=== PATIENT | female | born 1980 | race Two or more races ===

== ENCOUNTER 2021-08-23 14:11 | Outpatient (REF) | payer OTHER, SELFPAY ==
[2021-08-23 14:45] LABS: MANUAL DIFF FLAG NO
[2021-08-23 15:21] LABS: Basophils Absolute Auto 0.1 X10*3/uL (0.0-0.2); Basophils Percent Auto 0.7 % (0-2); Eosinophils Absolute Auto 0.1 X10*3/uL (0.0-0.4); Hematocrit 38.6 % (37.0-47.0); Hemoglobin 12.5 g/dl (12.0-16.0); Imm Gran Abs Auto 0.04 X10*3/uL (0.00-0.03); Imm Gran Pct Auto 0.3 % (0.0-0.4); Lymphocytes Absolute Auto 3.3 X10*3/uL (1.2-4.9); Mean Corpuscular HGB Conc 32.4 g/dl (31.0-35.0); Mean Corpuscular Volume 86.5 fL (80.0-98.0); Mean Platelet Volume 11.2 fL (9.4-12.3); Monocytes Absolute Auto 0.9 X10*3/uL (0.1-1.2); Monocytes Percent Auto 7.9 % (2-11); Neutrophils Percent Auto 61.1 % (45-73); Platelet Count 353 X10*3/uL (160-400); Red Blood Count 4.46 X10*6/uL (4.20-5.50); Red Cell Distribution Width 13.3 % (11.0-16.0); White Blood Count 11.4 X10*3/uL (4.8-10.8)
[2021-08-23 15:58] LABS: Alanine Aminotransferase 18 U/L (0-31); Albumin Level 4.5 g/dL (3.5-5.0); Alkaline Phosphatase 50 U/L (39-117); Anion Gap 15 (12-20); Aspartate Amino Transferase 15 U/L (5-31); Bilirubin Total 0.8 mg/dL (0.0-1.0); Blood Urea Nitrogen 13 mg/dL (9-16); Calcium 9.9 mg/dL (8.4-10.2); Carbon Dioxide 24 mmol/L (22-29); Chloride 104 mmol/L (96-108); Estimated Glomerular Filt Rate > 60; Glucose Random 81 mg/dL (60-115); Potassium 4.7 mmol/L (3.3-5.1); Sodium 138 mmol/L (135-145); Total Protein 7.8 g/dL (6.5-8.0)
[2021-08-23 17:28] LABS: H Pylori Breath Test Negative (Negative)
== END 2021-08-23 14:12 | disposition home or self-care (01) ==
LOC: HO.LAB 14:11
PROVIDERS: PCP Internal Medicine Geriatric Medicine; Visit Provider Physician Assistant
DX: A04.8 Other specified bacterial intestinal infections (principal); K21.9 Gastro-esophageal reflux disease without esophagitis
CPT/HCPCS: 36415; 80053; 83013; 85025; 99202

== ENCOUNTER → 2021-11-22 13:08 | Outpatient (BNVA) | payer OTHER, SELFPAY | PROVIDERS: PCP Internal Medicine Geriatric Medicine; Visit Provider Physician Assistant | DX: K21.9 Gastro-esophageal reflux disease without esophagitis (principal) | CPT/HCPCS: 99212 ==

== ENCOUNTER 2021-12-11 13:28 | Outpatient (REF) | payer OTHER, SELFPAY ==
[2021-12-11 14:15] LABS: COVID-19 Test Negative (Negative); IDNOW Serial# 9DB6401D
== END 2021-12-11 13:29 | disposition home or self-care (01) ==
LOC: HO.LAB 13:28
PROVIDERS: Visit Provider Internal Medicine
DX: Z20.822 Contact with and (suspected) exposure to COVID-19 (principal)
CPT/HCPCS: 87635; C9803

== ENCOUNTER → 2022-02-14 12:42 | Outpatient (BNVA) | payer OTHER, SELFPAY | PROVIDERS: PCP Internal Medicine Geriatric Medicine; Visit Provider Physician Assistant | DX: K21.9 Gastro-esophageal reflux disease without esophagitis (principal) | CPT/HCPCS: 99212 ==

== ENCOUNTER → 2022-03-13 09:01 | Outpatient (BNVA) | payer OTHER, SELFPAY | PROVIDERS: PCP Internal Medicine Geriatric Medicine; Referring Provider Internal Medicine Geriatric Medicine; Visit Provider Internal Medicine | DX: R00.2 Palpitations (principal); R94.31 Abnormal electrocardiogram [ECG] [EKG] | CPT/HCPCS: 93005; 99202 ==

== ENCOUNTER → 2022-03-27 11:10 | Outpatient (REF) | payer OTHER, SELFPAY ==
--- NOTE | 2022-03-27 11:13 | HM_ITS ---
Conclusion: 1. Patient was monitored for total 3 days 2. Baseline rhythm was normal sinus rhythm with average heart of 74 beats per minute 3. No significant pauses or bradycardia noted 4. Rare PACs/PVCs noted 5. Patient reported symptoms correlated with sinus rhythm MTDD
== END ==
LOC: HO.CARD 11:10
PROVIDERS: Visit Provider Internal Medicine
DX: R00.2 Palpitations (principal)
CPT/HCPCS: 93242

== ENCOUNTER → 2022-04-01 09:23 | Outpatient (REF) | payer OTHER, SELFPAY ==
--- NOTE | 2022-04-01 09:26 | CA_ITS ---
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 Study Quality: Adequate ECG Rhythm: Sinus Conclusions: - The left ventricular systolic function is normal. The calculated ejection fraction is 57% by biplane method. - No obvious valvular pathology seen on this study. Findings Left Ventricle Normal left ventricular cavity size. There is normal left ventricular wall thickness. The left ventricular systolic function is normal. The calculated ejection fraction is 57% by biplane method. There is no evidence of regional wall motion abnormalities. Diastolic function is normal for age. LV peak GLS -18.5%. Right Ventricle Normal right ventricular cavity size and systolic function. Atria Both atria are normal in size. Aortic Valve There is a normal trileaflet aortic valve. There is no aortic valve stenosis. There is no aortic valve regurgitation. Mitral Valve The mitral valve appears normal. There is trace mitral valve regurgitation. There is no mitral valve stenosis. Pulmonic Valve The pulmonic valve is likely normal. Tricuspid Valve Normal tricuspid valve structure. There is mild tricuspid valve regurgitation. There is no evidence of pulmonary hypertension. Great Vessels The asc aorta is normal in size. Venous The inferior vena cava is normal in size and collapses greater than 50% with inspiration. Pericardium/Pleural There is no evidence of pericardial effusion. Prior Study Comparison No prior study available for comparison. Recommendations, Care & Conclusions No obvious valvular pathology seen on this study. Measurements 2D Linear Measurements IVSd: 1.14 0.6-0.9/0.6-1.0 cm LVIDd: 5.48 3.9-5.3/4.2-5.9 cm LVIDd Index: 2.90 2.4-3.2/2.2-3.1 cm/m2 LVIDs: 3.67 2.0-3.6 cm LVPWd: 1.02 0.7-1.1 cm LA Diam: 3.20 2.7-3.8/3.0-4.0 cm LAIDs Index: 1.69 1.5-2.3 cm/m2 LV Mass: 292.63 67-162/88-224 g LV Mass Index: 154.83 43-95/49-115 g/m2 LVOT Diam: 2.00 3.0+(-)1.3 cm 2D Systolic Function EF 4C: 58.90 >55% EF 2C: 57.00 >55% EF BiP: 57.30 >55% Mitral Valve MV Pk E: 0.84 MV PK A: 0.75 MV Decel Time: 214.00 E/A: 1.10 E'Lateral: 12.80 E'Medial: 9.14 E/E' Med: 9.20 E/E' Lat: 6.60 PHT: 63.00 MVA PHT: 3.49 Decel Reeves: 3.92 Aortic Valve AoV Pk Liang: 1.71 AoV Mn Liang: 1.09 AoV VTI: 0.35 AoV Pk Grad: 12.00 Aov Mn Grad: 6.00 JEANMARIE Cont.VTI: 2.18 LVOT LVOT Pk Liang: 1.06 LVOT Mn Liang: 0.71 LVOT VTI: 0.24 LVOT Pk Grad: 4.00 LVOT Mn Grad: 2.00 LVOT Diam: 2.00 LVOT Area: 3.14 Diastolic Function MV Pk E: 0.84 MV Pk A: 0.75 E/A: 1.10 E'Medial: 9.14 E/E' Med: 9.20 E' Laterial: 12.80 E/E' Lat: 6.60 Right Ventricle TAPSE (mm): 22.10 TVS' Liang: 12.20 Tricuspid Valve TR Pk Liang: 2.27 TR Pk Grad: 21.00 RA Press: 3.00 RVSP: 24.00 Great Vessels Aorta Sinus of Valsalva: 3.20 2.0-3.[address] [place]: 2.55 1.7-3.4 cm Ao Asc: 3.30 2.1-3.4 cm Updated in Other Vendor System with Status of Final Christopher Chinchilla MD electronically signed on 04/01/2022 12:25:41 PM with status of Final
== END ==
LOC: HO.CARD 09:23
PROVIDERS: PCP Internal Medicine Geriatric Medicine; Visit Provider Internal Medicine
DX: I25.10 Atherosclerotic heart disease of native coronary artery without angina pectoris (principal); R94.31 Abnormal electrocardiogram [ECG] [EKG]
CPT/HCPCS: 93306; 93356

== ENCOUNTER → 2022-04-17 11:13 | Outpatient (REF) | payer OTHER, SELFPAY ==
--- NOTE | 2022-04-17 11:16 | CA_ITS ---
Acquisition Time: 2022-04-17 11:30:01 Total Exercise Time: 00:04:05 Test Indications: Abnormal ECG Medications: FAMOTIDINE Protocol: CHRISTOPHE Max HR: 123 BPM 69% of Pred: 178 BPM Max BP: 148/076 mmHG Max Work Load: 5.9 METS Exercise stres test with exercise 4 min 5 sec of Christophe protocol, achieving 69% MPHR with patient request to stop due to fatigue and sob, no chest discomfort, without arrythmia, with normotensive response to exercise, with nondiagnostic EKG for ischemia due to suboptimal heart rate. Echo images obtained by tech at rest and immediately post peak exercise. Definity contrast used. Test reviewed with Dr Deleon. Referred By: Christopher Chinchilla Overread By: JOSSUE MITCHELL
== END ==
LOC: HO.CARD 11:13
PROVIDERS: PCP Internal Medicine Geriatric Medicine; Visit Provider Internal Medicine
DX: R07.2 Precordial pain (principal); R94.31 Abnormal electrocardiogram [ECG] [EKG]
CPT/HCPCS: 93350; Q9957

== ENCOUNTER → 2022-05-16 12:46 | Outpatient (BNVA) | payer OTHER, SELFPAY | PROVIDERS: PCP Internal Medicine Geriatric Medicine; Visit Provider Physician Assistant | DX: K21.9 Gastro-esophageal reflux disease without esophagitis (principal); Z79.899 Other long term (current) drug therapy | CPT/HCPCS: 99212 ==

== ENCOUNTER 2022-06-13 08:04 | Outpatient (REF) | payer OTHER, SELFPAY ==
--- NOTE | ~2022-06-13 | CT_ITS ---
EXAMINATION: CT HEAD WITHOUT CONTRAST CLINICAL INFORMATION: Chronic nonintractable headache. COMPARISON: None available. TECHNIQUE: Contiguous axial imaging was performed from the skull base to vertex without intravenous administration of contrast. This CT examination was performed using dose optimization techniques as appropriate, variously including the following: *Automated exposure control *Adjustment of mA and/or kV according to patient size (this includes techniques or standardized protocols for targeted exams where dose is matched to indication/reason for exam; i.e. extremities or head) *Use of iterative reconstruction technique DLP: 956 mGy-cm FINDINGS: There is no acute intra-axial, extra-axial bleed, masses or midline shift. There is no acute infarction of the lesion. There is no edema. The lateral ventricles are symmetrical in size and configuration without enlargement. Contreras to white matter differentiation is maintained normal. Bone windows reveal no calvarial abnormality. There is no scalp abnormality seen. Bilateral paranasal sinuses and mastoid air cells are well-aerated. CT/CT head/brain wo IV con IMPRESSION: No acute intracranial process seen.
== END 2022-06-13 08:05 | disposition home or self-care (01) ==
LOC: HO.CT 08:04
PROVIDERS: PCP Internal Medicine Geriatric Medicine; Visit Provider Internal Medicine Geriatric Medicine
DX: G51.9 Disorder of facial nerve, unspecified (principal); G89.29 Other chronic pain
CPT/HCPCS: 70450

== ENCOUNTER 2022-07-04 11:06 | Outpatient (REF) | payer OTHER, SELFPAY ==
--- NOTE | ~2022-07-04 | MM_ITS ---
EXAMINATION: MM SCREENING DIGITAL BREAST TOMOSYNTHESIS, BILATERAL CLINICAL INFORMATION: Screening. Asymptomatic. The lifetime risk of breast cancer based on the Tyrer-Cuzick Model is 7.1%. COMPARISON: Mammography: April 16, 2013 and April 05, 2013 TECHNIQUE: Digital breast tomosynthesis is performed in both the craniocaudal and mediolateral oblique views along with computer-aided detection (CAD). Synthesized 2D images are generated from the tomosynthesis. FINDINGS: The breasts are heterogeneously dense, which may obscure small masses (ACR BI-RADS breast composition Category c). There are no new significant masses, abnormal calcifications, or other abnormalities. MM/MM tomosynthesis screening BI IMPRESSION: No significant changes ASSESSMENT: BI-RADS 1: Negative RECOMMENDATION: Routine annual mammography screening. This patient's information was entered into a reminder system with a target due date for their next mammogram.
== END 2022-07-04 11:07 | disposition home or self-care (01) ==
LOC: HO.MAMMO 11:06
PROVIDERS: PCP Internal Medicine Geriatric Medicine; Visit Provider Internal Medicine Geriatric Medicine
DX: Z12.31 Encounter for screening mammogram for malignant neoplasm of breast (principal)
CPT/HCPCS: 77063; 77067

== ENCOUNTER → 2022-08-01 12:27 | Outpatient (BNVA) | payer OTHER, SELFPAY | PROVIDERS: PCP Internal Medicine Geriatric Medicine; Referring Provider Internal Medicine Geriatric Medicine; Visit Provider Nurse Practitioner Family | DX: R00.2 Palpitations (principal); R94.31 Abnormal electrocardiogram [ECG] [EKG] | CPT/HCPCS: 99212 ==

== ENCOUNTER 2022-09-25 11:16 | Outpatient (AMB) | payer OTHER, SELFPAY ==
--- NOTE | 2022-09-25 11:28 | MHC.OFFVIS ---
Intake Vital Signs 09/25/22 11:40 Height 5 ft 1 in Weight 205 lb 14.588 oz BMI 38.9 BP 123/71 Blood Pressure Location Lt brachial Position Sitting Pulse 65 Intake Visit Reasons: 3 month fu Intake Note: Patient follow up acid reflex. Patient cc: pt reports having epigastric abdominal pain, GERD, bloating pt denies any other GI Issues Grievance And Appeals Coordinator Required: Yes Grievance And Appeals Coordinator Language: Laser Technician Name: Rhonda [facility] [place] Accompanied by: Self / Same As Patient Allergies No Known Allergies [No Known Allergies*] Allergy (Verified 09/25/22 11:40) HPI HPI Comments History of Present Illness Details A 42 y/o female acid reflux 3 month F/u- Last seen was doing well on famotidine-she says she is taking it at night time- its not working. Omeprazole does not work EGD 10/2019- no HP c/o discomfort-LBP- she says she spoke pcp- says its a muscle problem-PT- - but doesn't work- Reviewed diet-Coffee she states she can not remember what else she eats. She gets some stomach discomfort after she eats however she does not know how long it lasts, she is unable to identify anything specific She has no nausea, vomiting, hematemesis, hematochezia fever or chills PFSH Surgical History H/O section History of esophagogastroduodenoscopy (EGD) Hx of colonoscopy Family History Family/Other Cancer Diabetes Social History Household Members: Spouse Alcohol intake: never Patient Tobacco Use Status: Never used Tobacco Current occupational status: unemployed Review of Systems Const All systems reviewed & are unremarkable except as noted in HPI and below Resp Denies cough GI Reports bloating, Reports GI cramping, Reports heartburn, Denies nausea and Denies vomiting Physical Exam Vital Signs: Last Vital Signs Pulse 65 09/25/22 11:40 BP 123/71 09/25/22 11:40 BMI result Body Mass Index 38.9 Const General: cooperative, healthy appearing, comfortable and no acute distress Nutritional Appearance: overweight Orientation/consciousness: patient oriented x3 Limitations: language barrier Resp Effort & Inspection: normal respiratory effort and able to speak in complete sentences Auscultation: clear to auscultation bilaterally Cardio Rate: regular rate Rhythm: regular rhythm Heart sounds: S1 normal heart sound present and S2 normal heart sound present GI Inspection: Yes obesity Palpation (GI): Soft to palpation Auscultation: normal bowel sounds General: Yes no CVA tenderness Back/Spine/Pelvis Back: no CVA tenderness Skin General skin exam: no rashes or lesions noted Neuro General: patient oriented x3 Extrem Other: Walks with a slight limp Psych Mental Status: mental status grossly normal Speech and movement: Clear speech present Affect: normal affect Attitude: cooperative Thought content: Normal thought content present Results Reviewed Results Reviewed: 10/2019- EGD- no HP- Assessment & Plan Assessment & Plan (1) Acid reflux: Comment: Persistent reflux, symptoms vague, Will begin Famotidine 20 mg b.i.d. has declined PPI Dietary modifications -recommend food diary to try to identify culprits Code(s): K21.9 - Gastro-esophageal reflux disease without esophagitis Plan Famotidine 20 mg b.i.d. Reflux precautions reviewed Food diary Follow-up with PCP for non GI concerns Orders: Orders Comprehensive Met. Panel Today K58.9 - Irritable bowel syndrome without diarrhea Complete Blood Count Auto Diff Today K21.9 - Gastro-esophageal reflux disease without esophagitis Medications: New famotidine 20 mg PO BID 30 days 60 tabs 5RF Patient Instructions: Famotidine 20 mg b.i.d. Reflux precautions reviewed Food diary Follow-up with PCP for non GI concerns Encouraged to call with questions or concerns She back in 3 months for progress, sooner if indicated No major barriers to understanding were identified Coding Level of Care Code Est Pt Level 3 (44691) Diagnoses Acid reflux K21.9 Time Spent (min) 30 Comment Grievance And Appeals Coordinator
[2022-09-25 11:40] VITALS: BP 123/71; PULSE 65; BMI 38.9
== END 2022-09-25 12:14 | disposition home or self-care (01) ==
PROVIDERS: Visit Provider Physician Assistant
DX: K21.9 Gastro-esophageal reflux disease without esophagitis (principal)
CPT/HCPCS: 99213

== ENCOUNTER 2022-09-25 11:16 | Outpatient (REF) | payer OTHER, SELFPAY ==
[2022-09-25 12:41] LABS: MANUAL DIFF FLAG NO
[2022-09-25 13:07] LABS: Basophils Absolute Auto 0.1 X10*3/uL (0.0-0.2); Basophils Percent Auto 0.7 % (0-2); Eosinophils Absolute Auto 0.1 X10*3/uL (0.0-0.4); Eosinophils Percent Auto 0.9 % (0-4); Hematocrit 38.2 % (37.0-47.0); Hemoglobin 12.4 g/dl (12.0-16.0); Imm Gran Abs Auto 0.03 X10*3/uL (0.00-0.03); Imm Gran Pct Auto 0.3 % (0.0-0.4); Lymphocytes Absolute Auto 2.5 X10*3/uL (1.2-4.9); Lymphocytes Percent Auto 27.9 % (20-40); Mean Corpuscular HGB Conc 32.5 g/dl (31.0-35.0); Mean Corpuscular Hemoglobin 28.4 pg (27.0-33.0); Mean Corpuscular Volume 87.4 fL (80.0-98.0); Mean Platelet Volume 10.9 fL (9.4-12.3); Monocytes Absolute Auto 0.7 X10*3/uL (0.1-1.2); Monocytes Percent Auto 7.3 % (2-11); Neutrophils Absolute Auto 5.7 x10*3/uL (2.0-8.3); Neutrophils Percent Auto 62.9 % (45-73); Platelet Count 332 X10*3/uL (160-400); Red Blood Count 4.37 X10*6/uL (4.20-5.50); Red Cell Distribution Width 12.8 % (11.0-16.0); White Blood Count 9.1 X10*3/uL (4.8-10.8)
[2022-09-25 13:25] LABS: Alanine Aminotransferase 19 U/L (0-31); Albumin Level 4.2 g/dL (3.5-5.0); Alkaline Phosphatase 49 U/L (39-117); Anion Gap 8 (12-20); Aspartate Amino Transferase 10 U/L (5-31); Bilirubin Total 0.4 mg/dL (0.0-1.0); Blood Urea Nitrogen 15 mg/dL (9-16); Calcium 9.7 mg/dL (8.4-10.2); Carbon Dioxide 30 mmol/L (22-29); Chloride 106 mmol/L (96-108); Estimated Glomerular Filt Rate > 60; Glucose Random 98 mg/dL (60-115); Potassium 4.4 mmol/L (3.3-5.1); Sodium 140 mmol/L (135-145); Total Protein 7.6 g/dL (6.5-8.0)
== END 2022-09-25 11:17 | disposition home or self-care (01) ==
LOC: HO.LAB 11:16
PROVIDERS: PCP Internal Medicine Geriatric Medicine; Visit Provider Physician Assistant
DX: K21.9 Gastro-esophageal reflux disease without esophagitis (principal); K58.9 Irritable bowel syndrome, unspecified
CPT/HCPCS: 36415; 80053; 85025; 99212

== ENCOUNTER 2022-09-30 07:29 | Outpatient (REF) | payer OTHER, SELFPAY ==
--- NOTE | ~2022-09-30 | CT_ITS ---
EXAMINATION: CT CHEST WITHOUT CONTRAST CLINICAL INFORMATION: 0.3 cm nodule seen on cardiac CT an outside institution in the left lower lung COMPARISON: None available. TECHNIQUE: Multidetector volumetric CT imaging of the chest was done. Axial MIP volume rendering provided. Sagittal and coronal reformatted images were obtained. This CT examination was performed using dose optimization techniques as appropriate, variously including the following: *Automated exposure control *Adjustment of mA and/or kV according to patient size (this includes techniques or standardized protocols for targeted exams where dose is matched to indication/reason for exam; i.e. extremities or head) *Use of iterative reconstruction technique DLP: 198 mGy-cm FINDINGS: SUPERVISOR SIGN SHOP: Unremarkable LUNGS: The lungs are clear with no evidence of inflammation or nodules. MEDIASTINUM: The mediastinum is normal. CORONARY ARTERY CALCIFICATION: None visualized on this study. PLEURA: There is no pleural effusion. No pleural mass or thickening. AXILLA: No lymphadenopathy. UPPER ABDOMEN: Unremarkable. OSSEOUS STRUCTURES: Unremarkable. CT/CT chest wo IV con IMPRESSION: Unremarkable examination. Fleischner guidelines were followed.
== END 2022-09-30 07:30 | disposition home or self-care (01) ==
LOC: HO.CT 07:29
PROVIDERS: PCP Internal Medicine Geriatric Medicine; Visit Provider Emergency Medicine
DX: R93.89 Abnormal findings on diagnostic imaging of other specified body structures (principal)
CPT/HCPCS: 71250

== ENCOUNTER 2022-11-15 10:15 | Outpatient (REF) | payer OTHER, SELFPAY ==
--- NOTE | ~2022-11-15 | XR_ITS ---
EXAMINATION: XR LUMBAR SPINE XR HIP, LEFT CLINICAL INFORMATION: Back and hip pain. COMPARISON: Most recent lumbar spine radiographs dated 05/19/2018. TECHNIQUE: AP, lateral, and coned-down views of the lumbar spine. AP and lateral views of the left hip. FINDINGS: Lumbar spine: No acute fracture or subluxation. The lumbar lordosis is maintained. No loss of vertebral body or intervertebral disc height. Tiny anterior endplate osteophytes at L3 through L5. No concerning lytic or blastic osseous lesion. No abnormal soft tissue calcification. Left hip: No acute fracture or dislocation. No significant joint space narrowing or marginal osteophytes. No osseous erosion. Phlebolith within the pelvis. XR/XR hip LT min 2V IMPRESSION: LUMBAR SPINE: Minimal degenerative disc disease at L3-L5. LEFT HIP: Unremarkable examination.
--- NOTE | ~2022-11-15 | XR_ITS ---
EXAMINATION: XR LUMBAR SPINE XR HIP, LEFT CLINICAL INFORMATION: Back and hip pain. COMPARISON: Most recent lumbar spine radiographs dated 05/19/2018. TECHNIQUE: AP, lateral, and coned-down views of the lumbar spine. AP and lateral views of the left hip. FINDINGS: Lumbar spine: No acute fracture or subluxation. The lumbar lordosis is maintained. No loss of vertebral body or intervertebral disc height. Tiny anterior endplate osteophytes at L3 through L5. No concerning lytic or blastic osseous lesion. No abnormal soft tissue calcification. Left hip: No acute fracture or dislocation. No significant joint space narrowing or marginal osteophytes. No osseous erosion. Phlebolith within the pelvis. XR/XR lumbar spine 2-3V IMPRESSION: LUMBAR SPINE: Minimal degenerative disc disease at L3-L5. LEFT HIP: Unremarkable examination.
== END 2022-11-15 10:16 | disposition home or self-care (01) ==
LOC: HO.HHCX 10:15
PROVIDERS: Visit Provider Internal Medicine
DX: M25.552 Pain in left hip (principal); M54.50 Low back pain, unspecified
CPT/HCPCS: 72100; 73502

== ENCOUNTER 2022-12-26 11:30 | Outpatient (AMB) | payer OTHER, SELFPAY ==
--- NOTE | 2022-12-26 11:41 | A.OFFVIS_ITS ---
Intake Vital Signs 12/26/22 11:43 Height 5 ft 1 in Weight 198 lb BMI 37.4 BP 113/57 L Blood Pressure Location Lt brachial Position Sitting Pulse 72 Intake Visit Reasons: 3 month fu Intake Note: Patient follow up for Patient cc: lower abdominal pain, denies any other GI issues. Medical Assistant Per Diem Required: Yes Medical Assistant Per Diem Name: [facility] [place] interpeter Accompanied by: Father Allergies No Known Allergies [No Known Allergies*] Allergy (Verified 12/26/22 11:39) HPI HPI Comments History of Present Illness Details EGD 2019 Seen last 08/2022- c/o felt a lump yesterday in the top of her belly- Famotidine taking once daily-declined ppi Drinks a lot of coffee-she is here with her who elaborate In her appetite is good- Bowels are she has menstrual cramps- they are typically bad- No nausea, vomiting, hematemesis, hematochezia fever chills PFSH Surgical History History of esophagogastroduodenoscopy (EGD) Hx of colonoscopy H/O section Family History Family/Other Cancer Diabetes Social History Household Members: Spouse Alcohol intake: never Patient Tobacco Use Status: Never used Tobacco Current occupational status: unemployed Review of Systems Const All systems reviewed & are unremarkable except as noted in HPI and below Card Denies chest pain and Denies dyspnea Resp Denies dyspnea GI Reports abdominal pain (Resolved, they), Denies hematochezia, Denies change in bowel habits and Reports heartburn Reports dysmenorrhea Physical Exam Vital Signs: Last Vital Signs Pulse 72 12/26/22 11:43 BP 113/57 L 12/26/22 11:43 BMI result Body Mass Index 37.4 Const General: comfortable Orientation/consciousness: patient oriented x3 Limitations: language barrier Eyes Sclerae: sclerae normal Resp Effort & Inspection: normal respiratory effort and able to speak in complete sentences Auscultation: clear to auscultation bilaterally, no rhonchi and no wheezes Cardio Rate: regular rate Rhythm: regular rhythm GI Inspection: Yes Abdominal panniculus present Palpation (GI): Soft to palpation, nontender and Other GI palpation findings present (no lump appreciated) Auscultation: normal bowel sounds Skin General skin exam: no rashes or lesions noted Neuro General: patient oriented x3 Extrem General: Yes full ROM Psych Appearance: well kempt Mental Status: mental status grossly normal Speech and movement: Normal speech and movement present and Clear speech present Affect: normal affect Attitude: cooperative Thought process: Normal thought process present Thought content: Normal thought content present Results Reviewed Results Reviewed: EGD- Marie no HP Assessment & Plan Assessment & Plan (1) Acid reflux: Comment: Persistent reflux, symptoms vague, She has declined PPI, encouraged her to give trial to famotidine b.i.d. in hopes that gives her better coverage Dietary modifications -recommend food diary to try to identify culprits Code(s): K21.9 - Gastro-esophageal reflux disease without esophagitis Plan: Famotidine 20 mg b.i.d. Avoid culprits such as caffeine (2) Abdominal pain: Comment: Vague, not appreciated on exam Code(s): R10.9 - Unspecified abdominal pain Plan: Abdominal ultrasound Orders: Orders US abdomen complete Today R10.9 - Unspecified abdominal pain Patient Instructions: after u/s pepcid 20 bid avoid culprits to include cough Follow-up with PCP for back pain Coding Level of Care Code Est Pt Level 3 (35547) Diagnoses Acid reflux K21.9 Abdominal pain R10.9 Time Spent (min) 25 Comment lead ios developer
[2022-12-26 11:43] VITALS: BP 113/57; PULSE 72; BMI 37.4
== END 2022-12-26 13:00 | disposition home or self-care (01) ==
PROVIDERS: PCP Internal Medicine Geriatric Medicine; Visit Provider Physician Assistant
DX: K21.9 Gastro-esophageal reflux disease without esophagitis (principal); R10.9 Unspecified abdominal pain
CPT/HCPCS: 99213

== ENCOUNTER → 2022-12-26 11:30 | Outpatient (BNVA) | payer OTHER, SELFPAY | PROVIDERS: PCP Internal Medicine Geriatric Medicine; Visit Provider Physician Assistant | DX: K21.9 Gastro-esophageal reflux disease without esophagitis (principal); R10.9 Unspecified abdominal pain | CPT/HCPCS: 99212 ==

== ENCOUNTER 2023-01-22 09:58 | Outpatient (REF) | payer OTHER, SELFPAY ==
--- NOTE | ~2023-01-22 | US_ITS ---
EXAMINATION: US ABDOMEN COMPLETE CLINICAL INFORMATION: Unspecified abdominal pain. COMPARISON: None available. TECHNIQUE: Real-time imaging of the abdominal viscera. FINDINGS: PANCREAS: Pancreas appears unremarkable. The pancreatic duct measures 2 mm. The pancreatic tail was obscured by bowel gas. ABDOMINAL AORTA: The proximal, mid, and distal segments are normal in caliber. INFERIOR VENA CAVA: Visualized portions are normal. LIVER: The liver is minimally prominent at 17 cm. The liver contour is normal. There is diffuse increased liver parenchymal echogenicity, consistent with hepatic steatosis. No focal hepatic lesion. There is no intrahepatic biliary duct dilatation seen. GALLBLADDER: The gallbladder is physiologically distended. Multiple small mobile gallstones are present. No evidence of gallbladder wall thickening or pericholecystic fluid. COMMON BILE DUCT: Normal in caliber measuring 0.2 cm in diameter. RIGHT KIDNEY: Normal. No hydronephrosis. No renal calculi or focal parenchymal lesions. The kidney measures 10.5 cm in maximum dimension. LEFT KIDNEY: Normal. No hydronephrosis. No renal calculi or focal parenchymal lesions. The kidney measures 10.7 cm in maximum dimension. SPLEEN: Normal. The spleen measures 9.2 cm in maximum dimension. FREE FLUID: None. US/US abdomen complete IMPRESSION: 1. Hepatic steatosis. 2. Cholelithiasis without evidence of cholecystitis.
== END 2023-01-22 09:59 | disposition home or self-care (01) ==
LOC: HO.US 09:58
PROVIDERS: PCP Internal Medicine Geriatric Medicine; Visit Provider Physician Assistant
DX: R10.9 Unspecified abdominal pain (principal)
CPT/HCPCS: 76700

== ENCOUNTER 2023-02-05 09:34 | Outpatient (REF) | payer OTHER, SELFPAY ==
[2023-02-05 11:07] LABS: MANUAL DIFF FLAG NO
[2023-02-05 11:35] LABS: Basophils Absolute Auto 0.1 X10*3/uL (0.0-0.2); Basophils Percent Auto 0.6 % (0-2); Eosinophils Absolute Auto 0.1 X10*3/uL (0.0-0.4); Eosinophils Percent Auto 0.7 % (0-4); Hematocrit 39.3 % (37.0-47.0); Hemoglobin 12.6 g/dl (12.0-16.0); Imm Gran Abs Auto 0.03 X10*3/uL (0.00-0.03); Imm Gran Pct Auto 0.4 % (0.0-0.4); Lymphocytes Absolute Auto 2.3 X10*3/uL (1.2-4.9); Lymphocytes Percent Auto 26.5 % (20-40); Mean Corpuscular HGB Conc 32.1 g/dl (31.0-35.0); Mean Corpuscular Volume 87.3 fL (80.0-98.0); Mean Platelet Volume 11.4 fL (9.4-12.3); Monocytes Absolute Auto 0.5 X10*3/uL (0.1-1.2); Monocytes Percent Auto 6.1 % (2-11); Neutrophils Absolute Auto 5.6 x10*3/uL (2.0-8.3); Neutrophils Percent Auto 65.7 % (45-73); Platelet Count 338 X10*3/uL (160-400); Red Cell Distribution Width 13.2 % (11.0-16.0); White Blood Count 8.5 X10*3/uL (4.8-10.8)
[2023-02-05 11:51] LABS: Alanine Aminotransferase 16 U/L (0-31); Albumin Level 4.4 g/dL (3.5-5.0); Alkaline Phosphatase 47 U/L (39-117); Anion Gap 12 (12-20); Aspartate Amino Transferase 12 U/L (5-31); Bilirubin Total 1.4 mg/dL (0.0-1.0); Blood Urea Nitrogen 15 mg/dL (9-16); Calcium 9.9 mg/dL (8.4-10.2); Carbon Dioxide 24 mmol/L (22-29); Chloride 107 mmol/L (96-108); Estimated Glomerular Filt Rate > 60; Glucose Random 125 mg/dL (60-115); Potassium 4.1 mmol/L (3.3-5.1); Sodium 139 mmol/L (135-145); Total Protein 8.1 g/dL (6.5-8.0)
== END 2023-02-05 09:35 | disposition home or self-care (01) ==
LOC: HO.HHCL 09:34
PROVIDERS: Visit Provider Internal Medicine Geriatric Medicine
DX: R10.10 Upper abdominal pain, unspecified (principal); K80.20 Calculus of gallbladder without cholecystitis without obstruction
CPT/HCPCS: 36415; 80053; 85025

== ENCOUNTER 2023-02-13 10:37 | Outpatient (AMB) | payer OTHER, SELFPAY ==
[2023-02-13 10:45] VITALS: BP 124/63; PULSE 68; BMI 38.2
--- NOTE | 2023-02-13 10:45 | A.OFFVIS_ITS ---
Intake Vital Signs 02/13/23 10:45 Height 5 ft 1 in Weight 202 lb BMI 38.2 BP 124/63 Blood Pressure Location Rt brachial Position Sitting Pulse 68 Intake Visit Reasons: Gallstones Intake Note: This patient was referred by Dr. Peralta for an assessment for gallstones. Patient c/o; reports no RUQ pain at this time, reports no postprandial nausea or vomiting. State'S Attorney Required: Yes State'S Attorney Language: Collet Driller Name: Christi Information Interpreted: non-clinical & clinical Accompanied by: Spouse Allergies No Known Allergies [No Known Allergies*] Allergy (Verified 02/13/23 10:56) Medication List - Last Reconciled 02/13/23 by Juan Sen MD cholecalciferol (vitamin D3) (Vitamin D3) 25 mcg PO QAM famotidine 40 mg PO DAILY famotidine 20 mg PO BID 30 days ibuprofen 800 mg PO TID omega-3 fatty acids 1,000 mg PO DAILY HPI Gallstones HPI Details 42-year-old female referred for gallston es. She was sent for an abdominal ultrasound by her electronic publishing specialist because of her complaints of abdominal pain. This showed gallstones. She had been seeing her electronic publishing specialist because of periodic pain on the epigastric area. She also says that this is sometimes on the left upper quadrant. She says she really does not have pain on the right upper quadrant. She is on famotidine because of this epigastric pain states that this seems to help. She had good oral intake. She any problems with meals. She does not describe any aggravating factor. [facility] Medical History (Updated 02/13/23 @ 11:31 by Juan Sen MD) Gallstones Surgical History History of esophagogastroduodenoscopy (EGD) Hx of colonoscopy H/O section Family History Family/Other Cancer Diabetes Social History Household Members: Spouse Alcohol intake: never Patient Tobacco Use Status: Never used Tobacco Current occupational status: unemployed Review of Systems Const Denies chills and Denies fever(s) Card Denies chest pain, Denies dyspnea and Denies dyspnea on exertion Resp Denies cough, Denies dyspnea and Denies dyspnea on exertion GI Denies hematochezia and Denies change in bowel habits Denies hematuria Musc Denies back pain and Denies limited range of motion Neuro Denies focal weakness and Denies convulsions Psych Denies depression and Denies mood swings Physical Exam Vital Signs: Last Vital Signs Pulse 68 02/13/23 10:45 BP 124/63 02/13/23 10:45 BMI result Body Mass Index 38.2 Const Other: Obese looking General: comfortable and no acute distress Orientation/consciousness: patient oriented x3 Neck Neck: Yes no lymphadenopathy Resp Auscultation: clear to auscultation bilaterally Cardio Rhythm: regular rhythm GI Palpation (GI): Soft to palpation, nontender and no guarding Neuro General: patient oriented x3 Assessment & Plan Assessment & Plan (1) Gallstones: Code(s): K80.20 - Calculus of gallbladder without cholecystitis without obstruction Plan: She has gallstones on ultrasound. I reviewed with her the option of proceeding with cholecystectomy. I discussed the technique of laparoscopic cholecystectomy and possible open cholecystectomy. I explained the risks including but not limited to bleeding, infections, injury to other organs, bile leak, as well as the benefits and alternatives. She however states that her pain is in the epigastric area and the left upper quadrant. She denies having pain on the right side of her abdomen. Her symptoms may be atypical. She therefore wants to hold off on the procedure for now. Her states that he does not want her to have any surgical procedure for now as well I did advise her that if she has recurrent pain on the right side of her abdomen, I would highly recommend proceeding with cholecystectomy She says she will call my office follow-up or if she decides to proceed with cholecystectomy. Coding Level of Care Code New Pt Level 3 (40476) Diagnoses Gallstones K80.20
== END 2023-02-13 11:29 | disposition home or self-care (01) ==
PROVIDERS: PCP Internal Medicine Geriatric Medicine; Referring Provider Internal Medicine Geriatric Medicine; Visit Provider Surgery
DX: K80.20 Calculus of gallbladder without cholecystitis without obstruction (principal)
CPT/HCPCS: 99203

== ENCOUNTER → 2023-02-13 10:37 | Outpatient (BNVA) | payer OTHER, SELFPAY | PROVIDERS: PCP Internal Medicine Geriatric Medicine; Referring Provider Internal Medicine Geriatric Medicine; Visit Provider Surgery | DX: K80.20 Calculus of gallbladder without cholecystitis without obstruction (principal) | CPT/HCPCS: 99202 ==

== ENCOUNTER 2023-03-20 11:02 | Outpatient (AMB) | payer OTHER, SELFPAY ==
--- NOTE | 2023-03-20 11:24 | MHC.OFFVIS ---
Intake Vital Signs 03/20/23 11:36 Height 5 ft 1 in Weight 203 lb 8 oz BMI 38.4 BP 128/65 Blood Pressure Location Lt brachial Position Sitting Pulse 64 Pulse Source Pulse Oximeter Pulse Oximetry (%) 96 Oxygen Delivery Method Room Air Intake Visit Reasons: ENP-Daytime sleepinees/Habitual snoring Intake Note: Patient presents day time sleepiness and habitual snoring. three headaches a week and it hurts to put hair tides.' Allergies seafood Allergy (Verified 03/20/23 11:42) Eye Swelling HPI HPI Comments History of Present Illness Details 42 y/o female patient presents for new in-person visit for sleep consultation. Certified biomedical engineering internship Flaquita Carmen helped for this visit. Pt reports excessive daytime sleepiness. She feels tired all the time, keeps falling asleep during the day. She sleeps 7 hrs at night, but wakes up non refreshed. She snores and has AM headache. Sleep questionnaire: Have you ever been diagnosed with a sleep disorder? No. Have you ever had a sleep study in the past? Yes, many years ago, but can't remember the result. Have you ever been treated for a sleep disorder? No. Do you take medications for a sleep disorder? No. Do you snore? Yes, little but snore when she sleep on her back Do you wake up gasping at night? No. Do you have episodes of apneas? No. If yes, are they witnessed? No. Do you have episodes of nocturnal chest pain or dyspnea? No. Do you have difficulty initiating sleep? No. Do you have difficulty maintaining sleep? No. Do you wake up tired? Yes. Do you have headaches upon awakening? Yes, sometimes. Do you wake up with dry mouth or throat? Yes, sometimes. Do you have GERD? Yes. Do you have nocturia? No. Do you have nocturnal leg cramps? Yes. Do you have symptoms of restless legs? No. Do you act out your dreams? No. Sleep hygiene questionnaire: What is your usual sleep routine? Usual bedtime is at 9 pm; Usual wake up time is at 4 am. Do you take naps? Yes, sometimes. Is your sleep environment cool, dark, and quiet? Yes. Do you exercise? No. Do you take caffeine or other stimulants? Coffee throughout the day. Do you use electronics in bed? Yes. What is your work schedule? N/A. Hypersomnolence questionnaire: Do you have daytime tiredness or fatigue? Yes. Do you easily fall asleep when inactive? Yes. Have you ever had episodes of sudden weakness? No. Have you ever had episodes of sudden weakness associated with strong emotions? No. PFSH Medical History Gallstones Surgical History History of esophagogastroduodenoscopy (EGD) Hx of colonoscopy H/O section Family History Family/Other Cancer Diabetes Social History Household Members: Spouse Alcohol intake: never Patient Tobacco Use Status: Never used Tobacco Current occupational status: unemployed Review of Systems Const All systems reviewed & are unremarkable except as noted in HPI and below Physical Exam Vital Signs: Last Vital Signs Pulse 64 03/20/23 11:36 BP 128/65 03/20/23 11:36 Pulse Ox 96 03/20/23 11:36 Oxygen Delivery Method Room Air 03/20/23 11:36 BMI result Body Mass Index 38.4 Const General: cooperative Nutritional Appearance: obese Orientation/consciousness: patient oriented x3 Limitations: language barrier Neck Neck: Yes full ROM and Yes supple Resp Effort & Inspection: normal respiratory effort and able to speak in complete sentences Neuro General: patient oriented x3 and moves all extremities Cranial nerves: Yes CN's II-XII intact bilaterally Cognition (Neuro): normal cognition Gait exam (Neuro): Normal gait present Motor exam (neuro): 5/5 motor strength present throughout Psych Appearance: grossly normal Mental Status: mental status grossly normal Speech and movement: Normal speech and movement present Affect: normal affect Attitude: cooperative Assessment & Plan Assessment & Plan (1) Excessive daytime sleepiness: Code(s): G47.19 - Other hypersomnia (2) Snoring: Code(s): R06.83 - Snoring Plan Pt is advised to undergo home sleep home study to assess for sleep apnea. Will f/u with pt after study to discuss results and appropriate treatment options. Sleep hygiene education provided. Wt reduction advised. Pt to call with any worsening concerns or questions. Orders: Orders RT home sleep study Today E66.9 - Obesity, unspecified, G47.19 - Other hypersomnia, R06.83 - Snoring Coding Level of Care Code New Pt Level 3 (25523) Diagnoses Excessive daytime sleepiness G47.19 Snoring R06.83
[2023-03-20 11:36] VITALS: BP 128/65; PULSE 64; O2SAT 96; BMI 38.4
== END 2023-03-20 12:00 | disposition home or self-care (01) ==
PROVIDERS: PCP Internal Medicine Geriatric Medicine; Visit Provider Nurse Practitioner Family
DX: G47.19 Other hypersomnia (principal); R06.83 Snoring
CPT/HCPCS: 99203

== ENCOUNTER → 2023-03-20 11:02 | Outpatient (BNVA) | payer OTHER, SELFPAY | PROVIDERS: PCP Internal Medicine Geriatric Medicine; Visit Provider Nurse Practitioner Family | DX: G47.19 Other hypersomnia (principal); R06.83 Snoring | CPT/HCPCS: 99202 ==

== ENCOUNTER → 2023-04-28 15:26 | Outpatient (REF) | payer OTHER, SELFPAY | LOC: HO.SL 15:26 | PROVIDERS: PCP Internal Medicine Geriatric Medicine; Visit Provider Nurse Practitioner Family | DX: R06.83 Snoring (principal); G47.19 Other hypersomnia; E66.9 Obesity, unspecified | CPT/HCPCS: 95806 ==

== ENCOUNTER → 2023-04-28 15:38 | Outpatient (BNV) | payer OTHER, SELFPAY | PROVIDERS: PCP Internal Medicine Geriatric Medicine; Visit Provider Psychiatry & Neurology Neurology | DX: R06.83 Snoring (principal) | CPT/HCPCS: 95806 ==

== ENCOUNTER 2023-07-10 09:36 | Outpatient (REF) | payer OTHER, SELFPAY ==
--- NOTE | ~2023-07-10 | MM_ITS ---
EXAMINATION: MM SCREENING DIGITAL BREAST TOMOSYNTHESIS, BILATERAL CLINICAL INFORMATION: Screening. Asymptomatic. COMPARISON: Mammography: This study is compared with prior exams dating back to 2013. TECHNIQUE: Digital breast tomosynthesis is performed in both the craniocaudal and mediolateral oblique views along with computer-aided detection (CAD). Synthesized 2D images are generated from the tomosynthesis. FINDINGS: There are scattered areas of fibroglandular density (ACR BI-RADS breast composition Category b). There are no significant masses, abnormal calcifications, or other abnormalities. MM/MM tomosynthesis screening BI IMPRESSION: No mammographic evidence of malignancy. ASSESSMENT: BI-RADS BI-RADS 1 - Negative RECOMMENDATION: Routine annual mammography screening. 1 year F/U This examination should not preclude the clinical evaluation of a suspicious palpable abnormality. This patient's information was entered into a reminder system with a target due date for their next mammogram.
== END 2023-07-10 09:37 | disposition home or self-care (01) ==
LOC: HO.MAMMO 09:36
PROVIDERS: PCP Internal Medicine Geriatric Medicine; Visit Provider Internal Medicine Geriatric Medicine
DX: Z12.31 Encounter for screening mammogram for malignant neoplasm of breast (principal)
CPT/HCPCS: 77063; 77067

== ENCOUNTER → 2023-07-10 10:45 | Outpatient (BNV) | payer OTHER, SELFPAY | PROVIDERS: PCP Internal Medicine Geriatric Medicine; Visit Provider Radiology Diagnostic Radiology | DX: Z12.31 Encounter for screening mammogram for malignant neoplasm of breast (principal) | CPT/HCPCS: 77063; 77067 ==

== ENCOUNTER 2023-09-23 14:07 | Outpatient (AMB) | payer OTHER, SELFPAY ==
--- NOTE | 2023-09-23 14:09 | A.OFFVIS_ITS ---
Vital Signs 09/23/23 14:13 Height 5 ft 1 in Weight 210 lb BMI 39.7 BP 118/70 Blood Pressure Location Rt brachial Position Sitting Respiration 17 Pulse 73 Pulse Source Pulse Oximeter Pulse Oximetry (%) 97 Oxygen Delivery Method Room Air Intake Visit Reasons: 4 mo f/u-Conf Intake Note: Pt presents to the office for 6 month follow up for excessive daytime sleepiness. Change House Attendant Required: No Allergies seafood Allergy (Verified 09/23/23 14:10) Eye Swelling Medication List - Last Reconciled 09/23/23 by Debbie Holland MD cholecalciferol (vitamin D3) (Vitamin D3) 25 mcg PO QAM famotidine 40 mg PO DAILY famotidine 20 mg PO BID 30 days ibuprofen 800 mg PO TID omega-3 fatty acids 1,000 mg PO DAILY HPI Comments Details: 42 y/o female patient comes for follow up Her home sleep test was inconclusive. Certified medical facilities section director Cyndi Pearson helped with this visit Pt reports excessive daytime sleepiness. She feels tired all the time, keeps falling asleep during the day. She sleeps 7 hrs at night, but wakes up non refreshed. She snores and has AM headache. Do you have nocturnal leg cramps? Yes. Do you have symptoms of restless legs? No. Do you act out your dreams? No. Hypersomnolence questionnaire: Do you have daytime tiredness or fatigue? Yes. Do you easily fall asleep when inactive? Yes. Have you ever had episodes of sudden weakness? No. Have you ever had episodes of sudden weakness associated with strong emotions? No. PFSH Medical History Gallstones Surgical History History of esophagogastroduodenoscopy (EGD) Hx of colonoscopy H/O section Family History Family/Other Cancer Diabetes Social History Household Members: Spouse Alcohol intake: never Patient Tobacco Use Status: Never used Tobacco Current occupational status: unemployed Physical Exam Vital Signs: Last Vital Signs Pulse 73 07/23/24 14:13 Resp 17 09/23/23 14:13 BP 118/70 09/23/23 14:13 Pulse Ox 97 09/23/23 14:13 Oxygen Delivery Method Room Air 09/23/23 14:13 BMI result Body Mass Index 39.7 Const General: cooperative Nutritional Appearance: obese Orientation/consciousness: patient oriented x3 Limitations: language barrier Neck Neck: Yes full ROM and Yes supple Resp Effort & Inspection: normal respiratory effort and able to speak in complete sentences Neuro General: patient oriented x3 and moves all extremities Cranial nerves: Yes CN's II-XII intact bilaterally Cognition (Neuro): normal cognition Gait exam (Neuro): Normal gait present Motor exam (neuro): 5/5 motor strength present throughout Psych Appearance: grossly normal Mental Status: mental status grossly normal Speech and movement: Normal speech and movement present Affect: normal affect Attitude: cooperative Assessment & Plan Assessment & Plan (1) Excessive daytime sleepiness: Code(s): G47.19 - Other hypersomnia Category: Medical (2) Snoring: Code(s): R06.83 - Snoring Category: Medical Plan I will schedule her for an in lab sleep study for further evaluation Check her TSH B 12 vit D ESR for causes of excessive fatigue Orders: Orders Vitamin B12 and Folate Today G47.19 - Other hypersomnia Vitamin D 25-OH (D2 and D3) Today G47.19 - Other hypersomnia Ferritin Today G47.19 - Other hypersomnia TSH reflex Free T4 Today G47.19 - Other hypersomnia RT PSG in-lab sleep study Today G47.19 - Other hypersomnia, R06.83 - Snoring Coding Level of Care Code Est Pt Level 3 (40100) Diagnoses Excessive daytime sleepiness G47.19 Snoring R06.83
[2023-09-23 14:13] VITALS: BP 118/70; PULSE 73; RESP 17; O2SAT 97; BMI 39.7
== END 2023-09-23 14:26 | disposition home or self-care (01) ==
PROVIDERS: Absent Provider Psychiatry & Neurology Neurology; PCP Internal Medicine Geriatric Medicine; Visit Provider Psychiatry & Neurology Neurology
DX: G47.19 Other hypersomnia (principal); R06.83 Snoring
CPT/HCPCS: 99213

== ENCOUNTER 2023-09-23 14:32 | Outpatient (REF) | payer OTHER, SELFPAY ==
[2023-09-23 18:11] LABS: Ferritin 50 ng/mL (10-250); TSH reflex Free T4 2.55 uIU/mL (0.32-4.0)
[2023-09-23 18:27] LABS: Folate 6.7 ng/mL (> or = 4.0); Vitamin B12 415 pg/mL (200-900)
[2023-09-28 16:13] LABS: Vitamin D 25-OH, D2 <4 ng/mL; Vitamin D 25-OH, D3 23 ng/mL; Vitamin D 25-OH, Total 23 ng/mL (30-100)
== END 2023-09-23 14:33 | disposition home or self-care (01) ==
LOC: HO.HKASLDS 14:32
PROVIDERS: Visit Provider Psychiatry & Neurology Neurology
DX: G47.19 Other hypersomnia (principal); R06.83 Snoring
CPT/HCPCS: 36415; 82306; 82607; 82728; 82746; 84443; 99212

== ENCOUNTER → 2023-10-05 20:30 | Outpatient (REF) | payer OTHER, SELFPAY | LOC: HO.SL 20:30 | PROVIDERS: PCP Internal Medicine Geriatric Medicine; Visit Provider Psychiatry & Neurology Neurology | DX: G47.19 Other hypersomnia (principal); R06.83 Snoring | CPT/HCPCS: 95810 ==

== ENCOUNTER → 2023-10-05 21:44 | Outpatient (BNV) | payer OTHER, SELFPAY | PROVIDERS: PCP Internal Medicine Geriatric Medicine; Visit Provider Psychiatry & Neurology Neurology | DX: R06.83 Snoring (principal) | CPT/HCPCS: 95810 ==

== ENCOUNTER 2024-03-25 15:32 | Outpatient (REF) | payer OTHER, SELFPAY ==
--- NOTE | ~2024-03-25 | XR_ITS ---
EXAMINATION: XR LUMBOSACRAL SPINE CLINICAL INFORMATION: lower thoracic to upper lumbar back pain b/l, eval for stones COMPARISON: None available. TECHNIQUE: Three views of the lumbosacral spine. FINDINGS: The vertebral bodies and posterior elements are normal. The disc spaces are preserved and the vertebral alignment is normal. The paraspinal soft tissues are normal. XR/XR lumbar spine 2-3V IMPRESSION: Unremarkable lumbar spine examination. Electronically signed by: Leon Quiroz MD 03/25/2024 04:51 PM JOSEFINA DOLL
== END 2024-03-25 15:33 | disposition home or self-care (01) ==
LOC: HO.HHCX 15:32
PROVIDERS: Visit Provider Family Medicine
DX: M54.9 Dorsalgia, unspecified (principal); M54.50 Low back pain, unspecified
CPT/HCPCS: 72100; 87086; 87147

== ENCOUNTER → 2024-03-25 15:32 | Outpatient (BNV) | payer OTHER, SELFPAY | PROVIDERS: Visit Provider Radiology Diagnostic Radiology | DX: M54.50 Low back pain, unspecified (principal) | CPT/HCPCS: 72100 ==

== ENCOUNTER 2024-04-01 13:25 | Outpatient (AMB) | payer OTHER, SELFPAY ==
--- NOTE | 2024-04-01 13:56 | A.OFFVIS_ITS ---
Vital Signs 04/01/24 13:57 Height 5 ft 1 in Weight 185 lb BMI 35.0 BP 104/72 Blood Pressure Location Rt brachial Position Sitting Intake Visit Reasons: Follow up Intake Note: Patient presents for follow up Liquefaction And Regasification Helper Services: Liquefaction And Regasification Helper Offered & Declined Liquefaction And Regasification Helper Name: translated for Allergies seafood Allergy (Verified 04/01/24 13:57) Eye Swelling HPI Comments Details: 43 y/o female patient comes for follow up Her home sleep test was inconclusive an din lab sleep study was normal.She is doing better.Denies any restless legs Her Vit D was low and she was started on supplements . she is feeling betetr Her Vit B 12 and thyroid was normal [facility] Medical History Gallstones Surgical History History of esophagogastroduodenoscopy (EGD) Hx of colonoscopy H/O section Family History Family/Other Cancer Diabetes Social History Household Members: Spouse Alcohol intake: never Patient Tobacco Use Status: Never used Tobacco Current occupational status: unemployed Physical Exam Vital Signs: Last Vital Signs BP 104/72 04/01/24 13:57 BMI result Body Mass Index 35.0 Const General: cooperative Nutritional Appearance: obese Orientation/consciousness: patient oriented x3 Limitations: language barrier Neck Neck: Yes full ROM and Yes supple Resp Effort & Inspection: normal respiratory effort and able to speak in complete sentences Neuro General: patient oriented x3 and moves all extremities Cranial nerves: Yes CN's II-XII intact bilaterally Cognition (Neuro): normal cognition Gait exam (Neuro): Normal gait present Motor exam (neuro): 5/5 motor strength present throughout Psych Appearance: grossly normal Mental Status: mental status grossly normal Speech and movement: Normal speech and movement present Affect: normal affect Attitude: cooperative Assessment & Plan Assessment & Plan (1) Excessive daytime sleepiness: Comment: Likely related to Vit D defeciency Code(s): G47.19 - Other hypersomnia Category: Medical Plan I will recheck Vit D levels . F/u with PCP Increase physical activity Orders: Orders Vitamin D 25-OH (D2 and D3) Today G47.19 - Other hypersomnia Coding Level of Care Code Est Pt Level 4 (75266) Diagnoses Excessive daytime sleepiness G47.19
[2024-04-01 13:57] VITALS: BP 104/72; BMI 35.0
--- OUTSIDE RECORDS SUMMARY | 2024-04-01 17:20 | XMS_ITS | Encounter Summary ---
Demographics Address [address] [place] [address] Home Phone Work Phone Mobile Phone Email Address Preferred Language es Marital Status Presybeterian Affiliation Unknown Race Other Race Ethnic Group Cymraes Author Organization [employer] Address [address] [place] [address] Care Team Providers Care Peer Specialist Name Role Phone Name, Mulugeta HUANG Primary Care Provider [phone] Reason for Visit * Reason Onset Date Comments telephone call 02/12/2024 Prior Authorization 02/12/2024 JO-ANN DONOVAN Reque st: Oxana Encounter Details Date Type Department Care Team ([facility] st Contact Info) Description 02/12/2024 Telephone [facility] [address] [place] [address] Name, MD Mulugeta [address] [place] [address] telephone call; Prior Authorization (JO-ANN DONOVAN Request: Oxana) Social History Tobacco Use Types Packs/Day Years Used Date Smoking Tobacco: Former Cigarettes Passive Smoke Exposure: Never Smokeless Tobacco: Never Alcohol Use Standard Drinks/Week Comments Never 0 (1 standard drink = 0.6 oz pur e alcohol) Depression Answer Date Recorded Patient Health Questionnaire-9 Score 0 05/29/2023 Patient Health Questionnaire-9 Score 0 05/29/2023 Last PHQ-9: Questionnaire Data Not on file 0 05/29/2023 Housing Stability Answer Date Recorded What is your housing situation today? I have berta nelson 05/29/[address] you li ve. Do you have problems with any of the following? None of the above 05/29/2023 Food Insecurity Answer Date Recorded Within the past 12 months, y ou worried that your food would run out before you got money to buy more: Never True 05/29/2023 Within the past 12 months,th e food you bought just didn't last and you didn't have enough money to get more: Never True Transportation Answer Date Recorded In the past 12 months, has l ack of transportation kept you from medical appts, meetings, work or from getting things needed for daily living? No 05/29/2023 Utilities Answer Date Recorded In the past 12 months, has t he electric, gas, oil or water company threatened to shut off services in your home? No 05/29/2023 Depression Answer Date Recorded Patient Health Questionnaire-2 Score 0 05/29/2023 Comments No Sex and Gender Information Value Date Recorded Sex Assigned at Female 12/31/2021 10:16 AM EDT Legal Sex Female 10:16 AM EDT Gender Identity Female 12/31/2021 10:16 AM EDT Sexual Orientation Straight 09/08/2023 11 :27 AM EDT documented as of this encounter Miscellaneous Notes * Telephone Encounter - Yanni Pearson - 03/23/2024 1:54 PM EST PA initiated on Covermymeds for Wegovy . Approval/denial pending. * Addendum Note - Mulugeta Fung MD - 02/17/2024 7:13 AM ESTAddended by: MULUGETA FUNG on: 02/17/2024 07:13 AM Modules accepted: Orders * Addendum Note - Cristo Currie RN - 02/16/2024 12:02 PM ESTAddended by: CRISTO CURRIE on: 02/16/2024 12:02 PM Modules accepted: Orders * Telephone Encounter - Cristo Currie RN - 02/16/2024 11:19 AM EST Tc to pt via s spanish interpreter id: [id number] in regards to refill request of Wegovy. Pt reports they have been out of the medication since last week and denies any adverse side effects. Pt reports they tried to go to the pharmacy to get a refill but was unable to. Tc to pharmacy who reports pt last picked up their Wegovy on 01/07/24. Pt advised we'll call back once the medication has been sent tot pharmacy and pt verbalized understanding. Medication pended to PCP for review. * Telephone Encounter - Brittni Kg - 02/12/2024 1:15 PM EST Patient walked in requesting medication refill on Wegovy due to insurances purposes medication was changed. Patient does not want to get Zepound , patient states she doesn't trust on other medicationthat is nos Wegovy. Please contact patient to number on chart if any questions or concerns. documented in this encounter Plan of Treatment Upcoming Encounters Date Type Department Care Team (Late st Contact Info) Description 04/20/2024 11:15 AM EST Office Visit [facility] [address] [place] [phone] Name, MD Mulugeta [address] [place] [phone] documented as of this encounter Visit Diagnoses Not on filedocumented in this encounter Additional Health Concerns Assessment Noted Time PHQ-9 Depression Total Score: 0 05/29/19 24 10:30 AM EDT documented as of this encounter Care Teams Peer Specialist Relationship Specialty Start Date End Date Name, MD Mulugeta [address] [place] [phone] PCP - General Family Medicine 06/06/15 documented as of this encounter
--- OUTSIDE RECORDS SUMMARY | 2024-04-01 17:20 | XMS_ITS | Encounter Summary ---
Author Organization [employer] Address [address] [place] [address] Care Team Providers Care Electrical Controls Technician Name Role Phone Name, Mulugeta HUANG Primary Care Provider [phone] Reason for Visit * Reason Onset Date Comments Results 08/15/2022 Encounter Details Date Type Department Care Team ([facility] Contact Info) Description 08/15/2022 Telephone [facility] [address] [place], [place] [phone] Name, MD Mulugeta [address] [place] [address] Results Social History Tobacco Use Types Packs/Day Years Used Date Smoking Tobacco: Never Passive Smoke Exposure: Never Smokeless Tobacco: Never [...] Orientation Straight 09/08/2023 11 :27 AM EDT COVID-19 Exposure Response Date Recorded In the last 10 days, have yo u been in contact with someone who was confirmed or suspected to have Coronavirus/COVID-19? No / Unsure 08/22/2022 1:28 PM EDT documented as of this encounter Miscellaneous Notes * Telephone Encounter - Amanda Winslow RN - 08/16/2022 2:29 PM EDT Pt. Had CT scan of head and Mammogram. CT scan of Head ( not chest ) and Mammogram result given to PCP. Result is normal. PT. Informed regarding normal result. Advised to go to nearest ED in case of any CP, SOB or breathing problem. [facility] hours advised. Pt. Also informed that she is having upcoming apt. On 09/13/2022. Advised to give call to [phone] if any questions [place] concerns. Pt. Verbally agreed and understood. * Telephone Encounter - Amanda Winslow RN - 08/16/2022 1:38 PM EDT VERONICA T/C to [phone] through [email or web address] id - [id number] for below message, pt. Advised that her CT scan was normal and as per Mammogram she has to repeat Mammogram after one year. Pt. States she feels uncomfortable in her lungs, pt. Is not able to describe any symptoms, just states that her CT scan founds some spots in her lungs. pt. Does not has any SOB, CP or breathing problem. Pt. States she wants to see PCP only for further concerns. No apt. Available with PCP. Pt. Has upcoming apt. On 09/13/2022. Pt. Advised to come to walk in center for further evaluation. Pt. Also advised to go to nearest ED in case of any worsening symptoms including CP, SOB or breathing problem. Pt. Agreed to come to walk in center. Pt. Verbally agreed and understood. * Telephone Encounter - Imani Hu - 08/15/2022 9:38 AM EDT Tc from pt requesting to speak to a nurse or PCP in regards to mammogram & Ct scan results, states they have results however would like to review with PCP. Please contact at [phone] Azeri documented in this encounter Plan of Treatment Upcoming Encounters Date Type Department Care Team (Late st Contact Info) Description 04/20/2024 11:15 AM EST Office Visit [facility] [address] [place] [phone] Name, MD Mulugeta [address] [place] [phone] documented as of this encounter Visit Diagnoses Not on filedocumented in this encounter Care Teams Electrical Controls Technician Relationship Specialty Start Date End Date Name, MD Mulugeta [address] [place] [phone] PCP - General Family Medicine 06/06/15 documented as of this encounter
--- OUTSIDE RECORDS SUMMARY | 2024-04-01 17:20 | XMS_ITS | Encounter Summary ---
Author Organization [employer] Address [address] [address] [place] [address] Care Team Providers Care Shredded Filler Hopper Feeder Name Role Phone Name, Mulugeta HUANG Primary Care Provider Reason for Visit * Reason Comments Med Refill Encounter Details Date Type Department Care Team ([facility] Contact Info) Description 03/15/2024 Refill [facility] [address] [place], [place] [phone] Name, MD Mulugeta [address] [place], [place] [phone] Obesity, unspecified Social History Tobacco Use Types Packs/Day Years [...] AM EDT documented as of this encounter Plan of Treatment Upcoming Encounters Date Type Department Care Team (Late st Contact Info) Description 04/20/2024 11:15 AM EST Office Visit [facility] [address] [place] [phone] Name, MD Mulugeta [address] [place] [phone] documented as of this encounter Visit Diagnoses Diagnosis Obesity, unspecified documented in this encounter Additional Health Concerns Assessment Noted Time PHQ-9 Depression Total Score: 0 05/29/19 24 10:30 AM EDT documented as of this encounter Care Teams Shredded Filler Hopper Feeder Relationship Specialty Start Date End Date NameMulugeta MD [address] [place] [phone] PCP - General Family Medicine 06/06/15 documented as of this encounter
--- OUTSIDE RECORDS SUMMARY | 2024-04-01 17:20 | XMS_ITS | Encounter Summary ---
Author Organization [employer] Address [address] [place] [address] [address] [place] [address] Care Team Providers Care Ciso Name Role Phone Name, Mulugeta HUANG Primary Care Provider [phone] Reason for Visit * Reason Onset Date Comments Appointment Request 05/09/2022 Encounter Details Date Type Department Care Team ([facility] Contact Info) Description 05/09/2022 Telephone [facility] [address] [place], [place] [phone] Name, MD Mulugeta [address] [place] [address] Appointment Request Social History Tobacco Use Types Packs/Day Years Used Date Smoking Tobacco: Never Smokeless Tobacco: Never Alcohol Use Standard Drinks/Week Comments Never 0 (1 standard drink = 0.6 oz pur e alcohol) Comments Unknown Sex and Gender Information Value Date Recorded [...] suspected to have Coronavirus/COVID-19? No / Unsure 04/09/2022 9:13 AM EST documented as of this encounter Miscellaneous Notes * Telephone Encounter - Marito Shortos - 05/09/2022 11:23 AM EST Tc from pt requesting to r/s appt on 05/09/22 ( Follow up in about 4 weeks (around 05/07/2022) for FU with Dr FUNG memory loss, dizziness.REQUESTING LABS for 1 WEEK prior to heart study at [facility]. date 05/22 ) Please contact pt at [phone] documented in this encounter Plan of Treatment Upcoming Encounters Date Type Department Care Team (Late st Contact Info) Description 04/20/2024 11:15 AM EST Office Visit [facility] [address] [place] [address] Name, MD Mulugeta [address] [place] [address] documented as of this encounter Visit Diagnoses Not on filedocumented in this encounter Care Teams Ciso Relationship Specialty Start Date End Date Name, MD Mulugeta [address] [place] [address] PCP - General Family Medicine 06/06/15 documented as of this encounter
--- OUTSIDE RECORDS SUMMARY | 2024-04-01 17:20 | XMS_ITS | Encounter Summary ---
Author Organization [employer] Address [address] [facility] [address] [place] [address] Care Team Providers Care Senior Data Warehouse Architect Name Role Phone Name, Mulugeta HUANG Primary Care Provider [phone] Reason for Visit * Reason Comments Med Refill Encounter Details Date Type Department Care Team ([facility] Contact Info) Description 06/26/2023 Refill [facility] [address] [place], [place] [id number] Name, MD Mulugeta [address] [place] [address] Social History Tobacco Use Types Packs/Day Years [...] Description 04/20/2024 11:15 AM EST Office Visit [facility] [address] [place] [phone] Name, MD Mulugeta [address] [place] [phone] documented as of this encounter Visit Diagnoses Not on filedocumented in this encounter Additional Health Concerns Assessment Noted Time PHQ-9 Depression Total Score: 0 05/29/19 24 10:30 AM EDT documented as of this encounter Care Teams Senior Data Warehouse Architect Relationship Specialty Start Date End Date NameMulugeta MD [address] [place] [id number] PCP - General Family Medicine 06/06/15 documented as of this encounter
--- OUTSIDE RECORDS SUMMARY | 2024-04-01 17:20 | XMS_ITS | Clinical Summary ---
Author Organization [employer] [facility] ity Address [address] [place] [address] Care Team Providers Care Envelope Fold Operator Name Role Phone Name, Mulugeta HUANG Primary Care Provider [phone] Surgical History Surgery Date Site/Laterality Comments OTHER SURGICAL HISTORY PROCEDURE: DENIES PREVIOUS SURGERY Medical History Medical History Date Comments Asthma DX:Asthma Family History Medical History Relation Name Comments Breast cancer Neg Hx Colon cancer Neg Hx Ovarian cancer Neg Hx Prostate cancer Neg Hx Social History Tobacco Use Types Packs/Day Years Used Date Smoking Tobacco: Never Smokeless Tobacco: Never Alcohol Use Standard Drinks/Week Comments No 0 (1 standard drink = 0.6 oz pur e alcohol) Sex and Gender Information Value Date Recorded Sex Assigned at Not on file Gender Identity Not on file Sexual Orientation Not on file Obstetrics History Plan of Treatment Health Maintenance Due Date Last Done Comments Breast Cancer Screening 1979 DTaP,Tdap,and Td Vaccines (1 - Tdap) 06/21/1998 Hepatitis B Vaccines (1 of 3 - 19+ 3-dose series) 06/21/1998 Cervical Cancer Screening: P ap Smear 08/31/2021 08/31/2018 Depression Screening 01/29/2022 HIV Screening 01/29/2022 Hepatitis C Screening 01/29/2022 Social Influencers of Health Screening 01/29/2022 COVID-19 Vaccine ( - 2023-2 5 season) 2023 Influenza Vaccine (#1) 2023 HIB Vaccines Aged Out No longer eligi ble based on patient's age to complete this topic HPV Vaccines Aged Out No longer eligi ble based on patient's age to complete this topic Hepatitis A Vaccines Aged Out No long er eligible based on patient's age to complete this topic IPV Vaccines Aged Out No longer eligi ble based on patient's age to complete this topic MMR Vaccines Aged Out No longer eligi ble based on patient's age to complete this topic Meningococcal ACWY Vaccine Aged Out N o longer eligible based on patient's age to complete this topic Pneumococcal Vaccine: Pediat rics (0 to 5 Years) and At-Risk Patients (6 to 64 Years) Aged Out No longer eligi ble based on patient's age to complete this topic RSV Immunization Patients Un hilario 20 months Aged Out No longer eligible b ased on patient's age to complete this topic Varicella Vaccines Aged Out No longer eligible based on patient's age to complete this topic Procedures Procedure Name Priority Date/Time Associated Diagnosis Comments PAP SMEAR Routine 08/31/2018 from Last 3 Months or Most Recently Relevant to Health Maintenance Results * Pap smear (08/31/2018) 08/31/2018 Narrative HISTORICAL TESTING LAB RESULTING AGENCY - 09/14/2018 12:06 PM EDT [id number] THINPREP PAP, IMAGED: NEGATIVE FOR SQUAMOUS INTRAEPITHELIAL LESION AND MALIGNANCY . REACTIVE CELLULAR CHANGES. JUSTEN BAL(ASCP) (CASE SCREENED 09 02 2018) CADENCE MEI M.D. , PATHOLOGIST (CASE ELECTRONICALLY SIGNED 09 11 2018) RESULT OF APTIMA HIGH RISK HPV ASSAY: HIGH RISK HPV: ??NEGATIVE (SEROTYPES 16,18,31,33,35,39,45,51,52,56,58,59,66,68) COMPLETED ON 2018-09-01 ADEQUACY: SATISFACTORY ENDOCERVICAL/TRANSFORMATION ZONE COMPONENT PRESENT. SOURCE: THINPREP PAP HPV ANY DX: ??REFLEX 16 AND 18, CERVICAL, IMAGED CLINICAL INFORMATION: HPV ANY DIAGNOSIS. HORMONES, MENOPAUSE, PAP HX NEG LP 2010, LMP 08/01/2018 [Z12.4, Z01.419] Esther Carter CNM LAB CYTOLOGY ORDERAB LES HISTORICAL TESTING LAB RESULTING AGENCY from Last 3 Months or Most Recently Relevant to Health Maintenance Care Teams Envelope Fold Operator Relationship Specialty Start Date End Date Name, MD Mulugeta [address] [place], [place] PCP - General 06/30/16
--- OUTSIDE RECORDS SUMMARY | 2024-04-01 17:20 | XMS_ITS | Encounter Summary ---
Author Organization [employer] Address [address] [facility] [address] [place] [address] Care Team Providers Care Water Quality Manager Name Role Phone Name, Mulugeta HUANG Primary Care Provider Reason for Visit * Reason Onset Date Comments Med Refill 10/23/2023 Encounter Details Date Type Department Care Team ([facility] st Contact Info) Description 10/23/2023 Refill [facility] [address] [place], [place] [phone] Name, MD Mulugeta [address] [place] [address] Obesity (BMI 30-39.9) Social History Tobacco Use Types Packs/Day Years [...] Description 04/20/2024 11:15 AM EST Office Visit [facility] [address] [place] [phone] Name, MD Mulugeta [address] [place] [address] documented as of this encounter Visit Diagnoses Diagnosis Obesity (BMI 30-39.9) documented in this encounter Additional Health Concerns Assessment Noted Time PHQ-9 Depression Total Score: 0 05/29/19 24 10:30 AM EDT documented as of this encounter Care Teams Water Quality Manager Relationship Specialty Start Date End Date NameMulugeta MD [address] [place] [id number] PCP - General Family Medicine 06/06/15 documented as of this encounter
--- OUTSIDE RECORDS SUMMARY | 2024-04-01 17:20 | XMS_ITS | Clinical Summary ---
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 023 Active Spacer/Aero-Ho lding Chambers (OptiChamber Ct) misc 1 each every 4 (four) hours if needed (asthma). 1 each 023 Active famotidine (Pepcid) 20 MG tablet Take 20 mg by mouth 2 times daily. 023 Active Ventolin HFA 108 (90 Base) MCG/ACT inhaler INHALE 2 PUFFS BY MOUTH EVERY 4 HOURS NEEDED FOR WHEEZING OR SHORTNESS OF BREATH 18 g 1 024 Active hydrocortisone 2.5 % cream Apply by topical route 1-2 times per day after shower to affected area 60 g 1 024 Active ibuprofen 800 MG tabletIndicati ons:Back muscle spasm TAKE 1 TABLET BY MOUTH THREE TIMES DAILY 90 tablet 2 024 Active Semaglutide-We ight Management (Wegovy) 1 MG/0.5ML solution auto-injector INJECT ONE PEN (=1 MG) SUBCUTANEOUSLY ONCE A WEEK 2 mL 024 Active cholecalcifero l (Vitamin D-3) 25 MCG tablet TAKE 1 TABLET BY MOUTH EVERY DAY IN THE MORNING 90 tablet 024 Active Semaglutide-We ight Management (Wegovy) 2.4 MG/0.75ML solution auto-injectorI ndications:Obe sity, unspecified INJECT ONE PEN (= 2.4 MG) SUBCUTANEOUSLY ONCE A WEEK 3 mL Active baclofen (Lioresal) 10 MG tablet Take 1 tablet (10 mg) by mouth if needed in the morning, at noon, and at bedtime for muscle spasms. 60 tablet 1 025 2024 Active naproxen (Naprosyn) 500 MG tablet Take 1 tablet (500 mg) by mouth if needed in the morning and at bedtime for mild pain. 30 tablet 1 025 2025 Active acetaminophen (Tylenol 8 Hour) 650 MG ER tablet Take 1 tablet (650 mg) by mouth every 8 (eight) hours if needed for mild pain. Do not crush, chew, or split. 40 tablet 1 025 2024 Active lidocaine (Lidoderm) 5 % patchIndicatio ns:Acute mid back pain,Acute bilateral low back pain without sciatica Apply 1-2 patches topically if needed each day for mild pain. Remove & discard patch within 12 hours or as directed by MD. 60 patch 1 Active Diclofenac Sodium 1 % gel APPLY 2 GRAMS TO AFFECTED AREA(S) FOUR TIMES A DAY NEEDED FOR PAIN 150 g 1 Active Acetaminophen Extra Strength 500 MG tablet TAKE 1 TABLET BY MOUTH EVERY 7-8 HOURS NEEDED. DO NOT EXCEED 8 TABLETS IN 24 HOURS. 023 2024 Discontinued Diclofenac Sodium 1 % gel APPLY 2 GRAMS TO AFFECTED AREA(S) ONCE DAILY 100 g 1 024 2024 Discontinued Semaglutide-We ight Management 1.7 MG/0.75ML solution auto-injector Inject 0.75 mL (1.7 mg) under the skin 1 (one) time per week. 2 mL 024 2024 Discontinued Active Problems Problem Noted Date Diagnosed Date Low-level of literacy 05/23/2022 Overview (05/23/2022): 7 grade education in [place] Does not know how to read or write Czech Epigastric pain 04/09/2022 H. pylori infection 04/09/2022 Obesity (BMI 30-39.9) 01/06/2017 Allergic rhinitis 03/26/2016 Prediabetes 12/26/2015 Resolved Problems Problem Noted Date Diagnosed Date Resolved Date Unintentional weight loss 04/09/2022 History of traumatic brain injury 04/09/2022 05/23/2022 Memory loss 04/09/2022 05/23/2022 Encounters Date Type Department Care Team Description 03/25/2024 3:40 PM EST Office Visit [facility] [address] [place] [phone] Claire Boucher DO Acute mid back pain (Primary Dx); Acute bilateral low back pain without sciatica 03/15/2024 Refill [facility] [address] [place] [phone] Mulugeta Peralta MD Obesity, unspecified 02/26/[address] [address] Niall Hogan [place] feb recalls 02/12/[address] [address] Mulugeta Peralta MD telephone call; Prior Authorization ([facility] Request: [place]) 02/06/2024 Telephone [facility] [address] [place] [phone] Snehal De Dios, LOUISA Med Refill ([facility] notification) 01/26/2024 Refill [facility] [address] [place], [place] [phone] Mulugeta Peralta MD 01/06/2024 Refill [facility] [address] [place] [phone] Mulugeta Peralta MD from Last 3 Months Immunizations Name Administration Dates Next Due Influenza injectable quadriv alent IIV4 with preservative 01/06/2017,12/12/2014 Influenza injectable quadriv alent preservative free 01/30/2023,11/28/2021,03/26/2021,12/22,01/15/2019 Influenza, IIV3, injectable 12/28/2013 Influenza, Split (incl. angela fied surface antigen) 02/16/2013 Influenza, seasonal, injecta ble, preservative free 12/16/2023 Pneumococcal Polysaccharide PPSV23 08/12/2014 Tdap 08/12/2014 Family History Medical History Relation Name Comments Diabetes Father Diabetes Mother Relation Name Status Comments Father Mother Social History Tobacco Use Types Packs/Day Years Used Date Smoking Tobacco: Former Cigarettes Passive Smoke Exposure: Never Smokeless Tobacco: Never Tobacco Cessation:Counseling Given: Not Answered Alcohol Use Standard Drinks/Week Comments Never 0 [...] the past 12 months, has t he [employer], gas, oil or water company threatened to shut off services in your home? No 05/29/2023 Depression Answer Date Recorded Patient Health Questionnaire-2 Score 0 05/29/2023 Comments No Sex and Gender Information Value Date Recorded Sex Assigned at Female 12/31/2021 10:16 AM EDT Legal Sex Female 10:16 AM EDT Gender Identity Female 12/31/2021 10:16 AM EDT Sexual Orientation Straight 09/08/2023 11 :27 AM EDT Last Filed Vital Signs Vital Sign Reading Time Taken Comments Blood Pressure 124/71 03/25/2024 3:03 PM EST Pulse 77 03/25/2024 3:03 PM EST Temperature 36.2 ??C (97.2 ??F) 03/25/2024 3:03 PM ES T Respiratory Rate 18 03/25/2024 3:03 PM EST Oxygen Saturation 98% 03/25/2024 3:03 PM EST Inhaled Oxygen Concentration - - Weight 85.9 kg (189 lb 6.4 oz) 03/25/2024 3:03 P M EST Height 154.9 cm (5' 1 ) 12/16/2023 10:39 AM EDT Body Mass Index 35.79 12/16/2023 10:39 AM EDT Plan of Treatment Upcoming Encounters Date Type Department Care Team (Late st Contact Info) Description 04/20/2024 11:15 AM EST Office Visit [facility] [address], [place] [phone] Name, MD Mulugeta [address] [place] [address] Health Maintenance Due Date Last Done Comments Family Planning (PISQ) 06/21/1994 Hepatitis B Vaccines (1 of 3 - 19+ 3-dose series) 06/21/1998 COVID-19 Vaccine ( season) 2023 04/25/2021, 08/16/2020, 07/19/2020 Depression Screening 05/28/2024 05/29/2023, 05/29/19 SDOH Screening 05/28/2024 05/29/2023 DTaP/Tdap/Td Vaccines (2 - Td or Tdap) 08/12/2024 08/12/2014 Alcohol/Substance Use Screening 09/08/2024 09/09/2023 Diabetes: Hemoglobin A1C 12/15/2024 12/16/2023, 02/0 08/2022 Tobacco Screening 03/26/2025 03/26/2024 Pap Smear 06/03/2025 06/03/2022 Mammogram 07/09/2025 07/10/2023, 05/0 06/2022, 07/04/2022, Additional history exists Lipid Panel 04/09/2027 04/09/2022 Cervical Cancer Screening 06/04/2027 HPV/Cotest 06/04/2027 06/03/2022 Zoster Vaccines (1 of 2) 06/21/2029 RSV Patients and Patients Aged 60 years or older (1 - 1-dose 75+ series) 06/21/2054 Pneumococcal Vaccine: Pediatrics (0 to 5 Years) and At-Risk Patients (6 to 49) Years) Aged Out 08/12/2014 No longer eligible based on patient's age to complete this topic HIV Screening Completed 06/03/2022 Hepatitis C Screening Completed 06/03/2022 Influenza Vaccine Completed 12/16/2023, , 11/28/2021, Additional history exists HIB Vaccines Aged Out No longer eligi [...] patient's age to complete this topic Meningococcal Vaccine Aged Out No kamaljit mary eligible based on patient's age to complete this topic RSV under 20 months Aged Out No longe r eligible based on patient's age to complete this topic Rotavirus Vaccines Aged Out No longer eligible based on patient's age to complete this topic Procedures Procedure Name Priority Date/Time Associated Diagnosis Comments XR LUMBAR SPINE 2-3 VIEWS Routine 03/25/2024 3:32 PM EST Acute mid back pain Acute bilateral low back pain without sciatica CULTURE, URINE, ROUTINE Routine 03/25/2024 3:32 PM EST Acute mid back pain POCT URINALYSIS DIPSTICK Routine 03/25/2024 3:31 PM EST Acute mid back pain POCT GLYCATED HEMOGLOBIN, TOTAL Routine 12/16/2023 10:42 AM EDT Pre-diabetes BI MAMMOGRAM SCREENING TOMOSYNTHESIS BILATERAL Routine 07/10/2023 10:15 AM EDT HEPATITIS C AB W/REFL TO HCV RNA, QN, PCR Routine 06/03/2022 10:57 AM EDT Encntr screen for infections w sexl mode of transmiss HIV 1/2 ANTIGEN/ANTIBODY, FOURTH GENERATION W/RFL Routine 06/03/2022 10:57 AM EDT Encntr screen for infections w sexl mode of transmiss IMAGE-GUIDED PAP W/AGE BASED SCR,W/CT/NG/TRICH Routine 06/03/2022 10:47 AM EDT Cervical cancer screening Encntr screen for infections w sexl mode of transmiss LIPID PANEL, STANDARD Routine 04/09/2022 10:06 AM EST Memory loss History of traumatic brain injury from Last 3 Months or Most Recently Relevant to Health Maintenance Results * XR Lumbar Spine 2-3 Views (03/25/2024 3:32 PM EST) Anatomical Region Laterality Modality Spine, L-spine Radiographic Jazz ging 03/25/2024 3:32 PM EST Narrative 03/25/2024 4:54 PM EST ?[facility] ?[address] ?[place] [address] ?XRay Report ? Signed ? Patient: Ivory Daniel I ?MR#: [id number] ?? 98 ? : 1980 ?Acct:[id number] ? Age/Sex: 43 / F ?ADM Date: 03/25/24 ? Loc: HO.HHCX ? Attending Dr: Claire Boucher DO ? Ordering Physician: Claire Boucher DO ?? Date of Service: 03/25/24 ?? Procedure(s): XR lumbar spine 2-3V ?? Accession Number(s): [id number] ? cc: Claire Boucher DO ? EXAMINATION: ?? XR LUMBOSACRAL SPINE ? CLINICAL INFORMATION: ?? lower thoracic to upper lumbar back pain b/l, eval for stones ? COMPARISON: ?? None available. ? TECHNIQUE: ?? Three views of the lumbosacral spine. ? FINDINGS: ?? The vertebral bodies and posterior elements are normal. The disc spaces ?? are preserved and the vertebral alignment is normal. The paraspinal ?? soft tissues are normal. ? XR/XR lumbar spine 2-3V ?? IMPRESSION: ?? Unremarkable lumbar spine examination. ? Electronically signed by: ??Leon Quiroz MD ??03/25/2024 04:51 PM EST RP ? Dictated By: ?Gabriella,Leon Rogers MD ? Signed By: ?<Electronically signed by Leon Quiroz MD in OV> ?03/25/24 1651 ? DD/ 1532 ? TD/TT: 03/25/24 1600 ? Edge Kitter: MSM ? Procedure Note Donevypengter, Image - 03/25/[address] [address] XRay Report Signed Patient: Ivory Daniel IMR#: [id number] 98 : 1980Acct:[id number] Age/Sex: 43 / FADM Date: 03/25/24 Loc: .HHCX Attending Dr: Claire Boucher DO Ordering Physician: Claire Boucher DO Date of Service: 03/25/24 Procedure(s): XR lumbar spine 2-3V Accession Number(s): [id number] cc: Claire Boucher DO EXAMINATION: XR LUMBOSACRAL SPINE CLINICAL INFORMATION: lower thoracic to upper lumbar back pain b/l, eval for stones COMPARISON: None available. TECHNIQUE: Three views of the lumbosacral spine. FINDINGS: The vertebral bodies and posterior elements are normal. The disc spaces are preserved and the vertebral alignment is normal. The paraspinal soft tissues are normal. XR/XR lumbar spine 2-3V IMPRESSION: Unremarkable lumbar spine examination. Electronically signed by: Leon Quiroz MD 03/25/2024 04:51 PM EST Dictated By: Leon Quiroz MD Signed By: <Electronically signed by Leon Quiroz MD in OV> 03/25/24 1651 DD/ 1532 TD/TT: 03/25/24 1600 Edge Kitter: MSM Claire Boucher DO IMG XR PROCEDURES Final Resu lt * Culture, Urine, Routine (03/25/2024 3:32 PM EST) Urine Urine specimen obtained by clean catch procedure / Unknown 03/25/2024 3:32 PM EST 03/25/2024 5:07 PM EST Comment:UACC Narrative [facility] - 03/27/2024 9:55 AM EST Urine Culture Report Result Urine Culture 50,000 to 100,000 cfu/ml Urine Culture Mixed bacterial blair characteristic of Urine Culture urogenital contamination. Strep agalactiae (Grp B) Quant < 10,000 cfu/mL Susc N/A Susceptibility not routinely performed on this isolate. Specimen Source: Urine clean catch Claire Boucher DO LAB MICROBIOLOGY - GENERAL O RDERABLES Final Result [facility] [address] [place] [phone] * POCT urinalysis dipstick manually resulted (03/25/2024 3:31 PM EST) Color, UA Yellow Clarity, UA Clear Glucose, UA Negative Bilirubin, UA Negative Ketones, UA Negative Spec Grav, UA 1.030 Blood, UA Negative Negative, None Detected pH, UA 5.5 Protein, UA Negative Urobilinogen, UA 0.2 Leukocytes, UA Negative Negative, Rare, Trace Nitrite, UA Negative Negative, None Detected Urine 03/25/2024 3:31 PM EST Claire Boucher DO POINT OF CARE TEST ENTER/ARELY T ORDERABLES Final Result * (ABNORMAL) POCT HGB A1C (12/16/2023 10:42 AM EDT) Hemoglobin A1C 6.2(A) 4.0 - 6.0 % QC Media Lot # [id number] Lot# Expiration Date Blood 12/16/2023 10:4 2 AM EDT Mulugeta Peralta MD POINT OF CARE TEST ENTER/EDIT OR DERABLES Final Result * BI Mammogram Screening Tomosynthesis Bilateral (07/10/2023 10:15 AM EDT) Anatomical Region Laterality Modality Breast Bilateral Mammography 07/10/2023 10:1 5 AM EDT Narrative 08/08/2023 8:49 AM EDT ? [facility] ? [address] ?[place] [address] ? Mammography Report ? Signed ? Patient: Ivory Daniel I ?MR#: [id number] ?? 98 ? : 1980 ?Acct:[id number] ? Age/Sex: 43 / F ?ADM Date: 07/10/23 ? Loc: HO.MAMMO ? Attending Dr: Mulugeta Name MD ? Ordering Physician: Name,Mulugeta MD ?Results: 1Negative ? Date of Service: 07/10/23 ?Follow Up: 1 Year From Orig ?? inal Mammogram ? Procedure(s): MM tomosynthesis screening BI ?? Accession Number(s): [id number] ? cc: Name,Mulugeta HUANG ? EXAMINATION: ?? MM SCREENING DIGITAL BREAST TOMOSYNTHESIS, BILATERAL ? CLINICAL INFORMATION: ? Screening. Asymptomatic. ? COMPARISON: ?? Mammography: This study is compared with prior exams dating back to ?? 2013. ? TECHNIQUE: ?? Digital breast tomosynthesis is performed in both the craniocaudal and ?? mediolateral oblique views along with computer-aided detection (CAD). ?? Synthesized 2D images are generated from the tomosynthesis. ? FINDINGS: ?? There are scattered areas of fibroglandular density (ACR BI-RADS breast ?? composition Category b). ? There are no significant masses, abnormal calcifications, or other ?? abnormalities. ? MM/MM tomosynthesis screening BI ?? IMPRESSION: ?? No mammographic evidence of malignancy. ? ASSESSMENT: ? BI-RADS BI-RADS 1 - Negative ? RECOMMENDATION: ?? Routine annual mammography screening. ? 1 year F/U ? This examination should not preclude the clinical evaluation of a ?? suspicious palpable abnormality. ? This patient's information was entered into a reminder system with a ?? target due date for their next mammogram. ? Dictated By: ?Ana Bhardwaj MD ? Signed By: ?<Electronically signed by Ana Bhardwaj MD in OV> ? 08/08/23 0845 ? DD/ 1015 ? TD/TT: ? Edge Kitter: ? Procedure Note [facility]man, Image - 08/08/2023 [facility] [address] [place], [place] [address] Mammography Report Signed Patient: Ivory Daniel IMR#: [id number] 98 : 1980Acct:[id number] Age/Sex: 43 / FADM Date: 07/10/23 Loc: HO.MAMMO Attending Dr: Mulugeta Peralta MD Ordering Physician: Mulugeta Peraltaesults: 1Negative Date of Service: 07/10/23Follow Up: 1 Year From Orig inal Mammogram Procedure(s): MM tomosynthesis screening BI Accession Number(s): [id number] cc: Mulugeta Peralta MD EXAMINATION: MM SCREENING DIGITAL BREAST TOMOSYNTHESIS, BILATERAL CLINICAL INFORMATION: Screening. Asymptomatic. COMPARISON: Mammography: This study is compared with prior exams dating back to 2013. TECHNIQUE: Digital breast tomosynthesis is performed in both the craniocaudal and mediolateral oblique views along with computer-aided detection (CAD). Synthesized 2D images are generated from the tomosynthesis. FINDINGS: There are scattered areas of fibroglandular density (ACR BI-RADS breast composition Category b). There are no significant masses, abnormal calcifications, or other abnormalities. MM/MM tomosynthesis screening BI IMPRESSION: No mammographic evidence of malignancy. ASSESSMENT: BI-RADS BI-RADS 1 - Negative RECOMMENDATION: Routine annual mammography screening. 1 year F/U This examination should not preclude the clinical evaluation of a suspicious palpable abnormality. This patient's information was entered into a reminder system with a target due date for their next mammogram. Dictated By: Ana Bhardwaj MD Signed By: <Electronically signed by Ana Bhardwaj MD in OV> 08/08/23 0845 DD/ 1015 TD/TT: Edge Kitter: Mulugeta Peralta MD IM BI PROCEDURES Edited Result - Final * Hepatitis C Antibody with Reflex to HCV, RNA, Quantitative, Real-Time PCR (06/03/2022 10:57 AM EDT) Hepatitis C Antibody NON-REACT KELLY NON-REACT KELLY [facility] Index 0.09 <1.00 [facility] Comment: HCV antibody was non-reactive. There is no laboratory evidence of HCV infection. In most cases, no further action is required. However, if recent HCV exposure is suspected, a test for HCV RNA (test code 48333) is suggested. For additional information please refer to http://education.EverConnect/faq/DJX93w3 (This link is being provided for informational/ educational purposes only.) Blood Venous blood specimen / Unknown 06/03/2022 10:57 AM EDT 06/03/2022 10:58 AM EDT Narrative [facility] - 06/04/2022 8:43 PM EDT FASTING:NO FASTING: NO us Candice ALCALA LAB BLOOD ORDERABLES Nani sanders Result [facility] [address] [place] [address], [place] [address] [facility] [employer] [place] [employer] [address] [place] [address] * HIV-1/2 Antigen and Antibodies, Fourth Generation, with Reflexes (06/03/2022 10:57 AM EDT) HIV Antigen/Antibody, 4th Generation NON-REAC TIVE NON-REAC TIVE [employer] Comment: HIV-1 antigen and HIV-1/HIV-2 antibodies were not detected. There is no laboratory evidence of HIV infection. PLEASE NOTE: This information has been disclosed to you from records whose confidentiality may be protected by state law. ??If your state requires such protection, then the state law prohibits you from making any further disclosure of the information without the specific written consent of the person to whom it pertains, or as otherwise permitted by law. A general authorization for the release of medical or other information is NOT sufficient for this purpose. ?? For additional information please refer to http://education.EverConnect/faq/MJO650 (This link is being provided for informational/ educational purposes only.) The performance of this assay has not been clinically validated in patients less than 2 years old. Blood Venous blood specimen / Unknown 06/03/2022 10:57 AM EDT 06/03/2022 10:58 AM EDT Narrative [facility] - 06/04/2022 8:43 PM EDT FASTING:NO FASTING: NO Candice Morrell [facility] LAB BLOOD ORDERABLES Nani l Result [facility] [address] [facility], [facility], [place] [address] [employer] [place] [employer] [address] [place] [phone] * Image-Guided Pap with Age-Based Screening??with CT/NG,??Trichomonas (06/03/2022 10:47 AM EDT) Comment [employer] Comment: This order for age-based cervical cancer and STI screening follows ACOG guidelines(PB 168, 140, RYU874). See individual assays for performing site location. Clinical Information: Routine exam [employer] [facility] LMP: NONE GIVEN [facility] [place] [employer] [facility] Prev. PAP: NONE GIVEN [employer] [facility] [facility] [place] [employer] [facility] Prev. BX: NONE GIVEN [employer] [facility] SOURCE: None given [employer] [facility] Statement Of Adequacy: [employer] [facility] Comment: Satisfactory for evaluation. Endocervical/transformation zone component present. Interpretation/Re sult: Negative for intraepithelial lesion or malignancy. [employer] [place] [employer] COMMENT: This Pap test has been evaluated with computer assisted technology. [employer] Internship: Antonia est [employer] Comment: WAC, CT(ASCP) CT screening location: [address] ??[address] (Always Message) Que Mismi Comment: EXPLANATORY NOTE: The Pap is a screening test for cervical cancer. It is not a diagnostic test and is subject to false negative and false positive results. It is most reliable when a satisfactory sample, regularly obtained, is submitted with relevant clinical findings and history, and when the Pap result is evaluated along with historic and current clinical information. HPV nRNA E6/E7 Not Detected Not Detected Mir [facility] Comment: Methodology: Unit Coordinator-Mediated Amplification This assay detects E6/E7 viral messenger RNA (mRNA) from 14 high-risk HPV types (16,18,31,33,35,39,45,51,52,56,58,59,66,68). Cervical sources are required for HPV testing. If a vaginal source from a patient who has had a total hysterectomy with removal of cervix was submitted, please contact the testing laboratory for alternative testing options. For additional information, please refer to http://education.EverConnect/faq/RPQ287z7 (This link if provided for information/ educational purposes only.) Chlamydia trachomatis RNA, TMA, Urogenital NOT DETECTED NOT DETECTED Mir V[facility]ach[facility] Neisseria gonorrhoeae RNA, TMA, Urogenital NOT DETECTED NOT DETECTED Mir Vrachat (Always Message) Que st [employer] Comment: The analytical performance characteristics of this assay, when used to test SurePath(TM) specimens have been determined by [employer]. The modifications have not been cleared or approved by the FDA. This assay has been validated pursuant to the CLIA regulations and is used for clinical purposes. For additional information, please refer to https://Clinicbook.EverConnect/faq/ZFU612 (This link is being provided for information/ educational purposes only.) Trichomonas vaginalis, QL, TMA, PAP Vial NOT DETECTED NOT DETECTED [employer] Comment: The analytical performance characteristics of this assay have been determined by [employer]. The modifications have not been cleared or approved by the FDA. This assay has been validated pursuant to the CLIA regulations and is used for clinical purposes. For additional information, please refer to http://Clinicbook.EverConnect/ faq/Trichomonastma (This link is being provided for information/ educational purposes only.) Cytology specimen container (physical object) 06/03/2022 10:47 AM EDT 06/04/2022 5:15 AM EDT Candice Morrell [facility] LAB CYTOLOGY ORDERABLES F inal Result [facility] [address], [place] [address] [employer] [facility] [address] [place] [address] * (ABNORMAL) Lipid Panel, Standard (04/09/2022 10:06 AM EST) Cholesterol, Total 168 <200 mg/dL [employer] [facility] [facility] [employer] HDL Cholesterol 41(L) > OR = 50 mg/dL [employer] [facility] [facility] [employer] Triglycerides 216(H) <150 mg/dL [facility] [facility] [employer] Comment: If a non-fasting specimen was collected, consider repeat triglyceride testing on a fasting specimen if clinically indicated. Tunde et al. J. of Clin. Lipidol. 2015;9:129-169. LDL Cholesterol 96 mg/dL (calc) [employer] Comment: Reference range: <100 Desirable range <100 mg/dL for primary prevention; ?? <70 mg/dL for patients with CHD or diabetic patients with > or = 2 CHD risk factors. LDL-C is now calculated using the Gorge calculation, which is a validated novel method providing better accuracy than the Friedewald equation in the estimation of LDL-C. Jean KUMAR et al. NARENDRA. 2013;310(19): 3696-9863 (http://education.Nextance/faq/ZUX308) Chol/HDLC Ratio 4.1 <5.0 (calc) [facility] Non-HDL Cholesterol 127 <130 mg/dL (calc) [facility] Comment: For patients with diabetes plus 1 major ASCVD risk factor, treating to a non-HDL-C goal of <100 mg/dL (LDL-C of <70 mg/dL) is considered a therapeutic option. Blood Venous blood specimen / Unknown 04/09/2022 10:06 AM EST 04/09/2022 10:07 AM EST Narrative [facility] - 04/09/2022 9:59 PM EST FASTING:NO FASTING: NO Yolis Noland [facility] LAB BLOOD ORDERABLES Final Result [facility] [address], [place] [address] 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
--- OUTSIDE RECORDS SUMMARY | 2024-04-01 17:20 | XMS_ITS | Encounter Summary ---
Author Organization [employer] Address [address] [place] [address] 7 [place] [address] Care Team Providers Care Senior Electrical Design Engineer Name Role Phone Name, Mulugeta HUANG Primary Care Provider [phone] Reason for Referral * Medications - Closed Specialty Diagnoses / Procedures Referred By Contac t Referred To Contact Diagnoses Acute mid back pain Acute bilateral low back pain without sciatica Claire Boucher DO [address] [place] [address] Phone: tel: fax: Referral ID Status Reason Start Date Expiration Date Visits Re quested Visits Authorized [id number] Closed 03/25/2024 03/25/2025 1 1 Reason for Visit * Reason Comments Back Pain Encounter Details Date Type Department Care Team ([facility] st Contact Info) Description 03/25/2024 3:40 PM EST Office Visit [facility] [address] [place], [place] [phone] Claire Boucher DO [address] [place] [address] Acute mid back pain (Primary Dx); Acute bilateral low back pain without sciatica Social History Tobacco Use Types Packs/Day Years [...] AM EDT documented as of this encounter Last Filed Vital Signs Vital Sign Reading [...] oz) 03/25/2024 3:03 P M EST Height - - Body Mass Index 35.79 12/16/2023 10:39 AM EDT documented in this encounter Progress Notes * Claire Boucher DO - 03/25/2024 3:40 PM EST SUBJECTIVE Ivory Daniel is a 43 y.o. female who presents for Sick Visit. She comes to [place] c/o severe sharp pain across the middle of her back for the last week. She says that the pain is up and down but worse with movement. She says she has not taken any pain medications. She says she did exercises on Friday but her pain had started prior to that. She does not recall anytrauma or falls. She denies any radiation of pain. She denies any weakness or LE numbness/tingling. She denies any bowel/bladder incontinence. She does report she is urinating frequently and there is a strong odor toher urine. No malodorous urine. She denies any dysuria or hematuria. No urgency. No N/V. No fevers. She has no h/o renal stones. History provided by: Patient regional education manager used: Yes (Chris Leslie) Back Pain This is a new problem. The current episode started 1 to 4 weeks ago. The problem occurs constantly.The problem has been waxing and waning since onset. The pain is present in the thoracic spine. The quality of the pain is described as stabbing. The pain does not radiate. The pain is at a severity of 9/10. Pertinent negatives include no abdominal pain, bladder incontinence, bowel incontinence, chest pain, dysuria, fever, headaches, leg pain, numbness, tingling or weakness. She has tried nothing for the symptoms. Review of Systems Constitutional: Negative for activity change, appetite change, chills, fever and unexpected weight change. Respiratory: Negative for cough and shortness of breath. Cardiovascular: Negative for chest pain, palpitations and leg swelling. Gastrointestinal: Negative for abdominal pain, bowel incontinence, diarrhea, nausea and vomiting. Genitourinary: Positive for frequency. Negative for bladder incontinence, dysuria and hematuria. Musculoskeletal: Positive for arthralgias and back pain. Neurological: Negative for tingling, weakness, numbness and headaches. Patient Active Problem List Diagnosis Allergic rhinitis Epigastric pain H. pylori infection Obesity (BMI 30-39.9) Prediabetes Low-level of literacy Allergies Allergen Reactions Shellfish Allergy OBJECTIVE Visit Vitals BP 124/71 (BP Location: Left arm, Patient Position: Sitting, BP Cuff Size: Adult) Pulse 77 Temp 97.2 ??F (36.2 ??C) (Temporal) Resp 18 Wt 189 lb 6.4 oz (85.9 kg) SpO2 98% BMI 35.79 kg/m?? OB Status Having periods Smoking Status Former BSA 1.92 m?? Physical Exam Constitutional: General: She is not in acute distress. Appearance: Normal appearance. Cardiovascular: Rate and Rhythm: Normal rate and regular rhythm. Heart sounds: Normal heart sounds. No murmur heard. Pulmonary: Effort: Pulmonary effort is normal. Breath sounds: Normal breath sounds. No wheezing or rhonchi. Musculoskeletal: Thoracic back: Spasms and tenderness present. No swelling, deformity or bony tenderness. Decreased range of motion. Lumbar back: Spasms and tenderness present. No swelling, deformity or bony tenderness. Decreased range of motion. Negative right straight leg raise test and negative left straight leg raise test. Comments: Significant mm spasm L lower thoracic/upper lumbar paraspinals with TTP Moderate R paraspinal mm spasm Neurological: General: No focal deficit present. Mental Status: She is alert and oriented to person, place, and time. Cranial Nerves: No cranial nerve deficit. Sensory: Sensation is intact. Motor: No weakness. Gait: Gait normal. Deep Tendon Reflexes: Reflex Scores: Patellar reflexes are 1+ on the right side and 1+ on the left side. Psychiatric: Mood and Affect: Mood normal. Assessment/Plan Diagnoses and all orders for this visit: Acute mid back pain Acute bilateral low back pain without sciatica Recent onset of lower thoracic/upper lumbar back pain, worse with movement, nml neuro exam, likely musculoskeletal -provided reassurance -referred for L-spine XR to eval for stones -trial naprosyn BID x 1 week then prn, alternate with tylenol as needed -trial baclofen to help with mm spasm -encouraged diclofenac gel as needed -trial lidocaine patches prn -encouraged heat therapy -encouraged stretching exercises -consider PT if no improvement with above -advised contact C if sx change or worsen, she agrees with plans --Follow-up with PCP as scheduled or sooner prn-- Current Outpatient Medications: acetaminophen (Tylenol 8 Hour) 650 MG ER tablet, Take 1 tablet (650 mg) by mouth every 8 (eight) hours if needed for mild pain. Do not crush, chew, or split., Disp: 40 tablet, Rfl: 1 baclofen (Lioresal) 10 MG tablet, Take 1 tablet (10 mg) by mouth if needed in the morning, at noon,and at bedtime for muscle spasms., Disp: 60 tablet, Rfl: 1 cholecalciferol (Vitamin D-3) 25 MCG tablet, TAKE 1 TABLET BY MOUTH EVERY DAY IN THE MORNING, Disp:90 tablet, Rfl: 0 Diclofenac Sodium 1 % gel, APPLY 2 GRAMS TO AFFECTED AREA(S) FOUR TIMES A DAY NEEDED FOR PAIN, Disp: 150 g, Rfl: 1 famotidine (Pepcid) 20 MG tablet, Take 20 mg by mouth 2 times daily., Disp: , Rfl: famotidine (Pepcid) 40 MG tablet, Take 40 mg by mouth in the morning., Disp: , Rfl: hydrocortisone 2.5 % cream, Apply by topical route 1-2 times per day after shower to affected area,Disp: 60 g, Rfl: 1 ibuprofen 800 MG tablet, TAKE 1 TABLET BY MOUTH THREE TIMES DAILY, Disp: 90 tablet, Rfl: 2 lidocaine (Lidoderm) 5 % patch, Apply 1-2 patches topically if needed each day for mild pain. Remove & discard patch within 12 hours or as directed by MD., Disp: 60 patch, Rfl: 1 naproxen (Naprosyn) 500 MG tablet, Take 1 tablet (500 mg) by mouth if needed in the morning and at bedtime for mild pain., Disp: 30 tablet, Rfl: 1 Semaglutide-Weight Management (Wegovy) 1 MG/0.5ML solution auto-injector, INJECT ONE PEN (=1 MG) SUBCUTANEOUSLY ONCE A WEEK, Disp: 2 mL, Rfl: 0 Semaglutide-Weight Management (Wegovy) 2.4 MG/0.75ML solution auto-injector, INJECT ONE PEN (= 2.4 MG) SUBCUTANEOUSLY ONCE A WEEK, Disp: 3 mL, Rfl: 0 Spacer/Aero-Holding Chambers (OptiChamber Ct) misc, 1 each every 4 (four) hours if needed (asthma)., Disp: 1 each, Rfl: 0 Ventolin HFA 108 (90 Base) MCG/ACT inhaler, INHALE 2 PUFFS BY MOUTH EVERY 4 HOURS NEEDED FOR WHEEZING OR SHORTNESS OF BREATH, Disp: 18 g, Rfl: 1 Scribe Attestation: Maik Vázquez, am serving as a scribe to document services personally performed by Claire Fritz, based on the patient's response to questions by provider and provider's statements to me. Physicians Attestation: I, Claire Boucher DO, have reviewed the information by the scribe, Maik Oleary, for accuracy and agree with its content. documented in this encounter Plan of Treatment Upcoming Encounters Date Type Department Care Team (Late st Contact Info) Description 04/20/2024 11:15 AM EST Office Visit [facility] [address] [place] [address] [phone] Name, MD Mulugeta [address] [place] [address] documented as of this encounter Procedures Procedure Name Priority Date/Time Associated Diagnosis Comments XR LUMBAR SPINE 2-3 VIEWS Routine 03/25/2024 3:32 PM EST Acute mid back pain Acute bilateral low back pain without sciatica CULTURE, URINE, ROUTINE Routine 03/25/2024 3:32 PM EST Acute mid back pain POCT URINALYSIS DIPSTICK Routine 03/25/2024 3:31 PM EST Acute mid back pain documented in this encounter Results * Culture, Urine, Routine (03/25/2024 3:32 PM EST) Urine Urine specimen obtained by clean catch procedure / Unknown 03/25/2024 3:32 PM EST 03/25/2024 5:07 PM EST Comment:[facility]S - 03/27/2024 9:55 AM EST Urine Culture Report Result Urine Culture 50,000 to 100,000 cfu/ml Urine Culture Mixed bacterial blair characteristic of Urine Culture urogenital contamination. Strep agalactiae (Grp B) Quant < 10,000 cfu/mL Susc N/A Susceptibility not routinely performed on this isolate. Specimen Source: Urine clean catch us Claire Boucher DO LAB MICROBIOLOGY - GENERAL O RDERABLES Final Result [facility] [address] [place] [address] [phone] * XR Lumbar Spine 2-3 Views (03/25/2024 3:32 PM EST) Anatomical Region Laterality Modality Spine, L-spine Radiographic Jazz ging 03/25/2024 3:32 PM EST Narrative 03/25/2024 4:54 PM EST ?[facility] ?[address] ?[place] [address] ?XRay Report ? Signed ? Patient: DanielIvory I ?MR#: [id number] ?? 98 ? : 1980 ?Acct:[id number] ? Age/Sex: 43 / F ?ADM Date: 03/25/24 ? Loc: HO.HHCX ? Attending Dr: Claire Boucher DO ? Ordering Physician: Claire Boucher DO ?? Date of Service: 03/25/24 ?? Procedure(s): XR lumbar spine 2-3V ?? Accession Number(s): [id number] ? cc: Claire Boucher DO ? EXAMINATION: [...] spine examination. ? Electronically signed by: ??Leon Gabriella MD ??03/25/2024 04:51 PM EST RP ? Dictated By: ?Gabriella,Leon S MD ? Signed By: ?<Electronically signed by Leon S Gabriella, MD in OV> ?03/25/24 1651 ? DD/ 1532 ? TD/TT: 03/25/24 1600 ? Residential Roofer: MSM ? Procedure Note Aman, Image - 03/25/2024 [facility] [address] [place] [address] XRay Report Signed Patient: Ivory Daniel [facility]#: [id number] 98 : 1980Acct:[id number] Age/Sex: 43 / FADM Date: 03/25/24 Loc: .HHCX Attending Dr: Claire Boucher DO Ordering Physician: Claire Boucher DO Date of Service: 03/25/24 Procedure(s): XR lumbar spine 2-3V Accession Number(s): [id number] cc: Claire Boucher DO EXAMINATION: XR LUMBOSACRAL [...] 03/25/24 1651 DD/ 1532 TD/TT: 03/25/24 1600 Residential Roofer: RAYMUNDO Claire Boucher DO IMG XR PROCEDURES Final Resu lt * POCT urinalysis dipstick manually resulted (03/25/2024 3:31 PM EST) Color, UA Yellow Clarity, UA Clear Glucose, UA Negative Bilirubin, UA Negative Ketones, UA Negative Spec Grav, UA 1.030 Blood, UA Negative Negative, None Detected pH, UA 5.5 Protein, UA Negative Urobilinogen, UA 0.2 Leukocytes, UA Negative Negative, Rare, Trace Nitrite, UA Negative Negative, None Detected Urine 03/25/2024 3:31 PM EST Claire Sander DO POINT OF CARE TEST ENTER/ARELY T ORDERABLES Final Result documented in this encounter Visit Diagnoses Diagnosis Acute mid back pain- Primary Acute bilateral low back pain without sciatica documented in this encounter Additional Health Concerns Assessment Noted Time PHQ-9 Depression Total Score: 0 05/29/19 24 10:30 AM EDT documented as of this encounter Care Teams Senior Electrical Design Engineer Relationship Specialty Start Date End Date Name, MD Mulugeta [address] [place] [address] PCP - General Family Medicine 06/06/15 documented as of this encounter
--- OUTSIDE RECORDS SUMMARY | 2024-04-01 17:21 | XMS_ITS | Encounter Summary ---
Author Organization [employer] Address [address] [place] [address] 7t [place] [address] Care Team Providers Care Winery Cellar Hand Name Role Phone Name, Mulugeta HUANG Primary Care Provider [phone] Reason for Visit * Reason Onset Date Comments lab request 05/08/2022 Encounter Details Date Type Department Care Team ([facility] Contact Info) Description 05/08/2022 Telephone [facility] [address] [place], [place] [phone] Name, MD Mulugeta [address] [place] [address] lab request Social History Tobacco Use Types Packs/Day Years [...] encounter Miscellaneous Notes * Telephone Encounter - Sade Brumfield RN - 05/08/2022 11:37 AM EST Added request to appt details with PCP tomorrow * Telephone Encounter - Yoko Liu - 05/08/2022 11:29 AM EST Tc from pt requesting to get labs done a week before going for her heart study at [facility] on 04/24/22. Please call pt to clarify . documented in this encounter Plan of Treatment Upcoming Encounters Date Type Department Care Team (Late st Contact Info) Description 04/20/2024 11:15 AM EST Office Visit [facility] [address] [place] [address] Name, MD Mulugeta [address] [place] [address] documented as of this encounter Visit Diagnoses Not on filedocumented in this encounter Care Teams Winery Cellar Hand Relationship Specialty Start Date End Date NameMulugeta MD [address] [place] [address] PCP - General Family Medicine 06/06/15 documented as of this encounter
== END 2024-04-01 14:15 | disposition home or self-care (01) ==
PROVIDERS: PCP Internal Medicine Geriatric Medicine; Visit Provider Psychiatry & Neurology Neurology
DX: G47.19 Other hypersomnia (principal)
CPT/HCPCS: 99214

== ENCOUNTER 2024-04-01 13:25 | Outpatient (REF) | payer OTHER, SELFPAY ==
--- OUTSIDE RECORDS SUMMARY | 2024-04-01 18:03 | XMS_ITS | Encounter Summary ---
Author Organization [employer] Address [address] [facility] 7t [place] [address] Care Team Providers Care Chief Concierge Name Role Phone Name, Mulugeta HUANG Primary Care Provider [phone] Reason for Visit * Reason Comments Med Refill Encounter Details Date Type Department Care Team ([facility] Contact Info) Description 06/26/2023 Refill [facility] [address] [place], [place] [phone] Name, MD Mulugeta [address] [place] [address] Social History Tobacco Use Types Packs/Day Years [...] Description 04/20/2024 11:15 AM EST Office Visit [facility] [address] [place] [address] Name, MD Mulugeta [address] [place] [address] documented as of this encounter Visit Diagnoses Not on filedocumented in this encounter Additional Health Concerns Assessment Noted Time PHQ-9 Depression Total Score: 0 05/29/19 24 10:30 AM EDT documented as of this encounter Care Teams Chief Concierge Relationship Specialty Start Date End Date NameMulugeta MD [address] [place] [phone] PCP - General Family Medicine 06/06/15 documented as of this encounter
--- OUTSIDE RECORDS SUMMARY | 2024-04-01 18:03 | XMS_ITS | Encounter Summary ---
Author Organization [employer] Address [address] [place] [address] 7 [place] [address] Care Team Providers Care Mail Clerk Name Role Phone Name, Mulugeta HUANG Primary Care Provider [phone] Reason for Referral * Medications - Closed Specialty Diagnoses / Procedures Referred By Contac t Referred To Contact Diagnoses Acute mid back pain Acute bilateral low back pain without sciatica Claire Boucher DO [address] [place] [address] Phone: tel: fax: Referral ID Status Reason Start Date Expiration Date Visits Re quested Visits Authorized [id number] Closed 03/25/2024 03/25/2025 1 1 Reason for Visit * Reason Comments Back Pain Encounter Details Date Type Department Care Team ([facility] st Contact Info) Description 03/25/2024 3:40 PM EST Office Visit [facility] [address] [place], [place] [phone] Claire Boucher DO [address] [place] [address] Acute mid back pain (Primary Dx); Acute [...] h/o renal stones. History provided by: Patient supervisor anodizing used: Yes (Chris Leslie) Back Pain This [...] Description 04/20/2024 11:15 AM EST Office Visit [facility] [address] [place] [address] [phone] Name, MD Mulugeta [address] [place] [address] documented as of this encounter Procedures Procedure [...] 3:32 PM EST 03/25/2024 5:07 PM EST Comment:[facility] - 03/27/2024 9:55 AM EST Urine Culture Report Result Urine Culture 50,000 to 100,000 cfu/ml Urine Culture Mixed bacterial blair characteristic of Urine Culture urogenital contamination. Strep agalactiae (Grp B) Quant < 10,000 cfu/mL Susc N/A Susceptibility not routinely performed on this isolate. Specimen Source: Urine clean catch us Claire Boucher DO LAB MICROBIOLOGY - GENERAL O RDERABLES Final Result [facility] [address] [place] [address] [phone] * XR Lumbar Spine 2-3 Views (03/25/2024 3:32 PM EST) Anatomical Region Laterality Modality Spine, L-spine Radiographic Jazz ging 03/25/2024 3:32 PM EST Narrative 03/25/2024 4:54 PM EST ?[facility] ?[address] ?[place] [address] ?XRay Report ? Signed ? Patient: DanielIvory I ?MR#: [id number] ?? 98 ? : 1980 ?Acct:[id number] ? Age/Sex: 43 / F ?ADM Date: 03/25/24 ? Loc: HO.HHCX ? Attending Dr: Claire Boucher DO ? Ordering Physician: Claire Boucher DO ?? Date of Service: 03/25/24 ?? Procedure(s): XR lumbar spine 2-3V ?? Accession Number(s): [id number] ? cc: Claire Boucher DO ? EXAMINATION: [...] DD/ 1532 ? TD/TT: 03/25/24 1600 ? Baseball Glove Shaper: MSM ? Procedure Note Aman, Image - 03/25/2024 [facility] [address] [place] [address] XRay Report Signed Patient: Ivory Daniel [facility]#: [id number] 98 : 1980Acct:[id number] Age/Sex: 43 / FADM Date: 03/25/24 Loc: .HHCX Attending Dr: Claire Boucher DO Ordering Physician: Claire Boucher DO Date of Service: 03/25/24 Procedure(s): XR lumbar spine 2-3V Accession Number(s): [id number] cc: Claire Boucher DO EXAMINATION: XR LUMBOSACRAL [...] 03/25/24 1651 DD/ 1532 TD/TT: 03/25/24 1600 Baseball Glove Shaper: RAYMUNDO Claire Boucher DO IMG XR PROCEDURES [...] documented as of this encounter Care Teams Mail Clerk Relationship Specialty Start Date End Date Name, MD Mulugeta [address] [place] [address] PCP - General Family Medicine 06/06/15 documented as of this encounter
--- OUTSIDE RECORDS SUMMARY | 2024-04-01 18:03 | XMS_ITS | Encounter Summary ---
Demographics Address [address] [facility] [address] [place] [address] Home Phone Work Phone Mobile Phone Email Address Preferred Language es Marital Status Jain Affiliation Unknown Race Other Race Ethnic Group Mexican Author Organization [email or web address] Address [address] [facility] 7t [place] [address] Care Team Providers Care Operating Systems Programmer Name Role Phone Name, Mulugeta HUANG Primary Care Provider [phone] Reason for Visit * Reason Onset Date Comments telephone call 02/12/2024 Prior Authorization 02/12/2024 JO-ANN DONOVAN Reque st: [place] Encounter Details Date Type Department Care Team ([facility] st Contact Info) Description 02/12/2024 Telephone [facility] [address] [place] [address] Name, MD Mulugeta [address] [place] [address] telephone call; Prior Authorization (JO-ANN DONOVAN Request: [...] AM EST Tc to pt via s shellfish dredge operator id: [id number] in regards to refill request of [employer]. [...] Description 04/20/2024 11:15 AM EST Office Visit [facility] [address] [place] [address] Name, MD Mulugeta [address] [place] [address] documented as of this encounter Visit Diagnoses Not on filedocumented in this encounter Additional Health Concerns Assessment Noted Time PHQ-9 Depression Total Score: 0 05/29/19 24 10:30 AM EDT documented as of this encounter Care Teams Operating Systems Programmer Relationship Specialty Start Date End Date Name, MD Mulugeta [address] [place] [address] PCP - General Family Medicine 06/06/15 documented as of this encounter
--- OUTSIDE RECORDS SUMMARY | 2024-04-01 18:03 | XMS_ITS | Encounter Summary ---
Author Organization [employer] Address [address] [facility] 7t [place] [address] Care Team Providers Care Automated Equipment Engineer Technician Name Role Phone Name, Mulugeta HUANG Primary Care Provider [phone] Reason for Visit * Reason Onset Date Comments Results 08/15/2022 Encounter Details Date Type Department Care Team ([facility] Contact Info) Description 08/15/2022 Telephone [facility] [address] [place], [place] [phone] Name, MD Mulugeta [address] [place] [address] Results Social History Tobacco Use Types Packs/Day [...] of any CP, SOB or breathing problem. [facility] hours advised. Pt. Also informed that she is having upcoming apt. On 09/13/2022. Advised to give call to [phone] if any questions [place] concerns. Pt. Verbally agreed and understood. * Telephone Encounter - Amanda Winslow RN - 08/16/2022 1:38 PM EDT VERONICA T/C to [phone] through [employer] id - [id number] for below message, pt. Advised that her [...] to review with PCP. Please contact at [phone] [place] documented in this encounter Plan of Treatment Upcoming Encounters Date Type Department Care Team (Late st Contact Info) Description 04/20/2024 11:15 AM EST Office Visit [facility] [address] [place] [phone] Name, MD Mulugeta [address] [place] [address] documented as of this encounter Visit Diagnoses Not on filedocumented in this encounter Care Teams Automated Equipment Engineer Technician Relationship Specialty Start Date End Date Name, MD Mulugeta [address] [place] [address] PCP - General Family Medicine 06/06/15 documented as of this encounter
--- OUTSIDE RECORDS SUMMARY | 2024-04-01 18:03 | XMS_ITS | Encounter Summary ---
Author Organization [employer] Address [address] [facility] 7t [place] [address] Care Team Providers Care Rn Clinical Review Name Role Phone Name, Mulugeta HUANG Primary Care Provider [phone] Reason for Visit * Reason Onset Date Comments Med Refill 10/23/2023 Encounter Details Date Type Department Care Team ([facility] st Contact Info) Description 10/23/2023 Refill [facility] [address] [place], [place] [phone] Name, MD Mulugeta [address] [place] [address] Obesity (BMI 30-39.9) Social History Tobacco Use [...] Description 04/20/2024 11:15 AM EST Office Visit [facility] [address] [place] [address] Name, MD Mulugeta [address] [place] [address] documented as of this encounter Visit Diagnoses Diagnosis Obesity (BMI 30-39.9) documented in this encounter Additional Health Concerns Assessment Noted Time PHQ-9 Depression Total Score: 0 05/29/19 24 10:30 AM EDT documented as of this encounter Care Teams Rn Clinical Review Relationship Specialty Start Date End Date NameMulugeta MD [address] [place] [phone] PCP - General Family Medicine 06/06/15 documented as of this encounter
--- OUTSIDE RECORDS SUMMARY | 2024-04-01 18:03 | XMS_ITS | Encounter Summary ---
Author Organization [employer] Address [address] [facility] 7t [place] [address] Care Team Providers Care Desizing Machine Operator Head End Name Role Phone Name, Mulugeta HUANG Primary Care Provider [phone] Reason for Visit * Reason Comments Med Refill Encounter Details Date Type Department Care Team ([facility] Contact Info) Description 03/15/2024 Refill [facility] [address] [place], [place] [phone] Name, MD Mulugeta [address] [place], [place] [phone] Obesity, unspecified Social History Tobacco Use Types [...] Description 04/20/2024 11:15 AM EST Office Visit [facility] [address] [place] [phone] Name, MD Mulugeta [address] [place] [address] documented as of this encounter Visit Diagnoses Diagnosis Obesity, unspecified documented in this encounter Additional Health Concerns Assessment Noted Time PHQ-9 Depression Total Score: 0 05/29/19 24 10:30 AM EDT documented as of this encounter Care Teams Desizing Machine Operator Head End Relationship Specialty Start Date End Date NameMulugeta MD [address] [place] [address] PCP - General Family Medicine 06/06/15 documented as of this encounter
--- OUTSIDE RECORDS SUMMARY | 2024-04-01 18:03 | XMS_ITS | Encounter Summary ---
Author Organization [employer] Address [address] [place] [address] 7t [place] [address] Care Team Providers Care Traffic Supervisor Name Role Phone Name, Mulugeta HUANG Primary Care Provider [phone] Reason for Visit * Reason Onset Date Comments Appointment Request 05/09/2022 Encounter Details Date Type Department Care Team ([facility] Contact Info) Description 05/09/2022 Telephone [facility] [address] [place], [place] [phone] Name, MD Mulugeta [address] [place] [address] Appointment Request Social History Tobacco Use Types [...] 1 WEEK prior to heart [facility] [place] [facility] date 05/22 ) Please contact pt at [phone] documented in this encounter Plan of Treatment Upcoming Encounters Date Type Department Care Team (Late st Contact Info) Description 04/20/2024 11:15 AM EST Office Visit [facility] [address] [place] [address] Name, MD Mulugeta [address] [place] [address] documented as of this encounter Visit Diagnoses Not on filedocumented in this encounter Care Teams Traffic Supervisor Relationship Specialty Start Date End Date Name, MD Mulugeta [address] [place] [address] PCP - General Family Medicine 06/06/15 documented as of this encounter
--- OUTSIDE RECORDS SUMMARY | 2024-04-01 18:03 | XMS_ITS | Clinical Summary ---
Author Organization [employer] Address [address] [place] [address] 7t [place] [address] Care Team Providers Care [employer] Pe Teacher Name Role Phone Name, Mulugeta HUANG Primary Care Provider [phone] Allergies Active Allergy Reactions Criticality Noted Date [...] 05/23/2022 Overview (05/23/2022): 7 grade education in [place] Does not know how to read or write Luxembourgish Epigastric pain 04/09/2022 H. pylori infection 04/09/2022 Obesity (BMI 30-39.9) 01/06/2017 Allergic rhinitis 03/26/2016 Prediabetes 12/26/2015 Resolved Problems Problem Noted Date Diagnosed Date Resolved Date Unintentional weight loss 04/09/2022 History of traumatic brain injury 04/09/2022 05/23/2022 Memory loss 04/09/2022 05/23/2022 Encounters Date Type Department Care Team Description 03/25/2024 3:40 PM EST Office Visit [facility] [address] [place] [address] Claire Boucher DO Acute mid back pain (Primary Dx); Acute bilateral low back pain without sciatica 03/15/2024 Refill [facility] [address] [place] [address] Mulugeta Peralta MD Obesity, unspecified 02/26/[address] [address] Niall Hogan [place] feb recalls 02/12/[address] [address] Mulugeta Peralta MD telephone call; Prior Authorization ([facility] Request: [facility]) 02/06/2024 Telephone [facility] [address] [place] [address] Snehal De Dios, LOUISA Med Refill ([facility] notification) 01/26/2024 Refill [facility] [address] [place], [place] [phone] Mulugeta Peralta MD 01/06/2024 Refill [facility] [address] [place] [address] Mulugeta Peralta MD from Last 3 Months [...] the past 12 months, has t he [employer] gas, oil or water company threatened to [...] Description 04/20/2024 11:15 AM EST Office Visit [facility] [address] [place], [place] [phone] Name, MD Mulugeta [address] [place] [address] Health Maintenance Due Date Last Done Comments [...] PM EST Narrative 03/25/2024 4:54 PM EST ?[facility] ?[address] ?[place] [address] ?XRay Report ? Signed ? Patient: Ivory Daniel I ?MR#: [id number] ?? 98 ? : 1980 ?Acct:[id number] ? Age/Sex: 43 / F ?ADM Date: 03/25/24 ? Loc: HO.HHCX ? Attending Dr: Claire Boucher DO ? Ordering Physician: Claire Boucher DO ?? Date of Service: 03/25/24 ?? Procedure(s): XR lumbar spine 2-3V ?? Accession Number(s): [id number] ? cc: Claire Boucher DO ? EXAMINATION: [...] DD/ 1532 ? TD/TT: 03/25/24 1600 ? Belly Dump Driver: MSM ? Procedure Note Donevypengter, Image - 03/25/[address] [address] XRay Report Signed Patient: Ivory Daniel IMR#: [id number] 98 : 1980Acct:[id number] Age/Sex: 43 / FADM Date: 03/25/24 Loc: .HHCX Attending Dr: Claire Boucher DO Ordering Physician: Claire Boucher DO Date of Service: 03/25/24 Procedure(s): XR lumbar spine 2-3V Accession Number(s): [id number] cc: Claire Boucher DO EXAMINATION: XR LUMBOSACRAL [...] 03/25/24 1651 DD/ 1532 TD/TT: 03/25/24 1600 Belly Dump Driver: MSM Claire Boucher DO IMG XR PROCEDURES Final Resu lt * Culture, Urine, Routine (03/25/2024 3:32 PM EST) Urine Urine specimen obtained by clean catch procedure / Unknown 03/25/2024 3:32 PM EST 03/25/2024 5:07 PM EST Comment:UACC Narrative [facility] - 03/27/2024 9:55 AM EST Urine Culture Report Result Urine Culture 50,000 to 100,000 cfu/ml Urine Culture Mixed bacterial blair characteristic of Urine Culture urogenital contamination. Strep agalactiae (Grp B) Quant < 10,000 cfu/mL Susc N/A Susceptibility not routinely performed on this isolate. Specimen Source: Urine clean catch Claire Boucher DO LAB MICROBIOLOGY - GENERAL O RDERABLES Final Result [facility] [address] [place] [phone] * POCT urinalysis dipstick manually resulted [...] EDT Narrative 08/08/2023 8:49 AM EDT ? [facility] ? [address] [facility] ?[place] [address] ? Mammography Report ? Signed ? Patient: Ivory Daniel I ?MR#: [id number] ?? 98 ? : 1980 ?Acct:[id number] ? Age/Sex: 43 / F ?ADM Date: 07/10/23 ? Loc: HO.MAMMO ? Attending Dr: Mulugeta Name MD ? Ordering Physician: Name,Mulugeta MD ?Results: 1Negative ? Date of Service: 07/10/23 ?Follow Up: 1 Year From Orig ?? inal Mammogram ? Procedure(s): MM tomosynthesis screening BI ?? Accession Number(s): [id number] ? cc: Name,Mulugeta HUANG ? EXAMINATION: ?? [...] 0845 ? DD/ 1015 ? TD/TT: ? Belly Dump Driver: ? Procedure Note Aman, Image - 08/08/2023 [facility] [address] [place], [place] [address] Mammography Report Signed Patient: Ivory Daniel IMR#: [id number] 98 : 1980Acct:[id number] Age/Sex: 43 / FADM Date: 07/10/23 Loc: HO.MAMMO Attending Dr: Mulugeta Peralta MD Ordering Physician: Mulugeta Peraltaesults: 1Negative Date of Service: 07/10/23Follow Up: 1 Year From Orig inal Mammogram Procedure(s): MM tomosynthesis screening BI Accession Number(s): [id number] cc: Mulugeta Peralta MD EXAMINATION: MM SCREENING [...] in OV> 08/08/23 0845 DD/ 1015 TD/TT: Belly Dump Driver: Mulugeta Peralta MD IM BI PROCEDURES Edited Result - Final * Hepatitis C Antibody with Reflex to HCV, RNA, Quantitative, Real-Time PCR (06/03/2022 10:57 AM EDT) Hepatitis C Antibody NON-REACT KELLY NON-REACT KELLY [facility] Index 0.09 <1.00 [facility] Comment: HCV antibody was non-reactive. There is no laboratory evidence of HCV infection. In most cases, no further action is required. However, if recent HCV exposure is suspected, a test for HCV RNA (test code 53093) is suggested. For additional information please refer to http://education.Field Agent/faq/VQT13n1 (This link is being provided for informational/ educational purposes only.) Blood Venous blood specimen / Unknown 06/03/2022 10:57 AM EDT 06/03/2022 10:58 AM EDT Narrative [facility] - 06/04/2022 8:43 PM EDT FASTING:NO FASTING: NO us [facility] LAB BLOOD ORDERABLES Nani sanders Result [facility] [address] [place] [address], [place] [address] [facility] [place] [email or web address] [address] [place] [address] * HIV-1/2 Antigen and Antibodies, Fourth Generation, with Reflexes (06/03/2022 10:57 AM EDT) HIV Antigen/Antibody, 4th Generation NON-REAC TIVE NON-REAC TIVE [facility] Comment: HIV-1 antigen and HIV-1/HIV-2 antibodies were [...] ?? For additional information please refer to http://education.Field Agent/faq/OQR161 (This link is being provided for informational/ educational purposes only.) The performance of this assay has not been clinically validated in patients less than 2 years old. Blood Venous blood specimen / Unknown 06/03/2022 10:57 AM EDT 06/03/2022 10:58 AM EDT Narrative [facility] - 06/04/2022 8:43 PM EDT FASTING:NO FASTING: NO Candice Morrell [facility] LAB BLOOD ORDERABLES Nani l Result [facility] [address] [facility], [facility], [place] [address] [facility] [place] [email or web address] [address] [place] [address] * Image-Guided Pap with Age-Based Screening??with CT/NG,??Trichomonas (06/03/2022 10:47 AM EDT) Comment [facility] [place] [facility] Comment: This order for age-based cervical cancer and STI screening follows ACOG guidelines(PB 168, 140, FZB971). See individual assays for performing site location. Clinical Information: Routine exam [facility] LMP: NONE GIVEN [facility] [place] [employer] [facility] Prev. PAP: NONE GIVEN [facility] [place] [employer] [facility] Prev. BX: NONE GIVEN [facility] SOURCE: None given [facility] Statement Of Adequacy: [facility] Comment: Satisfactory for evaluation. Endocervical/transformation zone component present. Interpretation/Re sult: Negative for intraepithelial lesion or malignancy. [facility] [place] [email or web address] COMMENT: This Pap test has been evaluated with computer assisted technology. [facility] [place] [facility] Clerical Adjudicator: Antonia est [employer] Comment: WAC, CT(ASCP) CT screening location: [address] ??[address] (Always Message) [facility] [employer] Comment: EXPLANATORY NOTE: The Pap is a [...] HPV nRNA E6/E7 Not Detected Not Detected [facility] Comment: Methodology: Sheriff'S Detective-Mediated Amplification This assay detects E6/E7 viral messenger RNA (mRNA) from 14 high-risk HPV types (16,18,31,33,35,39,45,51,52,56,58,59,66,68). Cervical sources are required for HPV testing. If a vaginal source from a patient who has had a total hysterectomy with removal of cervix was submitted, please contact the testing laboratory for alternative testing options. For additional information, please refer to http://education.Field Agent/faq/ZGR405r4 (This link if provided for information/ educational purposes only.) Chlamydia trachomatis RNA, TMA, Urogenital NOT DETECTED NOT DETECTED [facility] Neisseria gonorrhoeae RNA, TMA, Urogenital NOT DETECTED NOT DETECTED [facility] (Always Message) Que st [facility] Comment: The analytical performance characteristics of this assay, when used to test SurePath(TM) specimens have been determined by [facility]. The modifications have not been cleared or approved by the FDA. This assay has been validated pursuant to the CLIA regulations and is used for clinical purposes. For additional information, please refer to https://[employer]ors.Field Agent/faq/LNE163 (This link is being provided for information/ educational purposes only.) Trichomonas vaginalis, QL, TMA, PAP Vial NOT DETECTED NOT DETECTED [facility] [place] [facility] Comment: The analytical performance characteristics of this assay have been determined by [facility]. The modifications have not been cleared or approved by the FDA. This assay has been validated pursuant to the CLIA regulations and is used for clinical purposes. For additional information, please refer to http://[employer].Field Agent/ faq/Trichomonastma (This link is being provided for information/ educational purposes only.) Cytology specimen container (physical object) 06/03/2022 10:47 AM EDT 06/04/2022 5:15 AM EDT Candice Morrell [facility] CYTOLOGY ORDERABLES F inal Result [facility] [address], [place] [address] [facility] [place] [facility] [address] [place] [address] * (ABNORMAL) Lipid Panel, Standard (04/09/2022 10:06 AM EST) Cholesterol, Total 168 <200 mg/dL [facility] [place] [facility] HDL Cholesterol 41(L) > OR = 50 mg/dL [facility] [place] [facility] Triglycerides 216(H) <150 mg/dL [facility] [place] [facility] Comment: If a non-fasting specimen was collected, consider repeat triglyceride testing on a fasting specimen if clinically indicated. Tunde et al. J. of Clin. Lipidol. 2015;9:129-169. LDL Cholesterol 96 mg/dL (calc) [facility] [place] [facility] Comment: Reference range: <100 Desirable range <100 mg/dL for primary prevention; ?? <70 mg/dL for patients with CHD or diabetic patients with > or = 2 CHD risk factors. LDL-C is now calculated using the Gorge calculation, which is a validated novel method providing better accuracy than the Friedewald equation in the estimation of LDL-C. Jean KUMAR et al. NARENDRA. 2013;310(19): 3313-2909 (http://education.Parclick.com/faq/ECF567) Chol/HDLC Ratio 4.1 <5.0 (calc) [facility] Non-HDL Cholesterol 127 <130 mg/dL (calc) [facility] Comment: For patients with diabetes plus 1 major ASCVD risk factor, treating to a non-HDL-C goal of <100 mg/dL (LDL-C of <70 mg/dL) is considered a therapeutic option. Blood Venous blood specimen / Unknown 04/09/2022 10:06 AM EST 04/09/2022 10:07 AM EST Narrative [facility] - 04/09/2022 9:59 PM EST FASTING:NO FASTING: NO Yolis Noland [facility] LAB BLOOD ORDERABLES Final Result [facility] [address], [place] [address] [facility] [place] [facility] [address] [facility], ([address]) [place] [address] from Last 3 Months or Most Recently Relevant to Health Maintenance Insurance [facility] [place] [address] [place] [address] [place] [address] Care Teams Middle [employer] Pe Teacher Relationship Specialty Start Date End Date Name, MD Mulugeta [address] [place] [address] PCP - General Family Medicine 06/06/15
--- OUTSIDE RECORDS SUMMARY | 2024-04-01 18:03 | XMS_ITS | Encounter Summary ---
Author Organization [employer] Address [address] [place] [address] 7t [place] [address] Care Team Providers Care Rigger Apprentice Name Role Phone Name, Mulugeta HUANG Primary Care Provider Reason for Visit * Reason Onset Date Comments lab request 05/08/2022 Encounter Details Date Type Department Care Team ([facility] Contact Info) Description 05/08/2022 Telephone [facility] [address] [place], [place] [phone] Name, MD Mulugeta [address] [place] [address] lab request Social History Tobacco Use Types [...] before going [place] [facility] [place]. Please call pt to clarify . documented in this encounter Plan of Treatment Upcoming Encounters Date Type Department Care Team (Late st Contact Info) Description 04/20/2024 11:15 AM EST Office Visit [facility] [address] [place] [address] Name, MD Mulugeta [address] [place] [address] documented as of this encounter Visit Diagnoses Not on filedocumented in this encounter Care Teams Rigger Apprentice Relationship Specialty Start Date End Date NameMulugeta MD [address] [place] [address] PCP - General Family Medicine 06/06/15 documented as of this encounter
--- OUTSIDE RECORDS SUMMARY | 2024-04-01 18:03 | XMS_ITS | Clinical Summary ---
Author Organization [facility] ity Address [address] [place] [address] Care Team Providers Care Meat Cutter Name Role Phone Name, Mulugeta HUANG Primary Care Provider [phone] Surgical History Surgery Date Site/Laterality Comments OTHER [...] RESULTING AGENCY - 09/14/2018 12:06 PM EDT [id number] THINPREP PAP, IMAGED: NEGATIVE FOR SQUAMOUS INTRAEPITHELIAL [...] Recently Relevant to Health Maintenance Care Teams Meat Cutter Relationship Specialty Start Date End Date Name, MD Mulugeta [address] [place], [place] PCP - General 06/30/16
[2024-04-05 23:43] LABS: Vitamin D 25-OH, D2 <4 ng/mL; Vitamin D 25-OH, D3 37 ng/mL; Vitamin D 25-OH, Total 37 ng/mL (30-100)
== END 2024-04-01 13:26 | disposition home or self-care (01) ==
LOC: HO.HKASLDS 13:25
PROVIDERS: PCP Internal Medicine Geriatric Medicine; Visit Provider Psychiatry & Neurology Neurology
DX: G47.19 Other hypersomnia (principal)
CPT/HCPCS: 36415; 82306; 99212

== ENCOUNTER 2024-06-03 14:24 | Emergency (ER) | payer OTHER, SELFPAY ==
--- NOTE | ~2024-06-03 | XR_ITS ---
EXAMINATION: XR CHEST CLINICAL INFORMATION: pain COMPARISON: 07/13/2019. CT chest 09/30/2022. TECHNIQUE: Frontal view of the chest was obtained. FINDINGS: Borderline cardiac enlargement. The hilar and mediastinal contours are normal. The lungs are clear bilaterally. No pneumothorax or effusion. No focal osseous or soft tissue abnormality. XR/XR chest 1V IMPRESSION: No active pulmonary disease. Electronically signed by: Adrian Garcia MD 06/03/2024 04:14 PM EDT
[2024-06-03 14:58] VITALS: BP 141/62; PULSE 63; RESP 20; TEMP 36.6; O2SAT 98; BMI 37.4
--- NOTE | 2024-06-03 15:03 | ECG_ITS ---
Test Reason : SOB Blood Pressure : */* mmHG Vent. Rate : 58 BPM Atrial Rate : 58 BPM P-R Int : 184 ms QRS Dur : 100 ms QT Int : 426 ms P-R-T Axes : 7 0 7 degrees QTcB Int : 418 ms Sinus bradycardia Moderate voltage criteria for LVH, may be normal variant ( R in aVL , Babbitt product ) Septal infarct , age undetermined Abnormal ECG When compared with ECG of 13-Jul-2019 16:26, Septal infarct is now Present - Referred By: Aleta Oh Electronically Signed By: AUGUSTIN TUBBS
--- NOTE | 2024-06-03 15:24 | ED_ITS ---
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 The patient herself does not have known CAD. She comes in with 2 to 3 days of very vague chest pain, fatigue going up the stairs, discomfort in both lungs when laying flat, feels her legs are swollen. No orthopnea. It occurs at rest and exertion. She has no cough or fevers or sick contacts. She cannot really elicit what makes it better or worse. She has not traveled or had any recent procedures. She was sent from [facility] with EKG showing new LBBB on arrival to ED her rhythm is NSR. complaint: chest pain Onset (ago): day(s) (2 to 3 days) Timing of current episode: episodic Prior episodes: Yes Onset: during rest and during exertion Pain location: substernal and other (under bilateral breasts and along her sides of bra) Pain radiation: none Severity: moderate Quality: other (pressure) Relieving factors: nothing Exacerbating factors: supine Associated symptoms: dyspnea Treatment prior to arrival: none Related Data Home Medications ?Medication ?Instructions ?Recorded ?Confirmed omega-3 fatty acids 1,000 mg 1,000 mg PO DAILY 02/14/22 09/23/23 capsule cholecalciferol (vitamin D3) 25 25 mcg PO QAM 05/16/22 09/23/23 mcg (1,000 unit) capsule (Vitamin D3) ibuprofen 800 mg tablet 800 mg PO TID 12/26/22 09/23/23 Previous Rx's ?Medication ?Instructions ?Recorded famotidine 40 mg tablet 40 mg PO DAILY #30 tabs 05/16/22 famotidine 20 mg tablet 20 mg PO BID #60 tabs 10/02/23 Allergies Allergy/AdvReac Type Severity Reaction Status Date / Time seafood Allergy Eye Verified 06/03/24 15:00 Swelling Review of Systems 2 Review of Systems: Constitutional : No Weight loss, No Fever, No Chills ENT/Mouth : No sore throat, No Rhinorrhea Eyes: No Eye Pain, No Swelling Cardiovascular : pos Chest Pain, pos SOB, no Dyspnea on Exertion, No Orthopnea, No Edema, No Palpitations Respiratory : No Cough, No Sputum Gastrointestinal : no Nausea, No Vomiting, No Diarrhea, No abdominal Pain, No Hematochezia, No Melena Genitourinary : No Dysuria, No Urinary Frequency Musculoskeletal : No joint pain, No Myalgias, No Joint Swelling Skin : No Skin Lesions, No rash Neuro : No Weakness, No Numbness, No Dizziness, No Headache All other systems reviewed and are negative [facility] Past Medical History Attestation statement: The following information was validated with the patient. Source: old records reviewed Medical History Gallstones Surgical History History of esophagogastroduodenoscopy (EGD) Hx of colonoscopy H/O section Family History Family History Family/Other Cancer Diabetes Social History Social History Household Members: Spouse Unable to assess alcohol history related to: Unknown Alcohol intake: never Patient Tobacco Use Status: Never used Tobacco Smoked in Last 30 Days: No Use of substances other than those prescribed or required for medical reasons: Unknown Advance Directives: No Advance Directives Information Provided: Yes Current occupational status: unemployed Physical Exam 2 Vital Signs: Vital Signs: Last Vital Signs Temp 98.3 F 06/03/24 17:43 Pulse 66 06/03/24 17:43 Resp 18 06/03/24 17:43 BP 144/74 H 06/03/24 17:43 Pulse Ox 100 06/03/24 17:43 BMI result Body Mass Index 37.4 Appearance: Alert. Oriented X3. No acute distress. Eyes: Pupils equal, round and reactive to light. ENT: Pharynx normal. Neck: Normal inspection. Neck supple. CVS: Normal heart rate and rhythm. Pulses normal. Respiratory: No respiratory distress. Breath sounds normal. Abdomen: Soft and nontender. Skin: Skin warm and dry. Normal skin color. Normal skin turgor. Extremities: trace symmetric pitting lower extremity edema. No calf ttp Neuro: Oriented X 3. No motor deficit. No sensory deficit. CN2-12 intact Medical Decision Making Medical Decision Making [facility] Narrative: 43 yo female with PMH of GERD, early CAD in Mom (states she had CABG though is vague) at this time atypical chest pain but she really is a poor historian. Will obtain trop x 2, BNP, ddimer for low VTE. She has no active symptoms now. She did have EKG changes with LBBB pattern present - this could be normal variant for her. Repeat enzymes ordered. Differential Diagnosis Differential Diagnoses: The differential diagnosis associated with the presentation includes atypical ACS, low prob VTE, on and off for 2 days with distal symmetric pulses doubt dissection, MSK pain stress ECHO normal, coronary CTA no sig disease as well Admission/Observation Consideration of admission/observation: Escalation of care including admission/observation considered trop flat x 2, ddimer negative BNP only 117, CXR normal EKG no acute ischemia did have intermittent LBBB at this time I think it is reasonable to request outpatient follow up with cardiology Consult Healthcare Provider Management of the patient was discussed with: Zoning Engineer (becky follow up as outpatient) Lab Data [facility] [place] Lab Attestation statement: I reviewed the patient's lab results. 06/03/24 15:30 06/03/24 15:30 Labs: Lab Results 06/03/24 06/03/24 06/03/24 Range/Units 15:30 15:33 17:42 WBC 8.0 (4.8-10.8) X10*3/uL RBC 3.70 L (4.20-5.50) X10*6/uL Hgb 10.7 L (12.0-16.0) g/dl Hct 32.1 L (37.0-47.0) % MCV 86.8 (80.0-98.0) fL MCH 28.9 (27.0-33.0) pg MCHC 33.3 (31.0-35.0) g/dl RDW 13.5 (11.0-16.0) % Plt Count 278 (160-400) X10*3/uL MPV 10.6 (9.4-12.3) fL Immature Gran % (Auto) 0.4 (0.0-0.4) % Neut % (Auto) 54.8 (45-73) % Lymph % (Auto) 33.7 (20-40) % Polk % (Auto) 8.7 (2-11) % Eos % (Auto) 1.8 (0-4) % Baso % (Auto) 0.6 (0-2) % Lymph # (Auto) 2.7 (1.2-4.9) X10*3/uL Polk # (Auto) 0.7 (0.1-1.2) X10*3/uL Eos # (Auto) 0.1 (0.0-0.4) X10*3/uL Baso # (Auto) 0.1 (0.0-0.2) X10*3/uL Abs Immat Gran (auto) 0.03 (0.00-0.03) X10*3/uL Absolute Neuts (auto) 4.4 (2.0-8.3) x10*3/uL Absolute Nucleated RBC 0.000 (0.0-0.012) X10*3/uL Nucleated RBC % (auto) 0.0 (0.0-0.2) /100WBC D-Dimer High Sensitivty < 150 NG/ML Sodium 141 (135-145) mmol/L Potassium 4.4 (3.3-5.1) mmol/L Chloride 107 (96-108) mmol/L Carbon Dioxide 28 (22-29) mmol/L Anion Gap 10 L (12-20) BUN 17 H (9-16) mg/dL Creatinine 0.66 (0.5-1.4) mg/dL Estim Creat Clear Calc 110.9 Estimated GFR > 60 Random Glucose 90 (60-115) mg/dL Calcium 9.4 (8.4-10.2) mg/dL Total Bilirubin 0.7 (0.0-1.0) mg/dL AST 19 (5-31) U/L ALT 25 (0-31) U/L Alkaline Phosphatase 41 (39-117) U/L Troponin I High Sens < 2.7 < 2.7 (<3.5-17.0) ng/L B-Natriuretic Peptide 117 H (<100) pg/mL Total Protein 6.9 (6.5-8.0) g/dL Albumin 4.0 (3.5-5.0) g/dL Influenza Type A (PCR) NEGATIVE (Negative) Influenza Type B (PCR) NEGATIVE (Negative) RSV RNA Qual (PCR) NEGATIVE (Negative) SARS-CoV-2 RNA (RT-PCR) NEGATIVE (Negative) Independent Interpretation I performed an independent interpretation of an: EKG and Plain X-Ray (normal ) Interpretation: Rate: 58 Rhythm: sinus bradycardia Hutchinson: left, LVH Normal P waves. Normal YURI. Normal QRS complex. ST T wave : inverted t waves V1, V2, no GALLITO qTC:418 prior studies: t wave inversions are new The study has been interpreted contemporaneously by me. EKG prehospital shows LBBB Radiology Impression Discussion of test interpretation with radiology: I have reviewed the radiologist's reading. Independent Historian Clinical information obtained from an independent historian. History obtained from or confirmed by: Spouse and EMS Discharge Plan Discharge Clinical Impression: Abnormal EKG, Atypical chest pain Patient Disposition: Home, Self-Care Instructions: Chest Pain (ED) Additional Instructions: chest xray normal EKG today reassuring repeat tests of the heart are normal please return for any worsening symptoms or concerns PLEASE CALL CARDIOLOGY AND FOLLOW UP SOON POSSIBLE Prescriptions: No Action famotidine 20 mg tablet 20 mg PO BID Qty: 60 5RF omega-3 fatty acids 1,000 mg capsule 1,000 mg PO DAILY cholecalciferol (vitamin D3) [Vitamin D3] 25 mcg (1,000 unit) capsule 25 mcg PO QAM famotidine 40 mg tablet 40 mg PO DAILY Qty: 30 6RF ibuprofen 800 mg tablet 800 mg PO TID Referrals: [facility] [place] [place] [facility] [Provider Group] Print Language: Cameroonian
[2024-06-03 15:40] LABS: MANUAL DIFF FLAG NO
[2024-06-03 15:49] LABS: Basophils Absolute Auto 0.1 X10*3/uL (0.0-0.2); Basophils Percent Auto 0.6 % (0-2); Eosinophils Absolute Auto 0.1 X10*3/uL (0.0-0.4); Eosinophils Percent Auto 1.8 % (0-4); Hematocrit 32.1 % (37.0-47.0); Hemoglobin 10.7 g/dl (12.0-16.0); Imm Gran Abs Auto 0.03 X10*3/uL (0.00-0.03); Imm Gran Pct Auto 0.4 % (0.0-0.4); Lymphocytes Absolute Auto 2.7 X10*3/uL (1.2-4.9); Lymphocytes Percent Auto 33.7 % (20-40); Mean Corpuscular HGB Conc 33.3 g/dl (31.0-35.0); Mean Corpuscular Hemoglobin 28.9 pg (27.0-33.0); Mean Corpuscular Volume 86.8 fL (80.0-98.0); Mean Platelet Volume 10.6 fL (9.4-12.3); Monocytes Absolute Auto 0.7 X10*3/uL (0.1-1.2); Monocytes Percent Auto 8.7 % (2-11); Neutrophils Absolute Auto 4.4 x10*3/uL (2.0-8.3); Neutrophils Percent Auto 54.8 % (45-73); Platelet Count 278 X10*3/uL (160-400); Red Cell Distribution Width 13.5 % (11.0-16.0)
[2024-06-03 15:54] LABS: D Dimer High Sensitivity < 150 NG/ML
[2024-06-03 16:09] LABS: B Type Natriuretic Peptide 117 pg/mL (<100)
[2024-06-03 16:10] LABS: Alanine Aminotransferase 25 U/L (0-31); Alkaline Phosphatase 41 U/L (39-117); Anion Gap 10 (12-20); Aspartate Amino Transferase 19 U/L (5-31); Bilirubin Total 0.7 mg/dL (0.0-1.0); Blood Urea Nitrogen 17 mg/dL (9-16); Calcium 9.4 mg/dL (8.4-10.2); Carbon Dioxide 28 mmol/L (22-29); Chloride 107 mmol/L (96-108); Creatinine Clr Calc Pharmacy 110.9; Estimated Glomerular Filt Rate > 60; Glucose Random 90 mg/dL (60-115); Potassium 4.4 mmol/L (3.3-5.1); Sodium 141 mmol/L (135-145); Total Protein 6.9 g/dL (6.5-8.0)
[2024-06-03 16:11] LABS: Troponin-I High Sensitivity < 2.7 ng/L (<3.5-17.0)
[2024-06-03 16:20] LABS: Influenza A PCR NEGATIVE (Negative); Influenza B PCR NEGATIVE (Negative); Resp Syncy Virus RNA Qual PCR NEGATIVE (Negative); SARS COV2 PCR INHOUSE NEGATIVE (Negative)
--- OUTSIDE RECORDS SUMMARY | 2024-06-03 16:58 | XMS_ITS | Clinical Summary ---
Author Organization [facility] ity Address [address] [place] [address] Care Team Providers Care Central Supply Technician Supervisor Name Role Phone Name, Mulugeta HUANG Primary Care Provider [phone] Surgical History Surgery Date Site/Laterality Comments OTHER [...] Recorded Sex Assigned at Not on file Legal Sex Female 12:25 PM EST Gender Identity Not on file Sexual Orientation [...] Influencers of Health Screening 01/29/2022 COVID-19 Vaccine (2023-2 5 season) 2023 Influenza Vaccine (Season Ended) 2024 HIB Vaccines Aged Out No longer eligi [...] patient's age to complete this topic Meningococcal B Vacine Aged Out No lo nger eligible based on patient's age to complete [...] RESULTING AGENCY - 09/14/2018 12:06 PM EDT [id number] THINPREP PAP, IMAGED: NEGATIVE FOR SQUAMOUS INTRAEPITHELIAL [...] [Z12.4, Z01.419] Esther Carter CNM LAB CYTOLOGY ORDERABLES Final R esult HISTORICAL TESTING LAB RESULTING AGENCY from Last 3 Months or Most Recently Relevant to Health Maintenance Care Teams Central Supply Technician Supervisor Relationship Specialty Start Date End Date Name, MD Mulugeta 4 [facility] [place] PCP - General 06/30/16
--- OUTSIDE RECORDS SUMMARY | 2024-06-03 16:58 | XMS_ITS | Clinical Summary ---
Author Organization [employer] Address [address] [place] [address] [address] [place] [address] Care Team Providers Care Party Plan Dealer Name Role Phone Name, Mulugeta HUANG Primary Care Provider [phone] Allergies Active Allergy Reactions Criticality Noted Date Comments Shellfish Allergy 04/01/2022 Medications famotidine (Pepcid) 40 MG tablet Take 40 mg by mouth in the morning. 05/17/19 23 Active Spacer/Aero-Hol ding Chambers (OptiChamber Ct) misc 1 each every 4 (four) hours if needed (asthma). 1 each 08/23/19 23 Active famotidine (Pepcid) 20 MG tablet Take 20 mg by mouth 2 times daily. 11/22/19 23 Active Ventolin HFA 108 (90 Base) MCG/ACT inhaler INHALE 2 PUFFS BY MOUTH EVERY 4 HOURS NEEDED FOR WHEEZING OR SHORTNESS OF BREATH 18 g 1 04/28/19 24 Active hydrocortisone 2.5 % cream Apply by topical route 1-2 times per day after shower to affected area 60 g 1 05/29/19 24 Active Semaglutide-Beni ght Management (Wegovy) 1 MG/0.5ML solution auto-injector INJECT ONE PEN (=1 MG) SUBCUTANEOUSLY ONCE A WEEK 2 mL 01/07/20 24 Active cholecalciferol (Vitamin D-3) 25 MCG tablet TAKE 1 TABLET BY MOUTH EVERY DAY IN THE MORNING 90 tablet 01/26/20 24 Active Semaglutide-Beni ght Management (Wegovy) 2.4 MG/0.75ML solution auto-injectorIn dications:Obesi ty, unspecified INJECT ONE PEN (= 2.4 MG) SUBCUTANEOUSLY ONCE A WEEK 3 mL 03/16/19 25 Active baclofen (Lioresal) 10 MG tablet Take 1 tablet (10 mg) by mouth if needed in the morning, at noon, and at bedtime for muscle spasms. 60 tablet 1 03/25/19 25 Active naproxen (Naprosyn) 500 MG tablet Take 1 tablet (500 mg) by mouth if needed in the morning and at bedtime for mild pain. 30 tablet 1 03/25/19 25 026 Active lidocaine (Lidoderm) 5 % patchIndication s:Acute mid back pain,Acute bilateral low back pain without sciatica Apply 1-2 patches topically if needed each day for mild pain. Remove & discard patch within 12 hours or as directed by MD. 60 patch 1 03/25/19 25 Active Diclofenac Sodium 1 % gel APPLY 2 GRAMS TO AFFECTED AREA(S) FOUR TIMES A DAY NEEDED FOR PAIN 150 g 1 03/25/19 25 Active ibuprofen 800 MG tabletIndicatio ns:Back muscle spasm TAKE 1 TABLET BY MOUTH THREE TIMES DAILY 90 tablet 2 04/29/19 25 Active furosemide (Lasix) 20 MG tabletIndicatio ns:Ankle edema, bilateral Take 1 tablet (20 mg) by mouth Once per day for 5 days. 5 tablet 06/04/19 25 025 Discontin ued(Enter ed in error) Active Problems Problem Noted Date Diagnosed Date Ankle edema, bilateral 06/03/2024 Assessment & Plan (06/03/2024 1:57 PM EDT): Bilateral lower extremity edema, acute. Differential includes possible fluid overload from heart failure, low oncotic pressure, DVT, or neuromuscular causes. BP uncontrolled. Bilateral ankle swelling on exam. EKG with new LBBB when compared to previous. -will send pt to the ER via ambulance for STAT cardiac work-up. Shortness of breath 06/03/2024 Assessment & Plan (06/03/2024 1:57 PM EDT): Increased SOB and fatigue with minimal exertion. BP uncontrolled. Bilateral ankle swelling on exam. EKG with new LBBB when compared to previous. Etiology unclear, concerned for heart failure, mild signs of fluid overload versus pulmonary embolism/edema. -will send pt to the ER via ambulance for STAT cardiac work-up. Dietary counseling 06/03/2024 Assessment & Plan (06/03/2024 1:21 PM EDT): Dietary Recommendations: Fruits, vegetables, whole grains, protein foods, and fat-free or low-fat dairy products are healthy choices. Eat different types of protein foods in your diet. This can include seafood, lean meats, poultry, beans, peas, lentils, nuts, seeds, soy products, and eggs. Limit foods and beverages higher in added sugars, saturated fat, and sodium. Exercise counseling 06/03/2024 Assessment & Plan (06/03/2024 1:21 PM EDT): Exercise Recommendations: At least 150 minutes of moderate-intensity physical activity per week, or an equivalent combination of moderate- and vigorous-intensity activity. Low-level of literacy 05/23/2022 Overview (05/23/2022): 7 grade education in [place] Does not know how to read or write [place] Epigastric pain 04/09/2022 H. pylori infection 04/09/2022 Obesity (BMI 30-39.9) 01/06/2017 Assessment & Plan (06/03/2024 1:58 PM EDT): Reports weight gain, unintentionally, suspect fluid overload. Given SOB, fatigue and leg swelling, BP uncontrolled. EKG with new LBBB when compared to previous. -will send pt to the ER via ambulance for STAT cardiac work-up. Allergic rhinitis 03/26/2016 Prediabetes 12/26/2015 Resolved Problems Problem Noted Date Diagnosed Date Resolved Date Unintentional weight loss 04/09/2022 History of traumatic brain injury 04/09/2022 05/23/2022 Memory loss 04/09/2022 05/23/2022 Encounters Date Type Department Care Team Description 06/03/2024 1:00 PM EDT Office Visit [facility] [address] [address] Shannon Diaz MD Shortness of breath (Primary Dx); Ankle edema, bilateral; Obesity (BMI 30-39.9); Abnormal EKG 06/03/2024 Orders Only [facility] External Provider, [facility] 06/03/2024 Telephone [facility] [address] [address] [place], [place] expect report called to [facility] ED 04/29/[address] [address] Mulugeta Peralta MD Back muscle spasm 04/28/2024 Telephone [facility] [address] [place] [phone] Mulugeta Peralta MD 04/20/2024 Telephone [facility] [address] [place] [address] Mulugeta Peralta MD No Show 04/07/[address] [address] Mulugeta Peralta MD Prior Authorization (Herminiavy) 03/25/2024 3:40 PM EST [facility] [address] [address] Claire Boucher DO Acute mid back pain (Primary Dx); Acute bilateral low back pain without sciatica 03/15/[address] [address] Mulugeta Peralta MD Obesity, unspecified from Last 3 Months Immunizations Name Administration [...] Sign Reading Time Taken Comments Blood Pressure 154/90 06/03/2024 1:05 PM EDT Pulse 71 06/03/2024 12:50 PM EDT Temperature 37.1 ??C (98.7 ??F) 06/03/2024 12:50 PM E DT Respiratory Rate 18 06/03/2024 12:50 PM EDT Oxygen Saturation 98% 06/03/2024 12:50 PM EDT Inhaled Oxygen Concentration - - Weight 87.6 kg (193 lb 3.2 oz) 06/03/2024 12:50 PM EDT Height 154.9 cm (5' 1 ) 06/03/2024 12:50 PM EDT Body Mass Index 36.5 06/03/2024 12:50 PM EDT Plan of Treatment Upcoming Encounters Date Type Department Care Team (Late st Contact Info) Description 06/04/2024 3:00 PM EDT Office Visit [facility] [address] [place], [place] [phone] Cleveland Pollack MD [address] [place], [place] [phone] 07/01/2024 11:30 AM EDT Office Visit [facility] [address] [place], [place] [phone] Name, MD Mulugeta [address] [place], [place] [phone] Health Maintenance Due Date Last Done Comments Family Planning (PISQ) 06/21/1994 Hepatitis B Vaccines (1 of 3 - 19+ 3-dose series) 06/21/1998 COVID-19 Vaccine ( season) 2023 04/25/2021, 08/16/2020, 07/19/2020 Depression Screening 05/28/2024 05/29/2023, 05/29/19 24 SDOH Screening 05/28/2024 05/29/2023 DTaP/Tdap/Td Vaccines (2 - Td or Tdap) 08/12/2024 08/12/2014 Alcohol/Substance Use Screening 09/08/2024 09/09/2023 Diabetes: Hemoglobin A1C 12/15/2024 12/16/2023, 02/0 08/2022 Pap Smear 06/03/2025 06/03/2022 Tobacco Screening 06/03/2025 06/03/2024 Mammogram 07/09/2025 07/10/2023, 050 06/2022, 07/04/2022, Additional history exists Lipid Panel [...] Name Priority Date/Time Associated Diagnosis Comments XR CHEST 1 VIEW Routine 06/03/2024 3:22 PM EDT VITAMIN D 25-OH (D2 AND D3) Routine 04/01/2024 2:19 PM EST XR LUMBAR SPINE 2-3 VIEWS Routine 03/25/2024 [...] Relevant to Health Maintenance Results * XR Chest 1 View (06/03/2024 3:22 PM EDT) Anatomical Region Laterality Modality Chest Radiographic Jazz ging 06/03/2024 3:22 PM EDT Narrative 06/03/2024 4:17 PM EDT ? [facility] ?[address] ?[place] [address] ?XRay Report ? Signed ? Patient: MaríaIvory Vázquez ?MR#: [id number] ?? 98 ? : 1980 ?Acct:[id number] ? Age/Sex: 43 / F ?ADM Date: 06/03/24 ? Loc: HO.ED ? Attending Dr: ? Ordering Physician: Aleta Oh DO ?? Date of Service: 06/03/24 ?? Procedure(s): XR chest 1V ?? Accession Number(s): [id number] ? cc: AdrianoAleta DO; Fabian,Mulugeta HUANG ? EXAMINATION: ?? XR CHEST ? CLINICAL INFORMATION: ?? pain ? COMPARISON: ?? 07/13/2019. ?? CT chest 09/30/2022. ? TECHNIQUE: ?? Frontal view of the chest was obtained. ? FINDINGS: ?? Borderline cardiac enlargement. The hilar and mediastinal contours are ?? normal. ? The lungs are clear bilaterally. No pneumothorax or effusion. ? No focal osseous or soft tissue abnormality. ? XR/XR chest 1V ?? IMPRESSION: ?? No active pulmonary disease. ? Electronically signed by: ??Adrian Garcia MD ??06/03/2024 04:14 PM EDT RP ? Dictated By: ?Adrian Garcia MD ? Signed By: ?<Electronically signed by Adrian Garcia MD in OV> ?06/03/244 ? DD/ 1522 ? TD/TT: 06/03/24 1402 ? Business Law Professor: ? Procedure Note Donotkbinterpreter, Image - 06/03/[address] [address] XRay Report Signed Patient: Ivory Daniel IMR#: [id number] 98 : 1980Acct:[id number] Age/Sex: 43 / FADM Date: 06/03/24 Loc: HO.ED Attending Dr: Ordering Physician: Aleta Oh DO Date of Service: 06/03/24 Procedure(s): XR chest 1V Accession Number(s): [id number] cc: Aleta Oh DO; Name,Mulugeta HUANG EXAMINATION: XR CHEST CLINICAL INFORMATION: pain COMPARISON: 07/13/2019. CT chest 09/30/2022. TECHNIQUE: Frontal view of the chest was obtained. FINDINGS: Borderline cardiac enlargement. The hilar and mediastinal contours are normal. The lungs are clear bilaterally. No pneumothorax or effusion. No focal osseous or soft tissue abnormality. XR/XR chest 1V IMPRESSION: No active pulmonary disease. Electronically signed by: Adrian Garcia MD 06/03/2024 04:14 PM EDT Dictated By: Adrian Garcia MD Signed By: <Electronically signed by Adrian Garcia MD in OV> 06/03/24 1614 DD/ 1522 TD/TT: 06/03/24 1402 Business Law Professor: [facility] External Provider IMG XR PROCEDURES Final Result * VITAMIN D 25-OH (D2 AND D3) (04/01/2024 2:19 PM EST) Vitamin D, 25-OH, D2 <4 ng/mL [facility] Comment:This test was develo ped and its analytical performancecharacteristics have been determined by [place], [place]. It hasnot been cleared or approved by the U.S. Food and DrugAdministration. This assay has been validated pursuantto the CLIA regulations and is used for clinicalpurposes.THIS TEST WAS PERFORMED AT:[employer] [id number] [place] [address]EXNNZFXMARGARET JEAN MD,PHD Vitamin D, 25-OH, D3 37 ng/mL [facility] Comment:This test was develo ped and its analytical performancecharacteristics have been determined by [employer] [place], [place]. It hasnot been cleared or approved by the U.S. Food and DrugAdministration. This assay has been validated pursuantto the CLIA regulations and is used for clinicalpurposes. Vitamin D, 25-OH, Total 37 30 - 100 ng/mL [facility] Comment:Vitamin D, 25-Hydrox y reports concentrations of twocommon forms, 25-OHD2 and 25-OHD3. 25-OHD3 indicatesboth endogenous production and supplementation.25-OHD2 is an indicator of exogenous sources such asdiet or supplementation. Therapy is based onmeasurement of Total 25-OHD, with levels <20 ng/mLindicative of Vitamin D deficiency, while levelsbetween 20 ng/mL and 30 ng/mL suggest insufficiency.Optimal levels are > or = 30 ng/mL.For additional information, please refer tohttp://education.tydy/faq/SGW381(This link is being provided for informational/educational purposes only.) 04/01/2024 2:19 PM EST 04/01/2024 5:34 PM EST us Generic External Data Provider LAB BLOOD ORDERAB LES Final Result [facility] [address] [place] [address] [phone] * XR Lumbar Spine 2-3 Views (03/25/2024 3:32 PM EST) Anatomical Region Laterality Modality Spine, L-spine Radiographic Jazz ging 03/25/2024 3:32 PM EST Narrative 03/25/2024 4:54 PM EST ?[facility] ?[address] ?[place] [address] ?XRay Report ? Signed ? Patient: MaríaIvory Vázquez ?MR#: [id number] ?? 98 ? : 1980 ?Acct:[id number] ? Age/Sex: 43 / F ?ADM Date: 03/25/24 ? Loc: HO.HHCX ? Attending Dr: Claire Boucher DO ? Ordering Physician: Claire Boucher DO ?? Date of Service: 03/25/24 ?? Procedure(s): XR lumbar spine 2-3V ?? Accession Number(s): [id number] ? cc: Claire Boucher DO ? EXAMINATION: [...] DD/ 1532 ? TD/TT: 03/25/24 1600 ? Business Law Professor: MSM ? Procedure Note Aman, Image - 01/23/2025 [facility] [address] [place] [address] XRay Report Signed Patient: Ivory Daniel [facility]#: [id number] 98 : 1980Acct:[id number] Age/Sex: 43 / FADM Date: 03/25/24 Loc: HO.HHCX Attending Dr: Claire Boucher DO Ordering Physician: Claire Boucher DO Date of Service: 03/25/24 Procedure(s): XR lumbar spine 2-3V Accession Number(s): [id number] cc: Claire Boucher DO EXAMINATION: XR LUMBOSACRAL [...] 03/25/24 1651 DD/ 1532 TD/TT: 03/25/24 1600 Business Law Professor: RAYMUNDO Claire Boucher DO IMG XR PROCEDURES Final Resu lt * Culture, Urine, Routine (03/25/2024 3:32 PM EST) Urine Urine specimen obtained by clean catch procedure / Unknown 03/25/2024 3:32 PM EST 03/25/2024 5:07 PM EST Comment:[facility] - 03/27/2024 9:55 AM EST Urine Culture Report Result Urine Culture 50,000 to 100,000 cfu/ml Urine Culture Mixed bacterial blair characteristic of Urine Culture urogenital contamination. Strep agalactiae (Grp B) Quant < 10,000 cfu/mL Susc N/A Susceptibility not routinely performed on this isolate. Specimen Source: Urine clean catch Claire Boucher DO LAB MICROBIOLOGY - GENERAL O RDERABLES Final Result [facility] [address] [place] [address] [phone] * POCT urinalysis dipstick manually resulted [...] EDT Narrative 08/08/2023 8:49 AM EDT ? [facility] ? [address] ?[place] [address] ? Mammography Report ? Signed ? Patient: Daniel,Ivory I ?MR#: [id number] ?? 98 ? : 1980 ?Acct:[id number] ? Age/Sex: 43 / F ?ADM Date: 05/09/24 ? Loc: HO.MAMMO ? Attending Dr: Mulugeta Peralta MD ? Ordering Physician: Mulugeta Peralta MD ?Results: 1Negative ? Date of Service: 07/10/23 ?Follow Up: 1 Year From Orig ?? inal Mammogram ? Procedure(s): MM tomosynthesis screening BI ?? Accession Number(s): [id number] ? cc: Fabian,Mulugeta HUANG ? EXAMINATION: ?? MM SCREENING DIGITAL [...] 0845 ? DD/ 1015 ? TD/TT: ? Business Law Professor: ? Procedure Note Donotkbinterpreter, Image - 08/08/[address] [place] [facility] [address] [place], [place] [address] Mammography Report Signed Patient: Ivory Daniel IMR#: [id number] 98 : 1980Acct:[id number] Age/Sex: 43 / FADM Date: 07/10/23 Loc: HO.MAMMO Attending Dr: Mulugeta Peralta MD Ordering Physician: Mulugeta Peralta MDResults: 1Negative Date of Service: 07/10/23Follow Up: 1 Year From Orig inal Mammogram Procedure(s): MM tomosynthesis screening BI Accession Number(s): [id number] cc: Mulugeta Peralta MD EXAMINATION: MM SCREENING [...] in OV> 08/08/23 0845 DD/ 1015 TD/TT: Business Law Professor: Mulugeta Peralta MD IMG BI PROCEDURES Edited Result - Final * Hepatitis C Antibody with Reflex to HCV, RNA, Quantitative, Real-Time PCR (06/03/2022 10:57 AM EDT) Hepatitis C Antibody NON-REACT KELLY NON-REACT KELLY [email or web address] Index 0.09 <1.00 [email or web address] Comment: HCV antibody was non-reactive. There is no laboratory evidence of HCV infection. In most cases, no further action is required. However, if recent HCV exposure is suspected, a test for HCV RNA (test code 10498) is suggested. For additional information please refer to http://education.Kismet/faq/EWB70t3 (This link is being provided for informational/ educational purposes only.) Blood Venous blood specimen / Unknown 06/03/2022 10:57 AM EDT 06/03/2022 10:58 AM EDT Narrative [facility] - 06/04/2022 8:43 PM EDT FASTING:NO FASTING: NO Candice Morrell [facility] LAB BLOOD ORDERABLES Nani l Result [facility] [address], [place] [address] [facility] [address] [place] [address] * HIV-1/2 Antigen and Antibodies, Fourth Generation, with Reflexes (06/03/2022 10:57 AM EDT) Pathologist [facility] HIV Antigen/Antibody, 4th Generation NON-REAC TIVE NON-REAC TIVE [email or web address] Comment: HIV-1 antigen and HIV-1/HIV-2 antibodies were [...] ?? For additional information please refer to http://education.Kismet/faq/HVP238 (This link is being provided for informational/ educational purposes only.) The performance of this assay has not been clinically validated in patients less than 2 years old. Blood Venous blood specimen / Unknown 06/03/2022 10:57 AM EDT 06/03/2022 10:58 AM EDT Narrative [facility] - 06/04/2022 8:43 PM EDT FASTING:NO FASTING: NO Candice Morrell [facility] LAB BLOOD ORDERABLES Nani sanders Result [facility] [address], [place] [address] [facility] [address] [place] [address] * Image-Guided Pap with Age-Based Screening??with CT/NG,??Trichomonas (06/03/2022 10:47 AM EDT) Comment [facility] Comment: This order for age-based cervical cancer and STI screening follows ACOG guidelines(PB 168, 140, NKH074). See individual assays for performing site location. Clinical Information: Routine exam [facility] LMP: NONE GIVEN [facility] Prev. PAP: NONE GIVEN [facility] Prev. BX: NONE GIVEN [facility] SOURCE: None given [facility] Statement Of Adequacy: [facility] Comment: Satisfactory for evaluation. Endocervical/transformation zone component present. Interpretation/Re sult: Negative for intraepithelial lesion or malignancy. [facility] COMMENT: This Pap test has been evaluated with computer assisted technology. [facility] [place] [facility] Retail Marketing Specialist: Antonia estrella [facility] [place] [facility] Comment: WAC, CT(ASCP) CT screening location: [address] ??[phone] (Always Message) [facility] [place] [facility] Comment: EXPLANATORY NOTE: The Pap is a [...] HPV nRNA E6/E7 Not Detected Not Detected [facility] [place] [facility] Comment: Methodology: Shipping Receiving Manager-Mediated Amplification This assay detects E6/E7 viral messenger RNA (mRNA) from 14 high-risk HPV types (16,18,31,33,35,39,45,51,52,56,58,59,66,68). Cervical sources are required for HPV testing. If a vaginal source from a patient who has had a total hysterectomy with removal of cervix was submitted, please contact the testing laboratory for alternative testing options. For additional information, please refer to http://Omada.Kismet/faq/YZR835w3 (This link if provided for information/ educational purposes only.) Chlamydia trachomatis RNA, TMA, Urogenital NOT DETECTED NOT DETECTED [facility] [place] [facility] Neisseria gonorrhoeae RNA, TMA, Urogenital NOT DETECTED NOT DETECTED [facility] [place] [facility] (Always Message) [facility] [place] [facility] Comment: The analytical performance characteristics of this assay, when used to test SurePath(TM) specimens have been determined by [facility]. The modifications have not been cleared or approved by the FDA. This assay has been validated pursuant to the CLIA regulations and is used for clinical purposes. For additional information, please refer to https://Omada.Kismet/faq/LTY311 (This link is being provided for information/ educational purposes only.) Trichomonas vaginalis, QL, TMA, PAP Vial NOT DETECTED NOT DETECTED [facility] Comment: The analytical performance characteristics of this assay have been determined by [facility]. The modifications have not been cleared or approved by the FDA. This assay has been validated pursuant to the CLIA regulations and is used for clinical purposes. For additional information, please refer to http://education.Kismet/ faq/Trichomonastma (This link is being provided for information/ educational purposes only.) Cytology specimen container (physical object) 06/03/2022 10:47 AM EDT 06/04/2022 5:15 AM EDT Candice Morrell [facility] CYTOLOGY ORDERABLES F inal Result [facility] [address], [place] [address] [facility] [address] [place] [address] * (ABNORMAL) Lipid Panel, Standard (04/09/2022 10:06 AM EST) Cholesterol, Total 168 <200 mg/dL [facility] HDL Cholesterol 41(L) > OR = 50 mg/dL [facility] [place] [facility] Triglycerides 216(H) <150 mg/dL [email or web address] Comment: If a non-fasting specimen was collected, consider repeat triglyceride testing on a fasting specimen if clinically indicated. Tunde et al. J. of Clin. Lipidol. 2015;9:129-169. LDL Cholesterol 96 mg/dL (calc) [facility] Comment: Reference range: <100 Desirable range <100 mg/dL for primary prevention; ?? <70 mg/dL for patients with CHD or diabetic patients with > or = 2 CHD risk factors. LDL-C is now calculated using the Jean-Prachi calculation, which is a validated novel method providing better accuracy than the Friedewald equation in the estimation of LDL-C. Jean KUMAR et al. NARENDRA. 2013;310(19): 5960-9670 (http://education.tydy/faq/JZU025) Chol/HDLC Ratio 4.1 <5.0 (calc) [email or web address] Non-HDL Cholesterol 127 <130 mg/dL (calc) [facility] Comment: For patients with diabetes plus 1 major ASCVD risk factor, treating to a non-HDL-C goal of <100 mg/dL (LDL-C of <70 mg/dL) is considered a therapeutic option. Blood Venous blood specimen / Unknown 04/09/2022 10:06 AM EST 04/09/2022 10:07 AM EST Narrative [facility] - 04/09/2022 9:59 PM EST FASTING:NO FASTING: NO us Yolis Noland TAPE EDGE MACHINE OPERATOR LAB BLOOD ORDERABLES Final Result [facility] [address] [facility], [place] [address] [employer] [address] [facility], ([address]) [place] [address] from Last 3 Months or Most Recently Relevant to Health Maintenance Insurance [address] [place] [address] [facility] Care Teams Party Plan Dealer Relationship Specialty Start Date End Date Name, MD Mulugeta [address] [place] [address] PCP - General Family Medicine 06/06/15
--- OUTSIDE RECORDS SUMMARY | 2024-06-03 16:58 | XMS_ITS | Encounter Summary ---
Author Organization [employer] Address [address] [facility] 7t [place] [address] Care Team Providers Care Academy Director Name Role Phone Name, Mulugeta HUANG Primary Care Provider [phone] Reason for Visit * Reason Onset Date Comments expect report called to [facility] 06/03/2024 Encounter Details Date Type Department Care Team ([facility] st Contact Info) Description 06/03/2024 Telephone [facility] [address] [place] [address] Oma Jay, RN expect report called to [facility] Social History Tobacco Use Types Packs/Day Years [...] encounter Miscellaneous Notes * Telephone Encounter - Oma Jay RN - 06/03/2024 2:[address] Diaz request, pt to be transferred to [facility] for new onset RBBB in context of JUSTIN, JVD,and pedal edema. 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 Pt has not expressed chest pain, but endorses JUSTIN. Pt transferred via EMS at 1410. documented in this encounter Plan of Treatment Upcoming Encounters Date Type Department Care Team (Late st Contact Info) Description 06/04/2024 3:00 PM EDT Office Visit [facility] [address] [place] [address] Cleveland Pollack MD [address] [place] [address] 07/01/2024 11:30 AM EDT Office Visit [facility] [address] [place] [address] [phone] Name, MD Mulugeta [address] [place] [address] documented as of this encounter Visit Diagnoses Not on filedocumented in this encounter Additional Health Concerns Assessment Noted Time PHQ-9 Depression Total Score: 0 05/29/19 10:30 AM EDT documented as of this encounter Care Teams Academy Director Relationship Specialty Start Date End Date Name, MD Mulugeta [address] [place] [phone] PCP - General Family Medicine 06/06/15 documented as of this encounter
--- OUTSIDE RECORDS SUMMARY | 2024-06-03 16:58 | XMS_ITS | Encounter Summary ---
Demographics Address [address] [facility] [address] [place] [address] Home Phone Work Phone Mobile Phone Email Address Preferred Language es Marital Status Christianity Affiliation Unknown Race Other Race Ethnic Group Gambian Author Organization [employer] Address 75 [facility] 7t [place] [address] Care Team Providers Care Cigar Roller Name Role Phone Name, Mulugeta HUANG Primary Care Provider [phone] Encounter Details Date Type Department Care Team (Late st Contact Info) Description 06/03/2024 Orders Only [facility] External Provider, [facility] Social History Tobacco Use Types Packs/Day Years [...] Description 06/04/2024 3:00 PM EDT Office Visit [facility] [address] [place] [address] Cleveland Pollack MD [address] [place] [address] 07/01/2024 11:30 AM EDT Office Visit [facility] [address] [place] [address] Name, MD Mulugeta [address] [place] [address] documented as of this encounter Procedures Procedure Name Priority Date/Time Associated Diagnosis Comments XR CHEST 1 VIEW Routine 06/03/2024 3:22 PM EDT documented in this encounter Results * XR Chest 1 View (06/03/2024 3:22 PM EDT) Anatomical Region Laterality Modality Chest Radiographic Jazz ging 06/03/2024 3:22 PM EDT Narrative 06/03/2024 4:17 PM EDT ? [facility] ?[address] ?[place] [address] ?XRay Report ? Signed ? Patient: Daniel,Ivory I ?MR#: [id number] ?? 98 ? : 1980 ?Acct:[id number] ? Age/Sex: 43 / F ?ADM Date: 04/03/25 ? Loc: HO.ED ? Attending Dr: ? Ordering Physician: Aleta Oh DO ?? Date of Service: 06/03/24 ?? Procedure(s): XR chest 1V ?? Accession Number(s): [id number] ? cc: Aleta Oh DO; Name,Mulugeta HUANG ? EXAMINATION: ?? XR CHEST ? [...] signed by Adrian Garcia MD in OV> ?06/03/24 1614 ? DD/ 1522 ? TD/TT: 06/03/24 1402 ? Internet Retailer: ? Procedure Note Donevyinterpreter, Image - 06/03/[address] [address] XRay Report Signed Patient: Ivory Daniel IMR#: [id number] 98 : 1980Acct:[id number] Age/Sex: 43 / FADM Date: 06/03/24 Loc: HO.ED Attending Dr: Ordering Physician: Aleta Oh DO Date of Service: 06/03/24 Procedure(s): XR chest 1V Accession Number(s): [id number] cc: Aleta Oh DO; Name,Mulugeta HUANG EXAMINATION: [...] MD Signed By: <Electronically signed by Adrian Garcai MD in OV> 06/03/24 1614 DD/ 1522 TD/TT: 06/03/24 1402 Internet Retailer: [facility] External Provider IMG XR PROCEDURES Final Result documented in this encounter Visit Diagnoses Not on filedocumented in this encounter Additional Health Concerns Assessment Noted Time PHQ-9 Depression Total Score: 0 05/29/19 24 10:30 AM EDT documented as of this encounter Care Teams Cigar Roller Relationship Specialty Start Date End Date Name, MD Mulugeta [address] [place] [address] PCP - General Family Medicine 06/06/15 documented as of this encounter
--- OUTSIDE RECORDS SUMMARY | 2024-06-03 16:58 | XMS_ITS | Encounter Summary ---
Author Organization [employer] Address [address] [facility] 7t [place] [address] Care Team Providers Care Brake Specialist Name Role Phone Name, Mulugeta HUANG Primary Care Provider [phone] Reason for Visit * Reason Onset Date Comments Med Refill 10/23/2023 Encounter Details Date Type Department Care Team ([facility] st Contact Info) Description 10/23/2023 Refill [facility] [address] [place], [place] [phone] Name, MD Mulugeta [address] [place] [address] Obesity (BMI 30-39.9) Social History Tobacco Use [...] Description 06/04/2024 3:00 PM EDT Office Visit [facility] [address] [place] [address] Cleveland Pollack MD [address] [place] [address] 07/01/2024 11:30 AM EDT Office Visit [facility] [address] [place] [address] Name, MD Mulugeta [address] [place] [address] documented as of this encounter Visit Diagnoses Diagnosis Obesity (BMI 30-39.9) documented in this encounter Additional Health Concerns Assessment Noted Time PHQ-9 Depression Total Score: 0 05/29/19 24 10:30 AM EDT documented as of this encounter Care Teams Brake Specialist Relationship Specialty Start Date End Date Name, MD Mulugeta [address] [place] [phone] PCP - General Family Medicine 06/06/15 documented as of this encounter
--- OUTSIDE RECORDS SUMMARY | 2024-06-03 16:58 | XMS_ITS | Encounter Summary ---
Author Organization [employer] Address [address] [place] [address] 7t [place] [address] Care Team Providers Care Coal Trammer Name Role Phone Name, Mulugeta HUANG Primary Care Provider [phone] Reason for Visit * Reason Onset Date Comments lab request 05/08/2022 Encounter Details Date Type Department Care Team ([facility] Contact Info) Description 05/08/2022 Telephone [facility] [address] [place], [place] [phone] Name, MD Mulugeta [address] [place] [address] lab request Social History Tobacco Use Types [...] before going for her heart study at [facility] on 04/24/22. Please call pt to clarify . documented in this encounter Plan of Treatment Upcoming Encounters Date Type Department Care Team (Late st Contact Info) Description 06/04/2024 3:00 PM EDT Office Visit [address] [address] Cleveland Pollack MD [address] [place] [address] 07/01/2024 11:30 AM EDT Office Visit [facility] [address] [place] [address] Name, MD Mulugeta [address] [place] [address] documented as of this encounter Visit Diagnoses Not on filedocumented in this encounter Care Teams Coal Trammer Relationship Specialty Start Date End Date Mulugeta Peralta MD [address] [place] [address] PCP - General Family Medicine 06/06/15 documented as of this encounter
--- OUTSIDE RECORDS SUMMARY | 2024-06-03 16:58 | XMS_ITS | Encounter Summary ---
Author Organization [employer] Address [address] [place] [address] 7t [place] [address] Care Team Providers Care Director Ship Name Role Phone Name, Mulugeta HUANG Primary Care Provider [phone] Reason for Referral * Consultation (Routine) - Pending Review Specialty Diagnoses / Procedures Referred By Trista tolliver Referred To Contact Cardiology Diagnoses Shortness of breath Abnormal EKG Shannon Diaz MD [address] [place] [address] Phone: tel: fax: Referral ID Status Reason Start Date Expiration Date Visits Requested Visits Authorized [id number] Pending Review Specialty Services Required 06/03/2024 06/03/2025 1 1 Reason for Visit * Reason Comments Back Pain Encounter Details Date Type Department Care Team ([facility] st Contact Info) Description 06/03/2024 1:00 PM EDT Office Visit [facility] [address] [place] [address] [phone] Shannon Diaz MD [address] [place], [place] [phone] Shortness of breath (Primary Dx); Ankle edema, bilateral; Obesity (BMI 30-39.9); Abnormal EKG Social History Tobacco Use Types Packs/Day Years [...] Mass Index 36.5 06/03/2024 12:50 PM EDT documented in this encounter Progress Notes * Linda Armas - 06/03/2024 1:00 PM EDT Subjective Ivory Daniel is a 43 y.o. female with past medical history of prediabetes and obesity who presents to walk in clinic for evaluation of SOB and leg swelling. Pt reports has been increasingly short of breath and struggling to catch her breath for the past two days. She reports she has been feeling increasingly tired. Uncomfortable breathing in with episodes of palpitations. Pt also notes her ankles/legs have felt swollen. Denies PND or orthopnea. Review of Systems Constitutional: Negative for fever and unexpected weight change. Respiratory: Positive for shortness of breath. Cardiovascular: Positive for leg swelling. Negative for chest pain. Gastrointestinal: Negative for abdominal pain. Genitourinary: Negative for difficulty urinating. Objective Visit Vitals BP (!) 154/90 Pulse 71 Temp 98.7 ??F (37.1 ??C) (Temporal) Resp 18 Ht 5' 1 (1.549 m) Wt 193 lb 3.2 oz (87.6 kg) SpO2 98% BMI 36.50 kg/m?? OB Status Having periods Smoking Status Former BSA 1.94 m?? Physical Exam Constitutional: Appearance: Normal appearance. Cardiovascular: Rate and Rhythm: Normal rate and regular rhythm. Heart sounds: Normal heart sounds. Comments: Trace edema at ankles. Approx. 12 mm of JVP. Pulmonary: Effort: Respiratory distress (mild with minimal exertion) present. No tachypnea. Breath sounds: Normal breath sounds. Abdominal: Tenderness: There is no abdominal tenderness. Musculoskeletal: Cervical back: Normal range of motion and neck supple. Neurological: General: No focal deficit present. Mental Status: She is alert. Psychiatric: Behavior: Behavior normal. Assessment/Plan Problem List Items Addressed This Visit Shortness of breath - Primary Increased SOB and fatigue with minimal exertion. BP uncontrolled. Bilateral ankle swelling on exam.EKG with new LBBB when compared to previous. Etiology unclear, concerned for heart failure, mild signs of fluid overload versus pulmonary embolism/edema. -will send pt to the ER via ambulance for STAT cardiac work-up. Relevant Orders XR Chest 2 Views B Type Natriuretic Peptide (BNP) TSH with Reflex to Free T4 Basic Metabolic Panel Albumin, Random Urine W/Creatinine CBC auto differential Hepatic Function Panel D Dimer High Sensitivity Transthoracic Echo (TTE) Complete Ankle edema, bilateral Bilateral lower extremity edema, acute. Differential includes possible fluid overload from heart failure, low oncotic pressure, DVT, or neuromuscular causes. BP uncontrolled. Bilateral ankle swelling on exam. EKG with new LBBB when compared to previous. -will send pt to the ER via ambulance for STAT cardiac work-up. Relevant Orders XR Chest 2 Views B Type Natriuretic Peptide (BNP) TSH with Reflex to Free T4 Basic Metabolic Panel Albumin, Random Urine W/Creatinine CBC auto differential Hepatic Function Panel D Dimer High Sensitivity Obesity (BMI 30-39.9) Reports weight gain, unintentionally, suspect fluid overload. Given SOB, fatigue and leg swelling, BP uncontrolled. EKG with new LBBB when compared to previous. -will send pt to the ER via ambulance for STAT cardiac work-up. Presented with SOB, fatigue and leg swelling, BP uncontrolled. EKG with new LBBB when compared to previous. Suspect possible fluid overload versus pulmonary edema/embolism or DVT. Will send pt to theER via ambulance straight from clinic. I, Linda Armas, am serving as a scribe to document services personally performed by Dr. Mixon, based on the patient's response to questions by provider and providers statements to me. documented in this encounter Miscellaneous Notes * Assessment & Plan Note - Linda Armas - 06/03/2024 1:57 PM EDTAssociated Problem(s): Obesity (BMI 30-39.9) Reports weight gain, unintentionally, suspect fluid overload. Given SOB, fatigue and leg swelling, BP uncontrolled. EKG with new LBBB when compared to previous. -will send pt to the ER via ambulance for STAT cardiac work-up. * Assessment & Plan Note - Linda Armas - 06/03/2024 1:21 PM EDTAssociated Problem(s): Dietary counseling Dietary Recommendations: Fruits, vegetables, whole grains, protein foods, and fat-free or low-fat dairy products are healthychoices. Eat different types of protein foods in your diet. This can include seafood, lean meats, poultry, beans, peas, lentils, nuts, seeds, soy products, and eggs. Limit foods and beverages higher in added sugars, saturated fat, and sodium. * Assessment & Plan Note - Linda Armas - 06/03/2024 1:21 PM EDTAssociated Problem(s): Exercise counseling Exercise Recommendations: At least 150 minutes of moderate-intensity physical activity per week, or an equivalent combinationof moderate- and vigorous-intensity activity. * Assessment & Plan Note - Linda Armas - 06/03/2024 1:21 PM EDTAssociated Problem(s): Ankle edema, bilateral Bilateral lower extremity edema, acute. Differential includes possible fluid overload from heart failure, low oncotic pressure, DVT, or neuromuscular causes. BP uncontrolled. Bilateral ankle swelling on exam. EKG with new LBBB when compared to previous. -will send pt to the ER via ambulance for STAT cardiac work-up. * Assessment & Plan Note - Linda Armas - 06/03/2024 1:13 PM EDTAssociated Problem(s): Shortness of breath Increased SOB and fatigue with minimal exertion. BP uncontrolled. Bilateral ankle swelling on exam.EKG with new LBBB when compared to previous. Etiology unclear, concerned for heart failure, mild signs of fluid overload versus pulmonary embolism/edema. -will send pt to the ER via ambulance for STAT cardiac work-up. documented in this encounter Plan of Treatment Upcoming Encounters Date Type Department Care Team (Late st Contact Info) Description 06/04/2024 3:00 PM EDT Office Visit [facility] [place] [address] [place] [address] 07/01/2024 11:30 AM EDT Office Visit [facility] [place] [address] Name, [place] [address] Scheduled Referrals Name Type Priority Associated Diagnoses Order Schedule Referral to Cardiology Outpatient Referral Routine Shortness of breath Abnormal EKG Expected: 06/03/2024 (Approximate), Expires: 06/03/2025 documented as of this encounter Visit Diagnoses Diagnosis Shortness of breath- Primary Ankle edema, bilateral Obesity (BMI 30-39.9) Abnormal EKG Nonspecific abnormal electrocardiogram (ECG) (EKG) documented in this encounter Additional Health Concerns Assessment Noted Time PHQ-9 Depression Total Score: 0 05/29/19 24 10:30 AM EDT documented as of this encounter Care Teams Director Ship Relationship Specialty Start Date End Date Name, [place] [address] PCP - General Family Medicine 06/06/15 documented as of this encounter
--- OUTSIDE RECORDS SUMMARY | 2024-06-03 16:58 | XMS_ITS | Encounter Summary ---
Author Organization [employer] Address [address] [place] [address] 7t [place] [address] Care Team Providers Care Rocket Assembly Operator Name Role Phone Name, Mulugeta HUANG Primary Care Provider [phone] Reason for Visit * Reason Onset Date Comments Appointment Request 05/09/2022 Encounter Details Date Type Department Care Team ([facility] Contact Info) Description 05/09/2022 Telephone [facility] [address] [place], [place] [phone] Name, MD Mulugeta [address] [place] [address] Appointment Request Social History Tobacco Use Types [...] 1 WEEK prior to heart study at [facility]. date 05/22 ) Please contact pt at [phone] documented in this encounter Plan of Treatment Upcoming Encounters Date Type Department Care Team (Late st Contact Info) Description 06/04/2024 3:00 PM EDT Office Visit [facility] [place] [address] [place] [address] 07/01/2024 11:30 AM EDT Office Visit [facility] [place] [address] Name, [place] [address] documented as of this encounter Visit Diagnoses Not on filedocumented in this encounter Care Teams Rocket Assembly Operator Relationship Specialty Start Date End Date NameMulugeta MD [facility] [address] PCP - General Family Medicine 06/06/15 documented as of this encounter
--- OUTSIDE RECORDS SUMMARY | 2024-06-03 16:58 | XMS_ITS | Encounter Summary ---
Author Organization [employer] Address [address] [facility] 7t [place] [address] Care Team Providers Care Shift Commander Name Role Phone Name, Mulugeta HUANG Primary Care Provider [phone] Reason for Visit * Reason Comments Med Refill Encounter Details Date Type Department Care Team ([facility] Contact Info) Description 06/26/2023 Refill [facility] [address] [place], [place] [phone] Name, MD Mulugeta [address] [place] [address] Social History Tobacco Use Types Packs/Day Years [...] Description 06/04/2024 3:00 PM EDT Office Visit [facility] [address] [place] [address] Cleveland Pollack MD [address] [place] [address] 07/01/2024 11:30 AM EDT Office Visit [facility] [address] [place] [address] Name, MD Mulugeta [address] [place] [address] documented as of this encounter Visit Diagnoses Not on filedocumented in this encounter Additional Health Concerns Assessment Noted Time PHQ-9 Depression Total Score: 0 05/29/19 24 10:30 AM EDT documented as of this encounter Care Teams Shift Commander Relationship Specialty Start Date End Date Name, MD Mulugeta [address] [place] [address] PCP - General Family Medicine 06/06/15 documented as of this encounter
[2024-06-03 17:43] VITALS: BP 144/74; PULSE 66; RESP 18; TEMP 36.8; O2SAT 100
[2024-06-03 18:12] LABS: Troponin-I High Sensitivity < 2.7 ng/L (<3.5-17.0)
[2024-06-03 18:49] VITALS: BP 136/72; PULSE 65; RESP 18; TEMP 36.9; O2SAT 98
== END 2024-06-03 18:54 | disposition home or self-care (01) ==
PROVIDERS: Emergency Provider Emergency Medicine; PCP Internal Medicine Geriatric Medicine
DX: R07.89 Other chest pain (principal); R94.31 Abnormal electrocardiogram [ECG] [EKG]; R00.1 Bradycardia, unspecified; I44.7 Left bundle-branch block, unspecified; Z03.818 Encounter for observation for suspected exposure to other biological agents ruled out; Z79.899 Other long term (current) drug therapy
CPT/HCPCS: 0241U; 36415; 71045; 80053; 83880; 84484; 85025; 85379; 93005; 99283; 99285

== ENCOUNTER → 2024-06-03 15:03 | Outpatient (BNV) | payer OTHER, SELFPAY | PROVIDERS: Emergency Provider Emergency Medicine; PCP Internal Medicine Geriatric Medicine; Visit Provider Internal Medicine | DX: R00.1 Bradycardia, unspecified (principal) | CPT/HCPCS: 93010 ==

== ENCOUNTER → 2024-06-03 15:22 | Outpatient (BNV) | payer OTHER, SELFPAY | PROVIDERS: Emergency Provider Emergency Medicine; PCP Internal Medicine Geriatric Medicine; Visit Provider Radiology Diagnostic Radiology | DX: R07.9 Chest pain, unspecified (principal) | CPT/HCPCS: 71045 ==

== ENCOUNTER 2024-06-09 14:22 | Outpatient (AMB) | payer OTHER, SELFPAY ==
--- NOTE | 2024-06-09 14:38 | MHC.OFFVIS ---
Vital Signs 06/09/24 14:39 Height 5 ft 1 in Weight 190 lb 7.67 oz BMI 36.0 BP 110/56 L Blood Pressure Location Lt brachial Position Sitting Pulse 74 Pulse Source Pulse Oximeter Intake Visit Reasons: [facility] [place] Photography Colorist Required: Yes Photography Colorist Services: Photography Colorist Present Photography Colorist Name: Leonides Balderas [id number] Accompanied by: Daughter Allergies seafood Allergy (Verified 06/03/24 15:00) Eye Swelling Medication List - Last Reconciled 06/09/24 by Levi Hodge NP cholecalciferol (vitamin D3) (Vitamin D3) 25 mcg PO QAM famotidine 40 mg PO DAILY ibuprofen 800 mg PO TID omega-3 fatty acids 1,000 mg PO DAILY HPI Comments Details: This is a 43-year-old female patient presenting for a hospital discharge follow-up. A business services assistant was used throughout the visit. The patient was previously seen in the office for an abnormal EKG in [address]-depression and T-wave inversions. She subsequently underwent an echocardiogram, Holter monitor, and a stress echocardiogram that was inconclusive and underwent a coronary CTA which showed no coronary artery disease. The patient reports that she had recently visited her primary care physician for routine checkup. During that visit, she mentioned experiencing palpitations and had an elevated blood pressure. An EKG was performed at that time that showed left bundle branch block and was referred to the emergency room. However her rhythm was normal sinus rhythm upon evaluation in the ER. At that time, the patient also reported vague chest pain, fatigue, leg edema. Today, the patient states she continues to experience some palpitations but denies any exertional chest pain or shortness of breath. She also denies any dizziness, fatigue, orthopnea, PND, presyncope, or syncope. However she does not the intermittent leg swelling. [facility]LY [facility] Medical History Gallstones Surgical History History of esophagogastroduodenoscopy (EGD) Hx of colonoscopy H/O section Family History Family/Other Cancer Diabetes Social History Household Members: Spouse Unable to assess alcohol history related to: Unknown Alcohol intake: never Patient Tobacco Use Status: Never used Tobacco Current occupational status: unemployed Review of Systems Const Denies chills, Denies daytime sleepiness, Denies fatigue, Denies fever(s), Denies poor appetite, Denies snoring, Denies stops breathing during sleep, Denies weakness, Denies weight gain and Denies weight loss Eyes Denies loss of vision ENT Denies dizziness and Denies hearing loss Card Denies chest pain, Denies irregular heart rhythm, Denies claudication, Denies leg edema, Denies lightheadedness, Denies palpitations, Denies dyspnea on exertion and Denies orthopnea Resp Denies cough, Denies excessive phlegm production, Denies dyspnea on exertion, Denies snoring and Denies wheezing GI Denies abdominal pain, Denies hematochezia, Denies change in bowel habits, Denies nausea and Denies vomiting Denies urinary frequency and Denies dysuria Musc Denies arthralgias, Denies muscle weakness, Denies numbness and Denies other Skin/Breast Denies nail changes and Denies rash Neuro Denies Abnormal speech present, Denies dizziness, Denies loss of vision, Denies memory loss, Denies numbness and Denies weakness Psych Denies depression and Denies memory loss Endo Denies fatigue and Denies palpitations Zackary/Lymph Denies easy bruising Aller/Immun Denies wheezing Physical Exam Vital Signs: Last Vital Signs Pulse 74 06/09/24 14:39 BP 110/56 L 06/09/24 14:39 BMI result Body Mass Index 36.0 Neuro Speech: No Abnormal speech present Office Procedures EKG Details: EKG today showed normal sinus rhythm, rate 68 beats per minute, left bundle branch block, [place], [place]. [address]-[id number], Complete Assessment & Plan Assessment & Plan (1) LBBB (left bundle branch block): Code(s): I44.7 - Left bundle-branch block, unspecified Category: Medical Plan: 04/01/2022-patient underwent a echo study that showed normal EF at 57% with no wall motion or valvular pathology. 04/17/2022-patient underwent a stress echo which was inconclusive due to suboptimal heart rate. Subsequently underwent a coronary CTA on 05/24/2022 that showed no significant coronary artery disease. Clinically stable and euvolemic. Given the new left bundle branch block, we will get an echocardiogram within the next 2 weeks to evaluate for underlying structural heart disease or cardiomyopathy. We will also get a myocardial perfusion study to look for ischemic changes. No recent lipid panel, we will get this with the LDL goal of less than 70. (2) Palpitations: Code(s): R00.2 - Palpitations Category: Medical Plan: 03/27/2022-Holter study showed normal sinus rhythm with an average heart rate of 74 beats per minutes with rare PACs and PVCs. We will update this Holter as patient continues to complain of palpitations to assess for any potential arrhythmias. (3) Hospital discharge follow-up: Code(s): Z09 - Encounter for follow-up examination after completed treatment for conditions other than malignant neoplasm Category: Medical Plan: As above. Advised heart healthy diet, regular exercise, losing weight, and aggressive management of vascular risk factors. We will follow up with the patient upon completion of the test. In the interim, patient will call the office with any concerns or change in symptoms. Advised patient to seek ER care in case of exertional chest pain not resolved with rest. This note was generated using voice recognition software. While every effort has been made to ensure accuracy and proper airplane mechanic apprentice, there may be occasional errors that could affect the content or meaning of the described symptoms. Orders: Orders CA echo transthoracic complete 2 Weeks I44.7 - Left bundle-branch block, unspecified CA lexiscan stress w chanell Today I44.7 - Left bundle-branch block, unspecified ECG 3 day holter monitor Today R00.2 - Palpitations NM cardiolite stress test Today I44.7 - Left bundle-branch block, unspecified Lipid Panel Today I44.7 - Left bundle-branch block, unspecified AMB EKG-In Office Today I44.7 - Left bundle-branch block, unspecified Coding Level of Care Code Est Pt Level 4 (99111) Complex EM visit Add On G2211 Diagnoses LBBB (left bundle branch block) I44.7 Palpitations R00.2 Hospital discharge follow-up Z09 CPT Codes EKG - CPT: 60103-[id number], Complete ([id number]) Time Spent (min) 35 Comment Time spent in reviewing the chart, test results, assessment, counseling and documentation.
[2024-06-09 14:39] VITALS: BP 110/56; PULSE 74; BMI 36.0
--- OUTSIDE RECORDS SUMMARY | 2024-06-09 16:38 | XMS_ITS | Encounter Summary ---
Author Organization [employer] Address [address] [facility] 7t [place] [address] Care Team Providers Care Director Print Name Role Phone Name, Mulugeta HUANG Primary Care Provider [phone] Reason for Visit * Reason Onset Date Comments Med Refill 10/23/2023 Encounter Details Date Type Department Care Team ([facility] st Contact Info) Description 10/23/2023 Refill [facility] [address] [place], [place] [phone] Name, MD Mulugeta [address] [place] [address] Obesity (BMI 30-39.9) Social History Tobacco Use [...] Care Team (Late st Contact Info) Description 07/01/2024 11:30 AM EDT Office Visit [facility] [address] [place] [address] Name, MD Mulugeta [address] [place] [address] documented as of this encounter Visit Diagnoses Diagnosis Obesity (BMI 30-39.9) documented in this encounter Additional Health Concerns Assessment Noted Time PHQ-9 Depression Total Score: 0 05/29/19 24 10:30 AM EDT documented as of this encounter Care Teams Director Print Relationship Specialty Start Date End Date NameMulugeta MD [address] [place] [phone] PCP - General Family Medicine 06/06/15 documented as of this encounter
--- OUTSIDE RECORDS SUMMARY | 2024-06-09 16:38 | XMS_ITS | Encounter Summary ---
Author Organization [employer] Address [address] [place] [address] 7t [place] [address] Care Team Providers Care Tactical Intelligence Officer Name Role Phone Name, Mulugeta HUANG Primary Care Provider [phone] Reason for Visit * Reason Onset Date Comments lab request 05/08/2022 Encounter Details Date Type Department Care Team ([facility] Contact Info) Description 05/08/2022 Telephone [facility] MED[facility]INE [address] [place], [place] [phone] Name, MD Mulugeta [address] [place] [address] lab request Social History Tobacco Use Types [...] before going for her heart study at [facility] on [place]/24/22. Please call pt to clarify . documented in this encounter Plan of Treatment Upcoming Encounters Date Type Department Care Team (Late st Contact Info) Description 07/01/2024 11:30 AM EDT Office Visit [facility] MEDICINE [address] [place] [address] Name, MD Mulugeta [address] [place] [address] documented as of this encounter Visit Diagnoses Not on filedocumented in this encounter Care Teams Tactical Intelligence Officer Relationship Specialty Start Date End Date Mulugeta Peralta MD [address] [place] [phone] PCP - General Family Medicine 06/06/15 documented as of this encounter
--- OUTSIDE RECORDS SUMMARY | 2024-06-09 16:38 | XMS_ITS | Encounter Summary ---
Author Organization [employer] Address [address] [facility] 7t [place] [address] Care Team Providers Care Pc Maintenance Technician Name Role Phone Name, Mulugeta HUANG Primary Care Provider Encounter Details Date Type Department Care Team (Latest Contact Info) Description 06/04/2024 3:00 PM EDT Office Visit [facility] MEDICINE [address] [place], [place] [phone] Cleveland Pollack MD [address] [place] [address] Hyperpigmentation (Primary Dx) Social History Tobacco Use Types Packs/Day Years [...] Sign Reading Time Taken Comments Blood Pressure 137/75 06/04/2024 3:00 PM EDT Pulse 78 06/04/2024 3:00 PM EDT Temperature 36.2 ??C (97.1 ??F) 06/04/2024 3:00 PM ED T Respiratory Rate 14 06/04/2024 3:00 PM EDT Oxygen Saturation - - Inhaled Oxygen Concentration - - Weight 85.7 kg (189 lb) 06/04/2024 3:00 PM EDT Height 154.9 cm (5' 1 ) 06/04/2024 3:00 PM EDT Body Mass Index 35.71 06/04/2024 3:00 PM EDT documented in this encounter Progress Notes * Cleveland Pollack MD - 06/04/2024 3:00 PM EDT Subjective Patient ID: Ivory Daniel is a 43 y.o. female who presents for No chief complaint on file.. HPI 43 yr old woman with a brown spots on her both breasts, has not been changing, noted for few months. No itch or bleeding. No hx of skin cancer. Review of Systems Constitutional: Negative for diaphoresis, fatigue and fever. HENT: Negative for ear discharge, ear pain, facial swelling and hearing loss. Respiratory: Negative for cough, choking, chest tightness and shortness of breath. Cardiovascular: Negative for chest pain and leg swelling. Gastrointestinal: Negative for abdominal distention, abdominal pain and anal bleeding. Endocrine: Negative for cold intolerance and heat intolerance. Genitourinary: Negative for enuresis, flank pain and frequency. Musculoskeletal: Negative for arthralgias, back pain and gait problem. Neurological: Negative for dizziness, facial asymmetry and headaches. Psychiatric/Behavioral: Negative for agitation, behavioral problems and confusion. Objective Physical Exam Constitutional: Appearance: Normal appearance. HENT: Head: Normocephalic and atraumatic. Nose: Nose normal. Eyes: Pupils: Pupils are equal, round, and reactive to light. Pulmonary: Effort: Pulmonary effort is normal. Musculoskeletal: General: Normal range of motion. Cervical back: Normal range of motion. Skin: Comments: Hyperpigmented patches on both areolas Neurological: General: No focal deficit present. Mental Status: She is alert. Assessment/Plan Diagnoses and all orders for this visit: Hyperpigmentation Benign , affecting parts of both areolas. No concerns. reassured documented in this encounter Plan of Treatment Upcoming Encounters Date Type Department Care Team (Late st Contact Info) Description 07/01/2024 11:30 AM EDT Office Visit [facility] MEDICINE [address] [place] [address] Name, MD Mulugeta [address] [place] [address] documented as of this encounter Visit Diagnoses Diagnosis Hyperpigmentation- Primary Other dyschromia documented in this encounter Additional Health Concerns Assessment Noted Time PHQ-9 Depression Total Score: 0 05/29/19 24 10:30 AM EDT documented as of this encounter Care Teams Pc Maintenance Technician Relationship Specialty Start Date End Date Name, MD Mulugeta [address] [place] [phone] PCP - General Family Medicine 06/06/15 documented as of this encounter
--- OUTSIDE RECORDS SUMMARY | 2024-06-09 16:38 | XMS_ITS | Clinical Summary ---
Author Organization [facility] Address [address] [place] [address] Care Team Providers Care Technical Photographer Name Role Phone Name, Mulugeta HUANG Primary Care Provider [phone] Surgical History Surgery Date Site/Laterality Comments OTHER [...] age to complete this topic Meningococcal B Vaccine Aged Out No l onger eligible based on patient's age to complete [...] RESULTING AGENCY - 09/14/2018 12:06 PM EDT [id number] THINPREP PAP, IMAGED: NEGATIVE FOR SQUAMOUS INTRAEPITHELIAL [...] Recently Relevant to Health Maintenance Care Teams Technical Photographer Relationship Specialty Start Date End Date Name, MD Mulugeta [address] [place], [place] PCP - General 06/30/16
--- OUTSIDE RECORDS SUMMARY | 2024-06-09 16:38 | XMS_ITS | Encounter Summary ---
Author Organization [employer] Address [address] [place] [address] 7[address] [place] [address] Care Team Providers Care Inspector Timers Name Role Phone Name, Mulugeta HUANG Primary Care Provider [phone] Reason for Visit * Reason Onset Date Comments Appointment Request 05/09/2022 Encounter Details Date Type Department Care Team ([facility] Contact Info) Description 05/09/2022 Telephone [facility] [address] [place], [place] [phone] Name, MD Mulugeta [address] [place] [address] Appointment Request Social History Tobacco Use Types [...] 1 WEEK prior to heart study at [facility]. date 05/22 ) Please contact pt at [phone] documented in this encounter Plan of Treatment Upcoming Encounters Date Type Department Care Team (Late st Contact Info) Description 07/01/2024 11:30 AM EDT Office Visit [facility] [address] [place] [address] Name, MD Mulugeta [address] [place] [address] documented as of this encounter Visit Diagnoses Not on filedocumented in this encounter Care Teams Inspector Timers Relationship Specialty Start Date End Date Name, MD Mulugeta [address] [place] [address] PCP - General Family Medicine 06/06/15 documented as of this encounter
--- OUTSIDE RECORDS SUMMARY | 2024-06-09 16:38 | XMS_ITS | Clinical Summary ---
Author Organization [employer] Address [address] [place] [address] 7t [place] [address] Care Team Providers Care Logistics Supervisor Name Role Phone Name, Mulugeta HUANG Primary Care Provider [phone] Allergies Active Allergy Reactions Criticality Noted Date [...] THE MORNING 90 tablet 01/26/20 24 Active Semaglutide-Ebni ght Management (Wegovy) 2.4 MG/0.75ML solution auto-injectorIn [...] 05/23/2022 Overview (05/23/2022): 7 grade education in [place] Does not know how to read or write Wall[place]ian Epigastric pain 04/09/2022 H. pylori infection 04/09/2022 [...] Encounters Date Type Department Care Team Description 06/04/2024 3:00 PM EDT Office Visit [facility] [address] [place] [phone] [place] Pollack MD Hyperpigmentation (Primary Dx) 06/04/2024 Travel 06/03/2024 1:00 PM EDT [facility] [address] [address] Shannon Diaz MD Shortness of breath (Primary Dx); Ankle edema, bilateral; Obesity (BMI 30-39.9); Abnormal EKG 06/03/2024 Orders Only [facility] External Provider, [facility] 06/03/2024 [facility] [address] [address] [place], [place] expect report called to [facility] ED 04/29/2024 [facility] [address] [address] NameMulugeta MD Back muscle spasm 04/28/[address] [address] NameMulugeta MD 04/20/[address] [address] NameMulugeta MD No Show 04/07/[address] [address] NameMulugeta MD Prior Authorization (Wegovy) 03/25/2024 3:40 PM EST [facility] [address] [address] Claire Boucher DO Acute mid back pain (Primary Dx); Acute bilateral low back pain without sciatica 03/15/[address] [address] NameMulugeta MD Obesity, unspecified from Last 3 Months [...] 14 06/04/2024 3:00 PM EDT Oxygen Saturation 98% 06/03/2024 12:50 PM EDT Inhaled Oxygen Concentration - - Weight 85.7 kg (189 lb) 06/04/2024 3:00 PM EDT Height 154.9 cm (5' 1 ) 06/04/2024 3:00 PM EDT Body Mass Index 35.71 06/04/2024 3:00 PM EDT Plan of Treatment Upcoming Encounters Date Type Department Care Team (Late st Contact Info) Description 07/01/2024 11:30 AM EDT Office Visit [facility] [address], [place] [phone] Name, MD Mulugeta [address] [place] [address] Health Maintenance Due Date Last Done Comments Family Planning (PISQ) 06/21/1994 Hepatitis B Vaccines (1 of 3 - 19+ 3-dose series) 06/21/1998 COVID-19 Vaccine ( season) 2023 04/25/2021, 08/16/2020, 07/19/2020 Depression Screening 05/28/2024 05/29/2023, 05/29/19 24 SDOH Screening 05/28/2024 05/29/2023 DTaP/Tdap/Td Vaccines (2 - Td or Tdap) 08/12/2024 08/12/2014 Alcohol/Substance Use Screening 09/08/2024 09/09/2023 Diabetes: Hemoglobin A1C 12/15/2024 12/16/2023, 0208/2022 Pap Smear 06/03/2025 06/03/2022 Tobacco Screening 06/04/2025 06/04/2024 Mammogram 07/09/2025 07/10/2023, 06/2022, 07/04/2022, Additional history exists Lipid Panel [...] Procedure Name Priority Date/Time Associated Diagnosis Comments HIGH SENSITIVITY TROPONIN I Routine 06/03/2024 5:42 PM EDT XR CHEST 1 VIEW Routine 06/03/2024 3:22 [...] Recently Relevant to Health Maintenance Results * High Sensitivity Troponin I (06/03/2024 5:42 PM EDT) TROPONIN I HIGH SENSITIVITY <2.7 <3.5 - 17.0 ng/L [facility] Comment:The Puente high sens itivity Troponin-I results should beused in conjunction with other diagnostic information suchas ECG, clinical observations and information, and patientsymptoms to aid in the diagnosis of [place]. 06/03/2024 5:42 PM EDT 06/03/2024 5:46 PM EDT us Generic External Data Provider LAB BLOOD ORDERAB LES Final Result [facility] [address] [place] [address] [phone] * XR Chest 1 View (06/03/2024 3:22 PM EDT) Anatomical Region Laterality Modality Chest Radiographic Jazz ging 06/03/2024 3:22 PM EDT Narrative 06/03/2024 4:17 PM EDT ? [facility] ?[address] ?[place] [address] ?XRay Report ? Signed ? Patient: Daniel,Ivory I ?MR#: [id number] ?? 98 ? : 1980 ?Acct:[id number] ? Age/Sex: 43 / F ?ADM Date: 06/03/24 ? Loc: HO.ED ? Attending Dr: ? Ordering Physician: Aleta Oh DO ?? Date of Service: 06/03/24 ?? Procedure(s): XR chest 1V ?? Accession Number(s): [id number] ? cc: Aleta Oh DO; Name,Mulugeta HUANG [...] DD/ 1522 ? TD/TT: 06/03/24 1402 ? District Manager In Training: ? Procedure Note Dee Newton - 06/03/[address] [address] XRay Report Signed Patient: Ivory Daniel IMR#: [id number] 98 : 1980Acct:[id number] Age/Sex: 43 / FADM Date: 06/03/24 Loc: HO.ED Attending Dr: Ordering Physician: Aleta Oh DO Date of Service: 06/03/24 Procedure(s): XR chest 1V Accession Number(s): [id number] cc: Aleta Oh DO; Name,Mulugeta HUANG EXAMINATION: [...] Adrian Garcia MD 06/03/2024 04:14 PM EDT RP Dictated By: Adrian Garcia MD Signed By: <Electronically signed by Adrian Garcia MD in OV> 06/03/24 1614 DD/ 1522 TD/TT: 06/03/24 1402 District Manager In Training: [facility] External Provider IMG XR PROCEDURES Final Result * VITAMIN D 25-OH (D2 AND D3) (04/01/2024 2:19 PM EST) Vitamin D, 25-OH, D2 <4 ng/mL [facility] Comment:This test was develo ped and its analytical performancecharacteristics have been determined by [employer] [place]. It hasnot been cleared or approved by the U.S. Food and DrugAdministration. This assay has been validated pursuantto the CLIA regulations and is used for clinicalpurposes.THIS TEST WAS PERFORMED AT:[employer] [id number] [place] [address]UVNPULDMARGARET JEAN MD,PHD Vitamin D, 25-OH, D3 37 ng/mL [facility] Comment:This test was develo ped and its analytical performancecharacteristics have been determined by [employer]. It hasnot been cleared or approved by the U.S. Food and DrugAdministration. This assay has been validated pursuantto the CLIA regulations and is used for clinicalpurposes. Vitamin D, 25-OH, Total 37 30 - 100 ng/mL [facility] Comment:Vitamin D, 25-Hydrox y reports concentrations [...] = 30 ng/mL.For additional information, please refer tohttp://education.Naname[employer]/faq/KZI291(This link is being provided for informational/educational purposes only.) 04/01/2024 2:19 PM EST 04/01/2024 5:34 PM EST us Generic External Data Provider LAB BLOOD ORDERAB LES Final Result Performing Organization Address City/State/[facility] Co de Phone Number [facility] [address] [place] [phone] * XR Lumbar Spine 2-3 Views (03/25/2024 3:32 PM EST) Anatomical Region Laterality Modality Spine, L-spine Radiographic Jazz ging 03/25/2024 3:32 PM EST Narrative 03/25/2024 4:54 PM EST ?[facility] ?[address] ?[place] [address] ?XRay Report ? Signed ? Patient: Ivory Daniel I ?MR#: [id number] ?? 98 ? : 1980 ?Acct:[id number] ? Age/Sex: 43 / F ?ADM Date: /23/25 ? Loc: HO.HHCX ? Attending Aditi Boucher DO ? Ordering Physician: Claire Boucher DO ?? Date of Service: 03/25/24 ?? Procedure(s): XR lumbar spine 2-3V ?? Accession Number(s): [id number] ? cc: Claire Boucher DO ? EXAMINATION: [...] 04:51 PM EST RP ? Dictated By: ?Leon Quiroz MD ? Signed By: ?<Electronically signed by Leon Quiroz MD in OV> ?03/25/24 1651 ? DD/ 1532 ? TD/TT: 03/25/24 1600 ? District Manager In Training: MSM ? Procedure Note Donotuseinterpreter, Image - 03/25/[address] [address] XRay Report Signed Patient: Ivory Daniel IMR#: [id number] 98 : 1980Acct:[id number] Age/Sex: 43 / FADM Date: 03/25/24 Loc: HO.HHCX Attending Dr: Claire Boucher DO Ordering Physician: Claire Boucher DO Date of Service: 03/25/24 Procedure(s): XR lumbar spine 2-3V Accession Number(s): [id number] cc: Claire Boucher DO EXAMINATION: XR LUMBOSACRAL [...] 03/25/24 1651 DD/ 1532 TD/TT: 03/25/24 1600 District Manager In Training: RAYMUNDO Claire Boucher DO IMG XR PROCEDURES Final Resu lt * Culture, Urine, Routine (03/25/2024 3:32 PM EST) Urine Urine specimen obtained by clean catch procedure / Unknown 03/25/2024 3:32 PM EST 03/25/2024 5:07 PM EST Comment:UACC Narrative [facility] - 03/27/2024 9:55 AM EST Urine Culture Report Result Urine Culture 50,000 to 100,000 cfu/ml Urine Culture Mixed bacterial blair characteristic of Urine Culture urogenital contamination. Strep agalactiae (Grp B) Quant < 10,000 cfu/mL Susc N/A Susceptibility not routinely performed on this isolate. Specimen Source: Urine clean catch Claire Boucher DO LAB MICROBIOLOGY - GENERAL O RDERABLES Final Result [facility] [address] [place] [address] [phone] * POCT urinalysis dipstick manually resulted (03/25/2024 [...] Date Blood 12/16/2023 10:4 2 AM EDT us Mulugeta Name POINT OF CARE TEST ENTER/EDIT OR DERABLES Final Result * BI Mammogram Screening Tomosynthesis Bilateral (07/10/2023 10:15 AM EDT) Anatomical Region Laterality Modality Breast Bilateral Mammography 07/10/2023 10:1 5 AM EDT Narrative 08/08/2023 8:49 AM EDT ? [facility] ? [address] ?[place] [address] ? Mammography Report ? Signed ? Patient: Ivory Daniel I ?MR#: [id number] ?? 98 ? : 1980 ?Acct:[id number] ? Age/Sex: 43 / F ?ADM Date: 07/10/23 ? Loc: HO.MAMMO ? Attending Dr: Mulugeta Name MD ? Ordering Physician: Name,Mulugeta MD ?Results: 1Negative ? Date of Service: 07/10/23 ?Follow Up: 1 Year From Orig ?? inal Mammogram ? Procedure(s): MM tomosynthesis screening BI ?? Accession Number(s): [id number] ? cc: Name,Mulugeta HUANG ? EXAMINATION: ?? [...] 0845 ? DD/ 1015 ? TD/TT: ? District Manager In Training: ? Procedure Note Dee Newton - 08/08/2023 [facility] [address] [place] [address] [place] [address] Mammography Report Signed Patient: Ivory Daniel IMR#: [id number] 98 : 1980Acct:[id number] Age/Sex: 43 / FADM Date: 07/10/23 Loc: MARILIN Attending Dr: Mulugeta Peralta MD Ordering Physician: Mulugeta Peraltaults: 1Negative Date of Service: 07/10/23Follow Up: 1 Year From Orig inal Mammogram Procedure(s): MM tomosynthesis screening BI Accession Number(s): [id number] cc: NameMulugeta MD EXAMINATION: MM SCREENING DIGITAL BREAST TOMOSYNTHESIS, [...] in OV> 08/08/23 0845 DD/ 1015 TD/TT: District Manager In Training: Mluugeta Peralta MD [facility] PROCEDURES Edited Result - Final * Hepatitis C Antibody with Reflex to HCV, RNA, Quantitative, Real-Time PCR (06/03/2022 10:57 AM EDT) Hepatitis C Antibody NON-REACT KELLY NON-REACT KELLY [facility] Index 0.09 <1.00 [employer] [place] [facility] Comment: HCV antibody was non-reactive. There is no laboratory evidence of HCV infection. In most cases, no further action is required. However, if recent HCV exposure is suspected, a test for HCV RNA (test code 01648) is suggested. For additional information please refer to http://education.[employer]/faq/MPX96t1 (This link is being provided for informational/ educational purposes only.) Blood Venous blood specimen / Unknown 06/03/2022 10:57 AM EDT 06/03/2022 10:58 AM EDT Narrative [facility] - 06/04/2022 8:43 PM EDT FASTING:NO FASTING: NO Candice ALCALA LAB BLOOD ORDERABLES Nani l Result Performing Organization Address City/[facility]/ZIP Co de Phone Number [facility] [address], [place] [address] [employer] [place] [address] [place] [address] * HIV-1/2 Antigen and Antibodies, Fourth Generation, with Reflexes (06/03/2022 10:57 AM EDT) Pathologist [facility] HIV Antigen/Antibody, 4th Generation NON-REAC TIVE NON-REAC TIVE [employer] [place] [facility] Comment: HIV-1 antigen and HIV-1/HIV-2 antibodies were [...] ?? For additional information please refer to http://education.[employer]/faq/OWR523 (This link is being provided for informational/ educational purposes only.) The performance of this assay has not been clinically validated in patients less than 2 years old. Blood Venous blood specimen / Unknown 06/03/2022 10:57 AM EDT 06/03/2022 10:58 AM EDT Narrative [facility] - 06/04/2022 8:43 PM EDT FASTING:NO FASTING: NO Candice ALCALA LAB BLOOD ORDERABLES Nani l Result Performing Organization Address [facility]/ZIP Co de Phone Number [facility] [address], [place] [address] [employer] [place] [facility] [address] [place] [address] * Image-Guided Pap with Age-Based Screening??with CT/NG,??Trichomonas (06/03/2022 10:47 AM EDT) Comment [facility] Comment: This order for age-based cervical cancer and STI screening follows ACOG guidelines(PB 168, 140, LMR336). See individual assays for performing site location. Clinical Information: Routine exam [facility] LMP: NONE GIVEN [email or web address] Prev. PAP: NONE GIVEN [email or web address] Prev. BX: NONE GIVEN [email or web address] SOURCE: None given [facility] Statement Of Adequacy: [facility] Comment: Satisfactory for evaluation. Endocervical/transformation zone component present. Interpretation/Re sult: Negative for intraepithelial lesion or malignancy. [facility] COMMENT: This Pap test has been evaluated with computer assisted technology. [employer] [facility] [place] [facility] Tutor Coordinator: Antonia Crysalin Comment: WAC, CT(ASCP) CT screening location: [address] ??[address] (Always Message) [facility] [employer] Comment: EXPLANATORY NOTE: The Pap is a [...] HPV nRNA E6/E7 Not Detected Not Detected [facility] Comment: Methodology: Spray Ii Painter-Mediated Amplification This assay detects E6/E7 viral messenger RNA (mRNA) from 14 high-risk HPV types (16,18,31,33,35,39,45,51,52,56,58,59,66,68). Cervical sources are required for HPV testing. If a vaginal source from a patient who has had a total hysterectomy with removal of cervix was submitted, please contact the testing laboratory for alternative testing options. For additional information, please refer to http://education.[employer]/faq/ITF258w2 (This link if provided for information/ educational purposes only.) Chlamydia trachomatis RNA, TMA, Urogenital NOT DETECTED NOT DETECTED [employer] [facility] [place] [facility] Neisseria gonorrhoeae RNA, TMA, Urogenital NOT DETECTED NOT DETECTED [employer] [facility] [place] [facility] (Always Message) [employer] [place] [facility] Comment: The analytical performance characteristics of this assay, when used to test SurePath(TM) specimens have been determined by [employer] [facility]. The modifications have not been cleared or approved by the FDA. This assay has been validated pursuant to the CLIA regulations and is used for clinical purposes. For additional information, please refer to https://[employer]/faq/HHZ548 (This link is being provided for information/ educational purposes only.) Trichomonas vaginalis, QL, TMA, PAP Vial NOT DETECTED NOT DETECTED [facility] Comment: The analytical performance characteristics of this assay have been determined by [employer] [facility]. The modifications have not been cleared or approved by the FDA. This assay has been validated pursuant to the CLIA regulations and is used for clinical purposes. For additional information, please refer to http://[employer]/ faq/Trichomonastma (This link is being provided for information/ educational purposes only.) Cytology specimen container (physical object) 06/03/2022 10:47 AM EDT 06/04/2022 5:15 AM EDT Candice Morrell [facility] CYTOLOGY ORDERABLES F inal Result [facility] [address], [place] [address] [employer] [place] [facility] [address] [place] [address] * (ABNORMAL) Lipid Panel, Standard (04/09/2022 10:06 AM EST) Cholesterol, Total 168 <200 mg/dL [employer] [facility] [place] [facility] HDL Cholesterol 41(L) > OR = 50 mg/dL [employer] [facility] [place] [facility] Triglycerides 216(H) <150 mg/dL [employer] [facility] [place] [facility] Comment: If a non-fasting specimen was collected, consider repeat triglyceride testing on a fasting specimen if clinically indicated. Tunde et al. J. of Clin. Lipidol. 2015;9:129-169. LDL Cholesterol 96 mg/dL (calc) [facility] Comment: Reference range: <100 Desirable range <100 mg/dL for primary prevention; ?? <70 mg/dL for patients with CHD or diabetic patients with > or = 2 CHD risk factors. LDL-C is now calculated using the Jean-Velarde calculation, which is a validated novel method providing better accuracy than the Friedewald equation in the estimation of LDL-C. Jean KUMAR et al. NARENDRA. 2013;310(19): 6319-0300 (http://education.Nanameue/faq/MSY239) Chol/HDLC Ratio 4.1 <5.0 (calc) [facility] Non-HDL Cholesterol 127 <130 mg/dL (calc) [facility] Comment: For patients with diabetes plus 1 major ASCVD risk factor, treating to a non-HDL-C goal of <100 mg/dL (LDL-C of <70 mg/dL) is considered a therapeutic option. Blood Venous blood specimen / Unknown 04/09/2022 10:06 AM EST 04/09/2022 10:07 AM EST Narrative [facility] - 04/09/2022 9:59 PM EST FASTING:NO FASTING: NO us Yolis Noland [employer] LAB BLOOD ORDERABLES Final Result [facility] [address], [place] [address] [facility] [address] [facility], ([address]) [place] [address] from Last 3 Months or Most Recently Relevant to Health Maintenance Insurance * Guarantor: Ivory Daniel I Account Type Relation to Patient Date of Phone Billing Address Personal/Family Self 1980 [address] [facility] [address] [place] [address] [facility] Care Teams Logistics Supervisor Relationship Specialty Start Date End Date Name, MD Mulugeta [address] [facility] [place] [address] PCP - General Family Medicine 06/06/15
--- OUTSIDE RECORDS SUMMARY | 2024-06-09 16:38 | XMS_ITS | Encounter Summary ---
Author Organization [employer] Address [address] [facility] 7t [place] [address] Care Team Providers Care Retail Merchandiser Name Role Phone Name, Mulugeta HUANG Primary Care Provider [phone] Reason for Visit * Reason Comments Med Refill Encounter Details Date Type Department Care Team ([facility] Contact Info) Description 06/26/2023 Refill [facility] [address] [place], [place] [phone] Name, MD Mulugeta [address] [place] [address] Social History Tobacco Use Types Packs/Day Years [...] Description 07/01/2024 11:30 AM EDT Office Visit [facility] [address] [place] [phone] Name, MD Mulugeta [address] [place] [address] documented as of this encounter Visit Diagnoses Not on filedocumented in this encounter Additional Health Concerns Assessment Noted Time PHQ-9 Depression Total Score: 0 05/29/19 24 10:30 AM EDT documented as of this encounter Care Teams Retail Merchandiser Relationship Specialty Start Date End Date NameMulugeta MD [address] [place] [address] PCP - General Family Medicine 06/06/15 documented as of this encounter
--- OUTSIDE RECORDS SUMMARY | 2024-06-09 16:38 | XMS_ITS | Encounter Summary ---
Author Organization [employer] Address [address] [facility] 7t [place] [address] Care Team Providers Care Driver License Reviewing Officer Name Role Phone Name, Mulugeta HUANG Primary Care Provider [phone] Encounter Details Date Type Department Care Team (Latest Contact Info) Description 06/04/2024 Travel Social History Tobacco Use Types Packs/Day Years [...] AM EDT Office Visit [facility] [address] [place] [address] NameMulugeta MD [address] [place] [address] documented as of this encounter Visit Diagnoses Not on filedocumented in this encounter Additional Health Concerns Assessment Noted Time PHQ-9 Depression Total Score: 0 05/29/19 24 10:30 AM EDT documented as of this encounter Care Teams Driver License Reviewing Officer Relationship Specialty Start Date End Date NameMulugeta MD [address] [place] [address] PCP - General Family Medicine 06/06/15 documented as of this encounter
== END 2024-06-09 15:51 | disposition home or self-care (01) ==
LOC: HO.HCS 14:22
PROVIDERS: PCP Internal Medicine Geriatric Medicine
DX: I44.7 Left bundle-branch block, unspecified (principal); R00.2 Palpitations; Z09 Encounter for follow-up examination after completed treatment for conditions other than malignant neoplasm
CPT/HCPCS: 93010; 99214; G2211

== ENCOUNTER → 2024-06-09 14:22 | Outpatient (BNVA) | payer OTHER, SELFPAY | PROVIDERS: PCP Internal Medicine Geriatric Medicine | DX: Z09 Encounter for follow-up examination after completed treatment for conditions other than malignant neoplasm (principal); I44.7 Left bundle-branch block, unspecified; R00.2 Palpitations | CPT/HCPCS: 93005; 99212 ==

== ENCOUNTER → 2024-06-15 10:10 | Outpatient (REF) | payer OTHER, SELFPAY ==
--- NOTE | 2024-06-15 10:31 | CA_ITS ---
Transthoracic Echocardiogram Patient (Last, First, Middle): Ivory Daniel, Gender: Female Date of : 1980 Age: 43 Procedure Date: 06/15/2024 Procedure Type: Transthoracic Echocardiogram Location: OP Height: 154. cm Weight: 86.64 kg BSA: 1.84 m2 Heart Rate: 59 bpm BP: 105 / 60 mmHg Chemist Helper: KRISTOPHER Vitale MD: Levi Hodge CLINICAL SERVICES ASSISTANT Fuel Manager: Aldair Patiño MD Symptoms: I44.7 - Left bundle-branch block, unspecified Study Quality: Adequate ECG Rhythm: Sinus Conclusions: - Normal study Findings Left Ventricle Normal left ventricular size, thickness, and systolic function. The visually estimated ejection fraction is between 55-60%. There is paradoxical septal motion consistent with a left bundle branch block. Diastolic function is normal for age. Right Ventricle Normal right ventricular cavity size and systolic function. Atria Both atria are normal in size. There is no evidence of interatrial shunt. Aortic Valve Normal aortic valve structure and function. There is no aortic valve stenosis. There is no aortic valve regurgitation. Mitral Valve Normal mitral valve structure and function. There is trace mitral valve regurgitation. There is no mitral valve stenosis. Pulmonic Valve The pulmonic valve is likely normal. There is trace pulmonic valve regurgitation. Tricuspid Valve Normal tricuspid valve structure. There is trace tricuspid valve regurgitation. The right ventricular systolic pressure is normal. The right ventricular systolic pressure is 25 mmHg. Normal right atrial pressure. There is no evidence of pulmonary hypertension. Great Vessels All visible segments of the aorta are normal in size. The pulmonary artery was not well visualized. There is no dilatation of the ascending aorta measuring 3.10 cm. Venous The inferior vena cava is normal in size and collapses greater than 50% with inspiration. Pericardium/Pleural There is no evidence of pericardial effusion. Prior Study Comparison No significant change compared to prior study dated: 04/17/2022. Measurements 2D Linear Measurements IVSd: 0.98 0.6-0.9/0.6-1.0 cm LVIDd: 5.23 3.9-5.3/4.2-5.9 cm LVIDd Index: 2.84 2.4-3.2/2.2-3.1 cm/m2 LVIDs: 3.85 2.0-3.6 cm LVPWd: 0.94 0.7-1.1 cm LA Diam: 3.70 2.7-3.8/3.0-4.0 cm LAIDs Index: 2.01 1.5-2.3 cm/m2 LV Mass: 232.01 67-162/88-224 g LV Mass Index: 126.09 43-95/49-115 g/m2 LVOT Diam: 2.10 3.0+(-)1.3 cm 2D Systolic Function EF 4C: 53.80 >55% EF 2C: 60.50 >55% EF BiP: 56.20 >55% Mitral Valve MV Pk E: 1.15 MV PK A: 0.66 MV Decel Time: 203.00 E/A: 1.70 E'Lateral: 11.90 E'Medial: 7.07 E/E' Med: 16.30 E/E' Lat: 9.70 PHT: 60.00 MVA PHT: 3.67 Decel De Witt: 5.68 Aortic Valve AoV Pk Liang: 1.53 AoV Mn Liang: 1.14 AoV VTI: 0.35 AoV Pk Grad: 9.00 Aov Mn Grad: 6.00 JEANMARIE Cont.VTI: 2.90 LVOT LVOT Pk Liang: 1.19 LVOT Mn Liang: 0.88 LVOT VTI: 0.29 LVOT Pk Grad: 6.00 LVOT Mn Grad: 3.00 LVOT Diam: 2.10 LVOT Area: 3.46 Diastolic Function MV Pk E: 1.15 MV Pk A: 0.66 E/A: 1.70 E'Medial: 7.07 E/E' Med: 16.30 E' Laterial: 11.90 E/E' Lat: 9.70 Right Ventricle TAPSE (mm): 26.20 TVS' Liang: 14.10 Tricuspid Valve TR Pk Liang: 2.32 TR Pk Grad: 22.00 RA Press: 3.00 RVSP: 25.00 Great Vessels Aorta Sinus of Valsalva: 3.20 2.0-3.5 cm Ao Asc: 3.10 2.1-3.4 cm Ao Arch: 2.70 Pulmonary Valve PV Pk Liang: 1.02 Peak PV Grad: 4.00 Updated in Other Vendor System with Status of Final Aldair Patiño MD electronically signed on 06/15/2024 3:06:22 PM with status of Final
[2024-06-15 11:49] LABS: Cholesterol 161 mg/dL (<200); HDL Cholesterol 45 mg/dL (>40); LDL Cholesterol Calculated 90 mg/dL (<100); Triglycerides 132 mg/dL (<150)
--- OUTSIDE RECORDS SUMMARY | 2024-06-15 12:02 | XMS_ITS | Encounter Summary ---
Author Organization [employer] Address [address] [facility] 7t [place] [address] Care Team Providers Care Human Resources Administrator Name Role Phone Name, Mulugeta HUANG Primary Care Provider [phone] Reason for Visit * Reason Onset Date Comments Med Refill 10/23/2023 Encounter Details Date Type Department Care Team ([facility] st Contact Info) Description 10/23/2023 Refill [facility] [address] [place], [place] [phone] Name, MD Mulugeta 230 [place] [address] Obesity (BMI 30-39.9) Social History Tobacco Use [...] Description 07/01/2024 11:30 AM EDT Office Visit [facility] [address] [place] [address] Name, MD Mulugeta [address] [place] [address] documented as of this encounter Visit Diagnoses Diagnosis Obesity (BMI 30-39.9) documented in this encounter Additional Health Concerns Assessment Noted Time PHQ-9 Depression Total Score: 0 05/29/19 24 10:30 AM EDT documented as of this encounter Care Teams Human Resources Administrator Relationship Specialty Start Date End Date NameMulugeta MD [address] [place] [address] PCP - General Family Medicine 06/06/15 documented as of this encounter
--- OUTSIDE RECORDS SUMMARY | 2024-06-15 12:02 | XMS_ITS | Encounter Summary ---
Author Organization [employer] Address [address] [place] [address] 7t [place] [address] Care Team Providers Care Manufacturing Leader Name Role Phone Name, Mulugeta HUANG Primary Care Provider [phone] Reason for Visit * Reason Onset Date Comments lab request 05/08/2022 Encounter Details Date Type Department Care Team ([facility] Contact Info) Description 05/08/2022 Telephone [facility] 230 [place], [place] [phone] Name, MD Mulugeta 230 [place] [address] lab request Social History Tobacco Use Types [...] Description 07/01/2024 11:30 AM EDT Office Visit [facility] [address] [place] [address] Name, MD Mulugeta [address] [place] [address] documented as of this encounter Visit Diagnoses Not on filedocumented in this encounter Care Teams Manufacturing Leader Relationship Specialty Start Date End Date Mulugeta Peralta MD [address] [place] [address] PCP - General Family Medicine 06/06/15 documented as of this encounter
--- OUTSIDE RECORDS SUMMARY | 2024-06-15 12:02 | XMS_ITS | Encounter Summary ---
Author Organization [employer] Address 75 [facility] 7t [place] [address] Care Team Providers Care Diesel Engine Specialist Name Role Phone Name, Mulugeta HUANG Primary Care Provider [phone] Reason for Visit * Reason Comments Med Refill Encounter Details Date Type Department Care Team ([facility] Contact Info) Description 06/26/2023 Refill [facility] 230 [place], [place] [phone] Name, MD Mulugeta 230 [place] [address] Social History Tobacco Use Types Packs/Day Years [...] Description 07/01/2024 11:30 AM EDT Office Visit [facility] [address] [place] [address] Name, MD Mulugeta [address] [place] [address] documented as of this encounter Visit Diagnoses Not on filedocumented in this encounter Additional Health Concerns Assessment Noted Time PHQ-9 Depression Total Score: 0 05/29/19 24 10:30 AM EDT documented as of this encounter Care Teams Diesel Engine Specialist Relationship Specialty Start Date End Date NameMulugeta MD [address] [place] [address] PCP - General Family Medicine 06/06/15 documented as of this encounter
--- OUTSIDE RECORDS SUMMARY | 2024-06-15 12:02 | XMS_ITS | Clinical Summary ---
Author Organization [employer] Address [address] [place] [address] 7t [place] [address] Care Team Providers Care Fugitive Investigator Name Role Phone Name, Mulugeta HUANG Primary Care Provider [phone] Allergies Active Allergy Reactions Criticality Noted Date [...] 05/23/2022 Overview (05/23/2022): 7 grade education in [place] Does not know how to read or write Belarusian Epigastric pain 04/09/2022 H. pylori infection 04/09/2022 [...] Encounters Date Type Department Care Team Description 06/15/2024 Orders Only GENERIC EXTERNAL DATA DEPARTMENT Provider, Generic External Data 06/04/2024 3:00 PM EDT Office Visit [address] [address] Cleveland Pollack MD Hyperpigmentation (Primary Dx) 06/04/2024 Travel 06/03/2024 1:00 PM EDT Office Visit [facility] [address] [address] Shannon Diaz MD Shortness of breath (Primary Dx); Ankle edema, bilateral; Obesity (BMI 30-39.9); Abnormal EKG 06/03/2024 Orders Only [facility] External Provider, [facility] 06/03/2024 [facility] [address] [address] [place], [place] expect report called to [facility] ED 04/29/2024 Refill [facility] [address] [address] Name, MD Mulugeta Back muscle spasm 04/28/[address] [address] Name, MD Mulugeta 04/20/[address] [address] Name, MD Mulugeta No Show 04/07/[address] [address] Name, MD Mulugeta Prior Authorization ([employer]) 03/25/2024 3:40 PM EST [facility] [address] [address] Claire Boucher DO Acute mid back pain (Primary Dx); Acute bilateral low back pain without sciatica from Last 3 Months Immunizations Name Administration [...] is your housing situation today? I have bertabrian nelson 05/29/[address] you [...] Description 07/01/2024 11:30 AM EDT Office Visit [facility] MED[facility] 230 [place] [address] Name, MD Mulugeta 230 [place] [address] Health Maintenance Due Date Last Done Comments [...] 08/2022 Pap Smear 06/03/2025 06/03/2022 Tobacco Screening 06/04/2025 06/04/2024 Mammogram 07/09/2025 07/10/2023, 05/0 06/2022, 07/04/2022, Additional history exists Cervical Cancer Screening 06/04/2027 HPV/Cotest 06/04/2027 06/03/2022 Lipid Panel 06/15/2029 06/15/2024, 04/09/2022 Zoster Vaccines (1 of 2) 06/21/2029 RSV [...] Procedure Name Priority Date/Time Associated Diagnosis Comments ECG 12-LEAD Routine 06/15/2024 10:48 AM EDT Shortness of breath Abnormal EKG LIPID PANEL, STANDARD Routine 06/15/2024 10:44 AM EDT HIGH SENSITIVITY TROPONIN I Routine 06/03/2024 5:42 [...] for infections w sexl mode of transmiss from Last 3 Months or Most Recently Relevant to Health Maintenance Results * ECG 12 lead (06/15/2024 10:48 AM EDT) Narrative Shannon Diaz MD - 06/15/2024 10:48 AM EDT See image us Shannon Diaz MD ECG ORDERABLES Final Resu lt * Lipid Panel, Standard (06/15/2024 10:44 AM EDT) Triglycerides 132 <150 mg/dL [facility] Comment:Desirable Triglyceri de: less than 150 mg/dLBorderline High Triglyceride 150-199 mg/dLHigh Triglyceride: 200-499 mg/dLVery High Triglyceride: greater than or equal to 5OO mg/dL Cholesterol 161 <200 mg/dL [facility] Comment:Desirable Cholestero l: less than 200 mg/dLBorderline High Cholesterol: 200-239 mg/dLHigh Cholesterol: greater than 239 mg/dL LDL Cholesterol Calculated 90 <100 mg/dL [facility] Comment:Desirable LDL: less than 100 mg/dLNear Optimal/Above Optimal LDL: 110- 129 mg/dLBorderline High LDL: 130-159 mg/dLHigh LDL: 160-189 mg/dLVery High LDL: greater than or equal to 190 mg/dL HDL Cholesterol 45 >40 mg/dL [facility] Comment:Desirable HDL: great er than 40 mg/dL Note: This HDL assay may give artificially low results in patients with liver disease. 06/15/2024 10:4 4 AM EDT 06/15/2024 10:44 AM EDT Generic External Data Provider LAB BLOOD ORDERAB LES Final Result Performing Organization Address [facility] de Phone Number [facility] [address] [place] [phone] * High Sensitivity Troponin I (06/03/2024 5:42 PM EDT) [facility] TROPONIN I HIGH SENSITIVITY <2.7 <3.5 - 17.0 ng/L [facility] Comment:The Puente high sens itivity Troponin-I results should beused in conjunction with other diagnostic information suchas ECG, clinical observations and information, and patientsymptoms to aid in the diagnosis of OR. 06/03/2024 5:42 PM EDT 06/03/2024 5:46 PM EDT Generic External Data Provider LAB BLOOD ORDERAB LES Final Result Performing Organization Address [facility] de Phone Number [facility] [address] [place] [phone] * XR Chest 1 View (06/03/2024 3:22 PM EDT) Anatomical Region Laterality Modality Chest Radiographic Jazz ging 06/03/2024 3:22 PM EDT Narrative 06/03/2024 4:17 PM EDT ? [facility] ?[address] ?[place] [address] ?XRay Report ? Signed ? Patient: Daniel,Ivory I ?MR#: [id number] ?? 98 ? : 1980 ?Acct:[id number] ? Age/Sex: 43 / F ?ADM Date: 04/03/25 ? Loc: HO.ED ? Attending Dr: ? Ordering Physician: Aleta Oh DO ?? Date of Service: 06/03/24 ?? Procedure(s): XR chest 1V ?? Accession Number(s): [id number] ? cc: Aleta Oh DO; Name,Mulugeta HUANG [...] DD/ 1522 ? TD/TT: 06/03/24 1402 ? Ship Boss: ? Procedure Note Dee Newton - 06/03/2024 [place] [address] XRay Report Signed Patient: Ivory Daniel IMR#: [id number] 98 : 1980Acct:[id number] Age/Sex: 43 / FADM Date: 06/03/24 Loc: HO.ED Attending Dr: Ordering Physician: Aleta Oh DO Date of Service: 06/03/24 Procedure(s): XR chest 1V Accession Number(s): [id number] cc: Aleta Oh DO; Name,Mulugeta HUANG EXAMINATION: [...] 06/03/24 1614 DD/ 1522 TD/TT: 06/03/24 1402 Ship Boss: [facility] External Provider IMG XR PROCEDURES Final Result * VITAMIN D 25-OH (D2 AND D3) (04/01/2024 2:19 PM EST) Vitamin D, 25-OH, D2 <4 ng/mL [facility] Comment:This test was develo ped and its analytical performancecharacteristics have been determined by [place]. It hasnot been cleared or approved by the U.S. Food and DrugAdministration. This assay has been validated pursuantto the CLIA regulations and is used for clinicalpurposes.THIS TEST WAS PERFORMED AT:[employer] [id number] [place] [phone] JEAN MD,PHD Vitamin D, 25-OH, D3 37 ng/mL [facility] Comment:This test was develo ped and its analytical performancecharacteristics have been determined by [employer] [place], [place]. It hasnot been cleared or approved by the U.S. Food and DrugAdministration. This assay has been validated pursuantto the CLIA regulations and is used for clinicalpurposes. Vitamin D, 25-OH, Total 37 30 - 100 ng/mL [facility] Comment:Vitamin D, 25-Hydrox y reports [...] = 30 ng/mL.For additional information, please refer tohttp://[employer].Fundbase/faq/ZOC846(This link is being provided for informational/educational purposes only.) 04/01/2024 2:19 PM EST 04/01/2024 5:34 PM EST us Generic External Data Provider LAB BLOOD ORDERAB LES Final Result [facility] [address] [place] [phone] * XR Lumbar Spine 2-3 Views (03/25/2024 3:32 PM EST) Anatomical Region Laterality Modality Spine, L-spine Radiographic Jazz ging 03/25/2024 3:32 PM EST Narrative 03/25/2024 4:54 PM EST ?[facility] ?[address] ?[place] [address] ?XRay Report ? Signed ? Patient: Ivory Daniel I ?MR#: [id number] ?? 98 ? : 1980 ?Acct:[id number] ? Age/Sex: 43 / F ?ADM Date: 03/25/24 ? Loc: HO.HHCX ? Attending Dr: Claire Boucher DO ? Ordering Physician: Claire Boucher DO ?? Date of Service: 03/25/24 ?? Procedure(s): XR lumbar spine 2-3V ?? Accession Number(s): [id number] ? cc: Jurcsak,Claire A DO ? EXAMINATION: ?? XR LUMBOSACRAL SPINE [...] DD/ 1532 ? TD/TT: 03/25/24 1600 ? Ship Boss: MSM ? Procedure Note Donromieter, Image - 03/25/[address] [address] XRay Report Signed Patient: Ivory Daniel IMR#: [id number] 98 : 1980Acct:[id number] Age/Sex: 43 / FADM Date: 03/25/24 [facility]: Claire Boucher DO Ordering Physician: Claire Boucher DO Date of Service: 03/25/24 Procedure(s): XR lumbar spine 2-3V Accession Number(s): [id number] cc: Claire Boucher DO EXAMINATION: XR LUMBOSACRAL [...] 03/25/24 1651 DD/ 1532 TD/TT: 03/25/24 1600 Ship Boss: MSM us Claire Boucher DO IMG XR PROCEDURES Final Resu lt * Culture, Urine, Routine (03/25/2024 3:32 PM EST) Urine Urine specimen obtained by clean catch procedure / Unknown 03/25/2024 3:32 PM EST 03/25/2024 5:07 PM EST Comment:[facility]ACC Narrative [facility] - 03/27/2024 9:55 AM EST Urine Culture Report Result Urine Culture 50,000 to 100,000 cfu/ml Urine Culture Mixed bacterial blair characteristic of Urine Culture urogenital contamination. Strep agalactiae (Grp B) Quant < 10,000 cfu/mL Susc N/A Susceptibility not routinely performed on this isolate. Specimen Source: Urine clean catch Claire Boucher DO LAB MICROBIOLOGY - GENERAL O RDERABLES Final Result [facility] [address] [place] [phone] * POCT urinalysis dipstick manually resulted [...] Blood 12/16/2023 10:4 2 AM EDT Mulugeta Name MD POINT OF CARE TEST ENTER/EDIT OR DERABLES Final Result * BI Mammogram Screening Tomosynthesis Bilateral (07/10/2023 10:15 AM EDT) Anatomical Region Laterality Modality Breast Bilateral Mammography 07/10/2023 10:1 5 AM EDT Narrative 08/08/2023 8:49 AM EDT ? [facility] ? [address] [facility] ?[place] [address] ? Mammography Report ? Signed ? Patient: Daniel,Ivory I ?MR#: [id number] ?? 98 ? : 1980 ?Acct:[id number] ? Age/Sex: 43 / F ?ADM Date: 07/10/23 ? Loc: HO.MAMMO ? Attending Dr: Mulugeta Name MD ? Ordering Physician: Name,Mulugeta MD ?Results: 1Negative ? Date of Service: 07/10/23 ?Follow Up: 1 Year From Orig ?? inal Mammogram ? Procedure(s): MM tomosynthesis screening BI ?? Accession Number(s): [id number] ? cc: Name,Mulugeta HUANG ? EXAMINATION: ?? [...] 0845 ? DD/ 1015 ? TD/TT: ? Ship Boss: ? Procedure Note Aman, Dee - 08/08/2023 [facility] [address] [place] [address] Mammography Report Signed Patient: Ivory Daniel IMR#: [id number] 98 : 1980Acct:[id number] Age/Sex: 43 / FADM Date: 07/10/23 Loc: MAMMO Attending Dr: Mulugeta Peralta MD Ordering Physician: Mulugeta Peraltaesults: 1Negative Date of Service: 07/10/23Follow Up: 1 Year From Orig inal Mammogram Procedure(s): MM tomosynthesis screening BI Accession Number(s): [id number] cc: Mulugeta Peralta MD EXAMINATION: MM SCREENING DIGITAL BREAST TOMOSYNTHESIS, BILATERAL CLINICAL INFORMATION: Screening. Asymptomatic. COMPARISON: Mammography: This study is compared with prior exams dating back to 2014. TECHNIQUE: Digital breast tomosynthesis is performed in [...] in OV> 08/08/23 0845 DD/ 1015 TD/TT: Ship Boss: Mulugeta Peralta MD IM BI PROCEDURES Edited Result - Final * Hepatitis C Antibody with Reflex to HCV, RNA, Quantitative, Real-Time PCR (06/03/2022 10:57 AM EDT) Hepatitis C Antibody NON-REACT KELLY NON-REACT KELLY [facility] Index 0.09 <1.00 [facility] Comment: HCV antibody was non-reactive. There is no laboratory evidence of HCV infection. In most cases, no further action is required. However, if recent HCV exposure is suspected, a test for HCV RNA (test code 89607) is suggested. For additional information please refer to http://education.Prosodic/faq/RXF97o3 (This link is being provided for informational/ educational purposes only.) Blood Venous blood specimen / Unknown 06/03/2022 10:57 AM EDT 06/03/2022 10:58 AM EDT Narrative [facility] - 06/04/2022 8:43 PM EDT FASTING:NO FASTING: NO Candice Morrell CNM LAB BLOOD ORDERABLES Nani sanders Result [facility] [address], [place] [address] [employer] [place] [employer] [address] [place] [phone] * HIV-1/2 Antigen and Antibodies, Fourth Generation, with Reflexes (06/03/2022 10:57 AM EDT) HIV Antigen/Antibody, 4th Generation NON-REAC TIVE NON-REAC TIVE [employer] [facility] [place] [facility] Comment: HIV-1 antigen and HIV-1/HIV-2 antibodies were [...] ?? For additional information please refer to http://education.Prosodic/faq/YGQ045 (This link is being provided for informational/ educational purposes only.) The performance of this assay has not been clinically validated in patients less than 2 years old. Blood Venous blood specimen / Unknown 06/03/2022 10:57 AM EDT 06/03/2022 10:58 AM EDT Narrative [facility] - 06/04/2022 8:43 PM EDT FASTING:NO FASTING: NO Candice Morrell [facility] LAB BLOOD ORDERABLES Nani l Result [facility] [address] [place] [address] [employer] [place] [employer] [address] [place] [phone] * Image-Guided Pap with Age-Based Screening??with CT/NG,??Trichomonas (06/03/2022 10:47 AM EDT) Comment [employer] [place] [employer] Comment: This order for age-based cervical cancer and STI screening follows ACOG guidelines(PB 168, 140, VST862). See individual assays for performing site location. Clinical Information: Routine exam [facility] LMP: NONE GIVEN [facility] Prev. PAP: NONE GIVEN [facility] Prev. BX: NONE GIVEN [facility] SOURCE: None given [facility] Statement Of Adequacy: [facility] Comment: Satisfactory for evaluation. Endocervical/transformation zone component present. Interpretation/Re sult: Negative for intraepithelial lesion or malignancy. [facility] COMMENT: This Pap test has been evaluated with computer assisted technology. [facility] Clinical Research Associate: Antonia estrella [employer] Comment: [place], CT(ASCP) CT screening location: [address] ??[phone] (Always Message) [facility] Comment: EXPLANATORY NOTE: The Pap is a [...] HPV nRNA E6/E7 Not Detected Not Detected [facility] Comment: Methodology: Matchbook Assembler-Mediated Amplification This assay detects E6/E7 viral messenger RNA (mRNA) from 14 high-risk HPV types (16,18,31,33,35,39,45,51,52,56,58,59,66,68). Cervical sources are required for HPV testing. If a vaginal source from a patient who has had a total hysterectomy with removal of cervix was submitted, please contact the testing laboratory for alternative testing options. For additional information, please refer to http://education.Prosodic/faq/GWX316j1 (This link if provided for information/ educational purposes only.) Chlamydia trachomatis RNA, TMA, Urogenital NOT DETECTED NOT DETECTED [facility] Neisseria gonorrhoeae RNA, TMA, Urogenital NOT DETECTED NOT DETECTED [facility] (Always Message) [facility] Comment: The analytical performance characteristics of this assay, when used to test SurePath(TM) specimens have been determined by [facility]. The modifications have not been cleared or approved by the FDA. This assay has been validated pursuant to the CLIA regulations and is used for clinical purposes. For additional information, please refer to https://[employer].Prosodic/faq/KFM957 (This link is being provided for information/ educational purposes only.) Trichomonas vaginalis, QL, TMA, PAP Vial NOT DETECTED NOT DETECTED [facility] Comment: The analytical performance characteristics of this assay have been determined by [employer] [facility]. The modifications have not been cleared or approved by the FDA. This assay has been validated pursuant to the CLIA regulations and is used for clinical purposes. For additional information, please refer to http://[employer].Prosodic/ faq/Trichomonastma (This link is being provided for information/ educational purposes only.) Cytology specimen container (physical object) 06/03/2022 10:47 AM EDT 06/04/2022 5:15 AM EDT Candice Morrell [facility] CYTOLOGY ORDERABLES F inal Result [facility] [address], [place] [address] [facility] [address] [place] [address] from Last 3 Months or Most Recently Relevant to Health Maintenance Insurance * Guarantor: Daniel Ivory Kathie Account Type Relation to Patient Date of Phone Billing Address Personal/Family Self [address] [place] [address] [facility] Care Teams Fugitive Investigator Relationship Specialty Start Date End Date Name, MD Mulugeta [address] [place] [phone] PCP - General Family Medicine 06/06/15
--- OUTSIDE RECORDS SUMMARY | 2024-06-15 12:02 | XMS_ITS | Encounter Summary ---
Author Organization [employer] Address [address] [facility] 7t [place] [address] Care Team Providers Care Photographic Artist Name Role Phone Name, Mulugeta HUANG Primary Care Provider [phone] Encounter Details Date Type Department Care Team ([facility] st Contact Info) Description 06/15/2024 Orders Only GENERIC EXTERNAL DATA DEPARTMENT Provider, Generic External Data Social History Tobacco Use Types Packs/Day Years [...] Description 07/01/2024 11:30 AM EDT Office Visit [facility] [address] [place] [address] Name, MD Mulugeta [address] [place] [address] documented as of this encounter Procedures Procedure Name Priority Date/Time Associated Diagnosis Comments LIPID PANEL, STANDARD Routine 06/15/2024 10:44 AM EDT documented in this encounter Results * Lipid Panel, Standard (06/15/2024 10:44 AM EDT) Triglycerides 132 <150 mg/dL [facility] Comment:Desirable Triglyceri de: less than 150 mg/dLBorderline High Triglyceride 150-199 mg/dLHigh Triglyceride: 200-499 mg/dLVery High Triglyceride: greater than or equal to 5OO mg/dL Cholesterol 161 <200 mg/dL [facility] Comment:Desirable Cholestero l: less than 200 mg/dLBorderline High Cholesterol: 200-239 mg/dLHigh Cholesterol: greater than 239 mg/dL LDL Cholesterol Calculated 90 <100 mg/dL [facility] Comment:Desirable LDL: less than 100 mg/dLNear Optimal/Above Optimal LDL: 110- 129 mg/dLBorderline High LDL: 130-159 mg/dLHigh LDL: 160-189 mg/dLVery High LDL: greater than or equal to 190 mg/dL HDL Cholesterol 45 >40 mg/dL [facility] Comment:Desirable HDL: great er than 40 mg/dL Note: This HDL assay may give artificially low results in patients with liver disease. 06/15/2024 10:4 4 AM EDT 06/15/2024 10:44 AM EDT us Generic External Data Provider LAB BLOOD ORDERAB LES Final Result [facility] [address] [place] [phone] documented in this encounter Visit Diagnoses Not on filedocumented in this encounter Additional Health Concerns Assessment Noted Time PHQ-9 Depression Total Score: 0 05/29/19 24 10:30 AM EDT documented as of this encounter Care Teams Photographic Artist Relationship Specialty Start Date End Date Name, MD Mulugeta [address] [place] [address] PCP - General Family Medicine 06/06/15 documented as of this encounter
--- OUTSIDE RECORDS SUMMARY | 2024-06-15 12:02 | XMS_ITS | Encounter Summary ---
Author Organization [employer] Address [address] [place] [address] [address] [place] [address] Care Team Providers Care Tax Manager Public Name Role Phone Name, Mulugeta HUANG Primary Care Provider [phone] Reason for Visit * Reason Onset Date Comments Appointment Request 05/09/2022 Encounter Details Date Type Department Care Team ([facility] Contact Info) Description 05/09/2022 Telephone [facility] [address] [place], [place] [phone] Name, MD Mulugeta [address] [place] [address] Appointment Request Social History Tobacco Use Types [...] 1 WEEK prior to heart study at [facility] [place]. date 05/22 ) Please contact pt at [phone] documented in this encounter Plan of Treatment Upcoming Encounters Date Type Department Care Team (Late st Contact Info) Description 07/01/2024 11:30 AM EDT Office Visit [facility] [address] [place] [address] Name, MD Mulugeta [address] [place] [address] documented as of this encounter Visit Diagnoses Not on filedocumented in this encounter Care Teams Tax Manager Public Relationship Specialty Start Date End Date Name, MD Mulugeta [address] [place] [address] PCP - General Family Medicine 06/06/15 documented as of this encounter
--- OUTSIDE RECORDS SUMMARY | 2024-06-15 12:02 | XMS_ITS | Clinical Summary ---
Author Organization [facility] ity Address [address] [place] [address] Care Team Providers Care Medical Collections Name Role Phone Name, Mulugeta HUANG Primary Care Provider [phone] Surgical History Surgery Date Site/Laterality Comments OTHER [...] RESULTING AGENCY - 09/14/2018 12:06 PM EDT [id number] THINPREP PAP, IMAGED: NEGATIVE FOR SQUAMOUS INTRAEPITHELIAL [...] Recently Relevant to Health Maintenance Care Teams Medical Collections Relationship Specialty Start Date End Date Name, MD Mulugeta [address] [place], [place] PCP - General 06/30/16
--- OUTSIDE RECORDS SUMMARY | 2024-06-15 12:02 | XMS_ITS | Encounter Summary ---
Author Organization [employer] Address [address] [place] [address] 7t [place] [address] Care Team Providers Care Curtain Supervisor Name Role Phone Name, Mulugeta HUANG Primary Care Provider [phone] Reason for Referral * Consultation (Routine) - Authorized Specialty Diagnoses / Procedures Referred By Contac t Referred To Contact Cardiology Diagnoses Shortness of breath Abnormal EKG Jadyn Reeder MD [address] [place] [address] Phone: tel: fax: [facility] [address] [place] [address] Phone: tel: fax: Referral ID Status Reason Start Date Expiration Date Visits Requested Visits Authorized [id number] Authorized Specialty Services Required 06/03/2024 06/03/2025 1 1 Reason for Visit * Reason Comments Back Pain Encounter Details Date Type Department Care Team (Late st Contact Info) Description 06/03/2024 1:00 PM EDT Office Visit [facility] [address] [place], [place] [phone] Jadyn Reeder MD [address] [place] [phone] Shortness of breath (Primary Dx); Ankle edema, [...] via ambulance for STAT cardiac work-up. * Addendum Note - Jadyn Reeder MD - 06/03/2024 1:00 PM EDTAddended by: JADYN REEDER on: 06/15/2024 10:48 AM Modules accepted: Orders documented in this encounter Plan of Treatment Upcoming Encounters Date Type Department Care Team (Late st Contact Info) Description 07/01/2024 11:30 AM EDT Office Visit [facility] [address] [place] [address] Name, MD Mulugeta [address] [place] [address] Scheduled Referrals Name Type Priority Associated Diagnoses Order Schedule Referral to Cardiology Outpatient Referral Routine Shortness of breath Abnormal EKG Expected: 06/03/2024 (Approximate), Expires: 06/03/2025 documented as of this encounter Procedures Procedure Name Priority Date/Time Associated Diagnosis Comments ECG 12-LEAD Routine 06/15/2024 10:48 AM EDT Shortness of breath Abnormal EKG documented in this encounter Results * ECG 12 lead (06/15/2024 10:48 AM EDT) Narrative Jadyn Reeder MD - 06/15/2024 10:48 AM EDT See image us Jadyn Reeder MD ECG ORDERABLES Final Resu lt documented in this encounter Visit Diagnoses Diagnosis Shortness of breath- Primary Ankle edema, bilateral Obesity (BMI 30-39.9) Abnormal EKG Nonspecific abnormal electrocardiogram (ECG) (EKG) documented in this encounter Additional Health Concerns Assessment Noted Time PHQ-9 Depression Total Score: 0 05/29/19 24 10:30 AM EDT documented as of this encounter Care Teams Curtain Supervisor Relationship Specialty Start Date End Date Name, MD Mulugeta [address] [place] [address] PCP - General Family Medicine 06/06/15 documented as of this encounter
== END ==
LOC: HO.CARD 10:10
PROVIDERS: PCP Internal Medicine Geriatric Medicine
DX: I44.7 Left bundle-branch block, unspecified (principal); R00.2 Palpitations; Z13.6 Encounter for screening for cardiovascular disorders; R06.02 Shortness of breath
CPT/HCPCS: 36415; 80061; 93242; 93306

== ENCOUNTER → 2024-06-15 10:31 | Outpatient (BNV) | payer OTHER, SELFPAY | PROVIDERS: PCP Internal Medicine Geriatric Medicine; Visit Provider Internal Medicine Cardiovascular Disease | DX: I42.8 Other cardiomyopathies (principal); I44.7 Left bundle-branch block, unspecified | CPT/HCPCS: 93306 ==

== ENCOUNTER 2024-06-22 11:28 | Outpatient (AMB) | payer OTHER, SELFPAY ==
--- NOTE | 2024-06-22 11:35 | A.OFFVIS_ITS ---
Vital Signs 06/22/24 11:40 Height 5 ft 1 in Weight 185 lb BMI 35.0 BP 102/51 L Blood Pressure Location Lt brachial Position Sitting Pulse 63 Pulse Oximetry (%) 97 Oxygen Delivery Method Room Air Intake Visit Reasons: [facility]comfort[facility] Intake Note: Patient complex follow up for abdominal discomfort, /[facility] 12/26/2022 for abdominal pain and she was order an Abd US and results are in file. Patient cc: abdominal discomfort with bloating on and off, between diarrhea and constipation, acid reflux on and off, and some discomfort with tablet swallowing and dizziness. Jewelry Salesperson Required: Yes Jewelry Salesperson Name: Daljitprakash Gilbert [id number] Accompanied by: Self / Same As Patient Allergies seafood Allergy (Verified 06/22/24 11:31) Eye Swelling Medication List - Last Reconciled 06/22/24 by Lexy Burch CNP atorvastatin 10 mg PO DAILY cholecalciferol (vitamin D3) (Vitamin D3) 25 mcg PO QAM famotidine 40 mg PO DAILY ibuprofen 800 mg PO ONCE omega-3 fatty acids 1,000 mg PO DAILY HPI HPI Abdominaldiscomfort/[facility] 12/[facility]/2022: Details: Patient is a 44-year-old female with PMH of former smoker,hyperlipidemia and GERD. Last visit with [facility] 12/26/2022 for [id number]-clrd reflux. Jewelry Salesperson: Terence Gilbert [phone] Difficulty with HPI despite using historic interpreter. Pt is here today for follow up. Shares an episodes of fecal incontinence following episode of vaginal intercourse a few weeks ago. States symptoms occurred 5 min after intercourse. Endorse short term pain at onset, denies other associating symptoms. She denies history or repeat episodes. Reports daily BMs alternating between type 1, 4 and 5. She is unable to share the frequency of each type. She currently reports soft formed stools without constipation. She reports intermittent ab pain, unable to describe. States symptoms are unchanged after BM. Associated symptoms: intermittent nausea and pyrosis; regurgitation after consuming soda. Aggravating factors: unable to identify Alleviating attempts: famotidine 40 mg approx 3x/week Patient denies: fever/chills, vomiting, appetite changes, unintentional wt loss, dysphasia, or melena/hematochezia. consumes: minimal fruit and vegetables limited intake of water; drinks 2 cups of coffee/day , juice Shares she is has not taken or currently taking the atorvastatin, states the medication was newly prescribed. She is not keen on taking medications. Social hx: denies ETOH use denies recreational drug use former smoker, cessation 20+ years denies FDR family CA hx denies personal hx of CA [facility] Medical History (Updated 06/22/24 @ 13:04 by Lexy Burch CNP) Change in stool Constipation Gallstones Surgical History History of esophagogastroduodenoscopy (EGD) Hx of colonoscopy H/O section Family History Family/Other Cancer Diabetes Social History Household Members: Spouse Unable to assess alcohol history related to: Unknown Alcohol intake: never Patient Tobacco Use Status: Never used Tobacco Current occupational status: unemployed Review of Systems Const Reports as per HPI ENT Reports as per HPI Card Reports as per HPI Resp Reports as per HPI GI Reports as per HPI Reports as per HPI Physical Exam Vital Signs: Last Vital Signs Pulse 63 06/22/24 11:40 BP 102/51 L 06/22/24 11:40 Pulse Ox 97 06/22/24 11:40 Oxygen Delivery Method Room Air 06/22/24 11:40 BMI result Body Mass Index 35.0 Const General: healthy appearing, no acute distress and well developed Nutritional Appearance: well nourished Orientation/consciousness: patient oriented x3 HEENT Head: Yes normal to inspection, Yes normocephalic and Yes atraumatic Face and sinus: Yes normal facial exam Eyes General: appearance normal, both eyes and all related structures Neck Neck: Yes normal visual inspection Resp Effort & Inspection: normal respiratory effort, able to speak in complete sentences, no tracheal deviation and symmetric chest movement Auscultation: clear to auscultation bilaterally Cardio Jugular venous distension: no JVD Rate: regular rate Rhythm: regular rhythm Heart sounds: S1 normal heart sound present, S2 normal heart sound present, no gallops and no murmurs GI Inspection: Yes normal to inspection, No distended and Yes obesity Palpation (GI): Soft to palpation, not firm, Tenderness to palpation present (GI) in the epigastrum and in the RUQ and No hepatosplenomegaly present Auscultation: normal bowel sounds Neuro General: patient oriented x3 Gait exam (Neuro): Normal gait present Psych Appearance: grossly normal Mental Status: mental status grossly normal Speech and movement: Normal speech and movement present Affect: normal affect Attitude: cooperative Thought process: Normal thought process present Thought content: Normal thought content present Insight: Good insight present (Psych) Judgement: Good judgement present (Psych) Results Reviewed Results Reviewed: Laboratory Tests 04/01/24 06/03/24 14:19 15:30 WBC 8.0 RBC 3.70 L Hgb 10.7 L Hct 32.1 L MCV 86.8 MCH 28.9 MCHC 33.3 RDW 13.5 Plt Count 278 MPV 10.6 Immature Gran % (Auto) 0.4 Neut % (Auto) 54.8 Lymph % (Auto) 33.7 Douglas % (Auto) 8.7 Eos % (Auto) 1.8 Baso % (Auto) 0.6 Total Bilirubin 0.7 AST 19 ALT 25 Alkaline Phosphatase 41 25-OH Vitamin D Total 37 Laboratory Tests 06/15/24 10:44 Triglycerides 132 Cholesterol 161 LDL Cholesterol, Calc 90 HDL Cholesterol 45 Date of Service: 01/22/23 Procedure(s): US abdomen complete Accession Number(s): [id number] cc: Ammy Davila PA-C; Name,Mulugeta HUANG~ EXAMINATION: US ABDOMEN COMPLETE CLINICAL INFORMATION: Unspecified abdominal pain. COMPARISON: None available. TECHNIQUE: Real-time imaging of the abdominal viscera. FINDINGS: PANCREAS: Pancreas appears unremarkable. The pancreatic duct measures 2 mm. The pancreatic tail was obscured by bowel gas. ABDOMINAL AORTA: The proximal, mid, and distal segments are normal in caliber. INFERIOR VENA CAVA: Visualized portions are normal. LIVER: The liver is minimally prominent at 17 cm. The liver contour is normal. There is diffuse increased liver parenchymal echogenicity, consistent with hepatic steatosis. No focal hepatic lesion. There is no intrahepatic biliary duct dilatation seen. GALLBLADDER: The gallbladder is physiologically distended. Multiple small mobile gallstones are present. No evidence of gallbladder wall thickening or pericholecystic fluid. COMMON BILE DUCT: Normal in caliber measuring 0.2 cm in diameter. RIGHT KIDNEY: Normal. No hydronephrosis. No renal calculi or focal parenchymal lesions. The kidney measures 10.5 cm in maximum dimension. LEFT KIDNEY: Normal. No hydronephrosis. No renal calculi or focal parenchymal lesions. The kidney measures 10.7 cm in maximum dimension. SPLEEN: Normal. The spleen measures 9.2 cm in maximum dimension. FREE FLUID: None. US/US abdomen complete IMPRESSION: 1. Hepatic steatosis. 2. Cholelithiasis without evidence of cholecystitis. EGD 10/12/2019: Postoperative diagnosis: Superficial gastritis Pathology: Stomach, random, biopsy: Antral-type and oxyntic mucosa with moderate chronic inactive inflammation who intestinal metaplasia in the body; no fully developed atrophy seen; no Helicobacter organisms seen. Assessment & Plan Assessment & Plan (1) Acid reflux: Code(s): K21.9 - Gastro-esophageal reflux disease without esophagitis Category: Medical Plan: Risk factors include obesity and lifestyle. Can continue famotidine as prescribed. Plan as below. Education on GERD prevention-Advised against heavy meals. Encouraged small frequent meals VS large meals, remaining upright after meals x 2-3 hours, avoid late night eating/spicy foods/caffeine/alcohol/known triggers and tight fitting clothes (2) Abdominal pain: Code(s): R10.9 - Unspecified abdominal pain Category: Medical Qualifiers: Abdominal location: upper abdomen, unspecified Qualified Code(s): R10.10 - Upper abdominal pain, unspecified Plan: DDX: Gallbaldder induced VS PUD VS GERD. Exam postive for ab tenderness to RUQ and epigastric region. Strongly advised she schedule a follow up with General surgery MATTHEW, she verbalized understanding and will call. We will r/o H.pylori. She understands to hold the famotidine 24 hours prior to providing the stool sample. She is due for screening colonoscopy, may consider EGD at that time. We will discuss this at our follow-up. (3) Change in stool: Code(s): R19.5 - Other fecal abnormalities Category: Medical Plan: We will obtain some screening labs to rule out inflammatory or celiac as source of stool changes. Etiology of incontinence unclear, suspect some correlation to intercourse. Reassured symptoms have not repeated. She is open to trialing MiraLax to help with constipation prevention. Reinforced lifestyle modifications to promote regularity: -higher fiber diet -adequate hydration with water -150 minutes of moderate intensity exercise per week (4) Hyperlipidemia: Code(s): E78.5 - Hyperlipidemia, unspecified Category: Medical Qualifiers: Hyperlipidemia type: unspecified Qualified Code(s): E78.5 - Hyperlipidemia, unspecified Plan: Labs stable collected 06/15/2024 with LDL less than 100. Strongly encouraged to speak with prescriber about the the need/continuation of atorvastatin. Plan Follow-up in 2 weeks or sooner as needed Time: I spent a total of 60 minutes on the date of encounter which includes: Preparing to see the patient (reviewed previous documentation, test results and medical history) Performing a medically appropriate exam and/or evaluation Ordering medications, tests, and procedures Documenting clinical information in the health record Orders: Orders H pylori Ag Stool Today R10.9 - Unspecified abdominal pain IRON PROFILE Today D64.9 - Anemia, unspecified Comprehensive Met. Panel Today K80.20 - Calculus of gallbladder without cholecystitis without obstruction Lipase Today R10.10 - Upper abdominal pain, unspecified Calprotectin, Fecal Today K59.00 - Constipation, unspecified Transglutaminase IgA Today K59.00 - Constipation, unspecified C Reactive Protein Today K59.00 - Constipation, unspecified Medications: New polyethylene glycol 3350 (Miralax) Take 17G (one cap full) daily with 8oz of water 17 grams PO DAILY 238 grams 2RF constipation 30 days Coding Level of Care Code Established Pt Est Pt Level 4 (11800) Patient Type Established Diagnoses Acid reflux K21.9 Pain of upper abdomen R10.10 Abdominal location: upper abdomen, unspecified Change in stool R19.5 Hyperlipidemia, unspecified hyperlipidemia type E78.5 Hyperlipidemia type: unspecified
[2024-06-22 11:40] VITALS: BP 102/51; PULSE 63; O2SAT 97; BMI 35.0
--- OUTSIDE RECORDS SUMMARY | 2024-06-22 13:50 | XMS_ITS | Encounter Summary ---
Author Organization [employer] Address [address] [facility] 7t [place] [address] Care Team Providers Care Brand Specialist Name Role Phone Name, Mulugeta HUANG Primary Care Provider [phone] Reason for Visit * Reason Comments Med Refill Encounter Details Date Type Department Care Team ([facility] Contact Info) Description 06/26/2023 Refill [facility] [address] [place], [place] [phone] Name, MD Mulugeta [address] [place] [address] Social History Tobacco Use Types Packs/Day Years [...] 07/01/2024 11:30 AM EDT Office Visit [facility] [address] [place] [address] Name, MD Mulugeta [address] [place] [address] documented as of this encounter Visit Diagnoses Not on filedocumented in this encounter Additional Health Concerns Assessment Noted Time PHQ-9 Depression Total Score: 0 05/29/19 24 10:30 AM EDT documented as of this encounter Care Teams Brand Specialist Relationship Specialty Start Date End Date NameMulugeta MD [address] [place] [phone] PCP - General Family Medicine 06/06/15 documented as of this encounter
--- OUTSIDE RECORDS SUMMARY | 2024-06-22 13:50 | XMS_ITS | Encounter Summary ---
Author Organization [employer] Address [address] [place] [address] 7t [place] [address] Care Team Providers Care Tile Trimmer Name Role Phone Name, Mulugeta HUANG Primary Care Provider [phone] Reason for Visit * Reason Onset Date Comments Appointment Request 05/09/2022 Encounter Details Date Type Department Care Team ([facility] Contact Info) Description 05/09/2022 Telephone [facility] MEDICINE [address] [place], [place] [phone] Name, MD Mulugeta [address] [place] [address] Appointment Request Social History Tobacco Use Types [...] 1 WEEK prior to heart study at [facility] [place]. date 05/22 ) Please contact pt at [phone] documented in this encounter Plan of Treatment Upcoming Encounters Date Type Department Care Team (Late st Contact Info) Description 07/01/2024 11:30 AM EDT Office Visit [facility] MED[facility]INE [address] [place] [address] Name, MD Mulugeta [address] [place] [address] documented as of this encounter Visit Diagnoses Not on filedocumented in this encounter Care Teams Tile Trimmer Relationship Specialty Start Date End Date Name, MD Mulugeta [address] [place] [address] PCP - General Family Medicine 06/06/15 documented as of this encounter
--- OUTSIDE RECORDS SUMMARY | 2024-06-22 13:50 | XMS_ITS | Clinical Summary ---
Author Organization [facility] ity Address [address] [place] [address] Care Team Providers Care Jewel Bearing Grinder Name Role Phone Name, Mulugeta HUANG Primary Care Provider [phone] Surgical History Surgery Date Site/Laterality Comments OTHER [...] Cancer Screening: P ap Smear 08/31/2021 08/31/2018 Colorectal Cancer Screening: Colonoscopy 01/29/2022 Depression Screening 01/29/2022 HIV Screening 01/29/2022 Hepatitis C Screening 01/29/2022 Social Influencers of Health Screening 01/29/2022 COVID-19 Vaccine ( - 2023-2 5 season) 2023 Influenza Vaccine (Season Ended) [...] RESULTING AGENCY - 09/14/2018 12:06 PM EDT [id number] THINPREP PAP, IMAGED: NEGATIVE FOR SQUAMOUS INTRAEPITHELIAL LESION AND MALIGNANCY . REACTIVE CELLULAR CHANGES. VERITO MENEZES , JUSTEN(ASCP) (CASE SCREENED 09 02 2018) CADENCE MEI [...] Recently Relevant to Health Maintenance Care Teams Jewel Bearing Grinder Relationship Specialty Start Date End Date Name, MD Mulugeta [address] [place], [place] PCP - General 06/30/16
--- OUTSIDE RECORDS SUMMARY | 2024-06-22 13:50 | XMS_ITS | Clinical Summary ---
Author Organization [employer] Address [address] [place] [address] 7t [place] [address] Care Team Providers Care Poultry Pinner Name Role Phone Name, Mulugeta HUANG Primary Care Provider [phone] Allergies Active Allergy Reactions Criticality Noted Date [...] 05/23/2022 Overview (05/23/2022): 7 grade education in [place] Does not know how to read or write Slovak Epigastric pain 04/09/2022 H. pylori infection 04/09/2022 [...] Data 06/04/2024 3:00 PM EDT Office Visit [address] [address] Cleveland Pollack MD Hyperpigmentation (Primary Dx) 06/04/2024 Travel 06/03/2024 1:00 PM EDT Office Visit [facility] [address] [address] Shannon Diaz MD Shortness of breath (Primary Dx); Ankle edema, bilateral; Obesity (BMI 30-39.9); Abnormal EKG 06/03/2024 Orders Only [facility] External Provider, [facility] 06/03/2024 [facility]phone [facility] [address] [address] [place]ma Jay, [place] expect report called to [facility] ED 04/29/2024 Refill [facility] [address] [address] Name, MD Mulugeta Back muscle spasm 04/28/[address] [address] Name, MD Mulugeta 04/20/[address] [address] Name, MD Mulugeta No Show 04/07/[address] [address] Name, MD Mulugeta Prior Authorization (Wegovy) 03/25/2024 3:40 PM EST [facility] [address] [address] Claire Boucher DO Acute mid back pain [...] Description 07/01/2024 11:30 AM EDT Office Visit [facility] [address] [place] [address] Name, MD Mulugeta [address] [place] [address] Health Maintenance Due Date Last Done Comments CT Colonography 1979 Colonoscopy 1979 Colorectal Cancer Screening 1979 FIT DNA/Cologuard 1979 FIT 1979 FOBT 1979 Sigmoidoscopy 1980 Family Planning (PISQ) 06/21/1994 Hepatitis B Vaccines [...] ECG 12 lead (06/15/2024 10:48 AM EDT) Shannon Solares MD - 06/15/2024 10:48 AM EDT See image us Shnanon Diaz MD ECG ORDERABLES Final Resu lt * Lipid Panel, Standard (06/15/2024 10:44 AM EDT) Triglycerides 132 <150 mg/dL [facility] Comment:Desirable Triglyceri de: less than 150 mg/dLBorderline High Triglyceride 150-199 mg/dLHigh Triglyceride: 200-499 mg/dLVery High Triglyceride: greater than or equal to 5OO mg/dL Cholesterol 161 <200 mg/dL [facility] Comment:Desirable Cholestero l: less than 200 mg/dLBorderline High Cholesterol: 200-239 mg/dLHigh Cholesterol: greater than 239 mg/dL LDL Cholesterol Calculated 90 <100 mg/dL [facility] Comment:Desirable LDL: less than 100 mg/dLNear Optimal/Above Optimal LDL: 110- 129 mg/dLBorderline High LDL: 130-159 mg/dLHigh LDL: 160-189 mg/dLVery High LDL: greater than or equal to 190 mg/dL HDL Cholesterol 45 >40 mg/dL [facility] Comment:Desirable HDL: great er than 40 mg/dL Note: This HDL assay may give artificially low results in patients with liver disease. 06/15/2024 10:4 4 AM EDT 06/15/2024 10:44 AM EDT Generic External Data Provider LAB BLOOD ORDERAB LES Final Result Performing Organization Address [facility] Co de Phone Number [facility] [address] [place] [phone] * High Sensitivity Troponin I (06/03/2024 5:42 PM EDT) Pathologist [facility] TROPONIN I HIGH SENSITIVITY <2.7 <3.5 - 17.0 ng/L [facility] Comment:The Puente high sens itivity Troponin-I results should beused in conjunction with other diagnostic information suchas ECG, clinical observations and information, and patientsymptoms to aid in the diagnosis of NH. 06/03/2024 5:42 PM EDT 06/03/2024 5:46 PM EDT Generic External Data Provider LAB BLOOD ORDERAB LES Final Result Performing Organization Address [facility] Co de Phone Number [facility] [address] [place] [address] [phone] * XR Chest 1 View (06/03/2024 3:22 PM EDT) Anatomical Region Laterality Modality Chest Radiographic Jazz ging 06/03/2024 3:22 PM EDT Narrative 06/03/2024 4:17 PM EDT ? [facility] ?[address] ?[place] [address] ?XRay Report ? Signed ? Patient: Daniel,Ivory I ?MR#: [id number] ?? 98 ? : 1980 ?Acct:[id number] ? Age/Sex: 43 / F ?ADM Date: 06/03/24 ? Loc: HO.ED ? Attending Dr: ? Ordering Physician: Aleta Oh DO ?? Date of Service: 06/03/24 ?? Procedure(s): XR chest 1V ?? Accession Number(s): [id number] ? cc: Aleta Oh DO; Name,Mulugeta HUANG [...] active pulmonary disease. ? Electronically signed by: ??dArian Garcia MD ??06/03/2024 04:14 PM EDT RP ? Dictated By: ?Adrian Garcia MD ? Signed By: ?<Electronically signed by Adrian Garcia MD in OV> ?06/03/24 1614 ? DD/ 1522 ? TD/TT: 06/03/24 1402 ? Instrument Panel Assembler: ? Procedure Note Dee Newton - 06/03/[address] [address] XRay Report Signed Patient: Ivory Daniel IMR#: [id number] 98 : 1980Acct:[id number] Age/Sex: 43 / FADM Date: 06/03/24 Loc: HO.ED Attending Dr: Ordering Physician: Aleta Oh DO Date of Service: 06/03/24 Procedure(s): XR chest 1V Accession Number(s): [id number] cc: Aleta Oh DO; Mulugeta Peralta MD EXAMINATION: XR CHEST CLINICAL INFORMATION: pain COMPARISON: [...] 06/03/24 1614 DD/ 1522 TD/TT: 06/03/24 1402 Instrument Panel Assembler: [facility] External Provider IMG XR PROCEDURES Final Result * VITAMIN D 25-OH (D2 AND D3) (04/01/2024 2:19 PM EST) Vitamin D, 25-OH, D2 <4 ng/mL [facility] Comment:This test was develo ped and its analytical performancecharacteristics have been determined by [employer]. It hasnot been cleared or approved by the U.S. Food and DrugAdministration. This assay has been validated pursuantto the CLIA regulations and is used for clinicalpurposes.THIS TEST WAS PERFORMED AT:[employer] [id number] [place] [address]QNGGRKGMARGARET JEAN MD,PHD Vitamin D, 25-OH, D3 37 ng/mL [facility] Comment:This test was develo ped and its analytical performancecharacteristics have been determined by [employer] [place], [place]. It hasnot been cleared or approved by the U.S. Food and DrugAdministration. This assay has been validated pursuantto the CLIA regulations and is used for clinicalpurposes. Vitamin D, 25-OH, Total 37 30 - 100 ng/mL [facility] Comment:Vitamin D, 25-Hydrox y reports [...] = 30 ng/mL.For additional information, please refer tohttp://education.Hit the Mark/faq/NBO814(This link is being provided for informational/educational purposes only.) 04/01/2024 2:19 PM EST 04/01/2024 5:34 PM EST us Generic External Data Provider LAB BLOOD ORDERAB LES Final Result Performing Organization Address City/State/[facility] Co de Phone Number [facility] [address] [place] [phone] [phone] * XR Lumbar Spine 2-3 Views (03/25/2024 3:32 PM EST) Anatomical Region Laterality Modality Spine, L-spine Radiographic Jazz ging 03/25/2024 3:32 PM EST Narrative 03/25/2024 4:54 PM EST ?[facility] ?[address] ?[place] [address] ?XRay Report ? Signed ? Patient: Ivory Daniel I ?MR#: [id number] ?? 98 ? : 1980 ?Acct:[id number] ? Age/Sex: 43 / F ?ADM Date: //25 ? Loc: HO.HHCX ? Attending Dr: Claire Boucher DO ? Ordering Physician: Claire Boucher DO ?? Date of Service: 03/25/24 ?? Procedure(s): XR lumbar spine 2-3V ?? Accession Number(s): [id number] ? cc: Claire Boucher DO ? EXAMINATION: [...] DD/ 1532 ? TD/TT: 03/25/24 1600 ? Instrument Panel Assembler: MSM ? Procedure Note Aman, Image - 03/25/[address] [address] XRay Report Signed Patient: Ivory Daniel IMR#: [id number] 98 : 1980Acct:[id number] Age/Sex: 43 / FADM Date: 03/25/24 Loc: HO.HHCX Attending Dr: Claire Boucher DO Ordering Physician: Claire Boucher DO Date of Service: 03/25/24 Procedure(s): XR lumbar spine 2-3V Accession Number(s): [id number] cc: Claire Boucher DO EXAMINATION: XR LUMBOSACRAL [...] 03/25/24 1651 DD/ 1532 TD/TT: 03/25/24 1600 Instrument Panel Assembler: RAYMUNDO Claire Boucher DO IMG XR PROCEDURES Final Resu lt * Culture, Urine, Routine (03/25/2024 3:32 PM EST) Urine Urine specimen obtained by clean catch procedure / Unknown 03/25/2024 3:32 PM EST 03/25/2024 5:07 PM EST Comment:UACC Narrative [facility] - 03/27/2024 9:55 AM EST Urine Culture Report Result Urine Culture 50,000 to 100,000 cfu/ml Urine Culture Mixed bacterial blair characteristic of Urine Culture urogenital contamination. Strep agalactiae (Grp B) Quant < 10,000 cfu/mL Susc N/A Susceptibility not routinely performed on this isolate. Specimen Source: Urine clean catch Claire Boucher DO LAB MICROBIOLOGY - GENERAL O RDERABLES Final Result [facility] [address] [place] [phone] * POCT urinalysis dipstick manually resulted [...] - 6.0 % QC Media Lot # [id number] Lot# Expiration Date Blood 12/16/2023 10:4 2 AM EDT us Mulugeta Peralta MD POINT OF CARE TEST ENTER/EDIT OR DERABLES Final Result * BI Mammogram Screening Tomosynthesis Bilateral (07/10/2023 10:15 AM EDT) Anatomical Region Laterality Modality Breast Bilateral Mammography 07/10/2023 10:1 5 AM EDT Narrative 08/08/2023 8:49 AM EDT ? [facility] [place] ? [address] ?[place] [address] ? Mammography Report ? Signed ? Patient: Ivory Daniel I ?MR#: [id number] ?? 98 ? : 1980 ?Acct:[id number] ? Age/Sex: 43 / F ?ADM Date: 07/10/23 ? Loc: HO.MAMMO ? Attending Dr: Mulugeta Name MD ? Ordering Physician: Name,Mulugeta MD ?Results: 1Negative ? Date of Service: 07/10/23 ?Follow Up: 1 Year From Orig ?? inal Mammogram ? Procedure(s): MM tomosynthesis screening BI ?? Accession Number(s): [id number] ? cc: Name,Mulugeta HUANG ? EXAMINATION: ?? [...] 0845 ? DD/ 1015 ? TD/TT: ? Instrument Panel Assembler: ? Procedure Note Aman, Image - 08/08/2023 [facility] [address] [place] [address] Mammography Report Signed Patient: Ivory Daniel IMR#: [id number] 98 : 1980Acct:[id number] Age/Sex: 43 / FADM Date: 07/10/23 Loc: MARILIN Attending Dr: Mulugeta Peralta MD Ordering Physician: Mulugeta Peraltaults: 1Negative Date of Service: 07/10/23Follow Up: 1 Year From Orig inal Mammogram Procedure(s): MM tomosynthesis screening BI Accession Number(s): [id number] cc: Mulugeta Peralta MD EXAMINATION: MM SCREENING [...] in OV> 08/08/23 0845 DD/ 1015 TD/TT: Instrument Panel Assembler: Mulugeta Peralta MD IM BI PROCEDURES Edited Result - Final * Hepatitis C Antibody with Reflex to HCV, RNA, Quantitative, Real-Time PCR (06/03/2022 10:57 AM EDT) Hepatitis C Antibody NON-REACT KELLY NON-REACT KELLY [facility] Index 0.09 <1.00 [facility] [place] [facility] Comment: HCV antibody was non-reactive. There is no laboratory evidence of HCV infection. In most cases, no further action is required. However, if recent HCV exposure is suspected, a test for HCV RNA (test code 65668) is suggested. For additional information please refer to http://education.Imaginatik/faq/GLL71n4 (This link is being provided for informational/ educational purposes only.) Blood Venous blood specimen / Unknown 06/03/2022 10:57 AM EDT 06/03/2022 10:58 AM EDT Narrative [facility] - 06/04/2022 8:43 PM EDT FASTING:NO FASTING: NO Candice Morrell [facility] LAB BLOOD ORDERABLES Nani sanders Result Performing Organization Address City/[facility]/ZIP Co de Phone Number RO Lozano [address], [facility] [place] [address] [facility] [place] [facility] [address] [place] [phone] * HIV-1/2 Antigen and Antibodies, Fourth Generation, with Reflexes (06/03/2022 10:57 AM EDT) [facility] HIV Antigen/Antibody, 4th Generation NON-REAC TIVE NON-REAC TIVE [facility] [place] [facility] [facility] [facility] Comment: HIV-1 antigen and HIV-1/HIV-2 antibodies were [...] ?? For additional information please refer to http://education.Imaginatik/faq/GJL873 (This link is being provided for informational/ educational purposes only.) The performance of this assay has not been clinically validated in patients less than 2 years old. Blood Venous blood specimen / Unknown 06/03/2022 10:57 AM EDT 06/03/2022 10:58 AM EDT Narrative [facility] - 06/04/2022 8:43 PM EDT FASTING:NO FASTING: NO Candice ALCALA LAB BLOOD ORDERABLES Nani l Result Performing Organization Address [facility]/ZIP Co de Phone Number [facility] Marta [address], [facility] [place] [address] [facility] [place] [facility] [address] [place] [phone] * Image-Guided Pap with Age-Based Screening??with CT/NG,??Trichomonas (06/03/2022 10:47 AM EDT) Comment [facility] Comment: This order for age-based cervical cancer and STI screening follows ACOG guidelines(PB 168, 140, WKW205). See individual assays for performing site location. Clinical Information: Routine exam [facility] LMP: NONE GIVEN [facility] Prev. PAP: NONE GIVEN [facility] Prev. BX: NONE GIVEN [facility] SOURCE: None given Pairyt Statement Of Adequacy: [facility] Comment: Satisfactory for evaluation. Endocervical/transformation zone component present. Interpretation/Re sult: Negative for intraepithelial lesion or malignancy. [facility] COMMENT: This Pap test has been evaluated with computer assisted technology. [facility] Art Handler: Antonia SetJam Comment: WAC, CT(ASCP) CT screening location: [address] ??[address] (Always Message) Que [place] Comment: EXPLANATORY NOTE: The Pap is a [...] HPV nRNA E6/E7 Not Detected Not Detected [facility] Comment: Methodology: Director Of Strategic Alliances-Mediated Amplification This assay detects E6/E7 viral messenger RNA (mRNA) from 14 high-risk HPV types (16,18,31,33,35,39,45,51,52,56,58,59,66,68). Cervical sources are required for HPV testing. If a vaginal source from a patient who has had a total hysterectomy with removal of cervix was submitted, please contact the testing laboratory for alternative testing options. For additional information, please refer to http://education.Imaginatik/faq/QJE787c8 (This link if provided for information/ educational purposes only.) Chlamydia trachomatis RNA, TMA, Urogenital NOT DETECTED NOT DETECTED [facility] [place] [facility] Neisseria gonorrhoeae RNA, TMA, Urogenital NOT DETECTED NOT DETECTED [facility] [place] [facility] (Always Message) Que st [employer] [facility] [place] [facility] Comment: The analytical performance characteristics of this assay, when used to test SurePath(TM) specimens have been determined by [facility]. The modifications have not been cleared or approved by the FDA. This assay has been validated pursuant to the CLIA regulations and is used for clinical purposes. For additional information, please refer to https://Explara.Imaginatik/faq/XQC263 (This link is being provided for information/ educational purposes only.) Trichomonas vaginalis, QL, TMA, PAP Vial NOT DETECTED NOT DETECTED [facility] Comment: The analytical performance characteristics of this assay have been determined by [facility]. The modifications have not been cleared or approved by the FDA. This assay has been validated pursuant to the CLIA regulations and is used for clinical purposes. For additional information, please refer to http://Explara.Imaginatik/ faq/Trichomonastma (This link is being provided for information/ educational purposes only.) Cytology specimen container (physical object) 06/03/2022 10:47 AM EDT 06/04/2022 5:15 AM EDT Candice ALCALA LAB CYTOLOGY ORDERABLES F inal Result [facility] [address], [place] [address] [facility] [place] [facility] [address] [place] [address] from Last 3 Months or Most Recently Relevant to Health Maintenance Insurance [facility] Care Teams Poultry Pinner Relationship Specialty Start Date End Date Name, MD Mulugeta [address] [place] [address] [place] [address] PCP - General Family Medicine 06/06/15
--- OUTSIDE RECORDS SUMMARY | 2024-06-22 13:50 | XMS_ITS | Encounter Summary ---
Author Organization [employer] Address [address] [facility] 7t [place] [address] Care Team Providers Care Retail Service Technician Name Role Phone Name, Mulugeta HUANG Primary Care Provider [phone] Reason for Visit * Reason Onset Date Comments Med Refill 10/23/2023 Encounter Details Date Type Department Care Team ([facility] st Contact Info) Description 10/23/2023 Refill [facility] [address] [place], [place] [phone] Name, MD Mulugeta [address] [place] [address] Obesity (BMI 30-39.9) Social History Tobacco Use [...] 11:30 AM EDT Office Visit [facility] [address] [place] [phone] Name, MD Mulugeta [address] [place] [phone] documented as of this encounter Visit Diagnoses Diagnosis Obesity (BMI 30-39.9) documented in this encounter Additional Health Concerns Assessment Noted Time PHQ-9 Depression Total Score: 0 05/29/19 24 10:30 AM EDT documented as of this encounter Care Teams Retail Service Technician Relationship Specialty Start Date End Date NameMulugeta MD [address] [place] [phone] PCP - General Family Medicine 06/06/15 documented as of this encounter
--- OUTSIDE RECORDS SUMMARY | 2024-06-22 13:50 | XMS_ITS | Encounter Summary ---
Author Organization [employer] Address [address] [place] [address] 7t [place] [address] Care Team Providers Care Spice Fumigator Name Role Phone Name, Mulugeta HUANG Primary Care Provider [phone] Reason for Visit * Reason Onset Date Comments lab request 05/08/2022 Encounter Details Date Type Department Care Team ([facility] Contact Info) Description 05/08/2022 Telephone [facility] [address] [place], [place] [phone] Name, MD Mulugeta [address] [place] [address] lab request Social History Tobacco Use Types [...] before going [place] [facility] [place]. Please call pt to clarify . documented in this encounter Plan of Treatment Upcoming Encounters Date Type Department Care Team (Late st Contact Info) Description 07/01/2024 11:30 AM EDT Office Visit [facility] [address] [place] [address] Name, MD Mulugeta [address] [place] [address] documented as of this encounter Visit Diagnoses Not on filedocumented in this encounter Care Teams Spice Fumigator Relationship Specialty Start Date End Date Mulugeta Peralta MD [address] [place] [address] PCP - General Family Medicine 06/06/15 documented as of this encounter
== END 2024-06-22 12:47 | disposition home or self-care (01) ==
LOC: HO.HGI 11:29
PROVIDERS: PCP Internal Medicine Geriatric Medicine; Visit Provider Nurse Practitioner Family
DX: K21.9 Gastro-esophageal reflux disease without esophagitis (principal); R10.10 Upper abdominal pain, unspecified; R19.5 Other fecal abnormalities; E78.5 Hyperlipidemia, unspecified
CPT/HCPCS: 99215

== ENCOUNTER → 2024-06-22 11:28 | Outpatient (BNVA) | payer OTHER, SELFPAY | PROVIDERS: PCP Internal Medicine Geriatric Medicine; Visit Provider Nurse Practitioner Family | DX: K21.9 Gastro-esophageal reflux disease without esophagitis (principal); R10.10 Upper abdominal pain, unspecified; R19.5 Other fecal abnormalities; E78.5 Hyperlipidemia, unspecified | CPT/HCPCS: 99212 ==

== ENCOUNTER 2024-06-29 12:53 | Outpatient (REF) | payer OTHER, SELFPAY ==
--- OUTSIDE RECORDS SUMMARY | 2024-06-29 14:46 | XMS_ITS | Encounter Summary ---
Author Organization [employer] Address [address] [place] [address] 7t [place] [address] Care Team Providers Care Commercial Lines Manager Name Role Phone Name, Mulugeta HUANG Primary Care Provider Reason for Visit * Reason Onset Date Comments Appointment Request 05/09/2022 Encounter Details Date Type Department Care Team ([facility] Contact Info) Description 05/09/2022 Telephone [facility] [address] [place], [place] [phone] Name, MD Mulugeta [address] [place] [address] Appointment Request Social History Tobacco Use Types [...] 1 W[place] [facility] Please contact pt at [phone] documented in this encounter Plan of Treatment Upcoming Encounters Date Type Department Care Team (Late st Contact Info) Description 07/01/2024 11:30 AM EDT Office Visit [facility] [address] [place] [address] Name, MD Mulugeta [address] [place] [address] documented as of this encounter Visit Diagnoses Not on filedocumented in this encounter Care Teams Commercial Lines Manager Relationship Specialty Start Date End Date Name, MD Mulugeta [address] [place] [address] PCP - General Family Medicine 06/06/15 documented as of this encounter
--- OUTSIDE RECORDS SUMMARY | 2024-06-29 14:46 | XMS_ITS | Encounter Summary ---
Author Organization [employer] Address [address] [place] [address] 7t [place] [address] Care Team Providers Care Nurse Recruiter Name Role Phone Name, Mulugeta HUANG Primary Care Provider [phone] Reason for Visit * Reason Onset Date Comments lab request 05/08/2022 Encounter Details Date Type Department Care Team ([facility] Contact Info) Description 05/08/2022 Telephone [facility] [address] [place], [place] [phone] Name, MD Mulugeta [address] [place] [address] lab request Social History Tobacco Use Types [...] before going for her heart study [place] [facility] [place]. Please call pt to clarify . documented in this encounter Plan of Treatment Upcoming Encounters Date Type Department Care Team (Late st Contact Info) Description 07/01/2024 11:30 AM EDT Office Visit [facility] [address] [place] [phone] Name, MD Mulugeta [address] [place] [address] documented as of this encounter Visit Diagnoses Not on filedocumented in this encounter Care Teams Nurse Recruiter Relationship Specialty Start Date End Date Mulugeta Peralta MD [address] [place] [address] PCP - General Family Medicine 06/06/15 documented as of this encounter
--- OUTSIDE RECORDS SUMMARY | 2024-06-29 14:46 | XMS_ITS | Clinical Summary ---
Author Organization [employer] Address [address] [place] [address] 7t [place] [address] Care Team Providers Care Guard Sergeant Name Role Phone Name, Mulugeta HUANG Primary Care Provider [phone] Allergies Active Allergy Reactions Criticality Noted Date [...] 05/23/2022 Overview (05/23/2022): 7 grade education in [place] Does not know how to read or write Estonian Epigastric pain 04/09/2022 H. pylori infection 04/09/2022 [...] Encounters Date Type Department Care Team Description 06/29/2024 Telephone [facility] [address] [place] [address] Tim Padron MA chartprep 06/15/2024 Orders Only GENERIC EXTERNAL DATA DEPARTMENT Provider, Generic External Data 06/04/2024 3:00 PM EDT Office Visit [facility] [address] [place] [address] [place] Pollack MD Hyperpigmentation (Primary Dx) 06/04/2024 Travel 06/03/2024 1:00 PM EDT Office Visit [facility] [address] [address] Shannon Diaz MD Shortness of breath (Primary Dx); Ankle edema, bilateral; Obesity (BMI 30-39.9); Abnormal EKG 06/03/2024 Orders Only [facility] External Provider, [facility] [place] 06/03/2024 [facility] [address] [address] Oma Jay, [place] expect report called to [facility] ED 04/29/2024 [facility] [address] [address] NameMulugeta MD Back muscle spasm 04/28/[address] [address] Mulugeta Peralta MD 04/20/[address] [address] Mulugeta Peralta MD No Show 04/07/[address] [address] NameMulugeta MD Prior Authorization (Wegovy) from Last 3 Months Immunizations Name Administration [...] Description 07/01/2024 11:30 AM EDT Office Visit [facility] [address] [place] [address] Name, MD Mulugeta [address] [place] [address] Health Maintenance Due Date Last Done Comments [...] Tobacco Screening 06/04/2025 06/04/2024 Mammogram 07/09/2025 07/10/2023, 050 06/2022, 07/04/2022, Additional history exists Cervical Cancer [...] AND D3) Routine 04/01/2024 2:19 PM EST POCT GLYCATED HEMOGLOBIN, TOTAL Routine 12/16/2023 10:42 [...] 10:44 AM EDT) Triglycerides 132 <150 mg/dL [facility] Comment:Desirable Triglyceri de: less than 150 mg/dLBorderline High Triglyceride 150-199 mg/dLHigh Triglyceride: 200-499 mg/dLVery High Triglyceride: greater than or equal to 5OO mg/dL Cholesterol 161 <200 mg/dL [facility] Comment:Desirable Cholestero l: less than 200 mg/dLBorderline High Cholesterol: 200-239 mg/dLHigh Cholesterol: greater than 239 mg/dL LDL Cholesterol Calculated 90 <100 mg/dL [facility] Comment:Desirable LDL: less than 100 mg/dLNear Optimal/Above Optimal LDL: 110- 129 mg/dLBorderline High LDL: 130-159 mg/dLHigh LDL: 160-189 mg/dLVery High LDL: greater than or equal to 190 mg/dL HDL Cholesterol 45 >40 mg/dL [facility] Comment:Desirable HDL: great er than 40 mg/dL Note: This HDL assay may give artificially low results in patients with liver disease. 06/15/2024 10:4 4 AM EDT 06/15/2024 10:44 AM EDT Generic External Data Provider LAB BLOOD ORDERAB LES Final Result Performing Organization Address [facility] Phone Number [facility] [address] [place] [phone] * High Sensitivity Troponin I (06/03/2024 5:42 PM EDT) TROPONIN I HIGH SENSITIVITY <2.7 <3.5 - 17.0 ng/L [facility] Comment:The Puente high sens itivity Troponin-I results should beused in conjunction with other diagnostic information suchas ECG, clinical observations and information, and patientsymptoms to aid in the diagnosis of AL. 06/03/2024 5:42 PM EDT 06/03/2024 5:46 PM EDT Generic External Data Provider LAB BLOOD ORDERAB LES Final Result Performing Organization Address [facility] de Phone Number [facility] [address] [place] [address] [phone] * XR Chest 1 View (06/03/2024 3:22 PM EDT) Anatomical Region Laterality Modality Chest Radiographic Jazz ging 06/03/2024 3:22 PM EDT Narrative 06/03/2024 4:17 PM EDT ? [facility] [place] ?[address] ?[place] [address] ?XRay Report ? Signed ? Patient: Daniel,Ivory I ?MR#: [id number] ?? 98 ? : 1980 ?Acct:[id number] ? Age/Sex: 43 / F ?ADM Date: 04/03/25 ? Loc: HO.ED ? Attending Dr: ? Ordering Physician: Aleta Oh DO ?? Date of Service: 06/03/24 ?? Procedure(s): XR chest 1V ?? Accession Number(s): [id number] ? cc: Aleta Oh DO; Name,Mulugeta HUANG [...] DD/ 1522 ? TD/TT: 06/03/24 1402 ? [employer] Field Supervisor: ? Procedure Note Donotuseinterpreter, Image - 06/03/2024 [place] [address] XRay Report Signed Patient: Ivory Daniel IMR#: [id number] 98 : 1980Acct:[id number] Age/Sex: 43 / FADM Date: 06/03/24 Loc: .ED Attending Dr: Ordering Physician: Aleta Oh DO Date of Service: 06/03/24 Procedure(s): XR chest 1V Accession Number(s): [id number] cc: Aleta Oh DO; Name,Mulugeta HUANG EXAMINATION: [...] 06/03/24 1614 DD/ 1522 TD/TT: 06/03/24 1402 [employer] Field Supervisor: [facility] External Provider IMG XR PROCEDURES Final Result * VITAMIN D 25-OH (D2 AND D3) (04/01/2024 2:19 PM EST) Vitamin D, 25-OH, D2 <4 ng/mL [facility] Comment:This test was develo ped and its analytical performancecharacteristics have been determined by [employer] [place], [place]. It hasnot been cleared or approved by the U.S. Food and DrugAdministration. This assay has been validated pursuantto the CLIA regulations and is used for clinicalpurposes.THIS TEST WAS PERFORMED AT:MAZ[employer] [id number] [place] [address]GCZFIXMMARGARET JEAN MD,PHD Vitamin D, 25-OH, D3 37 ng/mL [facility] Comment:This test was develo ped and its analytical performancecharacteristics have been determined by [employer] [place], [place]. It hasnot been cleared or approved by the U.S. Food and DrugAdministration. This assay has been validated pursuantto the CLIA regulations and is used for clinicalpurposes. Vitamin D, 25-OH, Total 37 30 - 100 ng/mL [facility] Comment:Vitamin D, 25-Hydrox y reports [...] = 30 ng/mL.For additional information, please refer tohttp://education.BookMyShow/faq/BQK658(This link is being provided for informational/educational purposes only.) 04/01/2024 2:19 PM EST 04/01/2024 5:34 PM EST us Generic External Data Provider LAB BLOOD ORDERAB LES Final Result [facility] [address] [place] [address] [phone] * (ABNORMAL) POCT HGB A1C (12/16/2023 10:42 AM EDT) Hemoglobin A1C 6.2(A) 4.0 - 6.0 % QC Media Lot # [id number] Lot# Expiration Date Blood 12/16/2023 10:4 2 AM EDT us Mulugeta Name MD POINT OF CARE TEST ENTER/EDIT OR DERABLES Final Result * BI Mammogram Screening Tomosynthesis Bilateral (07/10/2023 10:15 AM EDT) Anatomical Region Laterality Modality Breast Bilateral Mammography 07/10/2023 10:1 5 AM EDT Narrative 08/08/2023 8:49 AM EDT ? [facility] [place] ? [address] ?[place] [address] ? Mammography Report ? Signed ? Patient: Daniel,Ivory I ?MR#: [id number] ?? 98 ? : 1980 ?Acct:[id number] ? Age/Sex: 43 / F ?ADM Date: 05/09/24 ? Loc: HO.MAMMO ? Attending : Mulugeta Name MD ? Ordering Physician: Name,Mulugeta MD ?Results: 1Negative ? Date of Service: 07/10/23 ?Follow Up: 1 Year From Orig ?? inal Mammogram ? Procedure(s): MM tomosynthesis screening BI ?? Accession Number(s): [id number] ? cc: Name,Mulugeta HUANG ? EXAMINATION: ?? [...] by Ana Bhardwaj MD in OV> ? 08/08/23844 ? DD/ ? TD/TT: ? [employer] Field Supervisor: ? Procedure Note Dee Newton - 06/07/2024 [facility] [address] [place] [address] Dr. [place], [place] [address] Mammography Report Signed Patient: Ivory Daniel [facility]#: [id number] 98 : 1980Acct:[id number] Age/Sex: 43 / FADM Date: 07/10/23 Loc: HO.MAMMO Attending Dr: Mulugeta Peralta MD Ordering Physician: Mulugeta Peralta MDResults: 1Negative Date of Service: 07/10/23Follow Up: 1 Year From Orig inal Mammogram Procedure(s): MM tomosynthesis screening BI Accession Number(s): [id number] cc: Name,Mulugeta HUANG EXAMINATION: MM SCREENING DIGITAL BREAST TOMOSYNTHESIS, BILATERAL [...] in OV> 08/08/23 0845 DD/ 1015 TD/TT: [employer] Field Supervisor: Mulugeta Peralta MD [facility] BI PROCEDURES Edited Result - Final * Hepatitis C Antibody with Reflex to HCV, RNA, Quantitative, Real-Time PCR (06/03/2022 10:57 AM EDT) Hepatitis C Antibody NON-REACT KELLY NON-REACT KELLY [facility] Index 0.09 <1.00 [facility] [place] [employer] Comment: HCV antibody was non-reactive. There is no laboratory evidence of HCV infection. In most cases, no further action is required. However, if recent HCV exposure is suspected, a test for HCV RNA (test code 70406) is suggested. For additional information please refer to http://Med[employer] Learning.NeoChord/faq/KHK26n9 (This link is being provided for informational/ educational purposes only.) Blood Venous blood specimen / Unknown 06/03/2022 10:57 AM EDT 06/03/2022 10:58 AM EDT Narrative [facility] - 06/04/2022 8:43 PM EDT FASTING:NO FASTING: NO Candice Morrell [facility] LAB BLOOD ORDERABLES Nani sanders Result [facility] [address], [place] [address] [facility] [place] [employer] [address] [place] [address] * HIV-1/2 Antigen and Antibodies, Fourth Generation, with Reflexes (06/03/2022 10:57 AM EDT) HIV Antigen/Antibody, 4th Generation NON-REAC TIVE NON-REAC TIVE [facility] [place] [facility] Comment: HIV-1 antigen and HIV-1/HIV-2 antibodies [...] ?? For additional information please refer to http://Med[employer] Learning.NeoChord/faq/SMQ760 (This link is being provided for informational/ educational purposes only.) The performance of this assay has not been clinically validated in patients less than 2 years old. Blood Venous blood specimen / Unknown 06/03/2022 10:57 AM EDT 06/03/2022 10:58 AM EDT Narrative [facility] - 06/04/2022 8:43 PM EDT FASTING:NO FASTING: NO Candice Morrell CN LAB BLOOD ORDERABLES Nani sanders Result [facility] [address], [place] [address] [employer] [place] [facility] [address] [place] [address] * Image-Guided Pap with Age-Based Screening??with CT/NG,??Trichomonas (06/03/2022 10:47 AM EDT) Comment [facility] Comment: This order for age-based cervical cancer and STI screening follows ACOG guidelines(PB 168, 140, DKQ456). See individual assays for performing site location. Clinical Information: Routine exam [facility] LMP: NONE GIVEN [facility] Prev. PAP: NONE GIVEN [facility] Prev. BX: NONE GIVEN [facility] SOURCE: None given [facility] Statement Of Adequacy: [facility] Comment: Satisfactory for evaluation. Endocervical/transformation zone component present. Interpretation/Re sult: Negative for intraepithelial lesion or malignancy. [facility] COMMENT: This Pap test has been evaluated with computer assisted technology. [facility] [place] [employer] Roof Plumber: Antonia [employer] Comment: WAC, CT(ASCP) CT screening location: [address] ??[address] (Always Message) [facility]ly [facility] Comment: EXPLANATORY NOTE: The Pap is a [...] HPV nRNA E6/E7 Not Detected Not Detected [facility] Comment: Methodology: Moulder Operator-Mediated Amplification This assay detects E6/E7 viral messenger RNA (mRNA) from 14 high-risk HPV types (16,18,31,33,35,39,45,51,52,56,58,59,66,68). Cervical sources are required for HPV testing. If a vaginal source from a patient who has had a total hysterectomy with removal of cervix was submitted, please contact the testing laboratory for alternative testing options. For additional information, please refer to http://Med[employer] Learning.NeoChord/faq/PCF451z0 (This link if provided for information/ educational purposes only.) Chlamydia trachomatis RNA, TMA, Urogenital NOT DETECTED NOT DETECTED [facility] Neisseria gonorrhoeae RNA, TMA, Urogenital NOT DETECTED NOT DETECTED [employer] (Always Message) Que [facility] Comment: The analytical performance characteristics of this assay, when used to test SurePath(TM) specimens have been determined by [facility]. The modifications have not been cleared or approved by the FDA. This assay has been validated pursuant to the CLIA regulations and is used for clinical purposes. For additional information, please refer to https://Med[employer] Learning.NeoChord/faq/NAE480 (This link is being provided for information/ educational purposes only.) Trichomonas vaginalis, QL, TMA, PAP Vial NOT DETECTED NOT DETECTED [facility] Comment: The analytical performance characteristics of this assay have been determined by [employer]. The modifications have not been cleared or approved by the FDA. This assay has been validated pursuant to the CLIA regulations and is used for clinical purposes. For additional information, please refer to http://[employer] Learning.NeoChord/ faq/Trichomonastma (This link is being provided for information/ educational purposes only.) Cytology specimen container (physical object) 06/03/2022 10:47 AM EDT 06/04/2022 5:15 AM EDT us Candice Morrell CNM LAB CYTOLOGY ORDERABLES F inal Result [facility] [address] [facility], [place] [address] [facility] [place] [facility] [address] [place] [address] from Last 3 Months or Most Recently Relevant to Health Maintenance Insurance [facility] [facility] < [address] [place] [id number] [place] [id number] Care Teams Guard Sergeant Relationship Specialty Start Date End Date Name, MD Mulugeta [address] [place] [address] [place] [address] PCP - General Family Medicine 06/06/15
--- OUTSIDE RECORDS SUMMARY | 2024-06-29 14:46 | XMS_ITS | Encounter Summary ---
Author Organization [employer] Address [address] [facility] 7t [place] [address] Care Team Providers Care Youth Support Worker Name Role Phone Name, Mulugeta HUANG Primary Care Provider Reason for Visit * Reason Comments Med Refill Encounter Details Date Type Department Care Team ([facility] Contact Info) Description 06/26/2023 Refill [facility] [address] [place], [place] [phone] Name, MD Mulugeta [address] [place] [address] Social History Tobacco Use Types Packs/Day Years [...] AM EDT Office Visit [facility] [address] [place] [address] Name, MD Mulugeta [address] [place] [address] documented as of this encounter Visit Diagnoses Not on filedocumented in this encounter Additional Health Concerns Assessment Noted Time PHQ-9 Depression Total Score: 0 05/29/19 24 10:30 AM EDT documented as of this encounter Care Teams Youth Support Worker Relationship Specialty Start Date End Date NameMulugeta MD [address] [place] [address] PCP - General Family Medicine 06/06/15 documented as of this encounter
--- OUTSIDE RECORDS SUMMARY | 2024-06-29 14:46 | XMS_ITS | Encounter Summary ---
Author Organization [employer] Address [address] [facility] 7t [place] [address] Care Team Providers Care Registered Nurse Cardiac Name Role Phone Name, Mulugeta HUANG Primary Care Provider [phone] Reason for Visit * Reason Onset Date Comments chartprep 06/29/2024 Encounter Details Date Type Department Care Team ([facility] st Contact Info) Description 06/29/2024 Telephone [facility] [address] [place], [place] [phone] Tim Padron MA chartprep Social History Tobacco Use Types Packs/Day Years [...] encounter Miscellaneous Notes * Telephone Encounter - Tim Padron MA - 06/29/2024 10:42 AM EDT Chart Prep Labs: done Images: done Referrals: pending appt Pending appt. Referral and notes faxed to office on 06/04/2024. [facility] [address] [place] [address] Dr[address] [place] [address] Tel. [phone] Fax. [phone]. Vaccines due: Covid, Hep B Screenings: colonoscopy Overdue care gaps: SDOH, PHQ-9, AMAURY-7, and Disability screen documented in this encounter Plan of Treatment Upcoming Encounters Date Type Department Care Team (Late st Contact Info) Description 07/01/2024 11:30 AM EDT Office Visit [facility] [address] [place] [address] NameMulugeta MD [address] [place] [address] documented as of this encounter Visit Diagnoses Not on filedocumented in this encounter Additional Health Concerns Assessment Noted Time PHQ-9 Depression Total Score: 0 05/29/19 24 10:30 AM EDT documented as of this encounter Care Teams Registered Nurse Cardiac Relationship Specialty Start Date End Date NameMulugeta MD [address] [place] [address] PCP - General Family Medicine 06/06/15 documented as of this encounter
--- OUTSIDE RECORDS SUMMARY | 2024-06-29 14:46 | XMS_ITS | Encounter Summary ---
Author Organization [employer] Address [address] [facility] 7t [place] [address] Care Team Providers Care Flocculator Operator Name Role Phone Name, Mulugeta HUANG Primary Care Provider [phone] Reason for Visit * Reason Onset Date Comments Med Refill 10/23/2023 Encounter Details Date Type Department Care Team ([facility] st Contact Info) Description 10/23/2023 Refill [facility] [address] [place], [place] [phone] Name, MD Mulugeta [address] [place] [address] Obesity (BMI 30-39.9) Social History Tobacco Use [...] Description 07/01/2024 11:30 AM EDT Office Visit [facility] [address] [place] [phone] Name, MD Mulugeta [address] [place] [address] documented as of this encounter Visit Diagnoses Diagnosis Obesity (BMI 30-39.9) documented in this encounter Additional Health Concerns Assessment Noted Time PHQ-9 Depression Total Score: 0 05/29/19 24 10:30 AM EDT documented as of this encounter Care Teams Flocculator Operator Relationship Specialty Start Date End Date NameMulugeta MD [address] [place] [address] PCP - General Family Medicine 06/06/15 documented as of this encounter
--- OUTSIDE RECORDS SUMMARY | 2024-06-29 14:46 | XMS_ITS | Clinical Summary ---
Author Organization [employer] [facility] ity Address [address] [place] [address] Care Team Providers Care Dixonac Operator Name Role Phone Name, Mulugeta HUANG Primary Care Provider [phone] Surgical History Surgery Date Site/Laterality Comments OTHER [...] RESULTING AGENCY - 09/14/2018 12:06 PM EDT [id number] THINPREP PAP, IMAGED: NEGATIVE FOR SQUAMOUS INTRAEPITHELIAL [...] Recently Relevant to Health Maintenance Care Teams Dixonac Operator Relationship Specialty Start Date End Date Name, MD Mulugeta [address] [place], [place] PCP - General 06/30/16
[2024-06-29 14:57] LABS: Alanine Aminotransferase 12 U/L (0-31); Albumin Level 4.3 g/dL (3.5-5.0); Alkaline Phosphatase 41 U/L (39-117); Anion Gap 9 (12-20); Aspartate Amino Transferase 13 U/L (5-31); Bilirubin Total 0.6 mg/dL (0.0-1.0); Blood Urea Nitrogen 15 mg/dL (9-16); C Reactive Protein 0.11 mg/dL (< or = 0.50); Calcium 9.2 mg/dL (8.4-10.2); Carbon Dioxide 28 mmol/L (22-29); Chloride 107 mmol/L (96-108); Estimated Glomerular Filt Rate > 60; Glucose Random 88 mg/dL (60-115); Iron 65 mcg/dL (30-160); Lipase 62 U/L (8-78); Percent Iron Saturation 21 % (15-50); Sodium 140 mmol/L (135-145); Total Iron Binding Capacity 316 mcg/dL (228-428); Total Protein 7.2 g/dL (6.5-8.0); Unsaturated Iron Binding 251 ug/dL
[2024-06-30 22:19] LABS: Transglutaminase IgA <1.0 U/mL
== END 2024-06-29 12:54 | disposition home or self-care (01) ==
LOC: HO.LAB 12:53
PROVIDERS: PCP Internal Medicine Geriatric Medicine; Visit Provider Nurse Practitioner Family
DX: K80.20 Calculus of gallbladder without cholecystitis without obstruction (principal); K59.00 Constipation, unspecified; D64.9 Anemia, unspecified; R10.10 Upper abdominal pain, unspecified
CPT/HCPCS: 36415; 80053; 83540; 83690; 86140; 86364

== ENCOUNTER 2024-06-30 11:10 | Outpatient (REF) | payer OTHER, SELFPAY ==
--- OUTSIDE RECORDS SUMMARY | 2024-06-30 12:50 | XMS_ITS | Clinical Summary ---
Author Organization [employer] Address [address] [place] [address] 7t [place] [address] Care Team Providers Care Aquaculture Farmer Name Role Phone Name, Mulugeta HUANG Primary Care Provider [phone] Allergies Active Allergy Reactions Criticality Noted Date [...] 05/23/2022 Overview (05/23/2022): 7 grade education in [place] Does not know how to read or [...] Date Type Department Care Team Description 06/29/2024 Orders Only GENERIC EXTERNAL DATA DEPARTMENT Provider, Generic External Data 06/29/2024 Telephone [facility] [address] [place] [address] Tim Padron MA chartprep 06/15/2024 Orders Only GENERIC EXTERNAL DATA DEPARTMENT Provider, Generic External Data 06/04/2024 3:00 PM EDT Office Visit [address] [address] Cleveland Pollack MD Hyperpigmentation (Primary Dx) 06/04/2024 Travel 06/03/2024 1:00 PM EDT [facility] [address] [address] Shannon Diaz MD Shortness of breath (Primary Dx); Ankle edema, bilateral; Obesity (BMI 30-39.9); Abnormal EKG 06/03/2024 Orders Only [facility] External Provider, [facility] 06/03/[address] [address] Oma Jay RN expect report called to [facility] 04/29/2024 [facility] [address] [address] Name, MD Mulugeta Back muscle spasm 04/28/[address] [address] Name, MD Mulugeta 04/20/[address] [address] NameMulugeta MD No Show 04/07/[address] [address] Name, MD Mulugeta Prior Authorization ([employer]) from Last 3 Months [...] Description 07/01/2024 11:30 AM EDT Office Visit [facility] [address] [place] [address] Name, MD Mulugeta [address] [place] [address] Health Maintenance Due Date Last Done Comments [...] Procedure Name Priority Date/Time Associated Diagnosis Comments LIPASE Routine 06/29/2024 1:04 PM EDT C-REACTIVE PROTEIN Routine 06/29/2024 1: 04 PM EDT IRON AND TOTAL IRON BINDING CAPACITY Routine 06/29/2024 1:04 PM EDT COMPREHENSIVE METABOLIC PANEL Routine 06/29/2024 1:04 PM EDT ECG 12-LEAD Routine 06/15/2024 10:48 AM EDT [...] Recently Relevant to Health Maintenance Results * Iron And Total Iron Binding Capacity (06/29/2024 1:04 PM EDT) Iron 65 30 - 160 mcg/dL [facility] Total Iron Binding Capacity 316 228 - 428 mcg/dL [facility] Percent Iron Saturation 21 15 - 50 % [facility] Unsaturated Iron Binding 251 ug/dL [facility] 06/29/2024 1:04 PM EDT 06/29/2024 1:04 PM EDT us Generic External Data Provider LAB BLOOD ORDERAB LES Final Result [facility] [address] [place] [address] [phone] * C-reactive Protein (06/29/2024 1:04 PM EDT) Pathologist [facility] C Reactive Protein 0.11 < or = 0.50 mg/dL [facility] 06/29/2024 1:04 PM EDT 06/29/2024 1:04 PM EDT Generic External Data Provider LAB BLOOD ORDERAB LES Final Result Performing Organization Address [facility]/ZIP Co de Phone Number [facility] [address] [place] [address] [phone] * Lipase (06/29/2024 1:04 PM EDT) [facility] Lipase 62 8 - 78 U/L [facility] 06/29/2024 1:04 PM EDT 06/29/2024 1:04 PM EDT [employer] External Data Provider LAB BLOOD ORDERAB LES Final Result Performing Organization Address [facility] Co de Phone Number [facility] [address] [place] [phone] * (ABNORMAL) Comprehensive Metabolic Panel (06/29/2024 1:04 PM EDT) [facility] Sodium 140 135 - 145 mmol/L [facility] Potassium 4.0 3.3 - 5.1 mmol/L [facility] Chloride 107 96 - 108 mmol/L [facility] Carbon Dioxide 28 22 - 29 mmol/L [facility] Anion Gap 9(L) 12 - 20 [facility] Urea Nitrogen (BUN) 15 9 - 16 mg/dL [facility] Creatinine, Serum 0.67 0.5 - 1.4 mg/dL [facility] Estimated Glomerular Filt Rate >60 [facility] Comment:Chronic Kidney Disea se: Estimated GFR < 60 mL/min/1.28y6Ikywnr Kidney Disease: Estimated GFR < 15 mL/min/1.73m2 Glucose 88 60 - 115 mg/dL [facility] Calcium 9.2 8.4 - 10.2 mg/dL [facility] Bilirubin, Total 0.6 0.0 - 1.0 mg/dL [facility] Aspartate Amino Transferase 13 5 - 31 U/L [facility] Alanine Aminotransferase 12 0 - 31 U/L [facility] Total Protein 7.2 6.5 - 8.0 g/dL [facility] Albumin Level 4.3 3.5 - 5.0 g/dL [facility] Alkaline Phosphatase 41 39 - 117 U/L [facility] 06/29/2024 1:04 PM EDT 06/29/2024 1:04 PM EDT us Generic External Data Provider LAB BLOOD ORDERAB LES Final Result [facility] [address] [place] [address] [phone] * ECG 12 lead (06/15/2024 10:48 AM EDT) Narrative Shannon Diaz MD - 06/15/2024 10:48 AM EDT See image us Shannon Diaz MD ECG ORDERABLES Final Resu lt * Lipid Panel, Standard (06/15/2024 10:44 AM EDT) Triglycerides 132 <150 mg/dL [facility] Comment:Desirable Triglyceri de: less than 150 mg/dLBorderline High Triglyceride 150-199 mg/dLHigh Triglyceride: 200-499 mg/dLVery High Triglyceride: greater than or equal to 5OO mg/dL Cholesterol 161 <200 mg/dL [facility] Comment:Desirable Cholestero l: less than 200 mg/dLBorderline High Cholesterol: 200-239 mg/dLHigh Cholesterol: greater than 239 mg/dL LDL Cholesterol Calculated 90 <100 mg/dL [facility] Comment:Desirable LDL: less than 100 mg/dLNear Optimal/Above Optimal LDL: 110- 129 mg/dLBorderline High LDL: 130-159 mg/dLHigh LDL: 160-189 mg/dLVery High LDL: greater than or equal to 190 mg/dL HDL Cholesterol 45 >40 mg/dL [facility] Comment:Desirable HDL: great er than 40 mg/dL Note: This HDL assay may give artificially low results in patients with liver disease. 06/15/2024 10:4 4 AM EDT 06/15/2024 10:44 AM EDT Generic External Data Provider LAB BLOOD ORDERAB LES Final Result Performing Organization Address [facility] Phone Number [facility] [address] [place] [phone] * High Sensitivity Troponin I (06/03/2024 5:42 PM EDT) [facility] TROPONIN I HIGH SENSITIVITY <2.7 <3.5 - 17.0 ng/L [facility] Comment:The Puente high sens itivity Troponin-I results should beused in conjunction with other diagnostic information suchas ECG, clinical observations and information, and patientsymptoms to aid in the diagnosis of DC. 06/03/2024 5:42 PM EDT 06/03/2024 5:46 PM EDT [employer] External Data Provider LAB BLOOD ORDERAB LES Final Result Performing Organization Address [facility] Phone Number [facility] [address] [place] [phone] * XR Chest 1 View (06/03/2024 3:22 PM EDT) Anatomical Region Laterality Modality Chest Radiographic Jazz ging 06/03/2024 3:22 PM EDT Narrative 06/03/2024 4:17 PM EDT ? [facility] ?[address] ?[place] [address] ?XRay Report ? Signed ? Patient: María,Ivory I ?MR#: [id number] ?? 98 ? : 1980 ?Acct:[id number] ? Age/Sex: 43 / F ?ADM Date: 04/03/25 ? Loc: HO.ED ? Attending Dr: ? Ordering Physician: Aleta Oh DO ?? Date of Service: 06/03/24 ?? Procedure(s): XR chest 1V ?? Accession Number(s): [id number] ? cc: Aleta Oh DO; Name,Mulugeta HUANG [...] DD/ 1522 ? TD/TT: 06/03/24 1402 ? Metal Alloy Scientist: ? Procedure Note Aman, Image - 06/03/2024 [place] [address] XRay Report Signed Patient: Ivory Daniel IMR#: [id number] 98 : 1980Acct:[id number] Age/Sex: 43 / FADM Date: 06/03/24 Loc: HO.ED Attending Dr: Ordering Physician: Aleta Oh DO Date of Service: 06/03/24 Procedure(s): XR chest 1V Accession Number(s): [id number] cc: Aleta Oh DO; Name,Mulugeta HUANG EXAMINATION: [...] 06/03/24 1614 DD/ 1522 TD/TT: 06/03/24 1402 Metal Alloy Scientist: [facility] External Provider IMG XR PROCEDURES Final Result * VITAMIN D 25-OH (D2 AND D3) (04/01/2024 2:19 PM EST) Vitamin D, 25-OH, D2 <4 ng/mL [facility] Comment:This test was develo ped and its analytical performancecharacteristics have been determined by [employer] [place], [place]. It hasnot been cleared or approved by the U.S. Food and DrugAdministration. This assay has been validated pursuantto the CLIA regulations and is used for clinicalpurposes.THIS TEST WAS PERFORMED AT:[employer] [id number] [place] [address]QXMULYJMARGARET JEAN MD,PHD Vitamin D, 25-OH, D3 37 ng/mL [facility] Comment:This test was develo ped and its analytical performancecharacteristics have been determined by [employer] [place], [place]. It hasnot been cleared or approved by the U.S. Food and DrugAdministration. This assay has been validated pursuantto the CLIA regulations and is used for clinicalpurposes. Vitamin D, 25-OH, Total 37 30 - 100 ng/mL [facility] Comment:Vitamin D, 25-Hydrox y reports [...] = 30 ng/mL.For additional information, please refer tohttp://education.[employer]/faq/PII573(This link is being provided for informational/educational purposes only.) 04/01/2024 2:19 PM EST 04/01/2024 5:34 PM EST us Generic External Data Provider LAB BLOOD ORDERAB LES Final Result [facility] [address] [place] [address] [phone] * (ABNORMAL) POCT HGB A1C (12/16/2023 10:42 AM EDT) Hemoglobin A1C 6.2(A) 4.0 - 6.0 % QC Media Lot # [id number] Lot# Expiration Date Blood 12/16/2023 10:4 2 AM EDT us Mulugeta Fabian HUANG POINT OF CARE TEST ENTER/EDIT OR DERABLES Final Result * BI Mammogram Screening Tomosynthesis Bilateral (07/10/2023 10:15 AM EDT) Anatomical Region Laterality Modality Breast Bilateral Mammography 07/10/2023 10:1 5 AM EDT Narrative 08/08/2023 8:49 AM EDT ? [facility] [place] ? [address] ?[place] [address] ? Mammography Report ? Signed ? Patient: Daniel,Ivory I ?MR#: [id number] ?? 98 ? : 1980 ?Acct:[id number] ? Age/Sex: 43 / F ?ADM Date: 05/09/24 ? Loc: HO.MAMMO ? Attending Dr: Mulugeta Peralta MD ? Ordering Physician: Name,Mulugeta HUANG ?Results: 1Negative ? Date of Service: 07/10/23 ?Follow Up: 1 Year From Orig ?? inal Mammogram ? Procedure(s): MM tomosynthesis screening BI ?? Accession Number(s): [id number] ? cc: Name,Mulugeta HUANG ? EXAMINATION: ?? [...] 0845 ? DD/ 1015 ? TD/TT: ? Metal Alloy Scientist: ? Procedure Note Donotuseinterpreter, Image - 08/08/2023 [facility] [address] [place] [address] Mammography Report Signed Patient: Ivory Daniel IMR#: [id number] 98 : 1980Acct:[id number] Age/Sex: 43 / FADM Date: 07/10/23 Loc: HO.MAMMO Attending Dr: Mulugeta Peralta MD Ordering Physician: Mulugeta Peralta MDResults: 1Negative Date of Service: 07/10/23Follow Up: 1 Year From Orig inal Mammogram Procedure(s): MM tomosynthesis screening BI Accession Number(s): [id number] cc: Mulugeta Peralta MD EXAMINATION: MM SCREENING [...] in OV> 08/08/23 0845 DD/ 1015 TD/TT: Metal Alloy Scientist: Mulugeta Peralta MD [facility] PROCEDURES Edited Result - Final * Hepatitis C Antibody with Reflex to HCV, RNA, Quantitative, Real-Time PCR (06/03/2022 10:57 AM EDT) Hepatitis C Antibody NON-REACT KELLY NON-REACT KELLY [employer] [place] [facility] Index 0.09 <1.00 [employer] [place] [facility] Comment: HCV antibody was non-reactive. There is no laboratory evidence of HCV infection. In most cases, no further action is required. However, if recent HCV exposure is suspected, a test for HCV RNA (test code 82419) is suggested. For additional information please refer to http://[employer]/faq/ZYL14t8 (This link is being provided for informational/ educational purposes only.) Blood Venous blood specimen / Unknown 06/03/2022 10:57 AM EDT 06/03/2022 10:58 AM EDT Narrative [facility] - 06/04/2022 8:43 PM EDT FASTING:NO FASTING: NO Candice Morrell [facility] LAB BLOOD ORDERABLES Nani l Result [facility] [address], [place] [address] [employer] [place] [facility] [address] [place] [address] * HIV-1/2 Antigen and Antibodies, Fourth Generation, with Reflexes (06/03/2022 10:57 AM EDT) HIV Antigen/Antibody, 4th Generation NON-REAC TIVE NON-REAC TIVE [employer] [place] [facility] Comment: HIV-1 antigen and HIV-1/HIV-2 antibodies were [...] ?? For additional information please refer to http://education.Fl[employer]/faq/FCR399 (This link is being provided for informational/ educational purposes only.) The performance of this assay has not been clinically validated in patients less than 2 years old. Blood Venous blood specimen / Unknown 06/03/2022 10:57 AM EDT 06/03/2022 10:58 AM EDT Narrative [facility] - 06/04/2022 8:43 PM EDT FASTING:NO FASTING: NO us Candice Morrell [facility] BLOOD ORDERABLES Nani l Result [address], [place] [address] [facility] [address] [place] [phone] * Image-Guided Pap with Age-Based Screening??with CT/NG,??Trichomonas (06/03/2022 10:47 AM EDT) Comment [facility] Comment: This order for age-based cervical cancer and STI screening follows ACOG guidelines(PB 168, 140, OKX872). See individual assays for performing site location. Clinical Information: Routine exam [facility] LMP: NONE GIVEN [facility] Prev. PAP: NONE GIVEN [facility] [place] [facility] Prev. BX: NONE GIVEN [facility] [place] [facility] SOURCE: None given [facility] [place] [facility] Statement Of Adequacy: [facility] Comment: Satisfactory for evaluation. Endocervical/transformation zone component present. Interpretation/Re sult: Negative for intraepithelial lesion or malignancy. [facility] COMMENT: This Pap test has been evaluated with computer assisted technology. [employer] Repairer: [facility] Comment: WAC, CT(ASCP) CT screening location: [address] ??[phone] (Always Message) [facility] Conductivt Comment: EXPLANATORY NOTE: The Pap is a [...] HPV nRNA E6/E7 Not Detected Not Detected [facility] Comment: Methodology: Burrer Marker Axle-Mediated Amplification This assay detects E6/E7 viral messenger RNA (mRNA) from 14 high-risk HPV types (16,18,31,33,35,39,45,51,52,56,58,59,66,68). Cervical sources are required for HPV testing. If a vaginal source from a patient who has had a total hysterectomy with removal of cervix was submitted, please contact the testing laboratory for alternative testing options. For additional information, please refer to http://[employer].Fl[employer]o/faq/BEC643t1 (This link if provided for information/ educational purposes only.) Chlamydia trachomatis RNA, TMA, Urogenital NOT DETECTED NOT DETECTED [facility] Neisseria gonorrhoeae RNA, TMA, Urogenital NOT DETECTED NOT DETECTED [facility] (Always Message) [employer] Comment: The analytical performance characteristics of this assay, when used to test SurePath(TM) specimens have been determined by [employer] The modifications have not been cleared or approved by the FDA. This assay has been validated pursuant to the CLIA regulations and is used for clinical purposes. For additional information, please refer to https://[employer]/faq/SHI113 (This link is being provided for information/ educational purposes only.) Trichomonas vaginalis, QL, TMA, PAP Vial NOT DETECTED NOT DETECTED [facility] Comment: The analytical performance characteristics of this assay have been determined by [employer] The modifications have not been cleared or approved by the FDA. This assay has been validated pursuant to the CLIA regulations and is used for clinical purposes. For additional information, please refer to http://[employer]/ faq/Trichomonastma (This link is being provided for information/ educational purposes only.) Cytology specimen container (physical object) 06/03/2022 10:47 AM EDT 06/04/2022 5:15 AM EDT Candice Porsche CN LAB CYTOLOGY ORDERABLES F inal Result [facility], [place] [address] [facility] [place] [facility] [address] [place] [phone] from Last 3 Months or Most Recently Relevant to Health Maintenance Insurance [place] [facility] < [address] [phone] , [place] [address] [place] [address] [place] Care Teams Aquaculture Farmer Relationship Specialty Start Date End Date Name, MD Mulugeta [address] [place] [address] PCP - General Family Medicine 06/06/15
--- OUTSIDE RECORDS SUMMARY | 2024-06-30 12:50 | XMS_ITS | Encounter Summary ---
Author Organization [employer] Address [address] [facility] 7t [place] [address] Care Team Providers Care Manager Critical Care Name Role Phone Name, Mulugeta HUANG Primary Care Provider [phone] Reason for Visit * Reason Onset Date Comments Med Refill 10/23/2023 Encounter Details Date Type Department Care Team ([facility] st Contact Info) Description 10/23/2023 Refill [facility] [address] [place], [place] [phone] Name, MD Mulugeta [address] [place] [address] Obesity (BMI 30-39.9) Social History Tobacco Use [...] Description 07/01/2024 11:30 AM EDT Office Visit [facility] [address] [place] [address] Name, MD Mulugeta [address] [place] [address] documented as of this encounter Visit Diagnoses Diagnosis Obesity (BMI 30-39.9) documented in this encounter Additional Health Concerns Assessment Noted Time PHQ-9 Depression Total Score: 0 05/29/19 24 10:30 AM EDT documented as of this encounter Care Teams Manager Critical Care Relationship Specialty Start Date End Date NameMulugeta MD [address] [place] [phone] PCP - General Family Medicine 06/06/15 documented as of this encounter
--- OUTSIDE RECORDS SUMMARY | 2024-06-30 12:51 | XMS_ITS | Encounter Summary ---
Author Organization [employer] Address [address] [facility] 7t [place] [address] Care Team Providers Care Cloth Beamer Name Role Phone Name, Mulugeta HUANG Primary Care Provider [phone] Encounter Details Date Type Department Care Team ([facility] st Contact Info) Description 06/29/2024 Orders Only GENERIC EXTERNAL DATA [...] Description 07/01/2024 11:30 AM EDT Office Visit [facility] [address] [place] [address] Name, MD Mulugeta [address] [place] [address] documented as of this encounter Procedures Procedure Name Priority Date/Time Associated Diagnosis Comments IRON AND TOTAL IRON BINDING CAPACITY Routine 06/29/2024 1:04 PM EDT C-REACTIVE PROTEIN Routine 06/29/2024 1: 04 PM EDT LIPASE Routine 06/29/2024 1:04 PM EDT COMPREHENSIVE METABOLIC PANEL Routine 06/29/2024 1:04 PM EDT documented in this encounter Results * Lipase (06/29/2024 1:04 PM EDT) [facility] Lipase 62 8 - 78 U/L [facility] 06/29/2024 1:04 PM EDT 06/29/2024 1:04 PM EDT us Generic External Data Provider LAB BLOOD ORDERAB LES Final Result [facility] [address] [place] [phone] [phone] * C-reactive Protein (06/29/2024 1:04 PM EDT) [facility] C Reactive Protein 0.11 < or = 0.50 mg/dL [facility] 06/29/2024 1:04 PM EDT 06/29/2024 1:04 PM EDT Generic External Data Provider LAB BLOOD ORDERAB LES Final Result Performing Organization Address [facility]/ZIP Co de Phone Number [facility] [address] [place] [phone] * Iron And Total Iron Binding Capacity (06/29/2024 1:04 PM EDT) Pathologist [facility] Iron 65 30 - 160 mcg/dL [facility] Total Iron Binding Capacity 316 228 - 428 mcg/dL [facility] Percent Iron Saturation 21 15 - 50 % [facility] Unsaturated Iron Binding 251 ug/dL [facility] 06/29/2024 1:04 PM EDT 06/29/2024 1:04 PM EDT Generic External Data Provider LAB BLOOD ORDERAB LES Final Result Performing Organization Address [facility] Co de Phone Number [facility] [address] [place] [phone] * (ABNORMAL) Comprehensive Metabolic Panel (06/29/2024 1:04 PM EDT) Pathologist [facility] Sodium 140 135 - 145 mmol/L [facility] Potassium 4.0 3.3 - 5.1 mmol/L [facility] Chloride 107 96 - 108 mmol/L [facility] Carbon Dioxide 28 22 - 29 mmol/L [facility] Anion Gap 9(L) 12 - 20 [facility] Urea Nitrogen (BUN) 15 9 - 16 mg/dL [facility] Creatinine, Serum 0.67 0.5 - 1.4 mg/dL [facility] Estimated Glomerular Filt Rate >60 [facility] Comment:Chronic Kidney Disea se: Estimated GFR < 60 mL/min/1.76z4Cpyhak Kidney Disease: Estimated GFR < 15 mL/min/1.73m2 Glucose 88 60 - 115 mg/dL [facility] Calcium 9.2 8.4 - 10.2 mg/dL [facility] Bilirubin, Total 0.6 0.0 - 1.0 mg/dL [facility] Aspartate Amino Transferase 13 5 - 31 U/L [facility] Alanine Aminotransferase 12 0 - 31 U/L [facility] Total Protein 7.2 6.5 - 8.0 g/dL [facility] Albumin Level 4.3 3.5 - 5.0 g/dL [facility] Alkaline Phosphatase 41 39 - 117 U/L [facility] 06/29/2024 1:04 PM EDT 06/29/2024 1:04 PM EDT us Generic External Data Provider LAB BLOOD ORDERAB LES Final Result Performing Organization Address City/State/[facility] Co de Phone Number [facility] [address] [place] [phone] documented in this encounter Visit Diagnoses Not on filedocumented in this encounter Additional Health Concerns Assessment Noted Time PHQ-9 Depression Total Score: 0 05/29/19 24 10:30 AM EDT documented as of this encounter Care Teams Cloth Beamer Relationship Specialty Start Date End Date Name, MD Mulugeta [address] [place] [address] PCP - General Family Medicine 06/06/15 documented as of this encounter
--- OUTSIDE RECORDS SUMMARY | 2024-06-30 12:51 | XMS_ITS | Encounter Summary ---
Author Organization [employer] Address [address] [facility] 7t [place] [address] Care Team Providers Care Sole Stitcher Hand Name Role Phone Name, Mulugeta HUANG Primary Care Provider [phone] Reason for Visit * Reason Comments Med Refill Encounter Details Date Type Department Care Team ([facility] Contact Info) Description 06/26/2023 Refill [facility] [address] [place], [place] [phone] Name, MD Mulugeta [address] [place] [address] Social History Tobacco Use Types Packs/Day Years [...] Description 07/01/2024 11:30 AM EDT Office Visit [facility] [address] [place] [phone] Name, MD Mulugeta [address] [place] [address] documented as of this encounter Visit Diagnoses Not on filedocumented in this encounter Additional Health Concerns Assessment Noted Time PHQ-9 Depression Total Score: 0 05/29/19 24 10:30 AM EDT documented as of this encounter Care Teams Sole Stitcher Hand Relationship Specialty Start Date End Date NameMulugeta MD [address] [place] [address] PCP - General Family Medicine 06/06/15 documented as of this encounter
--- OUTSIDE RECORDS SUMMARY | 2024-06-30 12:51 | XMS_ITS | Clinical Summary ---
Author Organization [facility] ity Address [address] [place] [address] Care Team Providers Care Claims Adjuster Name Role Phone Name, Mulugeta HUANG Primary Care Provider [phone] Surgical History Surgery Date Site/Laterality Comments OTHER [...] RESULTING AGENCY - 09/14/2018 12:06 PM EDT [id number] THINPREP PAP, IMAGED: NEGATIVE FOR SQUAMOUS INTRAEPITHELIAL [...] Recently Relevant to Health Maintenance Care Teams Claims Adjuster Relationship Specialty Start Date End Date Name, MD Mulugeta [address] [place], [place] PCP - General 06/30/16
--- OUTSIDE RECORDS SUMMARY | 2024-06-30 12:51 | XMS_ITS | Encounter Summary ---
Author Organization [employer] Address [address] [facility] 7t [place] [address] Care Team Providers Care Manager Coding Name Role Phone Name, Mulugeta HUANG Primary Care Provider Reason for Visit * Reason Onset Date Comments chartprep 06/29/2024 Encounter Details Date Type Department Care Team ([facility] st Contact Info) Description 06/29/2024 Telephone [facility] MEDICINE [address] [place], [place] [phone] Tim Padron [place] chartprep Social History Tobacco [...] notes faxed to office on 06/04/2024. [facility] [address] [place] [address] Dr. [address] Floor Dipika Encarnacion [address] Tel. [phone] Fax. [phone]. Vaccines due: Covid, Hep B Screenings: colonoscopy Overdue care gaps: SDOH, PHQ-9, AMAURY-7, and Disability screen documented in this encounter Plan of Treatment Upcoming Encounters Date Type Department Care Team (Late st Contact Info) Description 07/01/2024 11:30 AM EDT Office Visit [facility] MEDICINE [address] [place] [address] NameMulugeta MD [address] [place] [address] documented as of this encounter Visit Diagnoses Not on filedocumented in this encounter Additional Health Concerns Assessment Noted Time PHQ-9 Depression Total Score: 0 05/29/19 24 10:30 AM EDT documented as of this encounter Care Teams Manager Coding Relationship Specialty Start Date End Date NameMulugeta MD [address] [place] [address] PCP - General Family Medicine 06/06/15 documented as of this encounter
--- OUTSIDE RECORDS SUMMARY | 2024-06-30 12:51 | XMS_ITS | Encounter Summary ---
Author Organization [employer] Address [address] [place] [address] 7t [place] [address] Care Team Providers Care Risk Control Manager Name Role Phone Name, Mulugeta HUANG Primary Care Provider [phone] Reason for Visit * Reason Onset Date Comments lab request 05/08/2022 Encounter Details Date Type Department Care Team ([facility] Contact Info) Description 05/08/[address] [facility] MEDICINE [address] [place], [place] [phone] Name, MD Mulugeta [address] [place] [address] lab request Social History Tobacco Use Types [...] before going for her heart study at [facility] on 04/24/22. Please call pt to clarify . documented in this encounter Plan of Treatment Upcoming Encounters Date Type Department Care Team (Late st Contact Info) Description 07/01/2024 11:30 AM EDT Office Visit [facility] MEDICINE [address] [place] [phone] Name, MD Mulugeta [address] [place] [phone] documented as of this encounter Visit Diagnoses Not on filedocumented in this encounter Care Teams Risk Control Manager Relationship Specialty Start Date End Date Mulugeta Peralta MD [address] [place] [phone] PCP - General Family Medicine 06/06/15 documented as of this encounter
--- OUTSIDE RECORDS SUMMARY | 2024-06-30 12:51 | XMS_ITS | Encounter Summary ---
Author Organization [employer] Address [address] [place] [address] 7[address] [place] [address] Care Team Providers Care Upward Bound Director Name Role Phone Name, Mulugeta HUANG Primary Care Provider [phone] Reason for Visit * Reason Onset Date Comments Appointment Request 05/09/2022 Encounter Details Date Type Department Care Team ([facility] Contact Info) Description 05/09/2022 Telephone [facility] MEDICINE [address] [place], [place] [phone] Name, MD Mulugeta [address] [place] [address] Appointment Request Social History Tobacco Use Types [...] 1 WEEK [place] [facility] ) Please contact pt at [phone] documented in this encounter Plan of Treatment Upcoming Encounters Date Type Department Care Team (Late st Contact Info) Description 07/01/2024 11:30 AM EDT Office Visit [facility] MEDICINE [address] [place] [address] Name, MD Mulugeta [address] [place] [address] documented as of this encounter Visit Diagnoses Not on filedocumented in this encounter Care Teams Upward Bound Director Relationship Specialty Start Date End Date Name, MD Mulugeta [address] [place] [address] PCP - General Family Medicine 06/06/15 documented as of this encounter
[2024-07-05 19:39] LABS: Calprotectin, Fecal 26 mcg/g
== END 2024-06-30 11:11 | disposition home or self-care (01) ==
LOC: HO.LNP 11:10
PROVIDERS: Visit Provider Nurse Practitioner Family
DX: R10.9 Unspecified abdominal pain (principal); K59.00 Constipation, unspecified
CPT/HCPCS: 83993; 87338

== ENCOUNTER 2024-07-15 09:55 | Outpatient (REF) | payer OTHER, SELFPAY ==
--- OUTSIDE RECORDS SUMMARY | 2024-07-15 10:50 | XMS_ITS | Encounter Summary ---
Author Organization [employer] Address [address] [facility] 7t [place] [address] Care Team Providers Care Cloth Coverer Name Role Phone Name, Mulugeta HUANG Primary Care Provider [phone] Reason for Visit * Reason Onset Date Comments Appointment Request 05/09/2022 Encounter Details Date Type Department Care Team ([facility] st Contact Info) Description 05/09/2022 Telephone [facility] MEDICINE [address] [place], [place] [phone] Name, MD Mulugeta [address] [place] [address] Appointment Request Social History Tobacco Use Types [...] Miscellaneous Notes * Telephone Encounter - Marito Leach - 05/09/2022 11:23 AM EST Tc from pt requesting to r/s appt on 03/09/23 ( Follow up in about 4 weeks (around 05/07/2022) for FU with Dr FUNG memory loss, dizziness.REQUESTING LABS for 1 WEEK prior to heart study at [facility]. date 05/22 ) Please contact pt at [phone] documented in this encounter Plan of Treatment Upcoming Encounters Date Type Department Care Team (Late st Contact Info) Description 10/25/2024 11:30 AM EDT Office Visit [facility] MEDICINE [address] [place] [address] Name, MD Mulugeta [address] [place] [address] documented as of this encounter Visit Diagnoses Not on filedocumented in this encounter Care Teams Cloth Coverer Relationship Specialty Start Date End Date NameMulugeta MD [address] [place] [phone] PCP - General Family Medicine 06/06/15 documented as of this encounter
--- OUTSIDE RECORDS SUMMARY | 2024-07-15 10:50 | XMS_ITS | Clinical Summary ---
Author Organization [employer] Address [address] [facility] 7t [place] [address] Care Team Providers Care Medical Nurse Name Role Phone Name, Mulugeta HUANG Primary Care Provider [phone] Allergies Active Allergy Reactions Criticality Noted Date [...] area 60 g 1 05/29/19 24 Active cholecalciferol (Vitamin D-3) 25 MCG tablet TAKE 1 TABLET BY MOUTH EVERY DAY IN THE MORNING 90 tablet 01/26/20 24 Active baclofen (Lioresal) 10 MG tablet Take [...] within 12 hours or as directed by . 60 patch 1 03/25/19 25 Active Diclofenac Sodium 1 % gel APPLY 2 GRAMS TO AFFECTED AREA(S) FOUR TIMES A DAY NEEDED FOR PAIN 150 g 1 03/25/19 25 Active ibuprofen 800 MG tabletIndicatio ns:Back muscle spasm TAKE 1 TABLET BY MOUTH THREE TIMES DAILY 90 tablet 2 04/29/19 25 Active atorvastatin (Lipitor) 10 MG tablet Take 1 tablet by mouth Once per day. 06/16/19 25 Active Semaglutide-Beni ght Management (Wegovy) 1 MG/0.5ML solution auto-injector INJECT ONE PEN (=1 MG) SUBCUTANEOUSLY ONCE A WEEK 2 mL 01/07/20 24 025 Discontin ued(Thera py completed ) Semaglutide-Beni ght Management (Wegovy) 2.4 MG/0.75ML solution auto-injectorIn dications:Obesi ty, unspecified INJECT ONE PEN (= 2.4 MG) SUBCUTANEOUSLY ONCE A WEEK 3 mL 03/16/19 25 025 Discontin ued(Thera py completed ) Active Problems Problem Noted Date Diagnosed Date LBBB (left bundle branch block) 07/01/2024 Ankle edema, bilateral 06/03/2024 Assessment & Plan [...] 05/23/2022 Overview (05/23/2022): 7 grade education in [place] Does not know how to read or write Filipino Epigastric pain 04/09/2022 H. pylori infection 04/09/2022 [...] Encounters Date Type Department Care Team Description 07/07/2024 Telephone [facility] MEDICINE [address] [place] [address] Niall Hogan MA october recalls 07/01/2024 11:30 AM EDT Office Visit [address] [address] Mulugeta Peralta MD LBBB (left bundle branch block) (Primary Dx); Palpitations 07/01/2024 Travel 06/29/2024 Orders Only GENERIC EXTERNAL DATA DEPARTMENT Provider, Generic External Data 06/29/[address] [address] Tim Padron MA chartprep 06/15/2024 Orders Only GENERIC EXTERNAL DATA DEPARTMENT Provider, Generic External Data 06/04/2024 3:00 PM EDT Office Visit [address] [address] Cleveland Pollack MD Hyperpigmentation (Primary Dx) 06/04/2024 Travel 06/03/2024 1:00 PM EDT Office Visit [facility] [address] [place] [address] Shannon Diaz MD Shortness of breath (Primary Dx); Ankle edema, bilateral; Obesity (BMI 30-39.9); Abnormal EKG 06/03/2024 Orders Only [facility] External Provider, [facility] 06/03/2024 Telephone [facility] [address] [place] [address] Oma Jay, [place] expect report called [place] [facility] [place] 04/29/2024 Refill [facility] [address] [place] [address] Mulugeta Peralta MD Back muscle spasm 04/28/[address] [address] Mulugeta Peralta MD 04/20/[address] [address] Mulugeta Peralta MD No Show from Last 3 Months Immunizations Immunization Administration Dates Next Due Influenza injectable quadriv [...] Answer Date Recorded Patient Health Questionnaire-9 Score 4 07/01/2024 Patient Health Questionnaire-9 Score 4 07/01/2024 Last PHQ-9: Questionnaire Data Not on file 0 07/01/2024 Housing Stability Answer Date Recorded What is your housing situation today? I have berta nelson 07/01/[address] you li ve. Do you have problems with any of the following? Mold;Water leaks 07/01/2024 Food Insecurity Answer Date Recorded Within the past 12 months, y ou worried that your food would run out before you got money to buy more: Never True 07/01/2024 Within the past 12 months,th e food you bought just didn't last and you didn't have enough money to get more: Never True 03/2024 Transportation Answer Date Recorded In the past 12 months, has l ack of transportation kept you from medical appts, meetings, work or from getting things needed for daily living? No 07/01/2024 Utilities Answer Date Recorded In the past 12 months, has t he electric, gas, oil or water company threatened to shut off services in your home? No 07/01/2024 Depression Answer Date Recorded Patient Health Questionnaire-2 Score 1 07/01/2024 Internet Access Answer Date Recorded Internet Access Q1 Yes 07/01/2024 Internet Access Q2 Not on file 07/01/2024 Comments No Sex and Gender Information Value Date Recorded Sex Assigned at Female 12/31/2021 10:16 AM EDT Legal Sex Female 10:16 AM EDT Gender Identity Female 12/31/2021 10:16 AM EDT Sexual Orientation Straight 09/08/2023 11 :27 AM EDT Last Filed Vital Signs Vital Sign Reading Time Taken Comments Blood Pressure 133/80 07/01/2024 11:18 AM EDT Pulse 63 07/01/2024 11:18 AM EDT Temperature 36.7 ??C (98 ??F) 07/01/2024 11:18 AM EDT Respiratory Rate 14 07/01/2024 11:18 AM EDT Oxygen Saturation 98% 07/01/2024 11:18 AM EDT Inhaled Oxygen Concentration - - Weight 87.6 kg (193 lb 3.2 oz) 07/01/2024 11:18 AM EDT Height 154.9 cm (5' 1 ) 07/01/2024 11:18 AM EDT Body Mass Index 36.5 07/01/2024 11:18 AM EDT Plan of Treatment Upcoming Encounters Date Type Department Care Team (Late st Contact Info) Description 10/25/2024 11:30 AM EDT Office Visit [facility] MEDICINE [address] [place] [address] Name, MD Mulugeta [address] [place] [address] Health Maintenance Due Date Last Done Comments CT Colonography 1980 Colonoscopy 1980 Colorectal Cancer Screening 1980 FIT DNA/Cologuard 1979 FIT 1980 FOBT 1980 Sigmoidoscopy 1980 Family Planning (PISQ) 06/21/1994 Hepatitis B Vaccines (1 of 3 - 19+ 3-dose series) 06/21/1998 COVID-19 Vaccine ( season) 2023 04/25/2021, 08/16/2020, 07/19/2020 DTaP/Tdap/Td Vaccines (2 - Td or Tdap) 08/12/2024 08/12/2014 Diabetes: Hemoglobin A1C 12/15/2024 12/16/2023, 02/0 08/2022 Pap Smear 06/03/2025 06/03/2022 Alcohol/Substance Use Screening 07/01/2025 07/01/2024 Depression Screening 07/01/2025 07/01/2024, 07/02/19 25 SDOH Screening 07/01/2025 07/01/2024 Tobacco Screening 07/01/2025 07/01/2024 Mammogram 07/09/2025 07/10/2023, 05/0 06/2022, 07/04/2022, Additional [...] Procedure Name Priority Date/Time Associated Diagnosis Comments TISSUE TRANSGLUTAMINASE AB, IGA Routine 06/29/2024 1:04 PM EDT LIPASE Routine 06/29/2024 1:04 PM EDT C-REACTIVE [...] 1 VIEW Routine 06/03/2024 3:22 PM EDT POCT GLYCATED HEMOGLOBIN, TOTAL Routine 12/16/2023 10:42 [...] EDT) Iron 65 30 - 160 mcg/dL [facility] Total Iron Binding Capacity 316 228 - 428 mcg/dL [facility] Percent Iron Saturation 21 15 - 50 % [facility] Unsaturated Iron Binding 251 ug/dL [facility] 06/29/2024 1:04 PM EDT 06/29/2024 1:04 PM EDT Generic External Data Provider LAB BLOOD ORDERAB LES Final Result Performing Organization Address [facility] Phone Number [facility] [address] [place] [phone] * Tissue Transglutaminase Antibody, IgA (06/29/2024 1:04 PM EDT) Transglutaminase IgA <1.0 U/mL [facility] Comment:Value Interpretation ----- <15.0 Antibody not detected> or = 15.0 Antibody detectedTHIS TEST WAS PERFORMED AT:[employer] [place] [phone] ALCANTARA MD 06/29/2024 1:04 PM EDT 06/29/2024 1:04 PM EDT Generic External Data Provider LAB BLOOD ORDERAB LES Final Result Performing Organization Address [facility] Phone Number [facility] [address] [place] [phone] * C-reactive Protein (06/29/2024 1:04 PM EDT) C Reactive Protein 0.11 < or = 0.50 mg/dL [facility] 06/29/2024 1:04 PM EDT 06/29/2024 1:04 PM EDT Generic External Data Provider LAB BLOOD ORDERAB LES Final Result Performing Organization Address [facility] Co de Phone Number [facility] [address] [place] [phone] * Lipase (06/29/2024 1:04 PM EDT) Lipase 62 8 - 78 U/L [facility] 06/29/2024 1:04 PM EDT 06/29/2024 1:04 PM EDT us Generic External Data Provider LAB BLOOD ORDERAB LES Final Result [facility] [address] [place] [phone] [phone] * (ABNORMAL) Comprehensive Metabolic Panel (06/29/2024 1:04 PM EDT) Sodium 140 135 - 145 mmol/L [facility] Potassium 4.0 3.3 - 5.1 mmol/L [facility] Chloride 107 96 - 108 mmol/L [facility] Carbon Dioxide 28 22 - 29 mmol/L [facility] Anion Gap 9(L) 12 - 20 [facility] Urea Nitrogen (BUN) 15 9 - 16 mg/dL [facility] Creatinine, Serum 0.67 0.5 - 1.4 mg/dL [facility] Estimated Glomerular Filt Rate >60 [facility] Comment:Chronic Kidney Disea se: Estimated GFR < 60 mL/min/1.02c0Bchyvo Kidney Disease: Estimated GFR < 15 mL/min/1.73m2 Glucose 88 60 - 115 mg/dL [facility] Calcium 9.2 8.4 - 10.2 mg/dL [facility] Bilirubin, Total 0.6 0.0 - 1.0 mg/dL [facility] Aspartate Amino Transferase 13 5 - 31 U/L [facility] Alanine Aminotransferase 12 0 - 31 U/L [facility] Total Protein 7.2 6.5 - 8.0 g/dL [facility] Albumin Level 4.3 3.5 - 5.0 g/dL [facility] Alkaline Phosphatase 41 39 - 117 U/L [facility] 06/29/2024 1:04 PM EDT 06/29/2024 1:04 PM EDT Generic External Data Provider LAB BLOOD ORDERAB LES Final Result Performing Organization Address City/[facility]/ZIP Co de Phone Number [facility] [address] [place] [address] [phone] * ECG 12 lead (06/15/2024 10:48 AM EDT) Narrative Shannon Diaz MD - 06/15/2024 10:48 AM EDT See image us Shannon Diaz MD ECG ORDERABLES Final Resu lt * Lipid Panel, Standard (06/15/2024 10:44 AM EDT) Triglycerides 132 <150 mg/dL [facility] Comment:Desirable Triglyceri de: less than 150 mg/dLBorderline High Triglyceride 150-199 mg/dLHigh Triglyceride: 200-499 mg/dLVery High Triglyceride: greater than or equal to 5OO mg/dL Cholesterol 161 <200 mg/dL [facility] Comment:Desirable Cholestero l: less than 200 mg/dLBorderline High Cholesterol: 200-239 mg/dLHigh Cholesterol: greater than 239 mg/dL LDL Cholesterol Calculated 90 <100 mg/dL [facility] Comment:Desirable LDL: less than 100 mg/dLNear Optimal/Above Optimal LDL: 110- 129 mg/dLBorderline High LDL: 130-159 mg/dLHigh LDL: 160-189 mg/dLVery High LDL: greater than or equal to 190 mg/dL HDL Cholesterol 45 >40 mg/dL [facility] Comment:Desirable HDL: great er than 40 mg/dL Note: This HDL assay may give artificially low results in patients with liver disease. 06/15/2024 10:4 4 AM EDT 06/15/2024 10:44 AM EDT us Generic External Data Provider LAB BLOOD ORDERAB LES Final Result Performing Organization Address City/[facility]/ZIP Co de Phone Number [facility] [address] [place] [phone] [phone] * High Sensitivity Troponin I (06/03/2024 5:42 PM EDT) TROPONIN I HIGH SENSITIVITY <2.7 <3.5 - 17.0 ng/L [facility] Comment:The Puente high sens itivity Troponin-I results should beused in conjunction with other diagnostic information suchas ECG, clinical observations and information, and patientsymptoms to aid in the diagnosis of GA. 06/03/2024 5:42 PM EDT 06/03/2024 5:46 PM EDT us Generic External Data Provider LAB BLOOD ORDERAB LES Final Result [facility] [address] [place], [place] [phone] * XR Chest 1 View (06/03/2024 3:22 PM EDT) Anatomical Region Laterality Modality Chest Radiographic Jazz ging 06/03/2024 3:22 PM EDT Narrative 06/03/2024 4:17 PM EDT ? [facility] ?[address] ?[place] [address] ?XRay Report ? Signed ? Patient: Ivory Daniel I ?MR#: [id number] ?? 98 ? : 1980 ?Acct:[id number] ? Age/Sex: 43 / F ?ADM Date: 06/03/24 ? Loc: HO.ED ? Attending Dr: ? Ordering Physician: Aleta Oh DO ?? Date of Service: 06/03/24 ?? Procedure(s): XR chest 1V ?? Accession Number(s): [id number] ? cc: Aleta Oh DO; NameMulugeta MD ? EXAMINATION: ?? XR CHEST ? CLINICAL [...] DD/ 1522 ? TD/TT: 06/03/24 1402 ? Sole Molding Machine Operator: ? Procedure Note Donromieter, Image - 06/03/[address] [address] XRay Report Signed Patient: Ivory Daniel IMR#: [id number] 98 : 1980Acct:[id number] Age/Sex: 43 / FADM Date: 06/03/24 Loc: HO.ED Attending Dr: Ordering Physician: Aleta Oh DO Date of Service: 06/03/24 Procedure(s): XR chest 1V Accession Number(s): [id number] cc: Aleta Oh DO; Name,Mulugeta HUANG EXAMINATION: [...] 06/03/24 1614 DD/ 1522 TD/TT: 06/03/24 1402 Sole Molding Machine Operator: [facility] External Provider IMG XR PROCEDURES Final Result * (ABNORMAL) POCT HGB A1C [...] EDT Narrative 08/08/2023 8:49 AM EDT ? [facility] [place] ? [address] ?[place] [address] ? Mammography Report ? Signed ? Patient: Ivory Daniel I ?MR#: [id number] ?? 98 ? : 1980 ?Acct:[id number] ? Age/Sex: 43 / F ?ADM Date: 07/10/23 ? Loc: HO.MAMMO ? Attending Dr: Mulugeta Name MD ? Ordering Physician: Name,Mulugeta MD ?Results: 1Negative ? Date of Service: 07/10/23 ?Follow Up: 1 Year From Orig ?? inal Mammogram ? Procedure(s): MM tomosynthesis screening BI ?? Accession Number(s): [id number] ? cc: Name,Mulugeta HUANG ? EXAMINATION: ?? [...] 0845 ? DD/ 1015 ? TD/TT: ? Sole Molding Machine Operator: ? Procedure Note Dee Newton - 08/08/2023 [facility] [address] [place] [address] Dr. Bar, [place]NG [address] Mammography Report Signed Patient: Ivory Daniel IMR#: [id number] 98 : 1980Acct:[id number] Age/Sex: 43 / FADM Date: 07/10/23 Loc: [facility].CLAIRO Attending Dr: Mulugeta Peralta MD Ordering Physician: Mulugeta Peraltaesults: 1Negative Date of Service: 07/10/23Follow Up: 1 Year From Orig inal Mammogram Procedure(s): MM tomosynthesis screening BI Accession Number(s): [id number] cc: Name,Mulugeta HUANG EXAMINATION: MM SCREENING DIGITAL [...] in OV> 08/08/23 0845 DD/ 1015 TD/TT: Sole Molding Machine Operator: Mulugeta Peralta MD [facility] [place] PROCEDURES Edited Result - Final * Hepatitis C Antibody with Reflex to HCV, RNA, Quantitative, Real-Time PCR (06/03/2022 10:57 AM EDT) Hepatitis C Antibody NON-REACT KELLY NON-REACT KELLY [facility] Index 0.09 <1.00 [facility] Comment: HCV antibody was non-reactive. There is no laboratory evidence of HCV infection. In most cases, no further action is required. However, if recent HCV exposure is suspected, a test for HCV RNA (test code 05219) is suggested. For additional information please refer to http://education.Jumptap/faq/BKE57h8 (This link is being provided for informational/ educational purposes only.) Blood Venous blood specimen / Unknown 06/03/2022 10:57 AM EDT 06/03/2022 10:58 AM EDT Narrative [facility] - 06/04/2022 8:43 PM EDT FASTING:NO FASTING: NO Candice ALCALA LAB BLOOD ORDERABLES Nani l Result Performing Organization Address City/[facility]/ZIP Co de Phone Number [facility] [address], [facility] [place] [phone] [facility] [address] [place] [phone] * HIV-1/2 Antigen and Antibodies, Fourth Generation, with Reflexes (06/03/2022 10:57 AM EDT) [facility] [address] HIV Antigen/Antibody, 4th Generation NON-REAC TIVE NON-REAC TIVE [facility] Comment: HIV-1 antigen and HIV-1/HIV-2 antibodies [...] ?? For additional information please refer to http://education.Aentropico.[employer]/faq/DHY652 (This link is being provided for informational/ educational purposes only.) The performance of this assay has not been clinically validated in patients less than 2 years old. Blood Venous blood specimen / Unknown 06/03/2022 10:57 AM EDT 06/03/2022 10:58 AM EDT Narrative [facility] - 06/04/2022 8:43 PM EDT FASTING:NO FASTING: NO Candice Morrell [facility] BLOOD ORDERABLES Nani l Result Performing Organization Address [facility]/ZIP Co de Phone Number [address], [facility] [place] [address] [facility] [address] [place] [phone] * Image-Guided Pap with Age-Based Screening??with CT/NG,??Trichomonas (06/03/2022 10:47 AM EDT) Comment [facility] Comment: This order for age-based cervical cancer and STI screening follows ACOG guidelines(PB 168, 140, LJG820). See individual assays for performing site location. Clinical Information: Routine exam [facility] LMP: NONE GIVEN [facility] Prev. PAP: NONE GIVEN [facility] Prev. BX: NONE GIVEN [facility] SOURCE: None given [facility] Statement Of Adequacy: [facility] Comment: Satisfactory for evaluation. Endocervical/transformation zone component present. Interpretation/Re sult: Negative for intraepithelial lesion or malignancy. [facility] COMMENT: This Pap test has been evaluated with computer assisted technology. [facility] Clinical Safety Manager: [facility] Comment: [facility], CT(ASCP) CT screening location: [address] ??[address] (Always Message) [facility] Comment: EXPLANATORY NOTE: The Pap is a [...] HPV nRNA E6/E7 Not Detected Not Detected [facility] Comment: Methodology: Is Architect-Mediated Amplification This assay detects E6/E7 viral messenger RNA (mRNA) from 14 high-risk HPV types (16,18,31,33,35,39,45,51,52,56,58,59,66,68). Cervical sources are required for HPV testing. If a vaginal source from a patient who has had a total hysterectomy with removal of cervix was submitted, please contact the testing laboratory for alternative testing options. For additional information, please refer to http://education.Jumptap/faq/XPI521j9 (This link if provided for information/ educational purposes only.) Chlamydia trachomatis RNA, TMA, Urogenital NOT DETECTED NOT DETECTED [facility] Neisseria gonorrhoeae RNA, TMA, Urogenital NOT DETECTED NOT DETECTED [facility] (Always Message) Que st [facility] Comment: The analytical performance characteristics of this assay, when used to test SurePath(TM) specimens have been determined by [facility]. The modifications have not been cleared or approved by the FDA. This assay has been validated pursuant to the CLIA regulations and is used for clinical purposes. For additional information, please refer to https://kenxus.Jumptap/faq/TQW796 (This link is being provided for information/ educational purposes only.) Trichomonas vaginalis, QL, TMA, PAP Vial NOT DETECTED NOT DETECTED [facility] Comment: The analytical performance characteristics of this assay have been determined by [facility]. The modifications have not been cleared or approved by the FDA. This assay has been validated pursuant to the CLIA regulations and is used for clinical purposes. For additional information, please refer to http://kenxus.Jumptap/ faq/Trichomonastma (This link is being provided for information/ educational purposes only.) Cytology specimen container (physical object) 06/03/2022 10:47 AM EDT 06/04/2022 5:15 AM EDT Candice Morrell [facility] CYTOLOGY ORDERABLES F inal Result [facility] [address], [place] [address] [facility] [address] [place] [phone] from Last 3 Months or Most Recently Relevant to Health Maintenance Insurance * Guarantor: Ivory aDniel I Account Type Relation to Patient Date of Phone Billing Address Personal/Family Self 1980 [address] [place] [address] [facility] < 65 [place] [phone] Care Teams Medical Nurse Relationship Specialty Start Date End Date Name, MD Mulugeta [address] [place] [address] PCP - General Family Medicine 06/06/15
--- OUTSIDE RECORDS SUMMARY | 2024-07-15 10:50 | XMS_ITS | Encounter Summary ---
Author Organization [employer] Address [address] [facility] 7t [place] [address] Care Team Providers Care Mechanical Ordnance Assembler Name Role Phone Name, Mulugeta HUANG Primary Care Provider [phone] Reason for Visit * Reason Onset Date Comments lab request 05/08/2022 Encounter Details Date Type Department Care Team ([facility] st Contact Info) Description 05/08/2022 Telephone [facility] [address] [place], [place] [phone] Name, MD Mulugeta [address] [place] [address] lab request Social History Tobacco Use Types [...] before going for her heart study at [facility] on 04/24/22. Please call pt to clarify . documented in this encounter Plan of Treatment Upcoming Encounters Date Type Department Care Team (Late st Contact Info) Description 10/25/2024 11:30 AM EDT Office Visit [facility] [address] [place] [phone] Name, MD Mulugeta [address] [place] [phone] documented as of this encounter Visit Diagnoses Not on filedocumented in this encounter Care Teams Mechanical Ordnance Assembler Relationship Specialty Start Date End Date NameMulugeta MD [address] [place] [phone] PCP - General Family Medicine 06/06/15 documented as of this encounter
--- OUTSIDE RECORDS SUMMARY | 2024-07-15 10:50 | XMS_ITS | Encounter Summary ---
Author Organization [employer] Address [address] [facility] 7t [place] [address] Care Team Providers Care Hydraulic Modeling Engineer Name Role Phone Name, Mulugeta HUANG Primary Care Provider [phone] Reason for Visit * Reason Comments Med Refill Encounter Details Date Type Department Care Team ([facility] Contact Info) Description 06/26/2023 Refill [facility] [address] [place], [place] [phone] Name, MD Mulugeta [address] [place] [address] Social History Tobacco Use Types Packs/Day Years [...] Description 10/25/2024 11:30 AM EDT Office Visit [facility] [address] [place] [phone] Name, MD Mulugeta [address] [place] [phone] documented as of this encounter Visit Diagnoses Not on filedocumented in this encounter Additional Health Concerns Assessment Noted Time PHQ-9 Depression Total Score: 0 05/29/19 24 10:30 AM EDT documented as of this encounter Care Teams Hydraulic Modeling Engineer Relationship Specialty Start Date End Date NameMulugeta MD [address] [place] [phone] PCP - General Family Medicine 06/06/15 documented as of this encounter
--- OUTSIDE RECORDS SUMMARY | 2024-07-15 10:50 | XMS_ITS | Encounter Summary ---
Author Organization [employer] Address [address] [facility] [address] [place] [address] Care Team Providers Care Cloud Developer Name Role Phone Name, Mulugeta HUANG Primary Care Provider [phone] Reason for Visit * Reason Onset Date Comments Med Refill 10/23/2023 Encounter Details Date Type Department Care Team ([facility] st Contact Info) Description 10/23/2023 Refill [facility] [address] [place], [place] [id number] Name, MD Mulugeta [address] [place] [address] Obesity (BMI 30-39.9) Social History Tobacco Use [...] Description 10/25/2024 11:30 AM EDT Office Visit [facility] [address] [place] [id number] Name, MD Mulugeta [address] [place] [id number] documented as of this encounter Visit Diagnoses Diagnosis Obesity (BMI 30-39.9) documented in this encounter Additional Health Concerns Assessment Noted Time PHQ-9 Depression Total Score: 0 05/29/19 24 10:30 AM EDT documented as of this encounter Care Teams Cloud Developer Relationship Specialty Start Date End Date Mulugeta Peralta MD [address] [place] [id number] PCP - General Family Medicine 06/06/15 documented as of this encounter
--- OUTSIDE RECORDS SUMMARY | 2024-07-15 10:50 | XMS_ITS | Clinical Summary ---
Author Organization [employer] [facility] ity Address [address] [place] [address] Care Team Providers Care Foreign Student Adviser Name Role Phone Name, Mulugeta HUANG Primary Care Provider [phone] Surgical History Surgery Date Site/Laterality Comments OTHER [...] RESULTING AGENCY - 09/14/2018 12:06 PM EDT [id number] THINPREP PAP, IMAGED: NEGATIVE FOR SQUAMOUS INTRAEPITHELIAL [...] Recently Relevant to Health Maintenance Care Teams Foreign Student Adviser Relationship Specialty Start Date End Date Name, MD Mulugeta [address] [place], [place] PCP - General 06/30/16
== END 2024-07-15 09:56 | disposition home or self-care (01) ==
LOC: HO.MAMMO 09:55
PROVIDERS: PCP Internal Medicine Geriatric Medicine; Visit Provider Internal Medicine Geriatric Medicine
DX: Z13.89 Encounter for screening for other disorder (principal)

== ENCOUNTER 2024-07-16 14:29 | Outpatient (AMB) | payer OTHER, SELFPAY ==
--- OUTSIDE RECORDS SUMMARY | 2024-07-16 14:31 | XMS_ITS | Clinical Summary ---
Author Organization [employer] [facility] ity Address [address] [place] [address] Care Team Providers Care Forensic Chemist Name Role Phone Name, Mulugeta HUANG Primary Care Provider Surgical History Surgery Date Site/Laterality Comments OTHER [...] RESULTING AGENCY - 09/14/2018 12:06 PM EDT [id number] THINPREP PAP, IMAGED: NEGATIVE FOR SQUAMOUS INTRAEPITHELIAL [...] Recently Relevant to Health Maintenance Care Teams Forensic Chemist Relationship Specialty Start Date End Date Name, MD Mulugeta [address] [place], [place] PCP - General 06/30/16
--- NOTE | 2024-07-16 14:35 | MHC.OFFVIS ---
Vital Signs 07/16/24 14:36 Height 5 ft 1 in Weight 185 lb 3.013 oz BMI 35.0 BP 94/53 L Blood Pressure Location Lt radial Position Sitting Pulse 67 Intake Visit Reasons: F/u labs/pre-screening colonoscopy r/s 07/07/24 Intake Note: Ivory presents in the office as a follow up for labs and a screening for a colonoscopy. CC: She is here today for the results of her blood work and is due for a colonoscopy. She states that she is not having any concerns. Cloth Winder Machine Operator Required: Yes Cloth Winder Machine Operator Services: Cloth Winder Machine Operator Present Cloth Winder Machine Operator Name: Dayday [id number] via video Information Interpreted: non-clinical & clinical Allergies seafood Allergy (Verified 07/16/24 14:38) Eye Swelling HPI HPI F/u labs/pre-screening colonoscopy r/s 07/07/24: Details: Patient is a 44-year-old female with PMH of former smoker,hyperlipidemia and GERD. She presents for follow up on ab pain. She reports ongoing abdominal pain and constipation. The abdominal pain is present but less frequent, occurring rarely now. The patient also previously experienced intermittent nausea and heartburn, which has decreased but still occurs occasionally. The patient notes that some days their bowel movements are normal, but constipation persists on other days. Foods such as salsa, sauces, coffee, and fried rolls with meat aggravate the acid reflux. The patient has had known gallstones and previously experienced right upper quadrant and epigastric pain, which now intermittently appears to epigastric region. The patient has not yet started Miralax due to difficulty with its taste. The patient is prescribed famotidine 20 mg BID for acid reflux, but only uses it post-prandially when experiencing symptoms. SOCIAL HISTORY: - Diet: Inconsistent fiber intake; consumes soda; avoids some dietary triggers like salsa and coffee. [facility] Medical History (Updated 07/16/24 @ 16:44 by Lexy Burch CNP) Colon cancer screening Change in stool Constipation Gallstones Surgical History History of esophagogastroduodenoscopy (EGD) Hx of colonoscopy H/O section Family History Family/Other Cancer Diabetes Social History Household Members: Spouse Unable to assess alcohol history related to: Unknown Alcohol intake: never Patient Tobacco Use Status: Never used Tobacco Current occupational status: unemployed Review of Systems Const Reports as per HPI ENT Reports as per HPI Card Reports as per HPI Resp Reports as per HPI GI Reports as per HPI Reports as per HPI Physical Exam Vital Signs: Last Vital Signs Pulse 67 07/16/24 14:36 BP 94/53 L 07/16/24 14:36 BMI result Body Mass Index 35.0 Const General: healthy appearing, no acute distress and well developed Nutritional Appearance: well nourished and obese Orientation/consciousness: patient oriented x3 HEENT Head: Yes normal to inspection, Yes normocephalic and Yes atraumatic Face and sinus: Yes normal facial exam Eyes General: appearance normal, both eyes and all related structures Neck Neck: Yes normal visual inspection Resp Effort & Inspection: normal respiratory effort, able to speak in complete sentences, no tracheal deviation and symmetric chest movement Auscultation: clear to auscultation bilaterally Cardio Jugular venous distension: no JVD Rate: regular rate Rhythm: regular rhythm Heart sounds: S1 normal heart sound present, S2 normal heart sound present, no gallops and no murmurs GI Inspection: Yes normal to inspection, No distended and Yes obesity Palpation (GI): Soft to palpation, not firm, nontender and No hepatosplenomegaly present Auscultation: Hypoactive bowel sounds present Neuro General: patient oriented x3 Gait exam (Neuro): Normal gait present Psych Appearance: grossly normal Mental Status: mental status grossly normal Speech and movement: Normal speech and movement present Affect: normal affect Attitude: cooperative Thought process: Normal thought process present Thought content: Normal thought content present Insight: Good insight present (Psych) Judgement: Good judgement present (Psych) Results Reviewed Results Reviewed: Laboratory Tests 09/23/23 06/15/24 14:35 10:44 Triglycerides 132 Cholesterol 161 LDL Cholesterol, Calc 90 HDL Cholesterol 45 TSH 2.55 Assessment & Plan Assessment & Plan (1) Abdominal pain: Code(s): R10.9 - Unspecified abdominal pain Category: Medical Qualifiers: Abdominal location: upper abdomen, unspecified Qualified Code(s): R10.10 - Upper abdominal pain, unspecified Plan: H. pylori negative; Transglutaminase IgA, Calprotectin Fecal, CRP negative making IBD less likely. Known Cholelithiasis without evidence of cholecystitis per January 2023 ultrasound. She did not feel the need to follow up with General Surgery. We discussed additional imaging, she is agreeable. We will also attempt to improve constipation as below. She is due for index screening colonoscopy and is agreeable. Additional Tests: Order HIDA scan to assess gallbladder function. Medications: Continue current famotidine. Lifestyle Modifications: Avoid known dietary triggers; increase fiber intake + as below (2) Constipation: Code(s): K59.00 - Constipation, unspecified Category: Medical Qualifiers: Constipation type: unspecified constipation type Qualified Code(s): K59.00 - Constipation, unspecified Plan: Suspect primary. TSH normal range at last collection. IBD less likely as noted above. Will trial addition of fiber tablet with titration goal of 2G daily. Reinforced lifestyle modifications to promote regularity: -higher fiber diet, examples provided -adequate hydration with water -150 minutes of moderate intensity exercise per week (3) Acid reflux: Code(s): K21.9 - Gastro-esophageal reflux disease without esophagitis Category: Medical Qualifiers: Esophagitis presence: without esophagitis Qualified Code(s): K21.9 - Gastro-esophageal reflux disease without esophagitis Plan: revisited EGD results from October 2019 with findings of superficial gastritis. We discussed daily PPI but Ivory is not keen on initiating. She will continue with the famotidine. Additional Tests: Repeat upper endoscopy. Medications: Famotidine to be taken before meals known to trigger symptoms Education: -Advised against heavy meals; encouraged small, frequent meals instead of large ones. - Instructed to remain upright for 2?3 hours after eating. - Advised to avoid late-night meals, spicy foods, caffeine, alcohol, known dietary triggers, and tight-fitting clothing. - Emphasis placed on gradual implementation of lifestyle changes to improve adherence and symptom control. (4) Colon cancer screening: Code(s): Z12.11 - Encounter for screening for malignant neoplasm of colon Category: Medical Plan: Due for index screening colonoscopy. Medicaitons: Prescriptions for laxative tablets and Miralax sent to pharmacy; instructions for Gatorade purchase and clear liquid diet given. Patient educated on procedure preparation, including avoiding certain foods and ensuring clear liquid intake. Advised on necessity for ride post-procedure due to sedation. Plan Follow-up after procedures are sooner as needed. Time: I spent a total of 60 minutes on the date of encounter which includes: Preparing to see the patient (reviewed previous documentation, test results and medical history) Performing a medically appropriate exam and/or evaluation Ordering medications, tests, and procedures Documenting clinical information in the health record Orders: Orders NM hepatobiliary w pharm Today K80.20 - Calculus of gallbladder without cholecystitis without obstruction, R10.10 - Upper abdominal pain, unspecified Medications: New polyethylene glycol 3350 (Miralax) per colonoscopy prep instructions 238 grams PO ONCE 238 grams 0RF bisacodyl Take four tablets once for 1 day per colonoscopy instructions 5 mg PO ONCE 1 day 4 tabs 0RF methylcellulose (laxative) (Citrucel) Take on tablet twice daily 500 mg PO BID 90 tabs 1RF Coding Level of Care Code Established Pt Est Pt Level 5 (93493) Patient Type Established Diagnoses Pain of upper abdomen R10.10 Abdominal location: upper abdomen, unspecified Constipation, unspecified constipation type K59.00 Constipation type: unspecified constipation type Gastroesophageal reflux disease without esophagitis K21.9 Esophagitis presence: without esophagitis Colon cancer screening Z12.11
[2024-07-16 14:36] VITALS: BP 94/53; PULSE 67; BMI 35.0
== END 2024-07-16 15:22 | disposition home or self-care (01) ==
LOC: HO.HGI 14:29
PROVIDERS: PCP Internal Medicine Geriatric Medicine; Visit Provider Nurse Practitioner Family
DX: R10.10 Upper abdominal pain, unspecified (principal); K59.00 Constipation, unspecified; K21.9 Gastro-esophageal reflux disease without esophagitis; Z12.11 Encounter for screening for malignant neoplasm of colon
CPT/HCPCS: 99024

== ENCOUNTER → 2024-07-16 14:29 | Outpatient (BNVA) | payer OTHER, SELFPAY | PROVIDERS: PCP Internal Medicine Geriatric Medicine; Visit Provider Nurse Practitioner Family | DX: Z12.11 Encounter for screening for malignant neoplasm of colon (principal); K59.00 Constipation, unspecified; K21.9 Gastro-esophageal reflux disease without esophagitis; R10.10 Upper abdominal pain, unspecified | CPT/HCPCS: 99212 ==

== ENCOUNTER 2024-07-19 09:53 | Outpatient (REF) | payer OTHER, SELFPAY ==
--- OUTSIDE RECORDS SUMMARY | 2024-07-19 10:13 | XMS_ITS | Clinical Summary ---
Author Organization [employer] Address [address] [facility] 7t [place] [address] Care Team Providers Care Language Instructor Name Role Phone Name, Mulugeta HUANG Primary Care Provider [phone] Allergies Active Allergy Reactions Criticality Noted Date [...] affected area 60 g 1 024 Active baclofen (Lioresal) 10 MG tablet Take 1 tablet (10 mg) by mouth if needed in the morning, at noon, and at bedtime for muscle spasms. 60 tablet 1 025 Active naproxen (Naprosyn) 500 MG tablet Take 1 tablet (500 mg) by mouth if needed in the morning and at bedtime for mild pain. 30 tablet 1 025 2025 Active lidocaine (Lidoderm) 5 % patchIndicatio ns:Acute [...] NEEDED FOR PAIN 150 g 1 Active ibuprofen 800 MG tabletIndicati ons:Back muscle spasm TAKE 1 TABLET BY MOUTH THREE TIMES DAILY 90 tablet 2 025 Active atorvastatin (Lipitor) 10 MG tablet Take 1 tablet by mouth Once per day. 025 Active cholecalcifero l (Vitamin D-3) 25 MCG tablet TAKE 1 TABLET BY MOUTH EVERY MORNING 90 tablet 1 025 Active Semaglutide-We ight Management (Wegovy) 1 MG/0.5ML solution auto-injector INJECT ONE PEN (=1 MG) SUBCUTANEOUSLY ONCE A WEEK 2 mL 024 2024 Discontinued(T herapy completed) cholecalcifero l (Vitamin D-3) 25 MCG tablet TAKE 1 TABLET BY MOUTH EVERY DAY IN THE MORNING 90 tablet 024 2024 Discontinued Semaglutide-We ight Management (Wegovy) 2.4 MG/0.75ML solution auto-injectorI ndications:Obe sity, unspecified INJECT ONE PEN (= 2.4 MG) SUBCUTANEOUSLY ONCE A WEEK 3 mL 025 2024 Discontinued(T herapy completed) Active Problems Problem Noted Date Diagnosed Date [...] 05/23/2022 Overview (05/23/2022): 7 grade education in [place] Does not know how to read or write Kosovan Epigastric pain 04/09/2022 H. pylori infection 04/09/2022 [...] Encounters Date Type Department Care Team Description 07/15/2024 1:40 PM EDT Office Visit [facility] [address] [address] Nipple discharge (Primary Dx) 07/15/2024 Travel 07/15/2024 Refill [facility] P[facility] [address] [place] [address] Marce Carballo MD 07/15/[address] [address] Mulugeta Peralta MD Referral (Pt requesting breast specialist pt is concern with her breast. She stated she haves liquid coming out. ) 07/07/[address] [address] Niall Hogan MA october recalls 07/01/2024 11:30 AM EDT Office Visit [address] [address] Mulugeta Peralta MD LBBB (left bundle branch block) (Primary Dx); Palpitations 07/01/2024 Travel 06/29/2024 Orders Only GENERIC EXTERNAL DATA DEPARTMENT Provider, Generic External Data 06/29/[address] [address] Tim Padron MA chartprep 06/15/2024 Orders Only GENERIC EXTERNAL DATA DEPARTMENT Provider, Generic External Data 06/04/2024 3:00 PM EDT Office Visit [address] [address] Cleveland Pollack MD Hyperpigmentation (Primary Dx) 06/04/2024 Travel 06/03/2024 1:00 PM EDT Office Visit [facility] [address] [address] Shannon Diaz MD Shortness of breath (Primary Dx); Ankle edema, bilateral; Obesity (BMI 30-39.9); Abnormal EKG 06/03/2024 Orders Only [facility] External Provider, [facility] [place] 06/03/2024 Telephone [facility] [address] [address] Oma Jay, [place] expect report called [facility] 04/29/2024 Refill [facility] [address] [place] [address] Name, MD Mulugeta Back muscle spasm 04/28/2024 Telephone [facility] MED[facility] [address] [place] [address] Name, MD Mulugeta from Last 3 Months Immunizations Immunization Administration [...] Reading Time Taken Comments Blood Pressure 124/71 07/15/2024 2:05 PM EDT Pulse 75 07/15/2024 2:05 PM EDT Temperature 36.6 ??C (97.9 ??F) 07/15/2024 2:05 PM ED T Respiratory Rate 16 07/15/2024 2:05 PM EDT Oxygen Saturation 98% 07/15/2024 2:05 PM EDT Inhaled Oxygen Concentration - - Weight 86.6 kg (191 lb) 07/15/2024 2:05 PM EDT Height 154.9 cm (5' 1 ) 07/01/2024 11:18 AM EDT Body Mass Index 36.09 07/01/2024 11:18 AM EDT Plan of Treatment Upcoming Encounters Date Type Department Care Team (Late st Contact Info) Description 10/25/2024 11:30 AM EDT Office Visit [facility] [address] [place] [address] Name, MD Mulugeta [address] [place] [address] Health Maintenance Due Date Last Done Comments [...] 07/01/2025 07/01/2024 Depression Screening 07/01/2025 07/01/2024, 07/02/19 SDOH Screening 07/01/2025 07/01/2024 Tobacco Screening 07/01/2025 07/01/2024 Mammogram 07/09/2025 07/10/2023, 050 06/2022, 07/04/2022, Additional [...] Binding Capacity (06/29/2024 1:04 PM EDT) Pathologist [facility] Iron 65 30 - 160 mcg/dL [facility] Total Iron Binding Capacity 316 228 - 428 mcg/dL [facility] Percent Iron Saturation 21 15 - 50 % [facility] Unsaturated Iron Binding 251 ug/dL [facility] 06/29/2024 1:04 PM EDT 06/29/2024 1:04 PM EDT Generic External Data Provider LAB BLOOD ORDERAB LES Final Result Performing Organization Address [facility] de Phone Number [facility] [address] [place] [phone] * Tissue Transglutaminase Antibody, IgA (06/29/2024 1:04 PM EDT) [facility] Transglutaminase IgA <1.0 U/mL [facility] Comment:Value Interpretation ----- <15.0 Antibody not detected> or = 15.0 Antibody detectedTHIS TEST WAS PERFORMED AT:[employer] [address] [phone] ALCANTARA MD 06/29/2024 1:04 PM EDT 06/29/2024 1:04 PM EDT Generic External Data Provider LAB BLOOD ORDERAB LES Final Result Performing Organization Address [facility] Co de Phone Number [facility] [address] [place] [phone] * C-reactive Protein (06/29/2024 1:04 PM EDT) [facility] C Reactive Protein 0.11 < or = 0.50 mg/dL [facility] 06/29/2024 1:04 PM EDT 06/29/2024 1:04 PM EDT us Generic External Data Provider LAB BLOOD ORDERAB LES Final Result Performing Organization Address [facility]/ZIP Co de Phone Number [facility] [address] [place] [phone] * Lipase (06/29/2024 1:04 PM EDT) [facility] Lipase 62 8 - 78 U/L [facility] 06/29/2024 1:04 PM EDT 06/29/2024 1:04 PM EDT Generic External Data Provider LAB BLOOD ORDERAB LES Final Result Performing Organization Address [facility] de Phone Number [facility] [address] [place] [phone] * (ABNORMAL) Comprehensive Metabolic Panel (06/29/2024 1:04 PM EDT) [facility] Sodium 140 135 - 145 mmol/L [facility] Potassium 4.0 3.3 - 5.1 mmol/L [facility] Chloride 107 96 - 108 mmol/L [facility] Carbon Dioxide 28 22 - 29 mmol/L [facility] Anion Gap 9(L) 12 - 20 [facility] Urea Nitrogen (BUN) 15 9 - 16 mg/dL [facility] Creatinine, Serum 0.67 0.5 - 1.4 mg/dL [facility] Estimated Glomerular Filt Rate >60 [facility] Comment:Chronic Kidney Disea se: Estimated GFR < 60 mL/min/1.25j9Vbcvor Kidney Disease: Estimated GFR < 15 mL/min/1.73m2 Glucose 88 60 - 115 mg/dL [facility] Calcium 9.2 8.4 - 10.2 mg/dL [facility] Bilirubin, Total 0.6 0.0 - 1.0 mg/dL [facility] Aspartate Amino Transferase 13 5 - 31 U/L [facility] Alanine Aminotransferase 12 0 - 31 U/L [facility] Total Protein 7.2 6.5 - 8.0 g/dL [facility] Albumin Level 4.3 3.5 - 5.0 g/dL [facility] Alkaline Phosphatase 41 39 - 117 U/L [facility] 06/29/2024 1:04 PM EDT 06/29/2024 1:04 PM EDT us Generic External Data Provider LAB BLOOD ORDERAB LES Final Result [facility] [address] [place] [address] [phone] * ECG 12 lead (06/15/2024 10:48 AM EDT) Narrative Shannon Diaz MD - 06/15/2024 10:48 AM EDT See image us Shannon Diaz MD ECG ORDERABLES Final Resu lt * Lipid Panel, Standard (06/15/2024 10:44 AM EDT) Triglycerides 132 <150 mg/dL [facility] Comment:Desirable Triglyceri de: less than 150 mg/dLBorderline High Triglyceride 150-199 mg/dLHigh Triglyceride: 200-499 mg/dLVery High Triglyceride: greater than or equal to 5OO mg/dL Cholesterol 161 <200 mg/dL [facility] Comment:Desirable Cholestero l: less than 200 mg/dLBorderline High Cholesterol: 200-239 mg/dLHigh Cholesterol: greater than 239 mg/dL LDL Cholesterol Calculated 90 <100 mg/dL [facility] Comment:Desirable LDL: less than 100 mg/dLNear Optimal/Above Optimal LDL: 110- 129 mg/dLBorderline High LDL: 130-159 mg/dLHigh LDL: 160-189 mg/dLVery High LDL: greater than or equal to 190 mg/dL HDL Cholesterol 45 >40 mg/dL [facility] Comment:Desirable HDL: great er than 40 mg/dL Note: This HDL assay may give artificially low results in patients with liver disease. 06/15/2024 10:4 4 AM EDT 06/15/2024 10:44 AM EDT Generic External Data Provider LAB BLOOD ORDERAB LES Final Result Performing Organization Address [facility] Phone Number [facility] [address] [place] [phone] * High Sensitivity Troponin I (06/03/2024 5:42 PM EDT) [facility] TROPONIN I HIGH SENSITIVITY <2.7 <3.5 - 17.0 ng/L [facility] Comment:The Puente high sens itivity Troponin-I results should beused in conjunction with other diagnostic information suchas ECG, clinical observations and information, and patientsymptoms to aid in the diagnosis of [place]. 06/03/2024 5:42 PM EDT 06/03/2024 5:46 PM EDT Generic External Data Provider LAB BLOOD ORDERAB LES Final Result Performing Organization Address [facility] Phone Number [facility] [address] [place] [phone] * XR Chest 1 View (06/03/2024 3:22 PM EDT) Anatomical Region Laterality Modality Chest Radiographic Jazz ging 06/03/2024 3:22 PM EDT Narrative 06/03/2024 4:17 PM EDT ? [facility] [place] ?[address] ?[place] [address] ?XRay Report ? Signed ? Patient: Daniel,Ivory I ?MR#: [id number] ?? 98 ? : 1980 ?Acct:[id number] ? Age/Sex: 43 / F ?ADM Date: 04/03/25 ? Loc: HO.ED ? Attending Dr: ? Ordering Physician: Aleta Oh DO ?? Date of Service: 06/03/24 ?? Procedure(s): XR chest 1V ?? Accession Number(s): [id number] ? cc: Aleta Oh DO; Name,Mulugeta HUANG [...] DD/ 1522 ? TD/TT: 06/03/24 1402 ? Turbine Engineer: ? Procedure Note Jose Alejandroter, Image - 06/03/2024 [place] [address] XRay Report Signed Patient: Ivory Daniel IMR#: [id number] 98 : 1980Acct:[id number] Age/Sex: 43 / FADM Date: 06/03/24 Loc: HO.ED Attending Dr: Ordering Physician: Aleta Oh DO Date of Service: 06/03/24 Procedure(s): XR chest 1V Accession Number(s): [id number] cc: Aleta Oh DO; Name,Mulugeta HUANG EXAMINATION: [...] 06/03/24 1614 DD/ 1522 TD/TT: 06/03/24 1402 Turbine Engineer: [facility] External Provider IMG XR PROCEDURES Final [...] AM EDT ? [facility] [place] ? [address] ?[place] [address] ? Mammography Report ? Signed ? Patient: María,Ivory I ?MR#: [id number] ?? 98 ? : 1980 ?Acct:[id number] ? Age/Sex: 43 / F ?ADM Date: 05/09/24 ? Loc: HO.MAMMO ? Attending Dr: Mulugeta Name MD ? Ordering Physician: Name,Mulugeta MD ?Results: 1Negative ? Date of Service: 07/10/23 ?Follow Up: 1 Year From Orig ?? inal Mammogram ? Procedure(s): MM tomosynthesis screening BI ?? Accession Number(s): [id number] ? cc: Name,Mulugeta HUANG ? EXAMINATION: ?? [...] 0845 ? DD/ 1015 ? TD/TT: ? Turbine Engineer: ? Procedure Note Aman, Image - [facility]/07/[facility] [address] [place] [address] Mammography Report Signed Patient: Ivory Daniel IMR#: [id number] 98 : 1980Acct:[id number] Age/Sex: 43 / FADM Date: 07/10/23 Loc: HO.MAMMO Attending Dr: Mulugeta Peralta MD Ordering Physician: Mulugeta Peralta MDResults: 1Negative Date of Service: 07/10/23Follow Up: 1 Year From Orig inal Mammogram Procedure(s): MM tomosynthesis screening BI Accession Number(s): [id number] cc: Mulugeta Peralta MD EXAMINATION: MM SCREENING [...] in OV> 08/08/23 0845 DD/ 1015 TD/TT: Turbine Engineer: Mulugeta Peralta MD IM BI PROCEDURES Edited Result - Final * Hepatitis C Antibody with Reflex to HCV, RNA, Quantitative, Real-Time PCR (06/03/2022 10:57 AM EDT) Hepatitis C Antibody NON-REACT KELLY NON-REACT KELLY [facility] [employer] Index 0.09 <1.00 [facility] Comment: HCV antibody was non-reactive. There is no laboratory evidence of HCV infection. In most cases, no further action is required. However, if recent HCV exposure is suspected, a test for HCV RNA (test code 90993) is suggested. For additional information please refer to http://MSDSonline.com.Stylewhile/faq/RHB95f0 (This link is being provided for informational/ educational purposes only.) Blood Venous blood specimen / Unknown 06/03/2022 10:57 AM EDT 06/03/2022 10:58 AM EDT Narrative [facility] - 06/04/2022 8:43 PM EDT FASTING:NO FASTING: NO Candice Morrell [facility] LAB BLOOD ORDERABLES Nani l Result [facility] [address], [place] [address] [facility] [employer] [address] [place] [address] * HIV-1/2 Antigen and Antibodies, Fourth Generation, with Reflexes (06/03/2022 10:57 AM EDT) Pathologist [facility] HIV Antigen/Antibody, 4th Generation NON-REAC TIVE NON-REAC TIVE [facility] [employer] Comment: HIV-1 antigen and HIV-1/HIV-2 antibodies were [...] ?? For additional information please refer to http://MSDSonline.com.Stylewhile/faq/TCH228 (This link is being provided for informational/ educational purposes only.) The performance of this assay has not been clinically validated in patients less than 2 years old. Blood Venous blood specimen / Unknown 06/03/2022 10:57 AM EDT 06/03/2022 10:58 AM EDT Narrative [facility] - 06/04/2022 8:43 PM EDT FASTING:NO FASTING: NO us Candice Morrell [facility] BLOOD ORDERABLES Nani l Result RO [address], [place] [address] [facility] [employer] [address] [place] [address] * Image-Guided Pap with Age-Based Screening??with CT/NG,??Trichomonas (06/03/2022 10:47 AM EDT) Comment [email or web address] Comment: This order for age-based cervical cancer and STI screening follows ACOG guidelines(PB 168, 140, KYV416). See individual assays for performing site location. Clinical Information: Routine exam [email or web address] LMP: NONE GIVEN [facility] Prev. PAP: NONE GIVEN [facility] Prev. BX: NONE GIVEN [facility] SOURCE: None given [facility] Statement Of Adequacy: [email or web address] Comment: Satisfactory for evaluation. Endocervical/transformation zone component present. Interpretation/Re sult: Negative for intraepithelial lesion or malignancy. [email or web address] COMMENT: This Pap test has been evaluated with computer assisted technology. [email or web address] Relations Manager: Antonia [employer] Comment: WAC, CT(ASCP) CT screening location: [address] ??[address] (Always Message) [facility] [employer] Comment: EXPLANATORY NOTE: The Pap is a [...] HPV nRNA E6/E7 Not Detected Not Detected [email or web address] Comment: Methodology: Prison Classification Counselor-Mediated Amplification This assay detects E6/E7 viral messenger RNA (mRNA) from 14 high-risk HPV types (16,18,31,33,35,39,45,51,52,56,58,59,66,68). Cervical sources are required for HPV testing. If a vaginal source from a patient who has had a total hysterectomy with removal of cervix was submitted, please contact the testing laboratory for alternative testing options. For additional information, please refer to http://MSDSonline.com.Stylewhile/faq/FOL708m2 (This link if provided for information/ educational purposes only.) Chlamydia trachomatis RNA, TMA, Urogenital NOT DETECTED NOT DETECTED [email or web address] Neisseria gonorrhoeae RNA, TMA, Urogenital NOT DETECTED NOT DETECTED [email or web address] (Always Message) [employer] Comment: The analytical performance characteristics of this assay, when used to test SurePath(TM) specimens have been determined by [facility]. The modifications have not been cleared or approved by the FDA. This assay has been validated pursuant to the CLIA regulations and is used for clinical purposes. For additional information, please refer to https://MSDSonline.com.Stylewhile/faq/CMA262 (This link is being provided for information/ educational purposes only.) Trichomonas vaginalis, QL, TMA, PAP Vial NOT DETECTED NOT DETECTED [email or web address] Comment: The analytical performance characteristics of this assay have been determined by [facility]. The modifications have not been cleared or approved by the FDA. This assay has been validated pursuant to the CLIA regulations and is used for clinical purposes. For additional information, please refer to http://MSDSonline.com.Stylewhile/ faq/Trichomonastma (This link is being provided for information/ educational purposes only.) Cytology specimen container (physical object) 06/03/2022 10:47 AM EDT 06/04/2022 5:15 AM EDT Candice Morrell CNM LAB CYTOLOGY ORDERABLES F inal Result [facility] [address] [facility], [place] [address] [facility] [address] [place] [address] from Last 3 Months or Most Recently Relevant to Health Maintenance Insurance [facility] < [address] [id number] Care Teams Language Instructor Relationship Specialty Start Date End Date Name, MD Mulugeta [address] [place] [address] [place] [address] PCP - General Family Medicine 06/06/15
--- OUTSIDE RECORDS SUMMARY | 2024-07-19 10:13 | XMS_ITS | Encounter Summary ---
Author Organization [employer] Address [address] [facility] 7t [place] [address] Care Team Providers Care Commercial Real Estate Associate Name Role Phone Name, Mulugeta HUANG Primary Care Provider [phone] Reason for Visit * Reason Onset Date Comments Appointment Request 05/09/2022 Encounter Details Date Type Department Care Team ([facility] st Contact Info) Description 05/09/2022 Telephone [facility] [address] [place], [place] [phone] Name, MD Mulugeta [address] [place] [address] Appointment Request Social History Tobacco Use Types [...] 1 WEEK prior to heart study at [facility]. date 05/22 ) Please contact pt at [phone] documented in this encounter Plan of Treatment Upcoming Encounters Date Type Department Care Team (Late st Contact Info) Description 10/25/2024 11:30 AM EDT Office Visit [facility] [address] [place] [address] Name, MD Mulugeta [address] [place] [address] documented as of this encounter Visit Diagnoses Not on filedocumented in this encounter Care Teams Commercial Real Estate Associate Relationship Specialty Start Date End Date NameMulugeta MD [address] [place] [phone] PCP - General Family Medicine 06/06/15 documented as of this encounter
--- OUTSIDE RECORDS SUMMARY | 2024-07-19 10:13 | XMS_ITS | Encounter Summary ---
Author Organization [employer] Address [address] [facility] 7t [place] [address] Care Team Providers Care Landscape Maintenance Internship Name Role Phone Name, Mulugeta HUANG Primary Care Provider [phone] Reason for Visit * Reason Comments Med Refill Encounter Details Date Type Department Care Team ([facility] Contact Info) Description 06/26/2023 Refill [facility] [address] [place], [place] [phone] Name, MD Mulugeta [address] [place] [address] Social History Tobacco Use Types Packs/Day Years [...] Description 10/25/2024 11:30 AM EDT Office Visit [facility] [address] [place] [address] Name, MD Mulugeta [address] [place] [address] documented as of this encounter Visit Diagnoses Not on filedocumented in this encounter Additional Health Concerns Assessment Noted Time PHQ-9 Depression Total Score: 0 05/29/19 24 10:30 AM EDT documented as of this encounter Care Teams Landscape Maintenance Internship Relationship Specialty Start Date End Date NameMulugeta MD [address] [place] [phone] PCP - General Family Medicine 06/06/15 documented as of this encounter
--- OUTSIDE RECORDS SUMMARY | 2024-07-19 10:13 | XMS_ITS | Clinical Summary ---
Author Organization [facility] ity Address [address] [place] [address] Care Team Providers Care Second Facing Baster Name Role Phone Name, Mulugeta HUANG Primary Care Provider [phone] Surgical History Surgery Date Site/Laterality Comments OTHER [...] RESULTING AGENCY - 09/14/2018 12:06 PM EDT [id number] THINPREP PAP, IMAGED: NEGATIVE FOR SQUAMOUS INTRAEPITHELIAL [...] Recently Relevant to Health Maintenance Care Teams Second Facing Baster Relationship Specialty Start Date End Date Name, MD Mulugeta [address] [place], [place] PCP - General 06/30/16
--- OUTSIDE RECORDS SUMMARY | 2024-07-19 10:13 | XMS_ITS | Encounter Summary ---
Author Organization [employer] Address [address] [facility] 7t [place] [address] Care Team Providers Care Overcoiler Name Role Phone Name, Mulugeta HUANG Primary Care Provider [phone] Reason for Visit * Reason Onset Date Comments Referral 07/15/2024 Pt requesting br east specialist pt is concern with her breast. She stated she haves liquid coming out. Encounter Details Date Type Department Care Team ([facility] st Contact Info) Description 07/15/2024 Telephone [facility] [address] [place] [address] Name, MD Mulugeta [address] [place] [address] Referral (Pt requesting breast specialist pt is concern with her breast. She stated she haves liquid coming out. ) Social History Tobacco Use Types Packs/Day Years [...] encounter Miscellaneous Notes * Telephone Encounter - Yolie Estrada RN - 07/15/2024 11:25 AM EDT TC placed to pt via [employer] digital solutions architect (Huan ID#[id number]) regarding received message requesting breast specialist as pt is concern with her breast as she has liquid coming out. Pt reports that there was clear colored discharge from her breast. Pt reports this happened a month ago on one breast. Pt reports it happened again on 07/13/24 on the other breast. Pt reports it was a little bit of liquid that dripped down like sweat. Pt reports it has only happened those two times. Advised pt to come to [facility] for evaluation. Advised pt of [place] hours today, tomorrow, and of Friday hours. Pt reports they will come to [facility] now. Pt denies further questions at this time. * Telephone Encounter - Mayte Pearson - 07/15/2024 11:04 AM EDT Pt requesting breast specialist pt is concern with her breast. She stated she haves liquid coming out. documented in this encounter Plan of Treatment Upcoming Encounters Date Type Department Care Team (Late st Contact Info) Description 10/25/2024 11:30 AM EDT Office Visit [facility] [address] [place] [address] Name, MD Mulugeta [address] [place] [address] documented as of this encounter Visit Diagnoses Not on filedocumented in this encounter Additional Health Concerns Assessment Noted Time PHQ-9 Depression Total Score: 4 07/02/19 25 11:43 AM EDT documented as of this encounter Care Teams Overcoiler Relationship Specialty Start Date End Date Name, MD Mulugeta [address] [place] [address] PCP - General Family Medicine 06/06/15 documented as of this encounter
--- OUTSIDE RECORDS SUMMARY | 2024-07-19 10:13 | XMS_ITS | Encounter Summary ---
Author Organization [employer] Address [address] [facility] 7t [place] [address] Care Team Providers Care Director Validation Name Role Phone Name, Mulugeta HUANG Primary Care Provider [phone] Reason for Visit * Reason Comments Med Refill Encounter Details Date Type Department Care Team ([facility] Contact Info) Description 07/15/2024 Refill [facility] [address] [place], [place] [phone] Marce Carballo MD [address] [place] [address] Social History Tobacco Use Types Packs/Day Years [...] Description 10/25/2024 11:30 AM EDT Office Visit [facility] [address] [place] [address] NameMulugeta MD [address] [place] [address] documented as of this encounter Visit Diagnoses Not on filedocumented in this encounter Additional Health Concerns Assessment Noted Time PHQ-9 Depression Total Score: 4 07/02/19 25 11:43 AM EDT documented as of this encounter Care Teams Director Validation Relationship Specialty Start Date End Date NameMulugeta MD [address] [place] [id number] PCP - General Family Medicine 06/06/15 documented as of this encounter
--- OUTSIDE RECORDS SUMMARY | 2024-07-19 10:13 | XMS_ITS | Encounter Summary ---
Author Organization [employer] Address [address] [facility] 7t [place] [address] Care Team Providers Care Siphon Operator Name Role Phone Name, Mulugeta HUANG Primary Care Provider [phone] Reason for Visit * Reason Onset Date Comments lab request 05/08/2022 Encounter Details Date Type Department Care Team ([facility] st Contact Info) Description 05/08/2022 Telephone [facility] [address] [place], [place] [phone] Name, MD Mulugeta [address] [place] [address] lab request Social History Tobacco Use Types [...] before going for her heart study at [facility] on 04/24/22. Please call pt to clarify . documented in this encounter Plan of Treatment Upcoming Encounters Date Type Department Care Team (Late st Contact Info) Description 10/25/2024 11:30 AM EDT Office Visit [facility] [address] [place] [phone] Name, MD Mulugeta [address] [place] [phone] documented as of this encounter Visit Diagnoses Not on filedocumented in this encounter Care Teams Siphon Operator Relationship Specialty Start Date End Date NameMulugeta MD [address] [place] [phone] PCP - General Family Medicine 06/06/15 documented as of this encounter
--- OUTSIDE RECORDS SUMMARY | 2024-07-19 10:13 | XMS_ITS | Encounter Summary ---
Author Organization [employer] Address [address] [facility] 7t [place] [address] Care Team Providers Care Smoke Inspector Name Role Phone Name, Mulugeta HUANG Primary Care Provider [phone] Reason for Visit * Reason Onset Date Comments Med Refill 10/23/2023 Encounter Details Date Type Department Care Team ([facility] st Contact Info) Description 10/23/2023 Refill [facility] MED[facility] [address] [place], [place] [phone] Name, MD Mulugeta [address] [place] [address] Obesity (BMI 30-39.9) Social History Tobacco Use [...] Description 10/25/2024 11:30 AM EDT Office Visit [facility] MED[facility] [address] [place] [phone] Name, MD Mulugeta [address] [place] [phone] documented as of this encounter Visit Diagnoses Diagnosis Obesity (BMI 30-39.9) documented in this encounter Additional Health Concerns Assessment Noted Time PHQ-9 Depression Total Score: 0 05/29/19 24 10:30 AM EDT documented as of this encounter Care Teams Smoke Inspector Relationship Specialty Start Date End Date Mulugeta Peralta MD [address] [place] [phone] PCP - General Family Medicine 06/06/15 documented as of this encounter
--- OUTSIDE RECORDS SUMMARY | 2024-07-19 10:13 | XMS_ITS | Encounter Summary ---
Author Organization [employer] Address [address] [facility] 7t [place] [address] Care Team Providers Care Ct Technologist Name Role Phone Name, Mulugeta HUANG Primary Care Provider [phone] Reason for Visit * Reason Comments Breast Problem Encounter Details Date Type Department Care Team ([facility] st Contact Info) Description 07/15/2024 1:40 PM EDT Office Visit [facility] [address] [place], [place] [phone] Nipple discharge (Primary Dx) Social History Tobacco Use Types [...] (191 lb) 07/15/2024 2:05 PM EDT Height - - Body Mass Index 36.09 07/01/2024 11:18 AM EDT documented in this encounter Plan of Treatment Upcoming Encounters Date Type Department Care Team (Late st Contact Info) Description 10/25/2024 11:30 AM EDT Office Visit [facility] [address] [place] [address] Name, MD Mulugeta [address] [place] [address] Scheduled Orders Name Type Priority Associated Diagnoses Orde r Schedule CBC auto differential Lab Routine Nipple discharge Expected: 07/15/2024 (Approximate), Expires: 07/15/2025 Hepatic Function Panel Lab Routine Nipple discharge Expected: 07/15/2024 (Approximate), Expires: 07/15/2025 Basic Metabolic Panel Lab Routine Nipple discharge Expected: 07/15/2024 (Approximate), Expires: 07/15/2025 TSH Lab Routine Nipple discharge Expected: 07/15/2024 (Approximate), Expires: 07/15/2025 T4, Free Lab Routine Nipple discharge Expected: 07/15/2024 (Approximate), Expires: 07/15/2025 Prolactin Lab Routine Nipple discharge Expected: 07/15/2024 (Approximate), Expires: 07/15/2025 documented as of this encounter Visit Diagnoses Diagnosis Nipple discharge- Primary Other sign and symptom in breast documented in this encounter Additional Health Concerns Assessment Noted Time PHQ-9 Depression Total Score: 4 07/02/19 25 11:43 AM EDT documented as of this encounter Care Teams Ct Technologist Relationship Specialty Start Date End Date Name, MD Mulugeta [address] [place] [phone] PCP - General Family Medicine 06/06/15 documented as of this encounter
--- OUTSIDE RECORDS SUMMARY | 2024-07-19 10:13 | XMS_ITS | Encounter Summary ---
Author Organization [employer] Address [address] [facility] 7t [place] [address] Care Team Providers Care Dirt Shoveler Name Role Phone Name, Mulugeta HUANG Primary Care Provider [phone] Encounter Details Date Type Department Care Team (Latest Contact Info) Description 07/15/2024 Travel Social History Tobacco Use Types Packs/Day [...] Description 10/25/2024 11:30 AM EDT Office Visit [facility] [address] [place] [address] Name, MD Mulugeta [address] [place] [address] documented as of this encounter Visit Diagnoses Not on filedocumented in this encounter Additional Health Concerns Assessment Noted Time PHQ-9 Depression Total Score: 4 07/02/19 25 11:43 AM EDT documented as of this encounter Care Teams Dirt Shoveler Relationship Specialty Start Date End Date Name, MD Mulugeta [address] [place] [phone] PCP - General Family Medicine 06/06/15 documented as of this encounter
[2024-07-19 11:04] LABS: MANUAL DIFF FLAG NO
[2024-07-19 11:22] LABS: Basophils Percent Auto 0.5 % (0-2); Eosinophils Absolute Auto 0.1 X10*3/uL (0.0-0.4); Eosinophils Percent Auto 1.2 % (0-4); Hematocrit 35.6 % (37.0-47.0); Hemoglobin 11.7 g/dl (12.0-16.0); Imm Gran Abs Auto 0.02 X10*3/uL (0.00-0.03); Imm Gran Pct Auto 0.3 % (0.0-0.4); Lymphocytes Absolute Auto 2.2 X10*3/uL (1.2-4.9); Lymphocytes Percent Auto 29.7 % (20-40); Mean Corpuscular HGB Conc 32.9 g/dl (31.0-35.0); Mean Corpuscular Volume 88.1 fL (80.0-98.0); Mean Platelet Volume 11.1 fL (9.4-12.3); Monocytes Absolute Auto 0.6 X10*3/uL (0.1-1.2); Monocytes Percent Auto 8.4 % (2-11); Neutrophils Absolute Auto 4.5 x10*3/uL (2.0-8.3); Neutrophils Percent Auto 59.9 % (45-73); Platelet Count 292 X10*3/uL (160-400); Red Blood Count 4.04 X10*6/uL (4.20-5.50); Red Cell Distribution Width 13.1 % (11.0-16.0); White Blood Count 7.5 X10*3/uL (4.8-10.8)
[2024-07-19 11:55] LABS: Alanine Aminotransferase 10 U/L (0-31); Alkaline Phosphatase 39 U/L (39-117); Anion Gap 7 (12-20); Aspartate Amino Transferase 14 U/L (5-31); Bilirubin Direct 0.2 mg/dL (0.0-0.5); Bilirubin Total 0.7 mg/dL (0.0-1.0); Blood Urea Nitrogen 16 mg/dL (9-16); Calcium 9.3 mg/dL (8.4-10.2); Carbon Dioxide 27 mmol/L (22-29); Chloride 107 mmol/L (96-108); Estimated Glomerular Filt Rate > 60; Glucose Random 106 mg/dL (60-115); Potassium 4.3 mmol/L (3.3-5.1); Sodium 137 mmol/L (135-145); Total Protein 6.9 g/dL (6.5-8.0)
[2024-07-19 12:15] LABS: Free T4 (Free Thyroxine) 0.95 ng/dL (0.71-1.85)
[2024-07-20 08:49] LABS: Prolactin 10.3 ng/mL
== END 2024-07-19 09:54 | disposition home or self-care (01) ==
LOC: HO.HHCL 09:53
PROVIDERS: Visit Provider Family Medicine
DX: N64.52 Nipple discharge (principal)
CPT/HCPCS: 36415; 80048; 80076; 84146; 84439; 84443; 85025

== ENCOUNTER → 2024-08-16 10:57 | Outpatient (REF) | payer OTHER, SELFPAY ==
--- NOTE | ~2024-08-16 | NM_ITS ---
EXAMINATION: NM BILIARY TRACT CLINICAL INFORMATION: Cholelithiasis without cholecystitis or obstruction , nausea and vomiting COMPARISON: None available. TECHNIQUE: After: Recheck injection, there was frontal view imaging of the abdomen for 60 minutes. After CCK administration there was continued imaging of this region generating an ejection fraction curvature. Radionuclide: 5.0 mCi technetium 99m Choletec CCK: 1.7 mcg over 30 minutes FINDINGS: There is prompt accumulation of radiotracer in the liver with excretion visible in the intrahepatic biliary ducts and gallbladder within 14 minutes. There was clearance of radiotracer from the liver upon gallbladder filling. After CCK infusion, there was partial clearance of radiotracer into the extra hepatic bile duct and small bowel. Gallbladder ejection fraction measured 12% NM/NM hepatobiliary w pharm IMPRESSION: There is normal filling of the gallbladder. However, there is a low ejection fraction raising question of biliary dyskinesia. Electronically signed by: Didier Garsia MD 08/16/2024 01:42 PM EDT
--- OUTSIDE RECORDS SUMMARY | 2024-08-16 12:26 | XMS_ITS | Clinical Summary ---
Author Organization [employer] Address [address] [facility] [address] [place] [address] Care Team Providers Care Relationship Mgr Name Role Phone Name, Mulugeta HUANG Primary Care Provider [phone] Allergies Active Allergy Reactions Criticality Noted Date Comments Shellfish Allergy 04/01/2022 Medications famotidine (Pepcid) 40 MG tablet Take 40 mg by mouth in the morning. 05/17/19 23 Active Spacer/Aero-Ho lding Chambers (OptiChamber Ct) misc 1 each every 4 (four) hours if needed (asthma). 1 each 08/23/19 23 Active famotidine (Pepcid) 20 MG tablet Take 20 mg by mouth 2 times daily. 11/22/19 23 Active hydrocortisone 2.5 % cream Apply by topical route 1-2 times per day after shower to affected area 60 g 1 05/29/19 24 Active baclofen (Lioresal) 10 MG tablet [...] 25 026 Active lidocaine (Lidoderm) 5 % patchIndicatio ns:Acute [...] 1 03/25/19 25 Active ibuprofen 800 MG tabletIndicati ons:Back muscle spasm TAKE 1 TABLET BY MOUTH THREE TIMES DAILY 90 tablet 2 04/29/19 25 Active atorvastatin (Lipitor) 10 MG tablet Take 1 tablet by mouth Once per day. 06/16/19 25 Active cholecalcifero l (Vitamin D-3) 25 MCG tablet TAKE 1 TABLET BY MOUTH EVERY MORNING 90 tablet 1 07/17/19 25 Active albuterol (Ventolin HFA) 108 (90 Base) MCG/ACT inhaler Inhale 2 puffs every 4 (four) hours if needed for wheezing. 18 g 1 08/10/19 25 Active pseudoephedrin e (Sudafed) 30 MG tablet Take 1 tablet (30 mg) by mouth every 4 (four) hours if needed for congestion for up to 10 days. 30 tablet 08/10/19 25 025 Active Ventolin HFA 108 (90 Base) MCG/ACT inhaler INHALE 2 PUFFS BY MOUTH EVERY 4 HOURS NEEDED FOR WHEEZING OR SHORTNESS OF BREATH 18 g 1 04/28/19 24 025 Discontinued(Re order (will not trigger notification to Pharmacy)) predniSONE (Deltasone) 20 MG tablet Take 1 tablet (20 mg) by mouth Once per day for 5 days. 5 tablet 08/10/19 25 025 Active Problems Problem Noted Date Diagnosed Date [...] 05/23/2022 Overview (05/23/2022): 7 grade education in [place] Does not know how to read or write Uzbek Epigastric pain 04/09/2022 H. pylori infection 04/09/2022 [...] Encounters Date Type Department Care Team Description 08/09/2024 3:40 PM EDT Office Visit [facility] [address] [place] [phone] Jenelle Lozano MD Acute bronchitis, unspecified organism (Primary Dx) 07/15/2024 1:40 PM EDT Office Visit [facility] [address] [address] Claire Boucher DO Nipple discharge (Primary Dx) 07/15/2024 Travel 07/15/2024 Refill [facility] [address] [place], [place] [phone] Marce Carballo MD 07/15/[address] [address] Mulugeta Peralta MD Referral (Pt requesting breast specialist pt is concern with her breast. She stated she haves liquid coming out. ) 07/07/[address] [address] Niall Hogan MA october recalls 07/01/2024 11:30 AM EDT Office Visit [address] [address] Mulugeta Peralta MD LBBB (left bundle branch block) (Primary Dx); Palpitations 07/01/2024 Travel 06/29/2024 Orders Only GENERIC EXTERNAL DATA DEPARTMENT Provider, Generic External Data 06/29/[address] [address] Tim Padron MA chartprep 06/15/2024 Orders Only GENERIC EXTERNAL DATA DEPARTMENT Provider, Generic External Data 06/04/2024 3:00 PM EDT Office Visit [address] [phone] Cleveland Pollack MD Hyperpigmentation (Primary Dx) 06/04/2024 Travel 06/03/2024 1:00 PM EDT Office Visit [facility] [address] [address] Shannon Diaz MD Shortness of breath (Primary Dx); Ankle edema, bilateral; Obesity (BMI 30-39.9); Abnormal EKG 06/03/2024 Orders Only [facility] External Provider, [facility] 06/03/2024 Telephone [facility] [address] [place] [address] Oma Jay, [place] expect report called to [facility] ED from Last 3 Months Immunizations Immunization Administration [...] Sign Reading Time Taken Comments Blood Pressure 119/84 08/09/2024 3:36 PM EDT Pulse 69 08/09/2024 3:36 PM EDT Temperature 36.7 ??C (98.1 ??F) 08/09/2024 3:36 PM ED T Respiratory Rate 18 08/09/2024 3:36 PM EDT Oxygen Saturation 99% 08/09/2024 3:36 PM EDT Inhaled Oxygen Concentration - - Weight 86.4 kg (190 lb 6.4 oz) 08/09/2024 3:36 P M EDT Height 154.9 cm (5' 1 ) 07/01/2024 11:18 AM EDT Body Mass Index 35.98 07/01/2024 11:18 AM EDT Plan of Treatment Upcoming Encounters Date Type Department Care Team (Late st Contact Info) Description 10/25/2024 11:30 AM EDT Office Visit [facility] MEDICINE [address] [place] [phone] Name, MD Mulugeta [address] [place] [address] Health Maintenance Due Date Last Done Comments CT Colonography 1980 Colonoscopy 1979 Colorectal Cancer Screening 1980 FIT DNA/Cologuard 1979 FIT 1979 FOBT 1980 Sigmoidoscopy 1980 Family Planning (PISQ) 06/21/1994 Hepatitis B Vaccines (1 of 3 - 19+ 3-dose series) 06/21/1998 COVID-19 Vaccine ( season) 2023 04/25/2021, 08/16/2020, 07/19/2020 DTaP/Tdap/Td Vaccines (2 - Td or Tdap) 08/12/2024 08/12/2014 Diabetes: Hemoglobin A1C 12/15/2024 12/16/2023, 020 08/2022 Pap Smear 06/03/2025 06/03/2022 Alcohol/Substance Use Screening 07/01/2025 07/01/2024 Depression Screening 07/01/2025 07/01/2024, 07/02/19 25 Disability Screening 07/01/2025 07/01/2024 SDOH Screening 07/01/2025 07/01/2024 Tobacco Screening 07/01/2025 07/01/2024 Mammogram 07/09/2025 07/10/2023, 0506/2022, 07/04/2022, Additional history exists Cervical Cancer Screening 06/04/2027 HPV/Cotest 06/04/2027 06/03/2022 Lipid Panel 06/15/2029 06/15/2024, 04/09/2022 Zoster Vaccines (1 of 2) 06/21/2029 RSV Patients and Patients Aged 60 years or older (1 - 1-dose 75+ series) 06/21/2054 Pneumococcal Vaccine: Pediatrics (0 to 5 Years) and At-Risk Patients (6 to 49) Years Aged Out 08/12/2014 No longer eligible based [...] Procedure Name Priority Date/Time Associated Diagnosis Comments POCT RAPID COVID ANTIGEN Routine 025 3:39 PM EDT Acute bronchitis, unspecified organism PROLACTIN Routine 07/19/2024 9:56 AM EDT Nipple discharge T4, FREE Routine 07/19/2024 9:56 AM EDT Nipple discharge TSH Routine 07/19/2024 9:56 AM EDT Nipple discharge BASIC METABOLIC PANEL Routine 07/19/2024 9:56 AM EDT Nipple discharge HEPATIC FUNCTION PANEL Routine 9:56 AM EDT Nipple discharge CBC WITH AUTO DIFFERENTIAL Routine 07/19/2024 9:56 AM EDT Nipple discharge TISSUE TRANSGLUTAMINASE AB, IGA Routine 06/29/2024 1:04 [...] Recently Relevant to Health Maintenance Results * POCT Rapid COVID Ag (08/09/2024 3:39 PM EDT) [facility] Rapid COVID Ag Negative Swab 08/09/2024 3:39 PM EDT Jenelle Lozano MD POINT OF CARE TEST ENTER/EDIT OR DERABLES Final Result * (ABNORMAL) CBC auto differential (07/19/2024 9:56 AM EDT) [facility] White Blood Count 7.5 4.8 - 10.8 X10*3/uL [facility] Red Blood Count 4.04(L) 4.20 - 5.50 X10*6/uL [facility] Hemoglobin 11.7(L) 12.0 - 16.0 g/dl [facility] Hematocrit 35.6(L) 37.0 - 47.0 % [facility] Mean Corpuscular Volume 88.1 80.0 - 98.0 fL [facility] Mean Corpuscular Hemoglobin 29.0 27.0 - 33.0 pg [facility] Mean Corpuscular HGB Conc 32.9 31.0 - 35.0 g/dl [facility] Red Cell Distribution Width 13.1 11.0 - 16.0 % [facility] Platelet Count 292 160 - 400 X10*3/uL [facility] Mean Platelet Volume 11.1 9.4 - 12.3 fL [facility] Neutrophils Percent Auto 59.9 45 - 73 % [facility] Imm Gran Pct Auto 0.3 0.0 - 0.4 % [facility] Lymphocytes Percent Auto 29.7 20 - 40 % [facility] Monocytes Percent Auto 8.4 2 - 11 % [facility] Eosinophils Percent Auto 1.2 0 - 4 % [facility] Basophils Percent Auto 0.5 0 - 2 % [facility] NRBC Pct Auto 0.0 0.0 - 0.2 /100WBC [facility] Neutrophils Absolute Auto 4.5 2.0 - 8.3 x10*3/uL [facility] Imm Gran Abs Auto 0.02 0.00 - 0.03 X10*3/uL [facility] Lymphocytes Absolute Auto 2.2 1.2 - 4.9 X10*3/uL [facility] Monocytes Absolute Auto 0.6 0.1 - 1.2 X10*3/uL [facility] Eosinophils Absolute Auto 0.1 0.0 - 0.4 X10*3/uL [facility] Basophils Absolute Auto 0.0 0.0 - 0.2 X10*3/uL [facility] NRBC Abs Auto 0.000 0.0 - 0.012 X10*3/uL [facility] Blood Venous blood specimen / Unknown 07/19/2024 9:56 AM EDT 07/19/2024 11:00 AM EDT us Claire Boucher DO LAB BLOOD ORDERABLES Final R esult Performing Organization Address [facility] Co de Phone Number [facility] [address] [place] [phone] * Prolactin (07/19/2024 9:56 AM EDT) Pathologist [facility] Prolactin 10.3 ng/mL [facility] Comment:Reference Range Fema les Non- 3.0-30.0 10.0-209.0 Postmenopausal 2.0-20.0THIS TEST WAS PERFORMED AT:[facility] [place] [phone] ALCANTARA MD Blood Venous blood specimen / Unknown 07/19/2024 9:56 AM EDT 07/19/2024 11:00 AM EDT us Claire Boucher DO LAB BLOOD ORDERABLES Final R esult Performing Organization Address [facility] Co de Phone Number [facility] [address] [place] [phone] * TSH (07/19/2024 9:56 AM EDT) [facility] Thyroid Stimulating Hormone 2.00 0.32 - 4.0 uIU/mL [facility] Comment:TSH 3rd Generation ( [facility]) Blood Venous blood specimen / Unknown 07/19/2024 9:56 AM EDT 07/19/2024 11:00 AM EDT us Claire Boucher DO LAB BLOOD ORDERABLES Final R esult Performing Organization Address [facility] Co de Phone Number [facility] [address] [place] [phone] * T4, Free (07/19/2024 9:56 AM EDT) [facility] Free T4 (Free Thyroxine) 0.95 0.71 - 1.85 ng/dL [facility] Blood Venous blood specimen / Unknown 07/19/2024 9:56 AM EDT 07/19/2024 11:00 AM EDT Claire Boucher DO LAB BLOOD ORDERABLES Final R esult Performing Organization Address City/[facility] Co de Phone Number [facility] [address] [place] [phone] * Hepatic Function Panel (07/19/2024 9:56 AM EDT) Pathologist [facility] Bilirubin, Total 0.7 0.0 - 1.0 mg/dL [facility] Bilirubin, Direct 0.2 0.0 - 0.5 mg/dL [facility] Aspartate Amino Transferase 14 5 - 31 U/L [facility] Alanine Aminotransferase 10 0 - 31 U/L [facility] Total Protein 6.9 6.5 - 8.0 g/dL [facility] Albumin Level 4.0 3.5 - 5.0 g/dL [facility] Alkaline Phosphatase 39 39 - 117 U/L [facility] Blood Venous blood specimen / Unknown 07/19/2024 9:56 AM EDT 07/19/2024 11:00 AM EDT Claire Boucher DO LAB BLOOD ORDERABLES Final R esult Performing Organization Address [facility] Co de Phone Number [facility] [address] [place] [phone] * (ABNORMAL) Basic Metabolic Panel (07/19/2024 9:56 AM EDT) Sodium 137 135 - 145 mmol/L [facility] Potassium 4.3 3.3 - 5.1 mmol/L [facility] Chloride 107 96 - 108 mmol/L [facility] Carbon Dioxide 27 22 - 29 mmol/L [facility] Anion Gap 7(L) 12 - 20 [facility] Urea Nitrogen (BUN) 16 9 - 16 mg/dL [facility] Creatinine, Serum 0.68 0.5 - 1.4 mg/dL [facility] Estimated Glomerular Filt Rate >60 [facility] Comment:Chronic Kidney Disea se: Estimated GFR < 60 mL/min/1.56p5Olpxde Kidney Disease: Estimated GFR < 15 mL/min/1.73m2 Glucose 106 60 - 115 mg/dL [facility] Calcium 9.3 8.4 - 10.2 mg/dL [facility] Blood Venous blood specimen / Unknown 07/19/2024 9:56 AM EDT 07/19/2024 11:00 AM EDT us Claire Boucher DO LAB BLOOD ORDERABLES Final R esult Performing Organization Address [facility] Co de Phone Number [facility] [address] [place] [phone] * Iron And Total Iron Binding Capacity (06/29/2024 1:04 PM EDT) Iron 65 30 - 160 mcg/dL [facility] Total Iron Binding Capacity 316 228 - 428 mcg/dL [facility] Percent Iron Saturation 21 15 - 50 % [facility] Unsaturated Iron Binding 251 ug/dL [facility] 06/29/2024 1:04 PM EDT 06/29/2024 1:04 PM EDT us Generic External Data Provider LAB BLOOD ORDERAB LES Final Result Performing Organization Address [facility] de Phone Number [facility] [address] [place] [phone] * Tissue Transglutaminase Antibody, IgA (06/29/2024 1:04 PM EDT) Transglutaminase IgA <1.0 U/mL [facility] Comment:Value Interpretatio n----- <15.0 Antibody not detected> or = 15.0 Antibody detectedTHIS TEST WAS PERFORMED AT:[facility] [address] [phone] ALCANTARA MD 06/29/2024 1:04 PM EDT 06/29/2024 1:04 PM EDT Generic External Data Provider LAB BLOOD ORDERAB LES Final Result Performing Organization Address [facility] Co de Phone Number [facility] [address] [place] [phone] * C-reactive Protein (06/29/2024 1:04 PM EDT) [facility] C Reactive Protein 0.11 < or = 0.50 mg/dL [facility] 06/29/2024 1:04 PM EDT 06/29/2024 1:04 PM EDT Generic External Data Provider LAB BLOOD ORDERAB LES Final Result Performing Organization Address [facility] de Phone Number [facility] [address] [place] [phone] * Lipase (06/29/2024 1:04 PM EDT) Pathologist [facility] Lipase 62 8 - 78 U/L [facility] 06/29/2024 1:04 PM EDT 06/29/2024 1:04 PM EDT Generic External Data Provider LAB BLOOD ORDERAB LES Final Result Performing Organization Address [facility] de Phone Number [facility] [address] [place] [phone] * (ABNORMAL) Comprehensive Metabolic Panel (06/29/2024 1:04 PM EDT) [facility] Sodium 140 135 - 145 mmol/L [facility] Potassium 4.0 3.3 - 5.1 mmol/L [facility] Chloride 107 96 - 108 mmol/L [facility] Carbon Dioxide 28 22 - 29 mmol/L [facility] Anion Gap 9(L) 12 - 20 [facility] Urea Nitrogen (BUN) 15 9 - 16 mg/dL [facility] Creatinine, Serum 0.67 0.5 - 1.4 mg/dL [facility] Estimated Glomerular Filt Rate >60 [facility] Comment:Chronic Kidney Disea se: Estimated GFR < 60 mL/min/[id number] Kidney Disease: Estimated GFR < 15 mL/min/1.73m2 Glucose 88 60 - 115 mg/dL [facility] Calcium 9.2 8.4 - 10.2 mg/dL [facility] Bilirubin, Total 0.6 0.0 - 1.0 mg/dL [facility] Aspartate Amino Transferase 13 5 - 31 U/L [facility] Alanine Aminotransferase 12 0 - 31 U/L [facility] Total Protein 7.2 6.5 - 8.0 g/dL [facility] Albumin Level 4.3 3.5 - 5.0 g/dL [facility] Alkaline Phosphatase 41 39 - 117 U/L [facility] 06/29/2024 1:04 PM EDT 06/29/2024 1:04 PM EDT us Generic External Data Provider LAB BLOOD ORDERAB LES Final Result [facility] [address] [place] [phone] * ECG 12 lead (06/15/2024 10:48 AM EDT) Narrative Shannon Diaz MD - 06/15/2024 10:48 AM EDT See image us Shannon Diaz MD ECG ORDERABLES Final Resu lt * Lipid Panel, Standard (06/15/2024 10:44 AM EDT) Triglycerides 132 <150 mg/dL [facility] Comment:Desirable Triglyceri de: less than 150 mg/dLBorderline High Triglyceride 150-199 mg/dLHigh Triglyceride: 200-499 mg/dLVery High Triglyceride: greater than or equal to 5OO mg/dL Cholesterol 161 <200 mg/dL [facility] Comment:Desirable Cholestero l: less than 200 mg/dLBorderline High Cholesterol: 200-239 mg/dLHigh Cholesterol: greater than 239 mg/dL LDL Cholesterol Calculated 90 <100 mg/dL [facility] Comment:Desirable LDL: less than 100 mg/dLNear Optimal/Above Optimal LDL: 110- 129 mg/dLBorderline High LDL: 130-159 mg/dLHigh LDL: 160-189 mg/dLVery High LDL: greater than or equal to 190 mg/dL HDL Cholesterol 45 >40 mg/dL [facility] Comment:Desirable HDL: great er than 40 mg/dL Note: This HDL assay may give artificially low results in patients with liver disease. 06/15/2024 10:4 4 AM EDT 06/15/2024 10:44 AM EDT us Generic External Data Provider LAB BLOOD ORDERAB LES Final Result Performing Organization Address City/[facility]/ZIP Co de Phone Number [facility] [address] [place] [phone] * High Sensitivity Troponin I (06/03/2024 5:42 PM EDT) TROPONIN I HIGH SENSITIVITY <2.7 <3.5 - 17.0 ng/L [facility] Comment:The [facility] high sens itivity Troponin-I results should beused in conjunction with other diagnostic information suchas ECG, clinical observations and information, and patientsymptoms to aid in the diagnosis of [place]. 06/03/2024 5:42 PM EDT 06/03/2024 5:46 PM EDT us Generic External Data Provider LAB BLOOD ORDERAB LES Final Result Performing Organization Address [facility]/ZIP Co de Phone Number [facility] [address] [place] [phone] * XR Chest 1 View (06/03/2024 3:22 PM EDT) Anatomical Region Laterality Modality Chest Radiographic Jazz ging 06/03/2024 3:22 PM EDT Narrative 06/03/2024 4:17 PM EDT ? [facility] ?[address] ?[place] [address] ?XRay Report ? Signed ? Patient: María,Ivory Vázquez ?MR#: [id number] ?? 98 ? : 1980 ?Acct:[id number] ? Age/Sex: 43 / F ?ADM Date: 06/03/24 ? Loc: HO.ED ? Attending Dr: ? Ordering Physician: Aleta Oh DO ?? Date of Service: 06/03/24 ?? Procedure(s): XR chest 1V ?? Accession Number(s): [id number] ? cc: Aleta Oh DO; Name,Mulugeta HUANG [...] DD/ 1522 ? TD/TT: 06/03/24 1402 ? Model Set Artist: ? Procedure Note Dee Newton - 06/03/[address] [address] XRay Report Signed Patient: Ivory Daniel IMR#: [id number] 98 : 1980Acct:[id number] Age/Sex: 43 / FADM Date: 06/03/24 Loc: HO.ED Attending Dr: Ordering Physician: Aleta Oh DO Date of Service: 06/03/24 Procedure(s): XR chest 1V Accession Number(s): [id number] cc: Aleta Oh DO; Name,Mulugeta HUANG EXAMINATION: [...] 06/03/24 1614 DD/ 1522 TD/TT: 06/03/24 1402 Model Set Artist: [facility] External Provider IMG XR PROCEDURES Final [...] EDT Narrative 08/08/2023 8:49 AM EDT ? [facility] ? [address] ?[place] [address] ? Mammography Report ? Signed ? Patient: Daniel,Ivory I ?MR#: [id number] ?? 98 ? : 1980 ?Acct:[id number] ? Age/Sex: 43 / F ?ADM Date: 07/10/23 ? Loc: HO.MAMMO ? Attending Dr: Mulugeta Peralta MD ? Ordering Physician: Mulugeta Peralta MD ?Results: 1Negative ? Date of Service: 07/10/23 ?Follow Up: 1 Year From Orig ?? inal Mammogram ? Procedure(s): MM tomosynthesis screening BI ?? Accession Number(s): [id number] ? cc: Fabian,Mulugeta HUANG ? EXAMINATION: ?? [...] 0845 ? DD/ 1015 ? TD/TT: ? Model Set Artist: ? Procedure Note Donotuseinterpreter, Image - 08/08/2023 [facility] [address] [place], [place] [address] Mammography Report Signed Patient: Ivory Daniel IMR#: [id number] 98 : 1980Acct:[id number] Age/Sex: 43 / FADM Date: 07/10/23 Loc: HO.MAMMO Attending Dr: Mulugeta Peralta MD Ordering Physician: Mulugeta Peraltaesults: 1Negative Date of Service: 07/10/23Follow Up: 1 Year From Orig inal Mammogram Procedure(s): MM tomosynthesis screening BI Accession Number(s): [id number] cc: Mulugeta Peralta MD EXAMINATION: MM SCREENING [...] in OV> 08/08/23 0845 DD/ 1015 TD/TT: Model Set Artist: Result [facility] Mulugeta Peralta MD IMG BI PROCEDURES Edited Result - Final * Hepatitis C Antibody with Reflex to HCV, RNA, Quantitative, Real-Time PCR (06/03/2022 10:57 AM EDT) Hepatitis C Antibody NON-REACT KELLY NON-REACT KELLY [facility] Index 0.09 <1.00 [facility] Comment: HCV antibody was non-reactive. There is no laboratory evidence of HCV infection. In most cases, no further action is required. However, if recent HCV exposure is suspected, a test for HCV RNA (test code 09153) is suggested. For additional information please refer to http://education.MoPub/faq/OMD27s1 (This link is being provided for informational/ educational purposes only.) Blood Venous blood specimen / Unknown 06/03/2022 10:57 AM EDT 06/03/2022 10:58 AM EDT Narrative [facility] - 06/04/2022 8:43 PM EDT FASTING:NO FASTING: NO Result [facility] Candice Morrell [facility] BLOOD ORDERABLES Nani l Result [facility] [address] [facility], [place] [address] [email or web address] [place] [facility] [address] [place] [address] * HIV-1/2 Antigen and Antibodies, Fourth Generation, with Reflexes (06/03/2022 10:57 AM EDT) HIV Antigen/Antibody, 4th Generation NON-REAC TIVE NON-REAC TIVE [facility] Comment: HIV-1 antigen and HIV-1/HIV-2 antibodies were [...] ?? For additional information please refer to http://education.MoPub/faq/UAB996 (This link is being provided for informational/ educational purposes only.) The performance of this assay has not been clinically validated in patients less than 2 years old. Blood Venous blood specimen / Unknown 06/03/2022 10:57 AM EDT 06/03/2022 10:58 AM EDT Narrative [facility] - 06/04/2022 8:43 PM EDT FASTING:NO FASTING: NO Candice Morrell [facility] BLOOD ORDERABLES Nani l Result [facility] [address] [place] [address] [facility] [address] [place] [phone] * Image-Guided Pap with Age-Based Screening??with CT/NG,??Trichomonas (06/03/2022 10:47 AM EDT) Comment [facility] Comment: This order for age-based cervical cancer and STI screening follows ACOG guidelines(PB 168, 140, IIW564). See individual assays for performing site location. Clinical Information: Routine exam [facility] [employer] [facility] LMP: NONE GIVEN [facility] [facility] Prev. PAP: NONE GIVEN [facility] [employer] [facility] Prev. BX: NONE GIVEN [facility] [employer] [facility] SOURCE: None given [facility] [employer] [facility] Statement Of Adequacy: [facility] [employer] [facility] Comment: Satisfactory for evaluation. Endocervical/transformation zone component present. Interpretation/Re sult: Negative for intraepithelial lesion or malignancy. [facility] COMMENT: This Pap test has been evaluated with computer assisted technology. [email or web address] [place] [facility] Labor Relations Representative: Antonia estrella [facility] [place] [facility] Comment: WAC, CT(ASCP) CT screening location: [address] ??[phone] (Always Message) Que [facility] [facility] Comment: EXPLANATORY NOTE: The Pap is a [...] HPV nRNA E6/E7 Not Detected Not Detected [employer] Comment: Methodology: Safety Associate-Mediated Amplification This assay detects E6/E7 viral messenger RNA (mRNA) from 14 high-risk HPV types (16,18,31,33,35,39,45,51,52,56,58,59,66,68). Cervical sources are required for HPV testing. If a vaginal source from a patient who has had a total hysterectomy with removal of cervix was submitted, please contact the testing laboratory for alternative testing options. For additional information, please refer to http://[employer]MoPub/faq/OVC308p1 (This link if provided for information/ educational purposes only.) Chlamydia trachomatis RNA, TMA, Urogenital NOT DETECTED NOT DETECTED [email or web address] Neisseria gonorrhoeae RNA, TMA, Urogenital NOT DETECTED NOT DETECTED [email or web address] (Always Message) Formerly [facility] [place] [facility] Comment: The analytical performance characteristics of this assay, when used to test SurePath(TM) specimens have been determined by [email or web address]. The modifications have not been cleared or approved by the FDA. This assay has been validated pursuant to the CLIA regulations and is used for clinical purposes. For additional information, please refer to https://[employer]MoPub/faq/RGJ957 (This link is being provided for information/ educational purposes only.) Trichomonas vaginalis, QL, TMA, PAP Vial NOT DETECTED NOT DETECTED [email or web address] Comment: The analytical performance characteristics of this assay have been determined by [email or web address]. The modifications have not been cleared or approved by the FDA. This assay has been validated pursuant to the CLIA regulations and is used for clinical purposes. For additional information, please refer to http://[employer].MoPub/ faq/Trichomonastma (This link is being provided for information/ educational purposes only.) Cytology specimen container (physical object) 06/03/2022 10:47 AM EDT 06/04/2022 5:15 AM EDT Candice Morrell [facility] CYTOLOGY ORDERABLES F inal Result [facility] [address], [place] [address] [email or web address] [address] [place] [address] from Last 3 Months or Most Recently Relevant to Health Maintenance Insurance [facility] ONE CARE < 65 [place] [id number] Care Teams Relationship Mgr Relationship Specialty Start Date End Date Name, MD Mulugeta [address] [place] [address] PCP - General Family Medicine 06/06/15
== END ==
LOC: HO.NUCMED 10:57
PROVIDERS: PCP Internal Medicine Geriatric Medicine; Visit Provider Nurse Practitioner Family
DX: K80.20 Calculus of gallbladder without cholecystitis without obstruction (principal); R10.10 Upper abdominal pain, unspecified
CPT/HCPCS: 78227; A9537; J2805

== ENCOUNTER → 2024-08-16 10:58 | Outpatient (BNV) | payer OTHER, SELFPAY | PROVIDERS: PCP Internal Medicine Geriatric Medicine; Visit Provider Radiology Diagnostic Radiology | DX: R11.2 Nausea with vomiting, unspecified (principal) | CPT/HCPCS: 78227 ==

== ENCOUNTER 2024-09-29 09:33 | Outpatient (AMB) | payer OTHER, SELFPAY ==
--- NOTE | 2024-09-29 09:38 | A.OFFVIS_ITS ---
Vital Signs 09/29/24 09:39 Height 5 ft 1 in Weight 193 lb BMI 36.5 BP 140/90 H Blood Pressure Location Rt brachial Position Sitting Pulse 76 Pulse Source Pulse Oximeter Pulse Oximetry (%) 98 Oxygen Delivery Method Room Air Intake Visit Reasons: Follow up 6mo Intake Note: Patient presents 6 month follow up for excessive daytime sleepiness Executive Director Of Nursing Required: Yes Executive Director Of Nursing Name: Real Accompanied by: Spouse Allergies seafood Allergy (Verified 09/29/24 09:50) Eye Swelling HPI Comments Details: 89y/o female patient comes for follow up . A tele third miller was used during this visit.[id number] Her home sleep test was inconclusive an din lab sleep study was normal.She is doing better.Denies any restless legs Her Vit D was low and she was started on supplements . she is feeling better He Vit d level in Mar was 37 and she continue to take Vit D . No day time naps and is sleeps about 6-7 hrs per night. Her Vit B 12 and thyroid was normal [facility] Medical History Colon cancer screening Change in stool Constipation Gallstones Surgical History History of esophagogastroduodenoscopy (EGD) Hx of colonoscopy H/O section Family History Family/Other Cancer Diabetes Social History Household Members: Spouse Unable to assess alcohol history related to: Unknown Alcohol intake: never Patient Tobacco Use Status: Never used Tobacco Current occupational status: unemployed Physical Exam Vital Signs: Last Vital Signs Pulse 76 09/29/24 09:39 BP 140/90 H 09/29/24 09:39 Pulse Ox 98 09/29/24 09:39 Oxygen Delivery Method Room Air 09/29/24 09:39 BMI result Body Mass Index 36.5 Const General: cooperative Nutritional Appearance: obese Orientation/consciousness: patient oriented x3 Limitations: language barrier Neck Neck: Yes full ROM and Yes supple Resp Effort & Inspection: normal respiratory effort and able to speak in complete sentences Neuro General: patient oriented x3 and moves all extremities Cranial nerves: Yes CN's II-XII intact bilaterally Cognition (Neuro): normal cognition Gait exam (Neuro): Normal gait present Psych Appearance: grossly normal Mental Status: mental status grossly normal Speech and movement: Normal speech and movement present Affect: normal affect Attitude: cooperative Assessment & Plan Assessment & Plan (1) Excessive daytime sleepiness: Comment: Likely related to Vit D defeciency Code(s): G47.19 - Other hypersomnia Category: Medical Plan Continue Vit D supplementation and f/u with PCP Increase physical activity Coding Level of Care Code Est Pt Level 3 (23839) Diagnoses Excessive daytime sleepiness G47.19
[2024-09-29 09:39] VITALS: BP 140/90; PULSE 76; O2SAT 98; BMI 36.5
--- OUTSIDE RECORDS SUMMARY | 2024-09-29 10:06 | XMS_ITS | Clinical Summary ---
Author Organization [facility] it[facility] Address [address] [place] [address] Care Team Providers Care Pressure Testing Technician Name Role Phone Name, Mulugeta HUANG Primary Care Provider [phone] Surgical History Surgery Date Site/Laterality Comments OTHER [...] Cancer Screening: P ap Smear 08/31/2021 08/31/2018 COVID-19 Vaccine (2023-2 5 season) 2023 Depression Screening 03/03/2024 Influenza Vaccine (#1) 2024 HIB Vaccines Aged Out No longer [...] 5 Years) and At-Risk Patients (6 to 49 Years) Aged Out No longer eligi ble [...] RESULTING AGENCY - 09/14/2018 12:06 PM EDT [id number] THINPREP PAP, IMAGED: NEGATIVE FOR SQUAMOUS INTRAEPITHELIAL LESION AND MALIGNANCY . REACTIVE CELLULAR CHANGES. VERITO MENEZES , JUSTEN(ASCP) (CASE SCREENED 09 02 2018) CADENCE MEI M.D. , PATHOLOGIST (CASE ELECTRONICALLY SIGNED 09 11 2018) RESULT OF APTIMA HIGH RISK HPV ASSAY: HIGH RISK HPV: NEGATIVE (SEROTYPES 16,18,31,33,35,39,45,51,52,56,58,59,66,68) COMPLETED ON 2018-09-01 ADEQUACY: SATISFACTORY ENDOCERVICAL/TRANSFORMATION ZONE COMPONENT PRESENT. SOURCE: THINPREP PAP HPV ANY DX: REFLEX 16 AND 18, CERVICAL, IMAGED CLINICAL INFORMATION: HPV ANY DIAGNOSIS. HORMONES, MENOPAUSE, PAP HX NEG LP 2010, LMP 08/01/2018 [Z12.4, Z01.419] [facility] CYTOLOGY ORDERABLES Final R esult HISTORICAL TESTING LAB RESULTING AGENCY from Last 3 Months or Most Recently Relevant to Health Maintenance Care Teams Pressure Testing Technician Relationship Specialty Start Date End Date Name, MD Mulugeta [address] [place], [place] PCP - General 06/30/16
--- OUTSIDE RECORDS SUMMARY | 2024-09-29 10:06 | XMS_ITS | Clinical Summary ---
Author Organization [employer] Address [address] [facility] 7[address] [place] [address] Care Team Providers Care Risk Management Manager Name Role Phone Name, Mulugeta HUANG Primary Care Provider [phone] Allergies Active Allergy Reactions Criticality Noted Date [...] PAIN 150 g 1 03/25/19 25 Active atorvastatin (Lipitor) 10 MG tablet [...] to 10 days. 30 tablet 08/10/19 25 Active ibuprofen 800 MG tabletIndicati ons:Back muscle spasm TAKE 1 TABLET BY MOUTH THREE TIMES DAILY 90 tablet 2 09/03/19 25 Active naproxen (Naprosyn) 500 MG tabletIndicati ons:Chronic pain of left knee Take 1 tablet by oral route twice daily as needed for moderate pain 30 tablet 1 09/28/19 25 Active tiZANidine (Zanaflex) 4 MG tabletIndicati ons:Chronic left-sided low back pain with left-sided sciatica TAKE 1 TABLET BY MOUTH THREE TIMES DAILY 30 tablet 09/28/19 25 Active ibuprofen 800 MG tabletIndicati ons:Back muscle spasm TAKE 1 TABLET BY MOUTH THREE TIMES DAILY 90 tablet 2 04/29/19 25 025 Discontinued tiZANidine (Zanaflex) 4 MG capsuleIndicat ions:Chronic left-sided low back pain with left-sided sciatica Take 1 capsule (4 mg) by mouth 3 times daily. 30 capsule 09/28/19 25 025 Discontinued Active Problems Problem Noted Date Diagnosed [...] Overview (05/23/2022): 7 grade education in [place] Does not know how to read or write Yoruba Epigastric pain 04/09/2022 H. pylori infection 04/09/2022 [...] Encounters Date Type Department Care Team Description 09/27/2024 1:45 PM EDT Office Visit [facility] MEDICINE [address] [place] [phone] Napavine Alberta, [facility] Chronic left-sided low back pain with left-sided sciatica (Primary Dx); Chronic pain of left knee 09/27/[address] [address] Napavine Calhoun, [facility] Chronic left-sided low back pain with left-sided sciatica 09/27/2024 Travel 09/02/2024 Refill [facility] WALK-IN CENTER [address] [place] [address] Mulugeta Peralta MD Back muscle spasm 08/16/2024 Orders Only [facility] External Provider, [facility] 08/09/2024 3:40 PM EDT Office Visit [facility] WALK-IN [address] [address] Jenelle Lozano MD Acute bronchitis, unspecified organism (Primary Dx) 07/15/2024 1:40 PM EDT [facility] [address] [address] Cliare Boucher DO Nipple discharge (Primary Dx) 07/15/2024 Travel 07/15/2024 Refill [facility] CHC MED & PEDS [address] [place] [address] Marce Carballo MD 07/15/[address] [address] Mulugeta Peralta MD Referral (Pt requesting breast specialist pt is concern with her breast. She stated she haves liquid coming out. ) 07/07/2024 Telephone [facility] [address] [place] [phone] Niall Hogan MA october recalls 07/01/2024 11:30 AM EDT Office Visit [address] [place] [address] Name, MD Mulugeta LBBB (left bundle branch block) (Primary Dx); Palpitations 07/01/2024 Travel from Last 3 Months Immunizations Immunization Administration [...] housing situation today? I have bertabrian nelson 07/01/[address] you [...] Sign Reading Time Taken Comments Blood Pressure 118/84 09/27/2024 1:44 PM EDT Pulse 78 09/27/2024 1:44 PM EDT Temperature 36.7 C (98.1 F) 09/27/2024 1:44 PM EDT Respiratory Rate 18 09/27/2024 1:44 PM EDT Oxygen Saturation 99% 08/09/2024 3:36 PM EDT Inhaled Oxygen Concentration - - Weight 87.5 kg (193 lb) 09/27/2024 1:44 PM EDT Height 154.9 cm (5' 1 ) 09/27/2024 1:44 PM EDT Body Mass Index 36.47 09/27/2024 1:44 PM EDT Plan of Treatment Upcoming Encounters Date Type Department Care Team (Late st Contact Info) Description 10/25/2024 11:30 AM EDT Office Visit [facility] MEDICINE [address] [place] [phone] Name, MD Mulugeta [address] [place] [phone] Health Maintenance Due Date Last Done Comments CT Colonography 1979 Colonoscopy 1979 Colorectal Cancer Screening 1980 FIT DNA/Cologuard 1979 FIT 1979 FOBT 1980 Sigmoidoscopy 1980 Family Planning (PISQ) 06/21/1994 HPV Vaccines (1 - 3-dose series) 06/21/1994 Hepatitis B Vaccines (1 of 3 - 19+ 3-dose series) 06/21/1998 COVID-19 Vaccine ( season) 2023 04/25/2021, 08/16/2020, 07/19/2020 DTaP/Tdap/Td Vaccines (2 - Td or Tdap) 08/12/2024 08/12/2014 Influenza Vaccine (#1) 2024 , 01/30/2023, 11/28/2021, Additional history exists Diabetes: Hemoglobin A1C 12/15/2024 12/16/2023, 02/0 08/2022 Pap Smear 06/03/2025 06/03/2022 Alcohol/Substance Use Screening 07/01/2025 07/01/2024 Depression Screening 07/01/2025 07/01/2024, 07/02/19 Disability Screening 07/01/2025 07/01/2024 SDOH Screening 07/01/2025 07/01/2024 Mammogram 07/09/2025 07/10/2023, 050 06/2022, 07/04/2022, Additional history exists Tobacco Screening 09/27/2025 09/27/2024 Cervical Cancer Screening 06/04/2027 HPV/Cotest 06/04/2027 06/03/2022 [...] Completed 06/03/2022 Hepatitis C Screening Completed 06/03/2022 HIB Vaccines Aged Out No longer eligi [...] Procedure Name Priority Date/Time Associated Diagnosis Comments NM HEPATOBILIARY W PHARM Routine 08/16/2024 11:00 AM EDT POCT RAPID COVID ANTIGEN Routine 08/09/2024 3:39 PM EDT Acute bronchitis, unspecified organism PROLACTIN Routine 07/19/2024 9:56 AM EDT Nipple discharge T4, FREE Routine 07/19/2024 9:56 AM EDT Nipple discharge TSH Routine 07/19/2024 9:56 AM EDT Nipple discharge BASIC METABOLIC PANEL Routine 07/19/2024 9:56 AM EDT Nipple discharge HEPATIC FUNCTION PANEL Routine 9:56 AM EDT Nipple discharge CBC WITH AUTO DIFFERENTIAL Routine 07/19/2024 9:56 AM EDT Nipple discharge LIPID PANEL, STANDARD Routine 06/15/2024 10:44 AM EDT POCT GLYCATED HEMOGLOBIN, TOTAL Routine 12/16/2023 [...] Recently Relevant to Health Maintenance Results * NM Hepatobiliary w Pharm (08/16/2024 11:00 AM EDT) Anatomical Region Laterality Modality Body Nuclear Medicine 08/16/2024 11:0 0 AM EDT Narrative 08/16/2024 1:45 PM EDT [place] [address] Nuclear Medicine Report Signed Patient: Ivory Daniel I MR#: [id number] 98 : 1980 Acct:[id number] Age/Sex: 44 / F ADM Date: 08/16/24 Loc: [facility] Attending Dr: Lexy Burch CNP Ordering Physician: Lexy Burch CNP Date of Service: 08/16/24 Procedure(s): WI hepatobiliary w pharm Accession Number(s): [id number] cc: Name,Mulugeta HUANG; Lexy Burch CNP EXAMINATION: NM BILIARY TRACT CLINICAL INFORMATION: Cholelithiasis without cholecystitis or obstruction , nausea and vomiting COMPARISON: None available. TECHNIQUE: After: Recheck injection, there was frontal view imaging of the abdomen for 60 minutes. After CCK administration there was continued imaging of this region generating an ejection fraction curvature. Radionuclide: 5.0 mCi technetium 99m Choletec CCK: 1.7 mcg over 30 minutes FINDINGS: There is prompt accumulation of radiotracer in the liver with excretion visible in the intrahepatic biliary ducts and gallbladder within 14 minutes. There was clearance of radiotracer from the liver upon gallbladder filling. After CCK infusion, there was partial clearance of radiotracer into the extra hepatic bile duct and small bowel. Gallbladder ejection fraction measured 12% NM/NM hepatobiliary w pharm IMPRESSION: There is normal filling of the gallbladder. However, there is a low ejection fraction raising question of biliary dyskinesia. Electronically signed by: Didier Garsia MD 08/16/2024 01:42 PM EDT Dictated By: Didier Garsia MD Signed By: <Electronically signed by Didier Garsia MD in OV> 08/16/24 1342 DD/ 1100 TD/TT: 08/16/24 1300 Netbackup Administrator: Procedure Note Donotuseinterpreter, Image - 08/16/2024 [place] [address] Nuclear Medicine Report Signed Patient: Ivory Daniel [facility]#: [id number] 98 : 1980Acct:[id number] Age/Sex: 44 / FADM Date: 08/16/24 Loc: [facility] Attending Dr: Lexy Burch CNP Ordering Physician: Lexy Burch CNP Date of Service: 08/16/24 Procedure(s): NM hepatobiliary w pharm Accession Number(s): [id number] cc: Name,Mulugeta HUANG; Lexy Burch CNP EXAMINATION: NM BILIARY TRACT CLINICAL INFORMATION: Cholelithiasis without cholecystitis or obstruction , nausea and vomiting COMPARISON: None available. TECHNIQUE: After: Recheck injection, there was frontal view imaging of the abdomen for 60 minutes. After CCK administration there was continued imaging of this region generating an ejection fraction curvature. Radionuclide: 5.0 mCi technetium 99m Choletec CCK: 1.7 mcg over 30 minutes FINDINGS: There is prompt accumulation of radiotracer in the liver with excretion visible in the intrahepatic biliary ducts and gallbladder within 14 minutes. There was clearance of radiotracer from the liver upon gallbladder filling. After CCK infusion, there was partial clearance of radiotracer into the extra hepatic bile duct and small bowel. Gallbladder ejection fraction measured 12% NM/NM hepatobiliary w pharm IMPRESSION: There is normal filling of the gallbladder. However, there is a low ejection fraction raising question of biliary dyskinesia. Electronically signed by: Didier Garsia MD 08/16/2024 01:42 PM EDT Dictated By: Didier Garsia MD Signed By: <Electronically signed by Didier Garsia MD in OV> 08/16/24 1342 DD/ 1100 TD/TT: 08/16/24 1300 Netbackup Administrator: [facility] External Provider IMG NM PROCEDURES Edited Result - Final * POCT Rapid COVID Ag (08/09/2024 3:39 PM EDT) [facility] Rapid COVID Ag Negative Swab 08/09/2024 3:39 PM EDT Result [facility] Jenelle Lozano MD POINT OF CARE TEST ENTER/EDIT OR DERABLES Final Result * (ABNORMAL) CBC auto differential (07/19/2024 9:56 AM EDT) [facility] White Blood Count 7.5 4.8 - 10.8 X10*3/uL [facility] Red Blood Count 4.04(L) 4.20 - 5.50 X10*6/uL [facility] Hemoglobin 11.7(L) 12.0 - 16.0 g/dl [facility] Hematocrit 35.6(L) 37.0 - 47.0 % [facility] Mean Corpuscular Volume 88.1 80.0 - 98.0 [facility] Mean Corpuscular Hemoglobin 29.0 27.0 - 33.0 pg [facility] Mean Corpuscular HGB Conc 32.9 31.0 - 35.0 g/dl [facility] Red Cell Distribution Width 13.1 11.0 - 16.0 % [facility] Platelet Count 292 160 - 400 X10*3/uL [facility] Mean Platelet Volume 11.1 9.4 - 12.3 [facility] Neutrophils Percent Auto 59.9 45 - 73 % [facility] Imm Gran Pct Auto 0.3 0.0 - 0.4 % [facility] Lymphocytes Percent Auto 29.7 20 - 40 % [facility] Monocytes Percent Auto 8.4 2 - 11 % [facility] Eosinophils Percent Auto 1.2 0 - 4 % [facility] Basophils Percent Auto 0.5 0 - 2 % [facility] NRBC Pct Auto 0.0 0.0 - 0.2 /100WBC [facility] Neutrophils Absolute Auto 4.5 2.0 - 8.3 x10*3/uL [facility] Imm Gran Abs Auto 0.02 0.00 - 0.03 X10*3/uL [facility] Lymphocytes Absolute Auto 2.2 1.2 - 4.9 X10*3/uL [facility] Monocytes Absolute Auto 0.6 0.1 - 1.2 X10*3/uL [facility] Eosinophils Absolute Auto 0.1 0.0 - 0.4 X10*3/uL [facility] Basophils Absolute Auto 0.0 0.0 - 0.2 X10*3/uL [facility] NRBC Abs Auto 0.000 0.0 - 0.012 X10*3/uL [facility] Blood Venous blood specimen / Unknown 07/19/2024 9:56 AM EDT 07/19/2024 11:00 AM EDT Claire Boucher DO LAB BLOOD ORDERABLES Final R esult Performing Organization Address City/[facility]/ZIP Co de Phone Number [facility] [address] [place] [phone] * Prolactin (07/19/2024 9:56 AM EDT) Prolactin 10.3 ng/mL [facility] Comment:Reference Range Fema les Non- 3.0-30.0 10.0-209.0 Postmenopausal 2.0-20.0THIS TEST WAS PERFORMED AT:[facility] [place] [phone] ALCANTARA MD Blood Venous blood specimen / Unknown 07/19/2024 9:56 AM EDT 07/19/2024 11:00 AM EDT Claire Boucher DO LAB BLOOD ORDERABLES Final R esult Performing Organization Address [facility]/ZIP Co de Phone Number [facility] [address] [place] [phone] * TSH (07/19/2024 9:56 AM EDT) Thyroid Stimulating Hormone 2.00 0.32 - 4.0 uIU/mL [facility] Comment:TSH 3rd Generation ( [facility]) Blood Venous blood specimen / Unknown 07/19/2024 9:56 AM EDT 07/19/2024 11:00 AM EDT Claire Boucher LAB BLOOD ORDERABLES Final R esult Performing Organization Address [facility] Co de Phone Number [facility] [address] [place] [phone] * T4, Free (07/19/2024 9:56 AM EDT) Pathologist [facility] Free T4 (Free Thyroxine) 0.95 0.71 - 1.85 ng/dL [facility] Blood Venous blood specimen / Unknown 07/19/2024 9:56 AM EDT 07/19/2024 11:00 AM EDT Claire Boucher LAB BLOOD ORDERABLES Final R esult Performing Organization Address City/[facility] Co de Phone Number [facility] [address] [place] [phone] * Hepatic Function Panel (07/19/2024 9:56 AM EDT) Bilirubin, Total 0.7 0.0 - 1.0 mg/dL [facility] Bilirubin, Direct 0.2 0.0 - 0.5 mg/dL [facility] Aspartate Amino Transferase 14 5 - 31 U/L [facility] Alanine Aminotransferase 10 0 - 31 U/L [facility] Total Protein 6.9 6.5 - 8.0 g/dL [facility] Albumin Level 4.0 3.5 - 5.0 g/dL [facility] Alkaline Phosphatase 39 39 - 117 U/L [facility] Blood Venous blood specimen / Unknown 07/19/2024 9:56 AM EDT 07/19/2024 11:00 AM EDT us Claire Boucher DO LAB BLOOD ORDERABLES Final R esult Performing Organization Address City/[facility] Co de Phone Number [facility] [address] [place] [phone] * (ABNORMAL) Basic Metabolic Panel (07/19/2024 9:56 AM EDT) Sodium 137 135 - 145 mmol/L [facility] Potassium 4.3 3.3 - 5.1 mmol/L [facility] Chloride 107 96 - 108 mmol/L [facility] Carbon Dioxide 27 22 - 29 mmol/L [facility] Anion Gap 7(L) 12 - 20 [facility] Urea Nitrogen (BUN) 16 9 - 16 mg/dL [facility] Creatinine, Serum 0.68 0.5 - 1.4 mg/dL [facility] Estimated Glomerular Filt Rate >60 [facility] Comment:Chronic Kidney Disea se: Estimated GFR < 60 mL/min/1.56v7Qgseqb Kidney Disease: Estimated GFR < 15 mL/min/1.73m2 Glucose 106 60 - 115 mg/dL [facility] Calcium 9.3 8.4 - 10.2 mg/dL [facility] Blood Venous blood specimen / Unknown 07/19/2024 9:56 AM EDT 07/19/2024 11:00 AM EDT us Claire Boucher DO LAB BLOOD ORDERABLES Final R esult Performing Organization Address City/[facility]/ZIP Co de Phone Number [facility] [address] [place] [phone] * Lipid Panel, Standard (06/15/2024 10:44 AM EDT) Triglycerides 132 <150 mg/dL [facility] Comment:Desirable Triglyceri de: less than 150 mg/dLBorderline High Triglyceride 150-199 mg/dLHigh Triglyceride: 200-499 mg/dLVery High Triglyceride: greater than or equal to 5OO mg/dL Cholesterol 161 <200 mg/dL [facility] Comment:Desirable Cholestero l: less than 200 mg/dLBorderline High Cholesterol: 200-239 mg/dLHigh Cholesterol: greater than 239 mg/dL LDL Cholesterol Calculated 90 <100 mg/dL [facility] Comment:Desirable LDL: less than 100 mg/dLNear Optimal/Above Optimal LDL: 110- 129 mg/dLBorderline High LDL: 130-159 mg/dLHigh LDL: 160-189 mg/dLVery High LDL: greater than or equal to 190 mg/dL HDL Cholesterol 45 >40 mg/dL [facility] Comment:Desirable HDL: great er than 40 mg/dL Note: This HDL assay may give artificially low results in patients with liver disease. 06/15/2024 10:4 4 AM EDT 06/15/2024 10:44 AM EDT us Generic External Data Provider LAB BLOOD ORDERAB LES Final Result [facility] [address] [place] [phone] * (ABNORMAL) POCT HGB A1C (12/16/2023 10:42 AM EDT) Hemoglobin A1C 6.2(A) 4.0 - 6.0 % QC Media Lot # [id number] Lot# Expiration Date ,756 Blood 12/16/2023 10:4 2 AM EDT us Mulugeta Peralta MD POINT OF CARE TEST ENTER/EDIT OR DERABLES Final Result * BI Mammogram Screening Tomosynthesis Bilateral (07/10/2023 10:15 AM EDT) Anatomical Region Laterality Modality Breast Bilateral Mammography 07/10/2023 10:1 5 AM EDT Narrative 08/08/2023 8:49 AM EDT [address] [place] [address] Mammography Report Signed Patient: Ivory Daniel I MR#: [id number] 98 : 1980 Acct:[id number] Age/Sex: 43 / F ADM Date: 07/10/23 Loc: [facility] Attending Dr: Mulugeta Peralta MD Ordering Physician: Mulugeta Peralta MD Results: 1Negative Date of Service: 07/10/23 Follow Up: 1 Year From Orig inal Mammogram Procedure(s): MM tomosynthesis screening BI Accession Number(s): [id number] cc: Mulugeta Peralta MD EXAMINATION: MM SCREENING [...] in OV> 08/08/23 0845 DD/ 1015 TD/TT: Netbackup Administrator: Procedure Note Donotuseinterpreter, Image - 08/08/[address] [place] [address] Mammography Report Signed Patient: Ivory Daniel IMR#: [id number] 98 : 1980Acct:[id number] Age/Sex: 43 / FADM Date: 07/10/23 Loc: HO.MAMMO Attending Dr: Mulugeta Peralta MD Ordering Physician: Mulugeta Peralta MDResults: 1Negative Date of Service: 07/10/23Follow Up: 1 Year From Orig inal Mammogram Procedure(s): MM tomosynthesis screening BI Accession Number(s): [id number] cc: Mulugeta Peralta MD EXAMINATION: MM SCREENING [...] in OV> 08/08/23 0845 DD/ 1015 TD/TT: Netbackup Administrator: Mulugeta Peralta MD [facility] BI PROCEDURES Edited Result - Final * Hepatitis C Antibody with Reflex to HCV, RNA, Quantitative, Real-Time PCR (06/03/2022 10:57 AM EDT) Hepatitis C Antibody NON-REACT KELLY NON-REACT KELLY [facility] Index 0.09 <1.00 [facility] Comment: HCV antibody was non-reactive. There is no laboratory evidence of HCV infection. In most cases, no further action is required. However, if recent HCV exposure is suspected, a test for HCV RNA (test code 61582) is suggested. For additional information please refer to http://education.Predilytics/faq/LNW33i8 (This link is being provided for informational/ educational purposes only.) Blood Venous blood specimen / Unknown 06/03/2022 10:57 AM EDT 06/03/2022 10:58 AM EDT Narrative [facility] - 06/04/2022 8:43 PM EDT FASTING:NO FASTING: NO Candice ALCALA LAB BLOOD ORDERABLES Nani marilyn Result [facility] [address], [place] [address] [employer] [place] [employer] [address] [place] [phone] * HIV-1/2 Antigen and Antibodies, Fourth Generation, with Reflexes (06/03/2022 10:57 AM EDT) [facility] HIV Antigen/Antibody, 4th Generation NON-REAC TIVE NON-REAC TIVE [employer] [place] [employer] Comment: HIV-1 antigen and HIV-1/HIV-2 antibodies were not detected. There is no laboratory evidence of HIV infection. PLEASE NOTE: This information has been disclosed to you from records whose confidentiality may be protected by state law. If your state requires such protection, then the state law prohibits you from making any further disclosure of the information without the specific written consent of the person to whom it pertains, or as otherwise permitted by law. A general authorization for the release of medical or other information is NOT sufficient for this purpose. For additional information please refer to http://[employer].PEPperPRINT.ScienceLogic/faq/ZJI086 (This link is being provided for informational/ educational purposes only.) The performance of this assay has not been clinically validated in patients less than 2 years old. Blood Venous blood specimen / Unknown 06/03/2022 10:57 AM EDT 06/03/2022 10:58 AM EDT Narrative [facility] - 06/04/2022 8:43 PM EDT FASTING:NO FASTING: NO Candice ALCALA LAB BLOOD ORDERABLES Nani sanders Result [facility] [address] [facility], [place] [address] [facility] [address] [place] [address] * Image-Guided Pap with Age-Based Screening??with CT/NG,??Trichomonas (06/03/2022 10:47 AM EDT) Comment Dr. Zt Comment: This order for age-based cervical cancer and STI screening follows ACOG guidelines(PB 168, 140, INB686). See individual assays for performing site location. Clinical Information: Routine exam Dr. Zt LMP: NONE GIVEN Dr. Zt Prev. PAP: NONE GIVEN Dr. Zt Prev. BX: NONE GIVEN [facility] [facility] SOURCE: None given Dr. Zt Statement Of Adequacy: [facility] Comment: Satisfactory for evaluation. Endocervical/transformation zone component present. Interpretation/Re sult: Negative for intraepithelial lesion or malignancy. Dr. Zt COMMENT: This Pap test has been evaluated with computer assisted technology. [facility] Fitter Mechanic: Antonia [facility] [employer] Comment: WAKadeem, CT(ASCP) CT screening location: [address] [address] (Always Message) [facility] [employer] Comment: EXPLANATORY NOTE: The Pap is a [...] HPV nRNA E6/E7 Not Detected Not Detected Dr. Zt Comment: Methodology: [employer] Practitioner-Mediated Amplification This assay detects E6/E7 viral messenger RNA (mRNA) from 14 high-risk HPV types (16,18,31,33,35,39,45,51,52,56,58,59,66,68). Cervical sources are required for HPV testing. If a vaginal source from a patient who has had a total hysterectomy with removal of cervix was submitted, please contact the testing laboratory for alternative testing options. For additional information, please refer to http://[employer].Predilytics/faq/ICW128e0 (This link if provided for information/ educational purposes only.) Chlamydia trachomatis RNA, TMA, Urogenital NOT DETECTED NOT DETECTED [facility] Neisseria gonorrhoeae RNA, TMA, Urogenital NOT DETECTED NOT DETECTED [facility] (Always Message) [facility] [employer] Comment: The analytical performance characteristics of this assay, when used to test SurePath(TM) specimens have been determined by [employer]. The modifications have not been cleared or approved by the FDA. This assay has been validated pursuant to the CLIA regulations and is used for clinical purposes. For additional information, please refer to https://[employer] Technology/faq/AUM773 (This link is being provided for information/ educational purposes only.) Trichomonas vaginalis, QL, TMA, PAP Vial NOT DETECTED NOT DETECTED [facility] Comment: The analytical performance characteristics of this assay have been determined by [employer]. The modifications have not been cleared or approved by the FDA. This assay has been validated pursuant to the CLIA regulations and is used for clinical purposes. For additional information, please refer to http://[employer]/ faq/Trichomonastma (This link is being provided for information/ educational purposes only.) Cytology specimen container (physical object) 06/03/2022 10:47 AM EDT 06/04/2022 5:15 AM EDT Candice ALCALA LAB CYTOLOGY ORDERABLES F inal Result [facility] [address], [place] [address] [facility] [address] [place] [address] from Last 3 Months or Most Recently Relevant to Health Maintenance Insurance [facility] ONE C[employer] < [address] [id number] Care Teams Risk Management Manager Relationship Specialty Start Date End Date Name, MD Mulugeta [address] [place] [address] PCP - General Family Medicine 06/06/15
== END 2024-09-29 10:32 | disposition home or self-care (01) ==
LOC: HO.HSMS 09:34
PROVIDERS: PCP Internal Medicine Geriatric Medicine; Visit Provider Psychiatry & Neurology Neurology
DX: G47.19 Other hypersomnia (principal)
CPT/HCPCS: 99213

== ENCOUNTER → 2024-09-29 09:33 | Outpatient (BNVA) | payer OTHER, SELFPAY | PROVIDERS: PCP Internal Medicine Geriatric Medicine; Visit Provider Psychiatry & Neurology Neurology | DX: G47.19 Other hypersomnia (principal); E55.9 Vitamin D deficiency, unspecified | CPT/HCPCS: 99212 ==

== ENCOUNTER 2024-10-08 08:25 | Outpatient (REF) | payer OTHER, SELFPAY ==
--- NOTE | ~2024-10-08 | MM_ITS ---
EXAMINATION: 1. MM DIAGNOSTIC DIGITAL BREAST TOMOSYNTHESIS, BILATERAL 2. US BREAST LIMITED BILATERAL CLINICAL INFORMATION: Bilateral nipple discharge. COMPARISON: Comparison made to multiple prior, most recent July 10, 2023, and most remote April 16, 2013. TECHNIQUE: Digital breast tomosynthesis is performed in both the craniocaudal and mediolateral oblique views along with computer-aided detection (CAD). Synthesized 2D images are generated from the tomosynthesis. FINDINGS: BREAST COMPOSITION: There are scattered areas of fibroglandular density (ACR BI-RADS breast composition Category b). RIGHT BREAST: No significant masses, suspicious calcifications or other abnormalities are seen. In particular, no suspicious mammographic findings in the subareolar region. Ultrasound of the right breast was performed at the location of the retroareolar/subareolar region. Survey did not reveal abnormally dilated ducts or any suspicious mammographic finding. LEFT BREAST: No significant masses, suspicious calcifications or other abnormalities are seen. In particular, no suspicious mammographic findings in the subareolar region. Ultrasound of the left breast was performed at the location of the retroareolar/subareolar region. Survey did not reveal abnormally dilated ducts or any suspicious mammographic finding. MM/MM tomosynthesis diagnostic BI IMPRESSION: BILATERAL BREASTS: Negative, no evidence of malignancy. No imaging findings to account for patient's history of bilateral nipple discharge. Clinical follow-up is recommended. Otherwise, normal interval follow-up mammogram is recommended in 12 months. ASSESSMENT: BI-RADS 1 - Negative RECOMMENDATION: 1. Patient should be managed based on the clinical impression. 2. Otherwise, routine annual screening mammography. Results were provided to the patient at time of visit by the technologist. This patient's information was entered into a reminder system with a target due date for their next mammogram. Electronically signed by: Mason Cheung MD 10/08/2024 09:19 AM EDT
--- OUTSIDE RECORDS SUMMARY | 2024-10-08 08:37 | XMS_ITS | Clinical Summary ---
Author Organization [facility] ity Address [address] [place] [address] Care Team Providers Care Clerk Typist Name Role Phone Name, Mulugeta HUANG Primary Care Provider [phone] Surgical History Surgery Date Site/Laterality Comments OTHER [...] RESULTING AGENCY - 09/14/2018 12:06 PM EDT [id number] THINPREP PAP, IMAGED: NEGATIVE FOR SQUAMOUS INTRAEPITHELIAL [...] Recently Relevant to Health Maintenance Care Teams Clerk Typist Relationship Specialty Start Date End Date Name, MD Mulugeta [address] [place], [place] PCP - General 06/30/16
--- OUTSIDE RECORDS SUMMARY | 2024-10-08 08:37 | XMS_ITS | Clinical Summary ---
Author Organization [employer] Address [address] [facility] [address] [place] [address] Care Team Providers Care Production Support Developer Name Role Phone Name, Mulugeta HUANG Primary Care Provider [phone] Allergies Active Allergy Reactions Criticality Noted Date [...] TIMES DAILY 30 tablet 09/28/19 25 Active tiZANidine (Zanaflex) 4 MG capsuleIndicat ions:Chronic left-sided [...] 05/23/2022 Overview (05/23/2022): 7 grade education in [place] Does not know how to read or write [place] Epigastric pain 04/09/2022 H. pylori infection 04/09/2022 [...] Description 09/27/2024 1:45 PM EDT Office Visit [facility] [address] [place] [address] NikkiAlberta galdamez, IMMIGRATION [place] Chronic left-sided low back pain with left-sided sciatica (Primary Dx); Chronic pain of left knee 09/27/2024 Refill [facility] [address] [place] [address] NikkiAlberta galdamez, IMMIGRATION [place] Chronic left-sided low back pain with left-sided sciatica 09/27/2024 Travel 09/02/2024 Refill [facility] [address] [place] [address] Mulugeta Peralta MD Back muscle spasm 08/16/2024 Orders Only [facility] External Provider, [facility] 08/09/2024 3:40 PM EDT Office Visit [facility] [address] [place] [address] Jenelle Lozano MD Acute bronchitis, unspecified organism (Primary Dx) 07/15/2024 1:40 PM EDT Office Visit [facility] [address] [place] [address] Claire Boucher DO Nipple discharge (Primary Dx) 07/15/2024 Travel 07/15/2024 Refill [facility] [address], [place] [phone] Marce Carballo MD 07/15/2024 Telephone [facility] [address] [place] [address] Mulugeta Peralta MD Referral (Pt requesting breast specialist pt is concern with her breast. She stated she haves liquid coming out. ) from Last 3 Months Immunizations Immunization Administration [...] Description 10/25/2024 11:30 AM EDT Office Visit [facility] [address], [place] [phone] Name, MD Mulugeta [address] [place] [address] Health Maintenance Due Date Last Done Comments [...] SDOH Screening 07/01/2025 07/01/2024 Mammogram 07/09/2025 07/10/2023, 05/0 06/2022, 07/04/2022, Additional history exists Tobacco Screening 09/29/2025 09/29/2024 Cervical Cancer Screening 06/04/2027 HPV/Cotest 06/04/2027 06/03/2022 [...] AM EDT Narrative 08/16/2024 1:45 PM EDT [address] [address] Nuclear Medicine Report Signed Patient: Ivory Daniel I MR#: [id number] 98 : 1980 Acct:[id number] Age/Sex: 44 / F ADM Date: 08/16/24 Loc: [facility] Attending Dr: Lexy Burch CNP Ordering Physician: Lexy Burch CNP Date of Service: 08/16/24 Procedure(s): NM hepatobiliary w pharm Accession Number(s): [id number] cc: Name,Mulugeta HUANG; Lexy Burch CNP EXAMINATION: [...] 08/16/24 1342 DD/ 1100 TD/TT: 08/16/24 1300 Blind Hanger: Procedure Note Donotuseinterpreter, Image - 08/16/[address] [address] Nuclear Medicine Report Signed Patient: Ivory Daniel IMR#: [id number] 98 : 1980Acct:[id number] Age/Sex: 44 / FADM Date: 08/16/24 Loc: [facility] Attending Dr: Lexy Burch CNP Ordering Physician: Lexy Burch CNP Date of Service: 08/16/24 Procedure(s): NM hepatobiliary w pharm Accession Number(s): [id number] cc: Name,Mulugeta HUANG; Lexy Burch CNP EXAMINATION: [...] 08/16/24 1342 DD/ 1100 TD/TT: 08/16/24 1300 Blind Hanger: [facility] External Provider IMG NM PROCEDURES Edited Result - Final * POCT Rapid COVID Ag (08/09/2024 3:39 PM EDT) Rapid COVID Ag Negative Swab 08/09/2024 3:39 PM EDT Jenelle Lozano MD POINT OF CARE TEST ENTER/EDIT OR DERABLES Final Result * (ABNORMAL) CBC auto differential (07/19/2024 9:56 AM EDT) White Blood Count 7.5 4.8 - 10.8 X10*3/uL [facility] Red Blood Count 4.04(L) 4.20 - 5.50 X10*6/uL [facility] Hemoglobin 11.7(L) 12.0 - 16.0 g/dl [facility] Hematocrit 35.6(L) 37.0 - 47.0 % [facility] Mean Corpuscular Volume 88.1 80.0 - 98.0 fL [facility] Mean Corpuscular Hemoglobin 29.0 27.0 - 33.0 pg [facility] Mean Corpuscular HGB Conc 32.9 31.0 - 35.0 g/dl [facility] Red Cell Distribution Width 13.1 11.0 - 16.0 % [facility] Platelet Count 292 160 - 400 X10*3/uL [facility] Mean Platelet Volume 11.1 9.4 - 12.3 fL [facility] Neutrophils Percent Auto 59.9 45 - 73 % [facility] Imm Gran Pct Auto 0.3 0.0 - 0.4 % [facility] Lymphocytes Percent Auto 29.7 20 - 40 % [facility] Monocytes Percent Auto 8.4 2 - 11 % [facility] Eosinophils Percent Auto 1.2 0 - 4 % [facility] Basophils Percent Auto 0.5 0 - 2 % [facility] NRBC Pct Auto 0.0 0.0 - 0.2 /100WBC [facility] Neutrophils Absolute Auto 4.5 2.0 - 8.3 x10*3/uL [facility] Imm Gran Abs Auto 0.02 0.00 - 0.03 X10*3/uL [facility] Lymphocytes Absolute Auto 2.2 1.2 - 4.9 X10*3/uL [facility] Monocytes Absolute Auto 0.6 0.1 - 1.2 X10*3/uL [facility] Eosinophils Absolute Auto 0.1 0.0 - 0.4 X10*3/uL [facility] Basophils Absolute Auto 0.0 0.0 - 0.2 X10*3/uL [facility] NRBC Abs Auto 0.000 0.0 - 0.012 X10*3/uL [facility] Blood Venous blood specimen / Unknown 07/19/2024 9:56 AM EDT 07/19/2024 11:00 AM EDT Claire Boucher DO LAB BLOOD ORDERABLES Final R esult Performing Organization Address City/[facility]/ZIP Co de Phone Number [facility] [address] [place] [phone] * Prolactin (07/19/2024 9:56 AM EDT) Prolactin 10.3 ng/mL [facility] Comment:Reference Range Fema les Non- 3.0-30.0 10.0-209.0 Postmenopausal 2.0-20.0THIS TEST WAS PERFORMED AT:[facility] [place] [phone] ALCANTARA MD Blood Venous blood specimen / Unknown 07/19/2024 9:56 AM EDT 07/19/2024 11:00 AM EDT Claire Boucher DO LAB BLOOD ORDERABLES Final R esult Performing Organization Address [facility] Co de Phone Number [facility] [address] [place] [phone] * TSH (07/19/2024 9:56 AM EDT) Thyroid Stimulating Hormone 2.00 0.32 - 4.0 uIU/mL [facility] Comment:TSH 3rd Generation ( [facility]) Blood Venous blood specimen / Unknown 07/19/2024 9:56 AM EDT 07/19/2024 11:00 AM EDT Claire Boucher DO LAB BLOOD ORDERABLES Final R esult [facility] [address] [place] [phone] * T4, Free (07/19/2024 9:56 AM EDT) [facility] Free T4 (Free Thyroxine) 0.95 0.71 - 1.85 ng/dL [facility] Blood Venous blood specimen / Unknown 07/19/2024 9:56 AM EDT 07/19/2024 11:00 AM EDT Claire Boucher DO LAB BLOOD ORDERABLES Final R esult Performing Organization Address [facility] de Phone Number [facility] [address] [place] [phone] * Hepatic Function Panel (07/19/2024 9:56 AM EDT) [facility] Bilirubin, Total 0.7 0.0 - 1.0 mg/dL [facility] Bilirubin, Direct 0.2 0.0 - 0.5 mg/dL [facility] Aspartate Amino Transferase 14 5 - 31 U/L [facility] Alanine Aminotransferase 10 0 - 31 U/L [facility] Total Protein 6.9 6.5 - 8.0 g/dL [facility] Albumin Level 4.0 3.5 - 5.0 g/dL [facility] Alkaline Phosphatase 39 39 - 117 U/L [facility] Blood Venous blood specimen / Unknown 07/19/2024 9:56 AM EDT 07/19/2024 11:00 AM EDT us Claire Buocher DO LAB BLOOD ORDERABLES Final R esult Performing Organization Address [facility] de Phone Number [facility] [address] [place] [phone] * (ABNORMAL) Basic Metabolic Panel (07/19/2024 9:56 AM EDT) Sodium 137 135 - 145 mmol/L [facility] Potassium 4.3 3.3 - 5.1 mmol/L [facility] Chloride 107 96 - 108 mmol/L [facility] Carbon Dioxide 27 22 - 29 mmol/L [facility] Anion Gap 7(L) 12 - 20 [facility] Urea Nitrogen (BUN) 16 9 - 16 mg/dL [facility] Creatinine, Serum 0.68 0.5 - 1.4 mg/dL [facility] Estimated Glomerular Filt Rate >60 [facility] Comment:Chronic Kidney Disea se: Estimated GFR < 60 mL/min/1.87x7Thdswr Kidney Disease: Estimated GFR < 15 mL/min/1.73m2 Glucose 106 60 - 115 mg/dL [facility] Calcium 9.3 8.4 - 10.2 mg/dL [facility] Blood Venous blood specimen / Unknown 07/19/2024 9:56 AM EDT 07/19/2024 11:00 AM EDT us Claire Boucher DO LAB BLOOD ORDERABLES Final R esult [facility] [address] [place] [phone] * Lipid Panel, Standard (06/15/2024 10:44 AM EDT) Triglycerides 132 <150 mg/dL [facility] Comment:Desirable Triglyceri de: less [...] 190 mg/dL HDL Cholesterol 45 >40 mg/dL [facility] Comment:Desirable HDL: great er than 40 mg/dL Note: This HDL assay may give artificially low results in patients with liver disease. 06/15/2024 10:4 4 AM EDT 06/15/2024 10:44 AM EDT us Generic External Data Provider LAB BLOOD ORDERAB LES Final Result [facility] [address] [place] [phone] * (ABNORMAL) POCT HGB A1C (12/16/2023 [...] AM EDT Narrative 08/08/2023 8:49 AM EDT [facility] [address] [place] [address] Mammography Report Signed Patient: Ivory Daniel I MR#: [id number] 98 : 1980 Acct:[id number] Age/Sex: 43 / F ADM Date: 07/10/23 Loc: [facility] Attending Dr: Mulugeta Peralta MD Ordering Physician: Mulugeta Peralta MD Results: 1Negative Date of Service: 07/10/23 Follow Up: 1 Year From Orig inal Mammogram Procedure(s): MM tomosynthesis screening BI Accession Number(s): [id number] cc: Mulugeta Peralta MD EXAMINATION: MM SCREENING [...] in OV> 08/08/23 0845 DD/ 1015 TD/TT: Blind Hanger: Procedure Note Donotuseinterpreter, Image - 08/08/2023 [facility] [address] [place], [place] [address] Mammography Report Signed Patient: Ivory Daniel IMR#: [id number] 98 : 1980Acct:[id number] Age/Sex: 43 / FADM Date: 07/10/23 Loc: [facility] Attending Dr: Mulugeta Peralta MD Ordering Physician: Mulugeta Peralta MDResults: 1Negative Date of Service: 07/10/23Follow Up: 1 Year From Orig inal Mammogram Procedure(s): MM tomosynthesis screening BI Accession Number(s): [id number] cc: Mulugeta Peralta MD EXAMINATION: MM SCREENING [...] in OV> 08/08/23 0845 DD/ 1015 TD/TT: Blind Hanger: Mulugeta Peralta MD IM BI PROCEDURES Edited Result - Final * Hepatitis C Antibody with Reflex to HCV, RNA, Quantitative, Real-Time PCR (06/03/2022 10:57 AM EDT) Hepatitis C Antibody NON-REACT KELLY NON-REACT KELLY [facility] Index 0.09 <1.00 [facility] Comment: HCV antibody was non-reactive. There is no laboratory evidence of HCV infection. In most cases, no further action is required. However, if recent HCV exposure is suspected, a test for HCV RNA (test code 99255) is suggested. For additional information please refer to http://education.O&P Pro/faq/VEA36q9 (This link is being provided for informational/ educational purposes only.) Blood Venous blood specimen / Unknown 06/03/2022 10:57 AM EDT 06/03/2022 10:58 AM EDT Narrative [facility] - 06/04/2022 8:43 PM EDT FASTING:NO FASTING: NO Candice Morrell CNM LAB BLOOD ORDERABLES Nani sanders Result [facility] [address], [place] [address] [facility] [place] [facility] [address] [place] [phone] * HIV-1/2 Antigen and Antibodies, Fourth Generation, with Reflexes (06/03/2022 10:57 AM EDT) HIV Antigen/Antibody, 4th Generation NON-REAC TIVE NON-REAC TIVE [facility] [place] [employer] Comment: HIV-1 antigen and HIV-1/HIV-2 antibodies were [...] purpose. For additional information please refer to http://education.O&P Pro/faq/UIY462 (This link is being provided for informational/ educational purposes only.) The performance of this assay has not been clinically validated in patients less than 2 years old. Blood Venous blood specimen / Unknown 06/03/2022 10:57 AM EDT 06/03/2022 10:58 AM EDT Narrative [facility] - 06/04/2022 8:43 PM EDT FASTING:NO FASTING: NO Candice Morrell [facility] LAB BLOOD ORDERABLES Nani l Result [facility] [address], [place] [address] [employer] [place] [facility] [address] [place] [address] * Image-Guided Pap with Age-Based Screening??with CT/NG,??Trichomonas (06/03/2022 10:47 AM EDT) Comment [employer] [place] [employer] Comment: This order for age-based cervical cancer and STI screening follows ACOG guidelines(PB 168, 140, KNJ488). See individual assays for performing site location. Clinical Information: Routine exam [facility] [place] [employer] [facility] LMP: NONE GIVEN [employer] [place] [employer] [employer] [facility] Prev. PAP: NONE GIVEN [facility] [employer] [facility] Prev. BX: NONE GIVEN [employer] SOURCE: None given [employer] [facility] Statement Of Adequacy: [facility] Comment: Satisfactory for evaluation. Endocervical/transformation zone component present. Interpretation/Re sult: Negative for intraepithelial lesion or malignancy. [id number] COMMENT: This Pap test has been evaluated with computer assisted technology. [employer] [place] [employer] Immigration Paralegal: Antonia estrella [employer] Comment: WAC, CT(ASCP) CT screening location: [place] [address] (Always Message) [facility] [employer] Comment: EXPLANATORY NOTE: The Pap is a [...] HPV nRNA E6/E7 Not Detected Not Detected [facility] Comment: Methodology: Professor Of Rhetoric-Mediated Amplification This assay detects E6/E7 viral messenger RNA (mRNA) from 14 high-risk HPV types (16,18,31,33,35,39,45,51,52,56,58,59,66,68). Cervical sources are required for HPV testing. If a vaginal source from a patient who has had a total hysterectomy with removal of cervix was submitted, please contact the testing laboratory for alternative testing options. For additional information, please refer to http://education.O&P Pro/faq/VGU041e0 (This link if provided for information/ educational purposes only.) Chlamydia trachomatis RNA, TMA, Urogenital NOT DETECTED NOT DETECTED [facility] Neisseria gonorrhoeae RNA, TMA, Urogenital NOT DETECTED NOT DETECTED [facility] (Always Message) [facility] [facility] Comment: The analytical performance characteristics of this assay, when used to test SurePath(TM) specimens have been determined by [employer]. The modifications have not been cleared or approved by the FDA. This assay has been validated pursuant to the CLIA regulations and is used for clinical purposes. For additional information, please refer to https://VMob.O&P Pro/faq/XMJ938 (This link is being provided for information/ educational purposes only.) Trichomonas vaginalis, QL, TMA, PAP Vial NOT DETECTED NOT DETECTED [facility] Comment: The analytical performance characteristics of this assay have been determined by [employer]. The modifications have not been cleared or approved by the FDA. This assay has been validated pursuant to the CLIA regulations and is used for clinical purposes. For additional information, please refer to http://VMob.O&P Pro/ faq/Trichomonastma (This link is being provided for information/ educational purposes only.) Cytology specimen container (physical object) 06/03/2022 10:47 AM EDT 06/04/2022 5:15 AM EDT Candice Morrell [facility] CYTOLOGY ORDERABLES F inal Result [facility] [address], [place] [address] [facility] [address] [place] [address] from Last 3 Months or Most Recently Relevant to Health Maintenance Insurance * Guarantor: Ivory Daniel I Account Type Relation to Patient Date of Phone Billing Address Personal/Family Self 1980 [address] [place] [address] [facility] ONE CARE < 64 [address] [address] [place] [address] Care Teams Production Support Developer Relationship Specialty Start Date End Date Name, MD Mulugeta [address] [place] [address] [place] [address] PCP - General Family Medicine 06/06/15
== END 2024-10-08 08:26 | disposition home or self-care (01) ==
LOC: HO.MAMMO 08:25
PROVIDERS: PCP Family Medicine; Visit Provider Family Medicine
DX: N64.52 Nipple discharge (principal)
CPT/HCPCS: 76642; 77062; 77066

== ENCOUNTER → 2024-10-08 08:27 | Outpatient (BNV) | payer OTHER, SELFPAY | PROVIDERS: PCP Family Medicine; Visit Provider Radiology Body Imaging | DX: N64.52 Nipple discharge (principal) | CPT/HCPCS: 76642; 77066; G0279 ==

== ENCOUNTER → 2024-10-12 07:41 | Outpatient (REF) | payer OTHER, SELFPAY ==
--- NOTE | ~2024-10-12 | NM_ITS ---
Lexiscan Myocardial perfusion study Indication: Left bundle branch block Technique: The patient was brought in for a Lexiscan perfusion study on 10/12/2024 and was injected 0.4 mg of Lexiscan intravenously. Within a minute of this injection 30 mCi of sestamibi was given intravenously. Images were obtained using the SPECT gamma camera interlaced with the gating device. Images were obtained in supine position. Resting perfusion study was performed on 10/13/2024. Patient was administered 30 mCi of sestamibi intravenously at rest. Images were then obtained in supine position. Total DLP 129 mGy-cm. Images were processed with the software and compared side to side in short axis, horizontal long axis and vertical long axis views. Findings: Raw aquisition reviewed. The stress perfusion study showed decreased tracer uptake in the distal part of anterior wall, apex, distal inferior wall. There is improvement with CT attenuation correction and hence suggestive of soft tissue with diaphragmatic attenuation artifact. The gated study shows normal LV systolic function with calculated LVEF of 55%. LV cavity is normal in size. The gated study shows normal wall thickening and contraction of segments. Resting study shows diminished tracer uptake in the distal part of anterior wall, apex, adjacent inferior wall. Possibly slight improvement with CT attenuation correction. Gating at rest reveals normal wall motion with ejection fraction at 50%. The findings are consistent with fixed perfusion defect in the distal part of anterior wall, apex and adjacent inferior wall. Could be artifactual. No clear reversible defects. NH/NH cardiolite stress test Impression: 1. Myocardial perfusion imaging study shows no clear evidence of ischemia or infarction. Probably normal perfusion. 2. Gated LVEF is 55% during stress and 50% during rest. Correlate with echocardiogram. 3. Transient ischemic dilatation not present. EKG component of the test reported separately. Electronically signed by: Christopher Chinchilla MD 10/14/2024 03:14 PM EDT
--- OUTSIDE RECORDS SUMMARY | 2024-10-12 07:43 | XMS_ITS | Clinical Summary ---
Author Organization [facility] ity Address [address] [place] [address] Care Team Providers Care Curator [employer] Name Role Phone Name, Mulugeta HUANG Primary Care Provider [phone] Surgical History Surgery Date Site/Laterality Comments OTHER [...] RESULTING AGENCY - 09/14/2018 12:06 PM EDT [id number] THINPREP PAP, IMAGED: NEGATIVE FOR SQUAMOUS INTRAEPITHELIAL [...] Recently Relevant to Health Maintenance Care Teams Curator [employer] Relationship Specialty Start Date End Date Name, MD Mulugeta [address] [place], [place] PCP - General 06/30/16
--- OUTSIDE RECORDS SUMMARY | 2024-10-12 07:43 | XMS_ITS | Clinical Summary ---
Author Organization [employer] Address [address] [facility] [address] [place] [address] Care Team Providers Care Lightning Rod Erector Name Role Phone Name, Mulugeta HUANG Primary [...] 05/23/2022 Overview (05/23/2022): 7 grade education in [place] Does not know how to read or write Faroese Epigastric pain 04/09/2022 H. pylori infection 04/09/2022 [...] Description 09/27/2024 1:45 PM EDT Office Visit [facility] [address] [place] [address] VelardeAlberta galdamez, [facility] Chronic left-sided low back pain with left-sided sciatica (Primary Dx); Chronic pain of left knee 09/27/2024 Refill [facility] [address] [place] [address] VelardeAlberta galdamez, [employer] Chronic left-sided low back pain with left-sided sciatica 09/27/2024 Travel 09/02/2024 Refill [facility] [address] [place] [address] Mulugeta Peralta MD Back muscle spasm 08/16/2024 Orders Only [facility] External Provider, [facility] 08/09/2024 3:40 PM EDT Office Visit [facility] [address] [place] [address] Jenelle Lozano MD Acute bronchitis, unspecified organism (Primary Dx) 07/15/2024 1:40 PM EDT Office Visit [facility] [address] [place] [address] Claire Boucher DO Nipple discharge (Primary Dx) 07/15/2024 Travel 07/15/2024 Refill [facility] [address] [place], [place] [phone] Marce Carballo MD 07/15/2024 Telephone [facility] [address] [place] [address] Mulugeta Peralta MD Referral (Pt requesting breast [...] Description 10/25/2024 11:30 AM EDT Office Visit [facility] [address] [place], [place] [phone] Name, MD Mulugeta [address] [place] [address] Health Maintenance Due Date Last Done Comments [...] 07/01/2024 SDOH Screening 07/01/2025 07/01/2024 Tobacco Screening 09/29/2025 09/29/2024 Mammogram 10/08/2025 10/08/2024, 08/10/2024, 07/10/2023, Additional history exists Cervical Cancer Screening 06/04/2027 [...] Procedure Name Priority Date/Time Associated Diagnosis Comments BI US BREAST LIMITED BILATERAL STAT 10/08/2024 9:00 AM EDT BI MAMMOGRAM DIAGNOSTIC TOMOSYNTHESIS BILATERAL STAT 10/08/2024 8:33 AM EDT Nipple discharge NM HEPATOBILIARY W PHARM Routine 08/16/2024 11:00 [...] TOTAL Routine 12/16/2023 10:42 AM EDT Pre-diabetes HEPATITIS C AB W/REFL TO HCV RNA, [...] Recently Relevant to Health Maintenance Results * BI US Breast Limited Bilateral (10/08/2024 9:00 AM EDT) Anatomical Region Laterality Modality Breast Bilateral Ultrasound 10/08/2024 9:00 AM EDT Narrative 10/08/2024 9:22 AM EDT [facility] [address] [place], [place] [address] Ultrasound Report Signed Patient: Ivory Daniel I MR#: [id number] 98 : 1980 Acct:[id number] Age/Sex: 44 / F ADM Date: 10/08/24 Loc: HO.MAMMO Attending Dr: Claire Boucher DO Ordering Physician: Claire Boucher DO Date of Service: 10/08/24 Procedure(s): US breast BI limited mamm only Accession Number(s): [id number] cc: Claire Boucher DO EXAMINATION: 1. MM DIAGNOSTIC DIGITAL BREAST TOMOSYNTHESIS, BILATERAL 2. US BREAST LIMITED BILATERAL CLINICAL INFORMATION: Bilateral nipple discharge. COMPARISON: Comparison made to multiple prior, most recent July 10, 2023, and most remote April 16, 2013. TECHNIQUE: Digital breast tomosynthesis is performed in both the craniocaudal and mediolateral oblique views along with computer-aided detection (CAD). Synthesized 2D images are generated from the tomosynthesis. FINDINGS: BREAST COMPOSITION: There are scattered areas of fibroglandular density (ACR BI-RADS breast composition Category b). RIGHT BREAST: No significant masses, suspicious calcifications or other abnormalities are seen. In particular, no suspicious mammographic findings in the subareolar region. Ultrasound of the right breast was performed at the location of the retroareolar/subareolar region. Survey did not reveal abnormally dilated ducts or any suspicious mammographic finding. LEFT BREAST: No significant masses, suspicious calcifications or other abnormalities are seen. In particular, no suspicious mammographic findings in the subareolar region. Ultrasound of the left breast was performed at the location of the retroareolar/subareolar region. Survey did not reveal abnormally dilated ducts or any suspicious mammographic finding. US/US breast BI limited mamm only IMPRESSION: BILATERAL BREASTS: Negative, no evidence of malignancy. No imaging findings to account for patient's history of bilateral nipple discharge. Clinical follow-up is recommended. Otherwise, normal interval follow-up mammogram is recommended in 12 months. ASSESSMENT: BI-RADS 1 - Negative RECOMMENDATION: 1. Patient should be managed based on the clinical impression. 2. Otherwise, routine annual screening mammography. Results were provided to the patient at time of visit by the technologist. This patient's information was entered into a reminder system with a target due date for their next mammogram. Electronically signed by: Mason Cheung MD 10/08/2024 09:19 AM EDT RP Dictated By: Mason Cheung MD Signed By: <Electronically signed by Mason Cheung MD in OV> 10/08/24918 DD/ 9 TD/TT: 10/08/24914 Arcade Attendant: Procedure Note Donotuseinterpreter, Image - 10/08/2024 [facility] [address] [place], [place] [address] Ultrasound Report Signed Patient: Ivory Daniel IMR#: [id number] 98 : 1980Acct:[id number] Age/Sex: 44 / FADM Date: 10/08/24 Loc: HO.MAMMO Attending Dr: Claire Boucher DO Ordering Physician: Claire Boucher DO Date of Service: 10/08/24 Procedure(s): US breast BI limited mamm only Accession Number(s): [id number] cc: Claire Boucher DO EXAMINATION: 1. MM DIAGNOSTIC DIGITAL BREAST TOMOSYNTHESIS, BILATERAL 2. US BREAST LIMITED BILATERAL CLINICAL INFORMATION: Bilateral nipple discharge. COMPARISON: Comparison made to multiple prior, most recent July 10, 2023, and most remote April 16, 2013. TECHNIQUE: Digital breast tomosynthesis is performed in both the craniocaudal and mediolateral oblique views along with computer-aided detection (CAD). Synthesized 2D images are generated from the tomosynthesis. FINDINGS: BREAST COMPOSITION: There are scattered areas of fibroglandular density (ACR BI-RADS breast composition Category b). RIGHT BREAST: No significant masses, suspicious calcifications or other abnormalities are seen. In particular, no suspicious mammographic findings in the subareolar region. Ultrasound of the right breast was performed at the location of the retroareolar/subareolar region. Survey did not reveal abnormally dilated ducts or any suspicious mammographic finding. LEFT BREAST: No significant masses, suspicious calcifications or other abnormalities are seen. In particular, no suspicious mammographic findings in the subareolar region. Ultrasound of the left breast was performed at the location of the retroareolar/subareolar region. Survey did not reveal abnormally dilated ducts or any suspicious mammographic finding. US/US breast BI limited mamm only IMPRESSION: BILATERAL BREASTS: Negative, no evidence of malignancy. No imaging findings to account for patient's history of bilateral nipple discharge. Clinical follow-up is recommended. Otherwise, normal interval follow-up mammogram is recommended in 12 months. ASSESSMENT: BI-RADS 1 - Negative RECOMMENDATION: 1. Patient should be managed based on the clinical impression. 2. Otherwise, routine annual screening mammography. Results were provided to the patient at time of visit by the technologist. This patient's information was entered into a reminder system with a target due date for their next mammogram. Electronically signed by: Mason Cheung MD 10/08/2024 09:19 AM EDT Dictated By: Mason Cheung MD Signed By: <Electronically signed by Mason Cheung MD in OV> 10/08/24918 DD/ 0900 TD/TT: 10/08/24 0915 Arcade Attendant: us Claire Boucher DO IMG US PROCEDURES Final Resu lt * BI Mammogram Diagnostic Tomosynthesis Bilateral (10/08/2024 8:33 AM EDT) Anatomical Region Laterality Modality Breast Bilateral Mammography 10/08/2024 8:33 AM EDT Narrative 10/08/2024 9:22 AM EDT [facility] [address] [place] [address] Mammography Report Signed Patient: Ivory Daniel I MR#: [id number] 98 : 1980 Acct:[id number] Age/Sex: 44 / F ADM Date: 10/08/24 Loc: MAMMO Attending Dr: Claire Boucher DO Ordering Physician: Claire Boucher DO Results: 1N egative Date of Service: 10/08/24 Follow Up: 1 Year From [facility] Mammogram Procedure(s): MM tomosynthesis diagnostic BI Accession Number(s): [id number] cc: Annalise Boucherfer Warren JACOB EXAMINATION: 1. MM DIAGNOSTIC DIGITAL BREAST TOMOSYNTHESIS, BILATERAL 2. US BREAST LIMITED BILATERAL CLINICAL INFORMATION: Bilateral nipple discharge. COMPARISON: Comparison made to multiple prior, most recent July 10, 2023, and most remote April 16, 2013. TECHNIQUE: Digital breast tomosynthesis is performed in both the craniocaudal and mediolateral oblique views along with computer-aided detection (CAD). Synthesized 2D images are generated from the tomosynthesis. FINDINGS: BREAST COMPOSITION: There are scattered areas of fibroglandular density (ACR BI-RADS breast composition Category b). RIGHT BREAST: No significant masses, suspicious calcifications or other abnormalities are seen. In particular, no suspicious mammographic findings in the subareolar region. Ultrasound of the right breast was performed at the location of the retroareolar/subareolar region. Survey did not reveal abnormally dilated ducts or any suspicious mammographic finding. LEFT BREAST: No significant masses, suspicious calcifications or other abnormalities are seen. In particular, no suspicious mammographic findings in the subareolar region. Ultrasound of the left breast was performed at the location of the retroareolar/subareolar region. Survey did not reveal abnormally dilated ducts or any suspicious mammographic finding. MM/MM tomosynthesis diagnostic BI IMPRESSION: BILATERAL BREASTS: Negative, no evidence of malignancy. No imaging findings to account for patient's history of bilateral nipple discharge. Clinical follow-up is recommended. Otherwise, normal interval follow-up mammogram is recommended in 12 months. ASSESSMENT: BI-RADS 1 - Negative RECOMMENDATION: 1. Patient should be managed based on the clinical impression. 2. Otherwise, routine annual screening mammography. Results were provided to the patient at time of visit by the technologist. This patient's information was entered into a reminder system with a target due date for their next mammogram. Electronically signed by: Mason Cheung MD 10/08/2024 09:19 AM EDT Dictated By: Mason Cheung MD Signed By: <Electronically signed by Mason Cheung MD in OV> 10/08/24 0919 DD/ 0833 TD/TT: 10/08/24 0850 Arcade Attendant: Procedure Note Donotkbinterpreter, Image - 10/08/2024 [facility] [address] [place], [place] [address] Mammography Report Signed Patient: Ivory Daniel IMR#: [id number] 98 : 1980Acct:[id number] Age/Sex: 44 / FADM Date: 10/08/24 Loc: HO.MAMMO Attending Dr: Claire Boucher DO Ordering Physician: Claire Boucherults: 1N egative Date of Service: 10/08/24Follow Up: 1 Year From [facility] Mammogram Procedure(s): MM tomosynthesis diagnostic BI Accession Number(s): [id number] cc: Claire Boucher DO EXAMINATION: 1. MM DIAGNOSTIC DIGITAL BREAST TOMOSYNTHESIS, BILATERAL 2. US BREAST LIMITED BILATERAL CLINICAL INFORMATION: Bilateral nipple discharge. COMPARISON: Comparison made to multiple prior, most recent July 10, 2023, and most remote April 16, 2013. TECHNIQUE: Digital breast tomosynthesis is performed in both the craniocaudal and mediolateral oblique views along with computer-aided detection (CAD). Synthesized 2D images are generated from the tomosynthesis. FINDINGS: BREAST COMPOSITION: There are scattered areas of fibroglandular density (ACR BI-RADS breast composition Category b). RIGHT BREAST: No significant masses, suspicious calcifications or other abnormalities are seen. In particular, no suspicious mammographic findings in the subareolar region. Ultrasound of the right breast was performed at the location of the retroareolar/subareolar region. Survey did not reveal abnormally dilated ducts or any suspicious mammographic finding. LEFT BREAST: No significant masses, suspicious calcifications or other abnormalities are seen. In particular, no suspicious mammographic findings in the subareolar region. Ultrasound of the left breast was performed at the location of the retroareolar/subareolar region. Survey did not reveal abnormally dilated ducts or any suspicious mammographic finding. MM/MM tomosynthesis diagnostic BI IMPRESSION: BILATERAL BREASTS: Negative, no evidence of malignancy. No imaging findings to account for patient's history of bilateral nipple discharge. Clinical follow-up is recommended. Otherwise, normal interval follow-up mammogram is recommended in 12 months. ASSESSMENT: BI-RADS 1 - Negative RECOMMENDATION: 1. Patient should be managed based on the clinical impression. 2. Otherwise, routine annual screening mammography. Results were provided to the patient at time of visit by the technologist. This patient's information was entered into a reminder system with a target due date for their next mammogram. Electronically signed by: Mason Cheung MD 10/08/2024 09:19 AM EDT Workstation: [employer] Dictated By: Mason Cheung MD Signed By: <Electronically signed by Mason Cheung MD in OV> 10/08/24918 DD/ 2 TD/TT: 10/08/24 0850 Arcade Attendant: us Claire Boucher DO IMG BI PROCEDURES Final Resu lt * NM Hepatobiliary w Pharm (08/16/2024 11:00 AM EDT) Anatomical Region Laterality Modality Body Nuclear Medicine 08/16/2024 11:0 0 AM EDT Narrative 08/16/2024 1:45 PM EDT [place] [address] Nuclear Medicine Report Signed Patient: Ivory Daniel I MR#: [id number] 98 : 1980 Acct:[id number] Age/Sex: 44 / F ADM Date: 08/16/24 Loc: LEDY Attending Dr: Lexy Burch CNP Ordering Physician: Lexy Burch CNP Date of Service: 08/16/24 Procedure(s): NM hepatobiliary w pharm Accession Number(s): [id number] cc: Mulugeta Peralta MD; Lexy Burch CNP EXAMINATION: NM BILIARY TRACT [...] Didier Garsia MD 08/16/2024 01:42 PM EDT RP Dictated By: Didier Garsia MD Signed By: <Electronically signed by Didier aGrsia MD in OV> 08/16/24 1342 DD/ 1100 TD/TT: 08/16/24 1300 Arcade Attendant: Procedure Note Donotuseinterpreter, Image - 08/16/2024 [place] [address] Nuclear Medicine Report Signed Patient: Ivory Daniel [facility]#: [id number] 98 : 1980Acct:[id number] Age/Sex: 44 / FADM Date: 08/16/24 Loc: LEDY Attending Dr: Lexy Burch CNP Ordering Physician: Lexy Burch CNP Date of Service: 08/16/24 Procedure(s): NM hepatobiliary w pharm Accession Number(s): [id number] cc: Name,Mulugeta HUANG; Lexy Burch CNP EXAMINATION: [...] Didier Garsia MD 08/16/2024 01:42 PM EDT RP Dictated By: Didier Garsia MD Signed By: <Electronically signed by Didier Garsia MD in OV> 08/16/24 1342 DD/ 1100 TD/TT: 08/16/24 1300 Arcade Attendant: [facility] External Provider IMG NM PROCEDURES Edited Result - Final * POCT Rapid COVID Ag (08/09/2024 3:39 PM EDT) [facility] Rapid COVID Ag Negative Swab 08/09/2024 3:39 PM EDT Jenelle Lozano MD POINT OF CARE TEST ENTER/EDIT OR DERABLES Final Result * (ABNORMAL) CBC auto differential (07/19/2024 9:56 AM EDT) [facility] White Blood Count 7.5 4.8 - 10.8 X10*3/uL [facility] Red Blood Count 4.04(L) 4.20 - 5.50 X10*6/uL [facility] Hemoglobin 11.7(L) 12.0 - 16.0 g/dl [facility] Hematocrit 35.6(L) 37.0 - 47.0 % [facility] Mean Corpuscular Volume 88.1 80.0 - 98.0 fL [facility] Mean Corpuscular Hemoglobin 29.0 27.0 - 33.0 pg [facility] Mean Corpuscular HGB Conc 32.9 31.0 - 35.0 g/dl [facility] Red Cell Distribution Width 13.1 11.0 - 16.0 % [facility] Platelet Count 292 160 - 400 X10*3/uL [facility] Mean Platelet Volume 11.1 9.4 - 12.3 fL [facility] Neutrophils Percent Auto 59.9 45 - 73 % [facility] Imm Gran Pct Auto 0.3 0.0 - 0.4 % [facility] Lymphocytes Percent Auto 29.7 20 - 40 % [facility] Monocytes Percent Auto 8.4 2 - 11 % [facility] Eosinophils Percent Auto 1.2 0 - 4 % [facility] Basophils Percent Auto 0.5 0 - 2 % [facility] NRBC Pct Auto 0.0 0.0 - 0.2 /100WBC [facility] Neutrophils Absolute Auto 4.5 2.0 - 8.3 x10*3/uL [facility] Imm Gran Abs Auto 0.02 0.00 - 0.03 X10*3/uL [facility] Lymphocytes Absolute Auto 2.2 1.2 - 4.9 X10*3/uL [facility] Monocytes Absolute Auto 0.6 0.1 - 1.2 X10*3/uL [facility] Eosinophils Absolute Auto 0.1 0.0 - 0.4 X10*3/uL [facility] Basophils Absolute Auto 0.0 0.0 - 0.2 X10*3/uL [facility] NRBC Abs Auto 0.000 0.0 - 0.012 X10*3/uL [facility] Blood Venous blood specimen / Unknown 07/19/2024 9:56 AM EDT 07/19/2024 11:00 AM EDT us Claire Boucher DO LAB BLOOD ORDERABLES Final R esult [facility] [address] [place] [phone] * Prolactin (07/19/2024 9:56 AM EDT) Prolactin 10.3 ng/mL [facility] Comment:Reference Range Fema les Non- 3.0-30.0 10.0-209.0 Postmenopausal 2.0-20.0THIS TEST WAS PERFORMED AT:[facility] [employer] [address] [phone] ALCANTARA MD Blood Venous blood specimen / Unknown 07/19/2024 9:56 AM EDT 07/19/2024 11:00 AM EDT Claire Boucher DO LAB BLOOD ORDERABLES Final R esult Performing Organization Address [facility] Co de Phone Number [facility] [address] [place] [phone] * TSH (07/19/2024 9:56 AM EDT) Thyroid Stimulating Hormone 2.00 0.32 - 4.0 uIU/mL [facility] Comment:TSH 3rd Generation ( [facility]) Blood Venous blood specimen / Unknown 07/19/2024 9:56 AM EDT 07/19/2024 11:00 AM EDT Claire Boucher DO LAB BLOOD ORDERABLES Final R esult Performing Organization Address [facility] Co de Phone Number [facility] [address] [place] [phone] * T4, Free (07/19/2024 9:56 AM EDT) Free T4 (Free Thyroxine) 0.95 0.71 - 1.85 ng/dL [facility] Blood Venous blood specimen / Unknown 07/19/2024 9:56 AM EDT 07/19/2024 11:00 AM EDT Claire Boucher DO LAB BLOOD ORDERABLES Final R esult Performing Organization Address City/[facility]/ZIP Co de Phone Number [facility] [address] [place] [phone] * Hepatic Function Panel (07/19/2024 9:56 AM EDT) [facility] Bilirubin, Total 0.7 0.0 - 1.0 mg/dL [facility] Bilirubin, Direct 0.2 0.0 - 0.5 mg/dL [facility] Aspartate Amino Transferase 14 5 - 31 U/L [facility] Alanine Aminotransferase 10 0 - 31 U/L [facility] Total Protein 6.9 6.5 - 8.0 g/dL [facility] Albumin Level 4.0 3.5 - 5.0 g/dL [facility] Alkaline Phosphatase 39 39 - 117 U/L [facility] Blood Venous blood specimen / Unknown 07/19/2024 9:56 AM EDT 07/19/2024 11:00 AM EDT Claire Boucher DO LAB BLOOD ORDERABLES Final R esult [facility] [address] [place] [phone] * (ABNORMAL) Basic Metabolic Panel (07/19/2024 9:56 AM EDT) [facility] Sodium 137 135 - 145 mmol/L [facility] Potassium 4.3 3.3 - 5.1 mmol/L [facility] Chloride 107 96 - 108 mmol/L [facility] Carbon Dioxide 27 22 - 29 mmol/L [facility] Anion Gap 7(L) 12 - 20 [facility] Urea Nitrogen (BUN) 16 9 - 16 mg/dL [facility] Creatinine, Serum 0.68 0.5 - 1.4 mg/dL [facility] Estimated Glomerular Filt Rate >60 [facility] Comment:Chronic Kidney Disea se: Estimated GFR < 60 mL/min/1.46f1Cgbpsk Kidney Disease: Estimated GFR < 15 mL/min/1.73m2 Glucose 106 60 - 115 mg/dL [facility] Calcium 9.3 8.4 - 10.2 mg/dL [facility] Blood Venous blood specimen / Unknown 07/19/2024 9:56 AM EDT 07/19/2024 11:00 AM EDT us Claire Boucher DO LAB BLOOD ORDERABLES Final R esult Performing Organization Address [facility]/ZIP Co de Phone Number [facility] [address] [place] [phone] * Lipid Panel, Standard (06/15/2024 10:44 AM EDT) Triglycerides 132 <150 mg/dL [facility] Comment:Desirable Triglyceri de: less than 150 mg/dLBorderline High Triglyceride 150-199 mg/dLHigh Triglyceride: 200-499 mg/dLVery High Triglyceride: greater than or equal to 5OO mg/dL Cholesterol 161 <200 mg/dL [facility] Comment:Desirable Cholestero l: less than 200 mg/dLBorderline High Cholesterol: 200-239 mg/dLHigh Cholesterol: greater than 239 mg/dL LDL Cholesterol Calculated 90 <100 mg/dL [facility] Comment:Desirable LDL: less than 100 mg/dLNear Optimal/Above Optimal LDL: 110- 129 mg/dLBorderline High LDL: 130-159 mg/dLHigh LDL: 160-189 mg/dLVery High LDL: greater than or equal to 190 mg/dL HDL Cholesterol 45 >40 mg/dL [facility] Comment:Desirable HDL: great er than 40 mg/dL Note: This HDL assay may give artificially low results in patients with liver disease. 06/15/2024 10:4 4 AM EDT 06/15/2024 10:44 AM EDT us Generic External Data Provider LAB BLOOD ORDERAB LES Final Result Performing Organization Address [facility]/ZIP Co de Phone Number [facility] [address] [place] [phone] * (ABNORMAL) POCT HGB A1C (12/16/2023 10:42 AM EDT) Pathologist [facility] Hemoglobin A1C 6.2(A) 4.0 - 6.0 % QC Media Lot # [id number] Lot# Expiration Date Blood 12/16/2023 10:4 2 AM EDT Mulugeta Peralta MD POINT OF CARE TEST ENTER/EDIT OR DERABLES Final Result * Hepatitis C Antibody with Reflex to HCV, RNA, Quantitative, Real-Time PCR (06/03/2022 10:57 AM EDT) Pathologist [facility] Hepatitis C Antibody NON-REACT KELLY NON-REACT KELLY [facility] [place] [facility] Index 0.09 <1.00 [facility] Comment: HCV antibody was non-reactive. There is no laboratory evidence of HCV infection. In most cases, no further action is required. However, if recent HCV exposure is suspected, a test for HCV RNA (test code 74148) is suggested. For additional information please refer to http://education.[employer]/faq/LVP54g3 (This link is being provided for informational/ educational purposes only.) Blood Venous blood specimen / Unknown 06/03/2022 10:57 AM EDT 06/03/2022 10:58 AM EDT Narrative [facility] - 06/04/2022 8:43 PM EDT FASTING:NO FASTING: NO Candice Morrell [facility] LAB BLOOD ORDERABLES Nani l Result [facility] [address] [place] [phone] [facility] [place] [facility] [address] [place] [phone] * HIV-1/2 Antigen and Antibodies, Fourth Generation, with Reflexes (06/03/2022 10:57 AM EDT) [facility] HIV Antigen/Antibody, 4th Generation NON-REAC TIVE NON-REAC TIVE [facility] Comment: HIV-1 antigen and HIV-1/HIV-2 antibodies [...] purpose. For additional information please refer to http://education.[employer]/faq/DRN305 (This link is being provided for informational/ educational purposes only.) The performance of this assay has not been clinically validated in patients less than 2 years old. Blood Venous blood specimen / Unknown 06/03/2022 10:57 AM EDT 06/03/2022 10:58 AM EDT Narrative [facility] - 06/04/2022 8:43 PM EDT FASTING:NO FASTING: NO us Candice [facility] BLOOD ORDERABLES Nani l Result [facility] [address], [place] [address] [facility] [address] [place] [address] * Image-Guided Pap with Age-Based Screening??with CT/NG,??Trichomonas (06/03/2022 10:47 AM EDT) Comment [facility] Comment: This order for age-based cervical cancer and STI screening follows ACOG guidelines(PB 168, 140, XVE221). See individual assays for performing site location. Clinical Information: Routine exam [facility] LMP: NONE GIVEN [facility] Prev. PAP: NONE GIVEN [facility] Prev. BX: NONE GIVEN [facility] SOURCE: None given [facility] Statement Of Adequacy: [employer] [facility] Comment: Satisfactory for evaluation. Endocervical/transformation zone component present. Interpretation/Re sult: Negative for intraepithelial lesion or malignancy. [facility] [place] [facility] COMMENT: This Pap test has been evaluated with computer assisted technology. [facility] [place] [facility] Kinesiology Professor: Antonia estrella [employer] [place] [facility] Comment: WAC, CT(ASCP) CT screening location: [place] [address] (Always Message) [facility] [employer] [place] [facility] Comment: EXPLANATORY NOTE: The Pap is a [...] HPV nRNA E6/E7 Not Detected Not Detected [employer] Comment: Methodology: Environmental Studies Program Director-Mediated Amplification This assay detects E6/E7 viral messenger RNA (mRNA) from 14 high-risk HPV types (16,18,31,33,35,39,45,51,52,56,58,59,66,68). Cervical sources are required for HPV testing. If a vaginal source from a patient who has had a total hysterectomy with removal of cervix was submitted, please contact the testing laboratory for alternative testing options. For additional information, please refer to http://[employer]core/faq/MDD367b6 (This link if provided for information/ educational purposes only.) Chlamydia trachomatis RNA, TMA, Urogenital NOT DETECTED NOT DETECTED [facility] [place] [facility] Neisseria gonorrhoeae RNA, TMA, Urogenital NOT DETECTED NOT DETECTED [facility] [place] [facility] (Always Message) [facility] [place] [facility] Comment: The analytical performance characteristics of this assay, when used to test SurePath(TM) specimens have been determined by [facility]. The modifications have not been cleared or approved by the FDA. This assay has been validated pursuant to the CLIA regulations and is used for clinical purposes. For additional information, please refer to https://[employer]core/faq/HKM536 (This link is being provided for information/ educational purposes only.) Trichomonas vaginalis, QL, TMA, PAP Vial NOT DETECTED NOT DETECTED [facility] Comment: The analytical performance characteristics of this assay have been determined by [facility]. The modifications have not been cleared or approved by the FDA. This assay has been validated pursuant to the CLIA regulations and is used for clinical purposes. For additional information, please refer to http://education.[employer]core/ faq/Trichomonastma (This link is being provided for information/ educational purposes only.) Cytology specimen container (physical object) 06/03/2022 10:47 AM EDT 06/04/2022 5:15 AM EDT [facility] CYTOLOGY ORDERABLES F inal Result [facility] [address], [place] [address] [facility] [place] [facility] [address] [place] [address] from Last 3 Months or Most Recently Relevant to Health Maintenance Insurance [facility] CARE < 65 [address] [id number] [place] [address] Care Teams Lightning Rod Erector Relationship Specialty Start Date End Date Name, MD Mulugeta [address] [place] [address] PCP - General Family Medicine 06/06/15
--- NOTE | 2024-10-12 07:44 | CA_ITS ---
Acquisition Time: 2024-10-12 08:44:14 Total Exercise Time: 00:02:00 Test Indications: LBBB Medications: Protocol: LEXISCAN Max HR: 117 BPM 66% of Pred: 175 BPM Max BP: 122/70 mmHG Max Work Load: 1.0 METS Pharmacological stress test with Lexiscan while pt swings her legs in chair, with reports of 9/10 left sided chest pressure, SOB and dizziness, without any arrythmias, with normotensive response to injection. Nondiagnostic eKG for ischemia. In recovery, pt treated with IVP Aminophylline 75 mg to reverse Lexiscan after which pt gradually feeling back to baseline. Nuclear images pending. Test reviewed with Dr. Deleon. Referred By: Levi Hodge Electronically Signed By: Levi Hodge
== END ==
LOC: HO.CARD 07:41
PROVIDERS: PCP Internal Medicine Geriatric Medicine
DX: I44.7 Left bundle-branch block, unspecified (principal)
CPT/HCPCS: 78452; 93017; A9500; J0280; J2785

== ENCOUNTER → 2024-10-12 07:44 | Outpatient (BNV) | payer OTHER, SELFPAY | PROVIDERS: PCP Internal Medicine Geriatric Medicine | DX: R07.2 Precordial pain (principal); R06.02 Shortness of breath; R42 Dizziness and giddiness | CPT/HCPCS: 78452; 93016; 93018 ==

== ENCOUNTER 2024-10-14 15:28 | Outpatient (REF) | payer OTHER, SELFPAY ==
--- NOTE | ~2024-10-14 | XR_ITS ---
EXAMINATION: XR KNEE 4 VIEWS BILATERAL CLINICAL INFORMATION: b/l knee pain, b/l LBP COMPARISON: None available. TECHNIQUE: Four views of the right and left knee. FINDINGS: Normal alignment. No fracture. Joint spaces are preserved. No suprapatellar joint effusion. XR/XR Knee Lester 4V IMPRESSION: Unremarkable examination. Electronically signed by: Mason Cheung MD 10/14/2024 04:15 PM EDT
--- OUTSIDE RECORDS SUMMARY | 2024-10-14 15:51 | XMS_ITS | Clinical Summary ---
Author Organization [facility] ity Address [address] [place] [address] Care Team Providers Care Rubber Roller Grinder Name Role Phone Name, Mulugeta HUANG Primary Care Provider [phone] Surgical History Surgery Date Site/Laterality Comments OTHER [...] RESULTING AGENCY - 09/14/2018 12:06 PM EDT [id number] THINPREP PAP, IMAGED: NEGATIVE FOR SQUAMOUS INTRAEPITHELIAL [...] Recently Relevant to Health Maintenance Care Teams Rubber Roller Grinder Relationship Specialty Start Date End Date Name, MD Mulugeta [address] [place], [place] PCP - General 06/30/16
--- OUTSIDE RECORDS SUMMARY | 2024-10-14 15:51 | XMS_ITS | Clinical Summary ---
Author Organization [employer] Address [address] [facility] [address] [place] [address] Care Team Providers Care Insurance Follow Up Rep Name Role Phone Name, Mulugeta HUANG Primary Care Provider [phone] Allergies Active Allergy Reactions Criticality Noted Date Comments Shellfish Allergy 04/01/2022 Medications famotidine (Pepcid) 40 MG tablet Take 40 mg by mouth in the morning. 05/17/19 23 Active Spacer/Aero-H olding Chambers (OptiChamber Ct) misc 1 each every 4 (four) hours if needed (asthma). 1 each 08/23/19 23 Active famotidine (Pepcid) 20 MG tablet Take 20 mg by mouth 2 times daily. 11/22/19 23 Active hydrocortison e 2.5 % cream Apply by topical route 1-2 times per day after shower to affected area 60 g 1 05/29/19 24 Active lidocaine (Lidoderm) 5 % patchIndicati ons:Acute mid back pain,Acute bilateral low back pain without sciatica Apply 1-2 patches topically if needed each day for mild pain. Remove & discard patch within 12 hours or as directed by MD. 60 patch 1 03/25/19 25 Active atorvastatin (Lipitor) 10 MG tablet Take 1 tablet by mouth Once per day. 06/16/19 25 Active cholecalcifer ol (Vitamin D-3) 25 MCG tablet TAKE 1 TABLET BY MOUTH EVERY MORNING 90 tablet 1 07/17/19 25 Active albuterol (Ventolin HFA) 108 (90 Base) MCG/ACT inhaler Inhale 2 puffs every 4 (four) hours if needed for wheezing. 18 g 1 08/10/19 25 Active pseudoephedri ne (Sudafed) 30 MG tablet Take 1 tablet (30 mg) by mouth every 4 (four) hours if needed for congestion for up to 10 days. 30 tablet 08/10/19 25 Active ibuprofen 800 MG tabletIndicat ions:Back muscle spasm TAKE 1 TABLET BY MOUTH THREE TIMES DAILY 90 tablet 2 09/03/19 25 Active naproxen (Naprosyn) 500 MG tabletIndicat ions:Chronic pain of left knee Take 1 tablet by oral route twice daily as needed for moderate pain 30 tablet 1 09/28/19 25 Active Diclofenac Sodium 1 % gel APPLY 2 GRAMS TO AFFECTED AREA(S) FOUR TIMES A DAY NEEDED FOR PAIN 150 g 1 10/15/19 25 Active methocarbamol (Robaxin) 500 MG tablet Take 1 tablet (500 mg) by mouth every 8 (eight) hours if needed for muscle spasms. 60 tablet 1 10/15/19 25 026 Active acetaminophen (Tylenol 8 Hour) 650 MG ER tablet Take 1 tablet (650 mg) by mouth every 8 (eight) hours if needed for mild pain. Do not crush, chew, or split. 40 tablet 1 10/15/19 25 025 Active sulfamethoxaz ole-trimethop rim (Bactrim DS) 800-160 MG tablet Take 1 tablet by mouth 2 times daily for 3 days. 6 tablet 10/15/19 25 025 Active methylPREDNIS olone (Medrol Dospak) 4 MG tablets Follow schedule on package instructions 21 tablet 10/15/19 25 025 Active baclofen (Lioresal) 10 MG tablet Take 1 tablet (10 mg) by mouth if needed in the morning, at noon, and at bedtime for muscle spasms. 60 tablet 1 03/25/19 25 025 Discontinued(I neffective) naproxen (Naprosyn) 500 MG tablet Take 1 tablet (500 mg) by mouth if needed in the morning and at bedtime for mild pain. 30 tablet 1 03/25/19 25 025 Discontinued(M ed list cleanup (will not trigger notification to Pharmacy)) Diclofenac Sodium 1 % gel APPLY 2 GRAMS TO AFFECTED AREA(S) FOUR TIMES A DAY NEEDED FOR PAIN 150 g 03/25/19 25 025 Discontinued(R eorder (will not trigger notification to Pharmacy)) tiZANidine (Zanaflex) 4 MG capsuleIndica tions:Chronic left-sided low back pain with left-sided sciatica Take 1 capsule (4 mg) by mouth 3 times daily. 30 capsule 09/28/19 25 025 Discontinued tiZANidine (Zanaflex) 4 MG tabletIndicat ions:Chronic left-sided low back pain with left-sided sciatica TAKE 1 TABLET BY MOUTH THREE TIMES DAILY 30 tablet 09/28/19 25 025 Discontinued(I neffective) Active Problems Problem Noted Date Diagnosed Date [...] 05/23/2022 Overview (05/23/2022): 7 grade education in [place] Does not know how to read or write Tajik Epigastric pain 04/09/2022 H. pylori infection 04/09/2022 [...] Encounters Date Type Department Care Team Description 10/14/2024 2:40 PM EDT Office Visit [facility] [address] [place] [phone] Claire Boucher DO Chronic bilateral low back pain without sciatica (Primary Dx); Dysuria; Nipple discharge; Vaginal discomfort 10/14/2024 Refill [facility] [address] [place] [address] Claire Boucher DO 10/14/2024 Travel 10/12/2024 Orders Only [facility] External Provider, [facility] 09/27/2024 1:45 PM EDT Office Visit [facility] [address] [place] [phone] [place], [place], [employer] Chronic left-sided low back pain with left-sided sciatica (Primary Dx); Chronic pain of left knee 09/27/2024 Refill [facility] [address] [place] [address] [place], [place], [employer] Chronic left-sided low back pain with left-sided sciatica 09/27/2024 Travel 09/02/2024 Refill [facility] [address] [place] [address] Mulugeta Peralta MD Back muscle spasm 08/16/2024 Orders Only [facility] External Provider, [facility] 08/09/2024 3:40 PM EDT Office Visit [facility] [address] [place] [phone] Jenelle Lozano MD Acute bronchitis, unspecified organism (Primary Dx) 07/15/2024 1:40 PM EDT [facility] [address] [place] [address] Claire Boucher DO Nipple discharge (Primary Dx) 07/15/2024 Travel 07/15/2024 Refill [facility] [address] [place] [address] Marce Carballo MD 07/15/2024 Telephone [facility] [address] [place] [address] Mulugeta Peralta MD Referral (Pt requesting breast [...] Sign Reading Time Taken Comments Blood Pressure 132/78 10/14/2024 2:39 PM EDT Pulse 76 10/14/2024 2:39 PM EDT Temperature 36.7 C (98.1 F) 10/14/2024 2:39 PM EDT Respiratory Rate 16 10/14/2024 2:39 PM EDT Oxygen Saturation 98% 10/14/2024 2:39 PM EDT Inhaled Oxygen Concentration - - Weight 88 kg (194 lb) 10/14/2024 2:39 PM EDT Height 154.9 cm (5' 1 ) 09/27/2024 1:44 PM EDT Body Mass Index 36.66 09/27/2024 1:44 PM EDT Plan of Treatment Upcoming Encounters Date Type Department Care Team (Late st Contact Info) Description 10/25/2024 11:30 AM EDT Office Visit [facility] [address] [place] [address] Name, MD Mulugeta [address] [place] [address] Health Maintenance Due Date Last Done Comments [...] 07/01/2025 07/01/2024 SDOH Screening 07/01/2025 07/01/2024 Mammogram 10/08/2025 10/08/2024, 080 10/2024, 07/10/2023, Additional history exists Tobacco Screening 10/14/2025 10/14/2024 Cervical Cancer Screening 06/04/2027 HPV/Cotest 06/04/2027 06/03/2022 [...] Name Priority Date/Time Associated Diagnosis Comments POCT URINALYSIS DIPSTICK Routine 10/14/2024 2:47 PM EDT Vaginal discomfort STRESS TEST WITH MYOCARDIAL PERFUSION Routine 10/12/2024 8:43 AM EDT BI US BREAST LIMITED BILATERAL STAT 10/08/2024 [...] Relevant to Health Maintenance Results * POCT urinalysis dipstick manually resulted (10/14/2024 2:47 PM EDT) Color, UA Yellow Clarity, UA Clear Glucose, UA Negative Bilirubin, UA Negative Ketones, UA Negative Spec Grav, UA 1.030 Blood, UA Negative Negative, None Detected pH, UA 5.5 Protein, UA Trace Urobilinogen, UA 0.2 Leukocytes, UA Negative Negative, Rare, Trace Nitrite, UA Negative Negative, None Detected Appearance, UA OK Urine 10/14/2024 2:47 PM EDT Claire Boucher DO POINT OF CARE TEST ENTER/ARELY T ORDERABLES Final Result * Stress test with myocardial perfusion (10/12/2024 8:43 AM EDT) 10/12/2024 8:43 AM EDT Narrative [facility] IMAGING - 10/14/2024 3:17 PM EDT [place] [address] Nuclear Medicine Report Signed Patient: Ivory Daniel I MR#: [id number] 98 : 1980 Acct:[id number] Age/Sex: 44 / F ADM Date: 10/12/24 Loc: VARSHA Attending Dr: Levi Hodge NP Ordering Physician: Levi Hodge NP Date of Service: 10/12/24 Procedure(s): NM cardiolite stress test Accession Number(s): [id number] cc: Mulugeta Peralta MD; Levi Hodge NP Lexiscan Myocardial perfusion study Indication: Left bundle branch block Technique: The patient was brought in for a Lexiscan perfusion study on 10/12/2024 and was injected 0.4 mg of Lexiscan intravenously. Within a minute of this injection 30 mCi of sestamibi was given intravenously. Images were obtained using the SPECT gamma camera interlaced with the gating device. Images were obtained in supine position. Resting perfusion study was performed on 10/13/2024. Patient was administered 30 mCi of sestamibi intravenously at rest. Images were then obtained in supine position. Total DLP 129 mGy-cm. Images were processed with the software and compared side to side in short axis, horizontal long axis and vertical long axis views. Findings: Raw aquisition reviewed. The stress perfusion study showed decreased tracer uptake in the distal part of anterior wall, apex, distal inferior wall. There is improvement with CT attenuation correction and hence suggestive of soft tissue with diaphragmatic attenuation artifact. The gated study shows normal LV systolic function with calculated LVEF of 55%. LV cavity is normal in size. The gated study shows normal wall thickening and contraction of segments. Resting study shows diminished tracer uptake in the distal part of anterior wall, apex, adjacent inferior wall. Possibly slight improvement with CT attenuation correction. Gating at rest reveals normal wall motion with ejection fraction at 50%. The findings are consistent with fixed perfusion defect in the distal part of anterior wall, apex and adjacent inferior wall. Could be artifactual. No clear reversible defects. WA/WA cardiolite stress test Impression: 1. Myocardial perfusion imaging study shows no clear evidence of ischemia or infarction. Probably normal perfusion. 2. Gated LVEF is 55% during stress and 50% during rest. Correlate with echocardiogram. 3. Transient ischemic dilatation not present. EKG component of the test reported separately. Electronically signed by: Christopher Chinchilla MD 10/14/2024 03:14 PM EDT RP Workstation: [employer] Dictated By: Christopher Chinchilla MD Signed By: <Electronically signed by Christopher Chinchilla MD in OV> 10/14/24 1514 DD/ 0843 TD/TT: 10/13/24 1145 Brick Burner Head: Procedure Note Donotuseinterpreter, Image - 10/14/2024 [place] [address] Nuclear Medicine Report Signed Patient: Ivory Daniel IMR#: [id number] 98 : 1980Acct:[id number] Age/Sex: 44 / FADM Date: 10/12/24 Loc: .[facility] Attending Dr: Levi Hodge NP Ordering Physician: Levi Hodge NP Date of Service: 10/12/24 Procedure(s): WA cardiolite stress test Accession Number(s): [id number] cc: Mulugeta Peralta MD; Levi Hodge NP Lexiscan Myocardial perfusion study Indication: Left bundle branch block Technique: The patient was brought in for a Lexiscan perfusion study on 10/12/2024 and was injected 0.4 mg of Lexiscan intravenously. Within a minute of this injection 30 mCi of sestamibi was given intravenously. Images were obtained using the SPECT gamma camera interlaced with the gating device. Images were obtained in supine position. Resting perfusion study was performed on 10/13/2024. Patient was administered 30 mCi of sestamibi intravenously at rest. Images were then obtained in supine position. Total DLP 129 mGy-cm. Images were processed with the software and compared side to side in short axis, horizontal long axis and vertical long axis views. Findings: Raw aquisition reviewed. The stress perfusion study showed decreased tracer uptake in the distal part of anterior wall, apex, distal inferior wall. There is improvement with CT attenuation correction and hence suggestive of soft tissue with diaphragmatic attenuation artifact. The gated study shows normal LV systolic function with calculated LVEF of 55%. LV cavity is normal in size. The gated study shows normal wall thickening and contraction of segments. Resting study shows diminished tracer uptake in the distal part of anterior wall, apex, adjacent inferior wall. Possibly slight improvement with CT attenuation correction. Gating at rest reveals normal wall motion with ejection fraction at 50%. The findings are consistent with fixed perfusion defect in the distal part of anterior wall, apex and adjacent inferior wall. Could be artifactual. No clear reversible defects. NM/NM cardiolite stress test Impression: 1. Myocardial perfusion imaging study shows no clear evidence of ischemia or infarction. Probably normal perfusion. 2. Gated LVEF is 55% during stress and 50% during rest. Correlate with echocardiogram. 3. Transient ischemic dilatation not present. EKG component of the test reported separately. Electronically signed by: Christopher Chinchilla MD 10/14/2024 03:14 PM EDT Dictated By: Christopher Chinchilla MD Signed By: <Electronically signed by Christopher Chinchilla MD inOV> 10/14/24 1514 DD/ 0843 TD/TT: 10/13/24 1145 Brick Burner Head: [facility] External Provider CV STRE SS PROCEDURES Final Result [facility] IMAGING [address] [place] [phone] * BI US Breast Limited Bilateral (10/08/2024 9:00 AM EDT) Anatomical Region Laterality Modality Breast Bilateral Ultrasound 10/08/2024 9:00 AM EDT Narrative 10/08/2024 9:22 AM EDT [facility] [address] [place] [address] Ultrasound Report Signed Patient: Ivory Daniel I MR#: [id number] 98 : 1980 Acct:[id number] Age/Sex: 44 / F ADM Date: 10/08/24 Loc: HO.MAMMO Attending Dr: Claire Boucher DO Ordering Physician: Claire Boucher DO Date of Service: 10/08/24 Procedure(s): US breast BI limited mamm only Accession Number(s): [id number] cc: Claire Boucher DO EXAMINATION: 1. MM [...] in OV> 10/08/24918 DD/ 9 TD/TT: 10/08/24914 Brick Burner Head: Procedure Note Donotuseinterpreter, Image - 10/08/2024 [facility] [address] [place] [address] Ultrasound Report Signed Patient: Ivory Daniel [facility]#: [id number] 98 : 1980Acct:[id number] Age/Sex: 44 / FADM Date: 10/08/24 Loc: HO.MAMMO Attending Dr: Claire Boucher DO Ordering Physician: Claire Boucher DO Date of Service: 10/08/24 Procedure(s): US breast BI limited mamm only Accession Number(s): [id number] cc: Claire Boucher DO EXAMINATION: 1. MM [...] OV> 10/08/24918 DD/ 0900 TD/TT: 10/08/24 0915 Brick Burner Head: us Claire Boucher DO IMG US PROCEDURES Final Resu lt * BI Mammogram Diagnostic Tomosynthesis Bilateral (10/08/2024 8:33 AM EDT) Anatomical Region Laterality Modality Breast Bilateral Mammography 10/08/2024 8:33 AM EDT Narrative 10/08/2024 9:22 AM EDT [facility] [address] [place] [address] [place] [address] Mammography Report Signed Patient: Ivory Daniel I MR#: [id number] 98 : 1980 Acct:[id number] Age/Sex: 44 / F ADM Date: 10/08/24 Loc: HO.MAMMO Attending Dr: Claire Boucehr DO Ordering Physician: Claire Boucher DO Results: 1N egative Date of Service: 10/08/24 Follow Up: 1 Year From Orig ina Mammogram Procedure(s): MM tomosynthesis diagnostic BI Accession Number(s): [id number] cc: Claire Boucher DO EXAMINATION: 1. MM [...] Mason Cheung MD in OV> 10/08/24918 DD/ TD/TT: 10/08/24 0850 Brick Burner Head: Procedure Note Donotuseinterpreter, Image - [facility]/08/[facility] [address] [place], [place] [address] Mammography Report Signed Patient: Ivory Daniel IMR#: [id number] 98 : 1980Acct:[id number] Age/Sex: 44 / FADM Date: 10/08/24 Loc: HO.MAMMO Attending Dr: Claire Boucher DO Ordering Physician: Claire Boucherults: 1N egative Date of Service: 10/08/24Follow Up: 1 Year From Orig inal Mammogram Procedure(s): MM tomosynthesis diagnostic BI Accession Number(s): [id number] cc: Claire Boucher DO EXAMINATION: 1. MM [...] Mason Cheung MD in OV> 10/08/24918 DD/ 0833 TD/TT: 10/08/24 0850 Brick Burner Head: us Claire Boucher DO IMG BI PROCEDURES Final Resu lt * NM Hepatobiliary w Pharm (08/16/2024 11:00 AM EDT) Anatomical Region Laterality Modality Body Nuclear Medicine 08/16/2024 11:0 0 AM EDT Narrative 08/16/2024 1:45 PM EDT [place] [address] Nuclear Medicine Report Signed Patient: Ivory Daniel I MR#: [id number] 98 : 1980 Acct:[id number] Age/Sex: 44 / F ADM Date: 08/16/24 Loc: LEDY Attending Dr: Lexy Burch CNP Ordering Physician: Lexy Burch CNP Date of Service: 08/16/24 Procedure(s): NM hepatobiliary w pharm Accession Number(s): [id number] cc: Name,Mulugeta HUANG; Lexy Burch CNP EXAMINATION: [...] 08/16/24 1342 DD/ 1100 TD/TT: 08/16/24 1300 Brick Burner Head: Procedure Note Donotuseinterpreter, Image - 08/16/2024 [place] [address] Nuclear Medicine Report Signed Patient: Ivory Daniel [facility]#: [id number] 98 : 1980Acct:[id number] Age/Sex: 44 / FADM Date: 08/16/24 Loc: HO.NUCMATILDE Attending Dr: Lexy Burch CNP Ordering Physician: Lexy Burch CNP Date of Service: 08/16/24 Procedure(s): NM hepatobiliary w pharm Accession Number(s): [id number] cc: Fabian,Mulugeta HUANG; Lexy Burch CNP EXAMINATION: NM BILIARY [...] 08/16/24 1342 DD/ 1100 TD/TT: 08/16/24 1300 Brick Burner Head: [facility] External Provider IMG NM PROCEDURES Edited Result - Final * POCT Rapid COVID Ag (08/09/2024 3:39 PM EDT) [facility] Rapid COVID Ag Negative Swab 08/09/2024 3:39 PM EDT Jenelle Lozano MD POINT OF CARE TEST ENTER/EDIT OR DERABLES Final Result * (ABNORMAL) CBC auto differential (07/19/2024 9:56 AM EDT) [facility] White Blood Count 7.5 4.8 - 10.8 X10*3/uL [facility] Red Blood Count 4.04(L) 4.20 - 5.50 X10*6/uL [facility] Hemoglobin 11.7(L) 12.0 - 16.0 g/dl [facility] Hematocrit 35.6(L) 37.0 - 47.0 % [facility] Mean Corpuscular Volume 88.1 80.0 - 98.0 fL [facility] Mean Corpuscular Hemoglobin 29.0 27.0 - 33.0 pg [facility] Mean Corpuscular HGB Conc 32.9 31.0 - 35.0 g/dl [facility] Red Cell Distribution Width 13.1 11.0 - 16.0 % [facility] Platelet Count 292 160 - 400 X10*3/uL [facility] Mean Platelet Volume 11.1 9.4 - 12.3 fL [facility] Neutrophils Percent Auto 59.9 45 - 73 % [facility] Imm Gran Pct Auto 0.3 0.0 - 0.4 % [facility] Lymphocytes Percent Auto 29.7 20 - 40 % [facility] Monocytes Percent Auto 8.4 2 - 11 % [facility] Eosinophils Percent Auto 1.2 0 - 4 % [facility] Basophils Percent Auto 0.5 0 - 2 % [facility] NRBC Pct Auto 0.0 0.0 - 0.2 /100WBC [facility] Neutrophils Absolute Auto 4.5 2.0 - 8.3 x10*3/uL [facility] Imm Gran Abs Auto 0.02 0.00 - 0.03 X10*3/uL [facility] Lymphocytes Absolute Auto 2.2 1.2 - 4.9 X10*3/uL [facility] Monocytes Absolute Auto 0.6 0.1 - 1.2 X10*3/uL [facility] Eosinophils Absolute Auto 0.1 0.0 - 0.4 X10*3/uL [facility] Basophils Absolute Auto 0.0 0.0 - 0.2 X10*3/uL [facility] NRBC Abs Auto 0.000 0.0 - 0.012 X10*3/uL [facility] Blood Venous blood specimen / Unknown 07/19/2024 9:56 AM EDT 07/19/2024 11:00 AM EDT us Claire Boucher DO LAB BLOOD ORDERABLES Final R esult [facility] [address] [place] [phone] * Prolactin (07/19/2024 9:56 AM EDT) Prolactin 10.3 ng/mL [facility] Comment:Reference Range Fema les Non- 3.0-30.0 10.0-209.0 Postmenopausal 2.0-20.0THIS TEST WAS PERFORMED AT:[employer] [address] [id number] ALCANTARA MD Blood Venous blood specimen / Unknown 07/19/2024 9:56 AM EDT 07/19/2024 11:00 AM EDT Claire Boucher LAB BLOOD ORDERABLES Final R esult Performing Organization Address [facility]/ZIP Co de Phone Number [facility] [address] [place] [phone] * TSH (07/19/2024 9:56 AM EDT) Thyroid Stimulating Hormone 2.00 0.32 - 4.0 uIU/mL [facility] Comment:TSH 3rd Generation ( [facility]) Blood Venous blood specimen / Unknown 07/19/2024 9:56 AM EDT 07/19/2024 11:00 AM EDT Claire Boucher DO LAB BLOOD ORDERABLES Final R esult [facility] [address] [place] [phone] * T4, Free (07/19/2024 9:56 AM EDT) Free T4 (Free Thyroxine) 0.95 0.71 - 1.85 ng/dL [facility] Blood Venous blood specimen / Unknown 07/19/2024 9:56 AM EDT 07/19/2024 11:00 AM EDT Claire Sander DO LAB BLOOD ORDERABLES Final R esult Performing Organization Address City/[facility]/ZIP Co de Phone Number [facility] [address] [place] [address] [phone] * Hepatic Function Panel (07/19/2024 9:56 AM EDT) Bilirubin, Total 0.7 0.0 - 1.0 mg/dL [facility] Bilirubin, Direct 0.2 0.0 - 0.5 mg/dL [facility] Aspartate Amino Transferase 14 5 - 31 U/L [facility] Alanine Aminotransferase 10 0 - 31 U/L [facility] Total Protein 6.9 6.5 - 8.0 g/dL [facility] Albumin Level 4.0 3.5 - 5.0 g/dL [facility] Alkaline Phosphatase 39 39 - 117 U/L [facility] Blood Venous blood specimen / Unknown 07/19/2024 9:56 AM EDT 07/19/2024 11:00 AM EDT Claire Boucher DO LAB BLOOD ORDERABLES Final R esult Performing Organization Address [facility] Co de Phone Number [facility] [address] [place] [phone] * (ABNORMAL) Basic Metabolic Panel (07/19/2024 9:56 AM EDT) Sodium 137 135 - 145 mmol/L [facility] Potassium 4.3 3.3 - 5.1 mmol/L [facility] Chloride 107 96 - 108 mmol/L [facility] Carbon Dioxide 27 22 - 29 mmol/L [facility] Anion Gap 7(L) 12 - 20 [facility] Urea Nitrogen (BUN) 16 9 - 16 mg/dL [facility] Creatinine, Serum 0.68 0.5 - 1.4 mg/dL [facility] Estimated Glomerular Filt Rate >60 [facility] Comment:Chronic Kidney Disea se: Estimated GFR < 60 mL/min/[id number] Kidney Disease: Estimated GFR < 15 mL/min/1.73m2 Glucose 106 60 - 115 mg/dL [facility] Calcium 9.3 8.4 - 10.2 mg/dL [facility] Blood Venous blood specimen / Unknown 07/19/2024 9:56 AM EDT 07/19/2024 11:00 AM EDT us Claire Boucher DO LAB BLOOD ORDERABLES Final R esult [facility] [address] [place] [phone] * Lipid Panel, Standard (06/15/2024 10:44 AM EDT) Triglycerides 132 <150 mg/dL [facility] Comment:Desirable Triglyceri de: less than 150 mg/dLBorderline High Triglyceride 150-199 mg/dLHigh Triglyceride: 200-499 mg/dLVery High Triglyceride: greater than or equal to 5OO mg/dL Cholesterol 161 <200 mg/dL [facility] Comment:Desirable Cholestero l: less than 200 mg/dLBorderline High Cholesterol: 200-239 mg/dLHigh Cholesterol: greater than 239 mg/dL LDL Cholesterol Calculated 90 <100 mg/dL [facility] Comment:Desirable LDL: less than 100 mg/dLNear Optimal/Above Optimal LDL: 110- 129 mg/dLBorderline High LDL: 130-159 mg/dLHigh LDL: 160-189 mg/dLVery High LDL: greater than or equal to 190 mg/dL HDL Cholesterol 45 >40 mg/dL [facility] Comment:Desirable HDL: great er than 40 mg/dL Note: This HDL assay may give artificially low results in patients with liver disease. 06/15/2024 10:4 4 AM EDT 06/15/2024 10:44 AM EDT us Generic External Data Provider LAB BLOOD ORDERAB LES Final Result [facility] [address] [place] [phone] * (ABNORMAL) POCT HGB A1C (12/16/2023 [...] Hepatitis C Antibody NON-REACT KELLY NON-REACT KELLY [employer] [place] [employer] Index 0.09 <1.00 [employer] [place] [employer] Comment: HCV antibody was non-reactive. There is no laboratory evidence of HCV infection. In most cases, no further action is required. However, if recent HCV exposure is suspected, a test for HCV RNA (test code 13363) is suggested. For additional information please refer to http://education.fivesquids.co.uk/faq/BAY90o5 (This link is being provided for informational/ educational purposes only.) Blood Venous blood specimen / Unknown 06/03/2022 10:57 AM EDT 06/03/2022 10:58 AM EDT Narrative [facility] - 06/04/2022 8:43 PM EDT FASTING:NO FASTING: NO Candice ALCALA LAB BLOOD ORDERABLES Nani l Result [facility] [address], [place] [address] [employer] [place] [employer] [address] [place] [address] * HIV-1/2 Antigen and Antibodies, Fourth Generation, with Reflexes (06/03/2022 10:57 AM EDT) HIV Antigen/Antibody, 4th Generation NON-REAC TIVE NON-REAC TIVE [facility] Comment: HIV-1 antigen and HIV-1/HIV-2 antibodies [...] purpose. For additional information please refer to http://education.fivesquids.co.uk/faq/RSU923 (This link is being provided for informational/ educational purposes only.) The performance of this assay has not been clinically validated in patients less than 2 years old. Blood Venous blood specimen / Unknown 06/03/2022 10:57 AM EDT 06/03/2022 10:58 AM EDT Narrative [facility] - 06/04/2022 8:43 PM EDT FASTING:NO FASTING: NO Candice ALCALA LAB BLOOD ORDERABLES Nani l Result [facility] [address], [place] [address] [facility] [address] [place] [address] * Image-Guided Pap with Age-Based Screening??with CT/NG,??Trichomonas (06/03/2022 10:47 AM EDT) Comment [facility] Comment: This order for age-based cervical cancer and STI screening follows ACOG guidelines(PB 168, 140, DCK723). See individual assays for performing site location. Clinical Information: Routine exam [facility] LMP: NONE GIVEN [facility] Prev. PAP: NONE GIVEN [facility] Prev. BX: NONE GIVEN [facility] SOURCE: None given [employer] [place] [employer] Statement Of Adequacy: [employer] [place] [employer] Comment: Satisfactory for evaluation. Endocervical/transformation zone component present. Interpretation/Re sult: Negative for intraepithelial lesion or malignancy. [employer] [place] [employer] COMMENT: This Pap test has been evaluated with computer assisted technology. [employer] [place] [employer] Anesthesiology Tech: Antonia estrella [employer] [place] [employer] Comment: WAC, CT(ASCP) CT screening location: [address] [address] (Always Message) [facility] [place] [employer] Comment: EXPLANATORY NOTE: The Pap is a [...] HPV nRNA E6/E7 Not Detected Not Detected [employer] [place] [employer] Comment: Methodology: Manager Laundry-Mediated Amplification This assay detects E6/E7 viral messenger RNA (mRNA) from 14 high-risk HPV types (16,18,31,33,35,39,45,51,52,56,58,59,66,68). Cervical sources are required for HPV testing. If a vaginal source from a patient who has had a total hysterectomy with removal of cervix was submitted, please contact the testing laboratory for alternative testing options. For additional information, please refer to http://mPort.fivesquids.co.uk/faq/WZQ922q3 (This link if provided for information/ educational purposes only.) Chlamydia trachomatis RNA, TMA, Urogenital NOT DETECTED NOT DETECTED [facility] Neisseria gonorrhoeae RNA, TMA, Urogenital NOT DETECTED NOT DETECTED [facility] (Always Message) [facility] Comment: The analytical performance characteristics of this assay, when used to test SurePath(TM) specimens have been determined by [employer]. The modifications have not been cleared or approved by the FDA. This assay has been validated pursuant to the CLIA regulations and is used for clinical purposes. For additional information, please refer to https://education.fivesquids.co.uk/faq/MXG468 (This link is being provided for information/ educational purposes only.) Trichomonas vaginalis, QL, TMA, PAP Vial NOT DETECTED NOT DETECTED [facility] Comment: The analytical performance characteristics of this assay have been determined by [employer]. The modifications have not been cleared or approved by the FDA. This assay has been validated pursuant to the CLIA regulations and is used for clinical purposes. For additional information, please refer to http://mPort.fivesquids.co.uk/ faq/Trichomonastma (This link is being provided for information/ educational purposes only.) Cytology specimen container (physical object) 06/03/2022 10:47 AM EDT 06/04/2022 5:15 AM EDT Candice Morrell [facility] CYTOLOGY ORDERABLES F inal Result [facility] [address], [place] [address] [facility] [address] [place] [address] from Last 3 Months or Most Recently Relevant to Health Maintenance Insurance [facility] < [address] [place] [id number] [place] [id number] Care Teams Insurance Follow Up Rep Relationship Specialty Start Date End Date Name, MD Mulugeta [address] [place] [phone] PCP - General Family Medicine 06/06/15
[2024-10-15 04:44] LABS: Bacterial Vaginosis PCR NEGATIVE (Negative); Candida Group PCR NOT DETECTED (Not Detect); Candida glab krusei PCR NOT DETECTED (Not Detect); Trichomonas vaginalis PCR NOT DETECTED (Not Detect)
[2024-10-15 05:14] LABS: CT PCR NOT DETECTED (Not Detect.); NG PCR NOT DETECTED (Not Detect.)
== END 2024-10-14 15:29 | disposition home or self-care (01) ==
LOC: HO.HHCX 15:28
PROVIDERS: Visit Provider Family Medicine
DX: M25.561 Pain in right knee (principal); M25.562 Pain in left knee; M54.50 Low back pain, unspecified; G89.29 Other chronic pain; R30.0 Dysuria; N94.9 Unspecified condition associated with female genital organs and menstrual cycle
CPT/HCPCS: 73564; 81515; 87086; 87491; 87591

== ENCOUNTER → 2024-10-14 15:29 | Outpatient (BNV) | payer OTHER, SELFPAY | PROVIDERS: Visit Provider Radiology Body Imaging | DX: M25.569 Pain in unspecified knee (principal) | CPT/HCPCS: 73564 ==

== ENCOUNTER 2024-10-20 12:34 | Outpatient (AMB) | payer OTHER, SELFPAY ==
[2024-10-20 12:53] VITALS: BP 140/78; PULSE 68; O2SAT 98; BMI 37.2
--- NOTE | 2024-10-20 12:53 | A.OFFVIS_ITS ---
Vital Signs 10/20/24 12:53 Height 5 ft 1 in Weight 196 lb 10.437 oz BMI 37.2 BP 140/78 H Blood Pressure Location Lt brachial Position Sitting Pulse 68 Pulse Source Pulse Oximeter Pulse Oximetry (%) 98 Oxygen Delivery Method Room Air Intake Visit Reasons: pre-op endoscopy-EGD + colonoscopy f/up testings Intake Note: pre op appt, not scheduled as of yet. Pt states only complaint in Left LE cramping and pulsing behind Left eye. Chemical Applicator Required: Yes Chemical Applicator Language: Furniture Shampooer Services: Chemical Applicator Present Chemical Applicator Name: [id number] Vladimir Information Interpreted: clinical only Accompanied by: Spouse Allergies seafood Allergy (Verified 10/20/24 12:56) Eye Swelling Medication List - Last Reconciled 10/20/24 by Levi Hodge NP albuterol sulfate 90 mcg/actuation 2 puffs inhalation Q4H PRN atorvastatin 10 mg PO DAILY bisacodyl 5 mg PO ONCE 1 day cholecalciferol (vitamin D3) 25 mcg PO QAM clotrimazole 1% appl topical BID famotidine 20 mg PO BID methylcellulose (laxative) (Citrucel) 500 mg PO BID naproxen 500 mg PO BID omega-3 fatty acids 1,000 mg PO DAILY polyethylene glycol 3350 (Miralax) 17 grams PO DAILY 30 days polyethylene glycol 3350 (Miralax) 238 grams PO ONCE prednisone 20 mg PO DAILY HPI Comments Details: This is a 44-year-old female patient coming in for a follow-up visit, accompanied by her . A bilingual interpreter was used throughout the visit. Patient previously had an abnormal EKG back in 2022 and underwent stress test, echo, Holter which were inconclusive and underwent a coronary CTA that was negative. Patient was recently in the hospital for EKG changes with a left bundle branch block and chest pain. For the new finding of left bundle branch block and reported symptoms of palpitations, patient underwent myocardial perfusion study, Holter, and echo study. Today, patient reports feeling well overall except ongoing intermittent palpitations but patient also notes that she drinks a lot of caffeine throughout the day. Patient is otherwise reporting compliance with all her medications. 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 Colon cancer screening Change in stool Constipation Gallstones Surgical History History of esophagogastroduodenoscopy (EGD) Hx of colonoscopy H/O section Family History Family/Other Cancer Diabetes Social History Household Members: Spouse Unable to assess alcohol history related to: Unknown Alcohol intake: never Patient Tobacco Use Status: Never used Tobacco Current occupational status: unemployed Review of Systems Const Denies chills, Denies fatigue, Denies fever(s), Denies frequent falls, Denies weakness, Denies weight gain and Denies weight loss ENT Denies dizziness Card Denies chest pain, Denies leg edema, Denies lightheadedness, Denies palpitations, Denies dyspnea on exertion, Denies orthopnea and Denies other (loss of consciousness) Resp Denies cough and Denies dyspnea on exertion GI Denies hematochezia and Denies change in stool character Musc Denies abnormal gait, Denies muscle weakness, Denies numbness, Denies radiating pain into limb and Denies tingling Neuro Denies abnormal gait, Denies dizziness, Denies frequent falls, Denies numbness, Denies tingling and Denies weakness Endo Denies fatigue and Denies palpitations Physical Exam Vital Signs: Last Vital Signs Pulse 68 10/20/24 12:53 BP 140/78 H 10/20/24 12:53 Pulse Ox 98 10/20/24 12:53 Oxygen Delivery Method Room Air 10/20/24 12:53 BMI result Body Mass Index 37.2 Const General: cooperative, healthy appearing, comfortable and no acute distress Orientation/consciousness: patient oriented x3 HEENT Head: Yes normal to inspection Neck Neck: Yes normal visual inspection, Yes trachea midline and Yes supple Chest Chest palpation & inspection: normal inspection of the chest Resp Effort & Inspection: normal respiratory effort Auscultation: clear to auscultation bilaterally, no crackles, no rales, no rhonchi and no wheezes Cardio Jugular venous distension: no JVD Palpation: normal PMI Rate: regular rate Rhythm: regular rhythm Heart sounds: S1 normal heart sound present, S2 normal heart sound present, no click, no gallops, no murmurs and no rubs Peripheral pulses: Peripheral pulses 2+ throughout GI Inspection: Yes normal to inspection Palpation (GI): Soft to palpation Auscultation: normal bowel sounds Skin General skin exam: no rashes or lesions noted Neuro General: patient oriented x3 Extrem General: Yes normal to inspection, No no pedal edema and No calf tenderness Psych Appearance: grossly normal Mental Status: mental status grossly normal Speech and movement: Normal speech and movement present Office Procedures EKG Details: EKG today showed normal sinus rhythm, rate 64 beats per minute, left bundle branch block, nonspecific T-wave, [place] [id number], Complete Assessment & Plan Assessment & Plan (1) Palpitations: Code(s): R00.2 - Palpitations Category: Medical Plan: 06/15/2024-Holter study showed a normal sinus rhythm at baseline with rare supraventricular ectopies. 06/15/2024-echo study showed a normal LV systolic function with an ejection fraction between 55-60%, with paradoxical septal motion consistent with left bundle branch block. 10/12/2024-patient underwent myocardial perfusion study with the pharmacologic agent that showed likely normal perfusion. Given above findings, no further testing indicated at this time. Advised to reduce her caffeine intake to a cup daily. Advised on stress medication strategies. (2) Hypertension: Code(s): I10 - Essential (primary) hypertension Category: Medical Plan: Patient's last 2 blood pressures has been high and she brings in her blood pressure readings from home that showed an average systolic blood pressures between 140 to 150s. We will start patient on a low-dose losartan. Advised monitoring blood pressures with a goal less than 130/80. (3) LBBB (left bundle branch block): Code(s): I44.7 - Left bundle-branch block, unspecified Category: Medical Plan: Unchanged left bundle branch block. As above. (4) Preop cardiovascular exam: Code(s): Z01.810 - Encounter for preprocedural cardiovascular examination Plan: Patient has an upcoming EGD and colonoscopy that patient can proceed with with the consideration that she is at a low cardiac risk. Advised DASH diet, regular exercise, losing weight, med compliance, adequate hydration, stress medication strategies, and management of vascular risk factors. Follow up in 1 month with the nurse for a blood pressure check. In the interim, patient will call the office with any concerns or change in symptoms. This note was generated using voice recognition software. While every effort has been made to ensure accuracy and proper construction project engineer, there may be occasional errors that could affect the content or meaning of the described symptoms. Orders: Orders AMB EKG-In Office Today Z01.810 - Encounter for preprocedural cardiovascular examination Medications: New losartan 25 mg PO DAILY 90 tabs 3RF Discontinued atorvastatin Discontinued Reason: Doctor's Order 10 mg PO DAILY 90 tabs 1RF Coding Level of Care Code Est Pt Level 4 (44667) Complex EM visit Add On G2211 Diagnoses Palpitations R00.2 Hypertension I10 LBBB (left bundle branch block) I44.7 Preop cardiovascular exam Z01.810 CPT Codes EKG - CPT: 15217-[id number], Complete ([id number]) Time Spent (min) 31 Comment Time spent in reviewing the chart, test results, assessment, counseling and documentation.
--- OUTSIDE RECORDS SUMMARY | 2024-10-20 13:27 | XMS_ITS | Clinical Summary ---
[facility] Organization [facility] Address [address] [place] [address] Care Team Providers Care Verification Manager Name Role Phone Name, Mulugeta HUANG Primary Care Provider [phone] Surgical History Surgery Date Site/Laterality Comments OTHER [...] RESULTING AGENCY - 09/14/2018 12:06 PM EDT [id number] THINPREP PAP, IMAGED: NEGATIVE FOR SQUAMOUS INTRAEPITHELIAL [...] Recently Relevant to Health Maintenance Care Teams Verification Manager Relationship Specialty Start Date End Date Name, MD Mulugeta [address] [place], [place] PCP - General 06/30/16
--- OUTSIDE RECORDS SUMMARY | 2024-10-20 13:27 | XMS_ITS | Clinical Summary ---
Author Organization [employer] Address [address] [facility] 7[address] [place] [address] Care Team Providers Care Stamp Maker Name Role Phone Name, Mulugeta HUANG Primary Care Provider [phone] Allergies Active Allergy Reactions Criticality Noted Date [...] 40 tablet 1 10/15/19 25 025 Active methylPREDNIS olone (Medrol [...] FOR PAIN 150 g 1 03/25/19 25 025 Discontinued(R eorder (will not [...] 30 tablet 09/28/19 25 025 Discontinued(I neffective) sulfamethoxaz ole-trimethop rim (Bactrim DS) 800-160 MG tablet Take 1 tablet by mouth 2 times daily for 3 days. 6 tablet 10/15/19 25 025 Active Problems Problem Noted Date [...] 05/23/2022 Overview (05/23/2022): 7 grade education in [place] Does not know how to read or write Khmer Epigastric pain 04/09/2022 H. pylori infection 04/09/2022 [...] Encounters Date Type Department Care Team Description 10/15/2024 Telephone [facility] [address] [place] [address] Mulugeta Peralta MD PA Approval 10/15/2024 Telephone [facility] [address] [place] [address] Mulugeta Peralta MD Prior Authorization 10/14/2024 2:40 PM EDT Office Visit [facility] [address] [place] [address] Claire Boucher DO Chronic bilateral low back pain without sciatica (Primary Dx); Dysuria; Nipple discharge; Vaginal discomfort 10/14/2024 Refill [facility] [address] [place] [address] Claire Boucher DO 10/14/2024 Travel 10/12/2024 Orders Only [facility] External Provider, [facility] 09/27/2024 1:45 PM EDT Office Visit [facility] [address] [place] [address] Alberta Jordan, [employer] Chronic left-sided low back pain with left-sided sciatica (Primary Dx); Chronic pain of left knee 09/27/2024 Refill [facility] [address] [place] [address] Alberta Jordan, [employer] Chronic left-sided low back pain with left-sided sciatica 09/27/2024 Travel 09/02/2024 Refill [facility] [address] [place] [address] Fabian, MD Mulugeta Back muscle spasm 08/16/2024 Orders Only [facility] External Provider, [facility] 08/09/2024 3:40 PM EDT [facility] [address] [place] [address] Jenelle Lozano MD Acute bronchitis, unspecified organism (Primary Dx) from Last 3 Months Immunizations Immunization Administration [...] Description 10/25/2024 11:30 AM EDT Office Visit [facility] [address] [facility] [place] [address] Name, [place] [address] Health Maintenance Due Date Last Done Comments [...] history exists Diabetes: Hemoglobin A1C 12/15/2024 12/16/2023, 0208/2022 Pap Smear 06/03/2025 06/03/2022 Alcohol/Substance Use Screening 07/01/2025 07/01/2024 Depression Screening 07/01/2025 07/01/2024, 07/02/19 25 Disability Screening 07/01/2025 07/01/2024 SDOH Screening 07/01/2025 07/01/2024 Mammogram 10/08/2025 10/08/2024, 08/0 10/2024, 07/10/2023, Additional history exists Tobacco Screening [...] Procedure Name Priority Date/Time Associated Diagnosis Comments CULTURE, URINE, ROUTINE Routine 10/14/2024 3:28 PM EDT Dysuria CHLAMYDIA/N. GONORRHOEAE RNA, TMA, UROGENITAL Routine 10/14/2024 3:17 PM EDT Vaginal discomfort BACTERIAL VAGINOSIS PANEL Routine 10/14/2024 3:17 PM EDT Vaginal discomfort XR KNEE 4+ VIEWS BILATERAL Routine 10/14/2024 3:01 PM EDT POCT URINALYSIS DIPSTICK Routine 10/14/2024 2:47 PM [...] 3:39 PM EDT Acute bronchitis, unspecified organism LIPID PANEL, STANDARD Routine 06/15/2024 10:44 AM [...] Recently Relevant to Health Maintenance Results * Culture, Urine, Routine (10/14/2024 3:28 PM EDT) Urine Urine specimen obtained by clean catch procedure / Unknown 10/14/2024 3:28 PM EDT 10/14/2024 4:22 PM EDT Comment:[facility] - 10/16/2024 11:44 AM EDT Urine Culture Report Result Urine Culture 10,000 to 50,000 cfu/ml Urine Culture Mixed bacterial blair characteristic of Urine Culture urogenital contamination. Specimen Source: Urine clean catch us Claire Boucher DO LAB MICROBIOLOGY - GENERAL O RDERABLES Final Result [facility] [address] [place] [phone] * Bacterial Vaginosis (10/14/2024 3:17 PM EDT) TRICHOMONAS VAGINALIS DETECTION BY PCR NOT DETECTED Not Detect [facility] BACTERIAL VAGINOSIS DETECTION BY PCR NEGATIVE Negative [facility] Comment:The BV organism targ ets of the Xpert Xpress MVP test can becommensal in women; Xpert Xpress MVP positive results forbacterial vaginosis should be considered in conjunction withother clinical and patient information to determine thedisease status. Organisms that are not detected by the XpertXpress MVP test have also been reported to be associatedwith BV and aerobic vaginitis.The Xpert Xpress MVP test performance has not been evaluatedin patients under the age of 14. DASHA GROUP DETECTION BY PCR NOT DETECTED Not Detect [facility] Dasha glab krusei PCR NOT DETECTED Not Detect [facility] Swab Vaginal structure / Unknown 10/14/2024 3:17 PM EDT 10/14/2024 4:22 PM EDT Claire Boucher DO LAB MICROBIOLOGY - GENERAL O RDERABLES Final Result [facility] [address] [place] [phone] * Chlamydia/N. Gonorrhoeae RNA, TMA, Urogenitial (10/14/2024 3:17 PM EDT) CT PCR NOT DETECTED Not Detect. [facility] Comment:A not detected test result does not exclude the possibilityof infection because test results can be affected byimproper specimen collection, concurrent antibiotic therapy,or the number of organisms in the specimen which may bebelow the sensitivity of the test. As with many diagnostictests, results from the Xpert CT/NG assay should beinterpreted in conjunction with other laboratory andclinical data available to the clinician.Xpert CT/NG performance has not been evaluated in patientsless than 14 years of age. The assay should not be used forthe evaluationof suspected sexual abuse or for other medico-legalindications. Additional testing is recommended in anycircumstance when false positive or false negative resultscould lead to adverse medical, social or psychologicalconsequences. NG PCR NOT DETECTED Not Detect. [facility] Comment:A not detected test result does not exclude the possibilityof infection because test results can be affected byimproper specimen collection, concurrent antibiotic therapy,or the number of organisms in the specimen which may bebelow the sensitivity of the test. As with many diagnostictests, results from the Xpert CT/NG assay should beinterpreted in conjunction with other laboratory andclinical data available to the clinician.Xpert CT/NG performance has not been evaluated in patientsless than 14 years of age. The assay should not be used forthe evaluationof suspected sexual abuse or for other medico-legalindications. Additional testing is recommended in anycircumstance when false positive or false negative resultscould lead to adverse medical, social or psychologicalconsequences. Swab Vaginal structure / Unknown 10/14/2024 3:17 PM EDT 10/14/2024 4:22 PM EDT Claire Boucher DO LAB MICROBIOLOGY - GENERAL O RDERABLES Final Result [facility] [address] [place], [place] [phone] * XR Knee 4+ Views Bilateral (10/14/2024 3:01 PM EDT) Anatomical Region Laterality Modality Lower Extremities, Knee Bilateral Radiogra phic Imaging 10/14/2024 3:01 PM EDT Narrative 10/14/2024 4:18 PM EDT [address] [address] XRay Report Signed Patient: Ivory Daniel I MR#: [id number] 98 : 1980 Acct:[id number] Age/Sex: 44 / F ADM Date: 10/14/24 Loc: HO.HHCX Attending Dr: Claire Boucher DO Ordering Physician: Claire Boucher DO Date of Service: 10/14/24 Procedure(s): XR Knee Lester 4V Accession Number(s): [id number] cc: Claire Boucher DO EXAMINATION: XR KNEE 4 VIEWS BILATERAL CLINICAL INFORMATION: b/l knee pain, b/l LBP COMPARISON: None available. TECHNIQUE: Four views of the right and left knee. FINDINGS: Normal alignment. No fracture. Joint spaces are preserved. No suprapatellar joint effusion. XR/XR Knee Lester 4V IMPRESSION: Unremarkable examination. Electronically signed by: Mason Cheung MD 10/14/2024 04:15 PM EDT RP Dictated By: Mason Cheung MD Signed By: <Electronically signed by Mason Cheung MD in OV> 10/14/24 1615 DD/ 1501 TD/TT: 10/14/24 1520 Bonding Machine Operator: Procedure Note Donotuseinterpreter, Image - 10/14/2024 [place] [address] XRay Report Signed Patient: Ivory Daniel [facility]#: [id number] 98 : 1980Acct:[id number] Age/Sex: 44 / FADM Date: 10/14/24 Loc: HO.HHCX Attending Dr: Claire Boucher DO Ordering Physician: Claire Boucher DO Date of Service: 10/14/24 Procedure(s): XR Knee Lester 4V Accession Number(s): [id number] cc: Claire Boucher DO EXAMINATION: XR KNEE 4 VIEWS BILATERAL CLINICAL INFORMATION: b/l knee pain, b/l LBP COMPARISON: None available. TECHNIQUE: Four views of the right and left knee. FINDINGS: Normal alignment. No fracture. Joint spaces are preserved. No suprapatellar joint effusion. XR/XR Knee Lester 4V IMPRESSION: Unremarkable examination. Electronically signed by: Mason Cheung MD 10/14/2024 04:15 PM EDT RP Dictated By: Mason Cheung MD Signed By: <Electronically signed by Mason Cheung MD in OV> 10/14/24 1615 DD/ 1501 TD/TT: 10/14/24 1520 Bonding Machine Operator: Claire Boucher DO IMG XR PROCEDURES Final Resu lt * POCT urinalysis dipstick manually resulted (10/14/2024 [...] AM EDT) 10/12/2024 8:43 AM EDT Narrative [facility] - 10/14/2024 3:17 PM EDT [place] [address] Nuclear Medicine Report Signed Patient: Ivory Daniel I MR#: [id number] 98 : 1980 Acct:[id number] Age/Sex: 44 / F ADM Date: 10/12/24 Loc: CARD Attending Dr: Levi Hodge NP Ordering Physician: Levi Hodge NP Date of Service: 10/12/24 Procedure(s): NM cardiolite stress test Accession Number(s): [id number] cc: Fabian,Mulugeta HUANG; Levi Hodge NP Lexiscan Myocardial perfusion study [...] 10/14/24 1514 DD/ 0843 TD/TT: 10/13/24 1145 Bonding Machine Operator: Procedure Note Donotuseinterpreter, Image - 10/14/[address] [address] Nuclear Medicine Report Signed Patient: Ivory Daniel IMR#: [id number] 98 : 1980Acct:[id number] Age/Sex: 44 / FADM Date: 10/12/24 Loc: .CARD Attending Dr: Levi Hodge NP Ordering Physician: Levi Hodge NP Date of Service: 10/12/24 Procedure(s): IN cardiolite stress test Accession Number(s): [id number] cc: Name,Mulugeta HUANG; Levi Hodge NP Lexiscan Myocardial perfusion study [...] Could be artifactual. No clear reversible defects. IN/IN cardiolite stress test Impression: 1. Myocardial perfusion [...] 10/14/24 1514 DD/ 0843 TD/TT: 10/13/24 1145 Bonding Machine Operator: [facility] External Provider CV STRE SS PROCEDURES Final Result [facility] [address] [place] [phone] * BI US Breast Limited Bilateral (10/08/2024 9:00 AM EDT) Anatomical Region Laterality Modality Breast Bilateral Ultrasound 10/08/2024 9:00 AM EDT Narrative 10/08/2024 9:22 AM EDT [address] [place] [address] Ultrasound Report Signed Patient: Ivory Daniel I MR#: [id number] 98 : 1980 Acct:[id number] Age/Sex: 44 / F ADM Date: 10/08/24 Loc: HO.MAMMO Attending Dr: Claire Boucher DO Ordering Physician: Claire Boucher DO Date of Service: 10/08/24 Procedure(s): US breast BI limited mamm only Accession Number(s): [id number] cc: Claire Boucher DO EXAMINATION: 1. MM [...] Mason Cheung MD in OV> 10/08/[address] DD/ 09 TD/TT: 10/08/24 09 Bonding Machine Operator: Procedure Note Donotuseinterpreter, Image - 10/08/20[facility] [address] [place], [place] [address] Ultrasound Report Signed Patient: Ivory Daniel [facility]#: [id number] 98 : 1980Acct:[id number] Age/Sex: 44 / FADM Date: 10/08/24 Loc: HO.MAMMO Attending Dr: Claire Boucher DO Ordering Physician: Claire Boucher DO Date of Service: 10/08/24 Procedure(s): US breast BI limited mamm only Accession Number(s): [id number] cc: Claire Boucher DO EXAMINATION: 1. MM [...] in OV> 10/08/24918 DD/ 9 TD/TT: 10/08/24914 Bonding Machine Operator: us Claire Boucher DO IMG US PROCEDURES Final Resu lt * BI Mammogram Diagnostic Tomosynthesis Bilateral (10/08/2024 8:33 AM EDT) Anatomical Region Laterality Modality Breast Bilateral Mammography 10/08/2024 8:33 AM EDT Narrative 10/08/2024 9:22 AM EDT [facility] [address] [place] [address] Mammography Report Signed Patient: Ivory Daniel I MR#: [id number] 98 : 1980 Acct:[id number] Age/Sex: 44 / F ADM Date: 10/08/24 Loc: HO.MAMMO Attending Dr: Claire Boucher DO Ordering Physician: Claire Boucher DO Results: 1N egative Date of Service: 10/08/24 Follow Up: 1 Year From Orig ina Mammogram Procedure(s): MM tomosynthesis diagnostic BI Accession Number(s): [id number] cc: Claire Boucher DO EXAMINATION: 1. MM [...] Cheung MD 10/08/2024 09:19 AM EDT Workstation: [employer] Dictated By: Mason Cheung MD Signed By: <Electronically signed by Mason Cheung MD in OV> 10/08/24918 DD/ 2 TD/TT: 10/08/24 0850 Bonding Machine Operator: Procedure Note Donotuseinterpreter, Image - 10/08/2024 [facility] [address] [place] [address] Mammography Report Signed Patient: Ivory Daniel IMR#: [id number] 98 : 1980Acct:[id number] Age/Sex: 44 / FADM Date: 10/08/24 Loc: HO.MAMMO Attending Dr: Claire Boucher DO Ordering Physician: Claire Boucher DOResults: 1N egative Date of Service: 10/08/24Follow Up: 1 Year From [facility] Mammogram Procedure(s): MM tomosynthesis diagnostic BI Accession Number(s): [id number] cc: Claire Boucher DO EXAMINATION: 1. MM [...] 10/08/2024 09:19 AM EDT Dictated By: Mason Chueng MD Signed By: <Electronically signed by Mason Cheung MD in OV> 10/08/24 0919 DD/ 0833 TD/TT: 10/08/24 0850 Bonding Machine Operator: us Claire Boucher DO IMG BI PROCEDURES Final Resu lt * NM Hepatobiliary w Pharm (08/16/2024 11:00 AM EDT) Anatomical Region Laterality Modality Body Nuclear Medicine 08/16/2024 11:0 0 AM EDT Narrative 08/16/2024 1:45 PM EDT [address] [address] Nuclear Medicine Report Signed Patient: Ivory Daniel I MR#: [id number] 98 : 1980 Acct:[id number] Age/Sex: 44 / F ADM Date: 08/16/24 Loc: LEDY Attending Dr: Lexy Burch CNP Ordering Physician: Lexy Burch CNP Date of Service: 08/16/24 Procedure(s): NM hepatobiliary w pharm Accession Number(s): [id number] cc: Name,Mulugeta HUANG; Lexy Burch CNP EXAMINATION: [...] 08/16/24 1342 DD/ 1100 TD/TT: 08/16/24 1300 Bonding Machine Operator: Procedure Note Donotuseinterpreter, Image - 08/16/[address] [address] Nuclear Medicine Report Signed Patient: Ivory Daniel IMR#: [id number] 98 : 1980Acct:[id number] Age/Sex: 44 / FADM Date: 08/16/24 Loc: LEDY Attending Dr: Lexy Burch CNP Ordering Physician: Lexy Burch CNP Date of Service: 08/16/24 Procedure(s): NM hepatobiliary w pharm Accession Number(s): [id number] cc: Name,Mulugeta HUANG; Lexy Burch CNP EXAMINATION: [...] 08/16/24 1342 DD/ 1100 TD/TT: 08/16/24 1300 Bonding Machine Operator: [facility] External Provider IMG NM PROCEDURES Edited Result - Final * POCT Rapid COVID Ag (08/09/2024 3:39 PM EDT) Rapid COVID Ag Negative Swab 08/09/2024 3:39 PM EDT Jenelle Lozano MD POINT OF CARE TEST ENTER/EDIT OR DERABLES Final Result * Lipid Panel, Standard (06/15/2024 10:44 AM EDT) Triglycerides 132 <150 mg/dL [facility] Comment:Desirable Triglyceri de: less than 150 mg/dLBorderline High Triglyceride 150-199 mg/dLHigh Triglyceride: 200-499 mg/dLVery High Triglyceride: greater than or equal to 5OO mg/dL Cholesterol 161 <200 mg/dL [facility] Comment:Desirable Cholestero l: less than 200 mg/dLBorderline High Cholesterol: 200-239 mg/dLHigh Cholesterol: greater than 239 mg/dL LDL Cholesterol Calculated 90 <100 mg/dL [facility] Comment:Desirable LDL: less than 100 mg/dLNear Optimal/Above Optimal LDL: 110- 129 mg/dLBorderline High LDL: 130-159 mg/dLHigh LDL: 160-189 mg/dLVery High LDL: greater than or equal to 190 mg/dL HDL Cholesterol 45 >40 mg/dL [facility] Comment:Desirable HDL: great er than 40 mg/dL Note: This HDL assay may give artificially low results in patients with liver disease. 06/15/2024 10:4 4 AM EDT 06/15/2024 10:44 AM EDT us Generic External Data Provider LAB BLOOD ORDERAB LES Final Result [facility] [address] [place] [phone] * (ABNORMAL) POCT HGB A1C (12/16/2023 10:42 AM EDT) Hemoglobin A1C 6.2(A) 4.0 - 6.0 % QC Media Lot # [id number] Lot# Expiration Date ,[id number] Blood 12/16/2023 10:4 2 AM EDT us Mulugetahomero Peralta MD POINT OF CARE TEST ENTER/EDIT OR DERABLES Final Result * Hepatitis C Antibody with Reflex to HCV, RNA, Quantitative, Real-Time PCR (06/03/2022 10:57 AM EDT) Hepatitis C Antibody NON-REACT KELLY NON-REACT KELLY [facility] [place] [employer] Index 0.09 <1.00 [facility] [place] [employer] Comment: HCV antibody was non-reactive. There is no laboratory evidence of HCV infection. In most cases, no further action is required. However, if recent HCV exposure is suspected, a test for HCV RNA (test code 08106) is suggested. For additional information please refer to http://[employer] Networks/faq/WLQ54l6 (This link is being provided for informational/ educational purposes only.) Blood Venous blood specimen / Unknown 06/03/2022 10:57 AM EDT 06/03/2022 10:58 AM EDT Narrative [facility] - 06/04/2022 8:43 PM EDT FASTING:NO FASTING: NO Candice Morrell [facility] LAB BLOOD ORDERABLES Nani l Result [facility] [address] [facility], [facility], [place] [phone] [facility] [place] [employer] [address] [place] [address] * HIV-1/2 Antigen and Antibodies, Fourth Generation, with Reflexes (06/03/2022 10:57 AM EDT) [facility] HIV Antigen/Antibody, 4th Generation NON-REAC TIVE NON-REAC TIVE [facility] [place] [employer] Comment: HIV-1 antigen and HIV-1/HIV-2 antibodies were [...] purpose. For additional information please refer to http://[employer]/faq/CTC040 (This link is being provided for informational/ educational purposes only.) The performance of this assay has not been clinically validated in patients less than 2 years old. Blood Venous blood specimen / Unknown 06/03/2022 10:57 AM EDT 06/03/2022 10:58 AM EDT Narrative [facility] - 06/04/2022 8:43 PM EDT FASTING:NO FASTING: NO us Candice Morrell CN LAB BLOOD ORDERABLES Nani sanders Result [facility] [address] [facility], [facility], [place] [address] [facility] [place] [employer] [address] [place] [phone] * Image-Guided Pap with Age-Based Screening??with CT/NG,??Trichomonas (06/03/2022 10:47 AM EDT) Comment [facility] [place] [employer] Comment: This order for age-based cervical cancer and STI screening follows ACOG guidelines(PB 168, 140, YJE639). See individual assays for performing site location. Clinical Information: Routine exam [facility] LMP: NONE GIVEN [facility] Prev. PAP: NONE GIVEN [facility] Prev. BX: NONE GIVEN [facility] SOURCE: None given [facility] Statement Of Adequacy: [employer] Comment: Satisfactory for evaluation. Endocervical/transformation zone component present. Interpretation/Re sult: Negative for intraepithelial lesion or malignancy. [facility] COMMENT: This Pap test has been evaluated with computer assisted technology. [facility] [place] [employer] Conveyor Belt Repairer: Antonia [employer] Comment: WAC, CT(ASCP) CT screening location: [address] [address] (Always Message) [facility] Comment: EXPLANATORY NOTE: The Pap is a [...] HPV nRNA E6/E7 Not Detected Not Detected [facility] Comment: Methodology: Asphalt Machine Operator-Mediated Amplification This assay detects E6/E7 viral messenger RNA (mRNA) from 14 high-risk HPV types (16,18,31,33,35,39,45,51,52,56,58,59,66,68). Cervical sources are required for HPV testing. If a vaginal source from a patient who has had a total hysterectomy with removal of cervix was submitted, please contact the testing laboratory for alternative testing options. For additional information, please refer to http://[employer] Networks/faq/BFS671h6 (This link if provided for information/ educational purposes only.) Chlamydia trachomatis RNA, TMA, Urogenital NOT DETECTED NOT DETECTED [facility] Neisseria gonorrhoeae RNA, TMA, Urogenital NOT DETECTED NOT DETECTED [facility] (Always Message) [facility] Comment: The analytical performance characteristics of this assay, when used to test SurePath(TM) specimens have been determined by [facility]. The modifications have not been cleared or approved by the FDA. This assay has been validated pursuant to the CLIA regulations and is used for clinical purposes. For additional information, please refer to https://[employer]/faq/VNN618 (This link is being provided for information/ educational purposes only.) Trichomonas vaginalis, QL, TMA, PAP Vial NOT DETECTED NOT DETECTED [facility] Comment: The analytical performance characteristics of this assay have been determined by [facility]. The modifications have not been cleared or approved by the FDA. This assay has been validated pursuant to the CLIA regulations and is used for clinical purposes. For additional information, please refer to http://[employer]/ faq/Trichomonastma (This link is being provided for information/ educational purposes only.) Cytology specimen container (physical object) 06/03/2022 10:47 AM EDT 06/04/2022 5:15 AM EDT Candice Morrell [facility] CYTOLOGY ORDERABLES F inal Result [facility] [address] [facility], [facility], [place] [address] [facility] [place] [facility] [address] [place] [phone] from Last 3 Months or Most Recently Relevant to Health Maintenance Insurance [facility] ONE CARE < 65 [place] [id number] Care Teams Stamp Maker Relationship Specialty Start Date End Date Name, MD Mulugeta [address] [place] [address] [place] [address] PCP - General Family Medicine 06/06/15
== END 2024-10-20 13:39 | disposition home or self-care (01) ==
LOC: HO.HCS 12:35
PROVIDERS: PCP Internal Medicine Geriatric Medicine
DX: R00.2 Palpitations (principal); I10 Essential (primary) hypertension; I44.7 Left bundle-branch block, unspecified; Z01.810 Encounter for preprocedural cardiovascular examination
CPT/HCPCS: 93010; 99214; G2211

== ENCOUNTER → 2024-10-20 12:34 | Outpatient (BNVA) | payer OTHER, SELFPAY | PROVIDERS: PCP Internal Medicine Geriatric Medicine | DX: Z01.810 Encounter for preprocedural cardiovascular examination (principal); I44.7 Left bundle-branch block, unspecified; R00.2 Palpitations; R07.9 Chest pain, unspecified; I10 Essential (primary) hypertension | CPT/HCPCS: 93005; 99212 ==

== ENCOUNTER 2024-10-22 11:32 | Outpatient (AMB) | payer OTHER, SELFPAY ==
--- OUTSIDE RECORDS SUMMARY | 2024-10-22 11:34 | XMS_ITS | Clinical Summary ---
Author Organization [employer] Address [address] [place] [address] Care Team Providers Care Freight Adjuster Name Role Phone Name, Mulugeta HUANG [...] 40 tablet 1 10/15/19 25 025 Active baclofen (Lioresal) 10 [...] 3 days. 6 tablet 10/15/19 25 025 methylPREDNIS olone (Medrol Dospak) 4 MG tablets Follow schedule on package instructions 21 tablet 10/15/19 25 025 Active Problems Problem [...] not know how to read or write Lithuanian Epigastric pain 04/09/2022 H. pylori infection 04/09/2022 [...] Type Department Care Team Description 10/15/2024 Telephone [facility] [address] [place] [address] Mulugeta Peralta MD PA Approval 10/15/2024 Telephone [facility] [address] [place] [address] Mulugeta Peralta MD Prior Authorization 10/14/2024 2:40 PM EDT Office Visit [facility] [address] [place] [phone] Claire Boucher DO Chronic bilateral low back pain without sciatica (Primary Dx); Dysuria; Nipple discharge; Vaginal discomfort 10/14/2024 Refill [facility] [address] [place] [address] Claire Boucher DO 10/14/2024 Travel 10/12/2024 Orders Only [facility] External Provider, [facility] 09/27/2024 1:45 PM EDT Office Visit [facility] [address] [place] [address] Alberta Jordan, MAGNAFLUX OPERATOR Chronic left-sided low back pain with left-sided sciatica (Primary Dx); Chronic pain of left knee 09/27/2024 Refill [facility] [address] [place] [address] Alberta Jordan, MAGNAFLUX OPERATOR Chronic left-sided low back pain with left-sided sciatica 09/27/2024 Travel 09/02/2024 Refill [facility] [address] [place] [address] Mulugeta Peralta MD Back muscle spasm 08/16/2024 Orders Only [facility] External Provider, [facility] 08/09/2024 3:40 PM EDT [facility] [address] [place] [address] Jenelle Lozano MD Acute bronchitis, unspecified organism [...] Description 10/25/2024 11:30 AM EDT Office Visit [facility] [address] [place] [address] Name, MD Mulugeta [address] [place], [place] [phone] 01/12/2025 9:00 AM EST Office Visit [facility] [address] [place], [place] [phone] Israel, Blanka, OD [address] [place], [place] [phone] Health Maintenance Due Date Last Done Comments [...] 3:28 PM EDT 10/14/2024 4:22 PM EDT Comment:[facility] - 10/16/2024 11:44 AM EDT Urine Culture Report Result Urine Culture 10,000 to 50,000 cfu/ml Urine Culture Mixed bacterial blair characteristic of Urine Culture urogenital contamination. Specimen Source: Urine clean catch Claire Boucher DO LAB MICROBIOLOGY - GENERAL O RDERABLES Final Result Performing Organization Address [facility] Co de Phone Number [facility] [address] [place] [phone] * Bacterial Vaginosis (10/14/2024 3:17 PM EDT) TRICHOMONAS VAGINALIS DETECTION BY PCR NOT DETECTED Not Detect [facility] BACTERIAL VAGINOSIS DETECTION BY PCR NEGATIVE Negative [facility] Comment:The BV organism targ ets of [...] DETECTION BY PCR NOT DETECTED Not Detect [facility] Dasha glab krusei PCR NOT DETECTED Not Detect [facility] Swab Vaginal structure / Unknown 10/14/2024 3:17 PM EDT 10/14/2024 4:22 PM EDT Claire Boucher DO LAB MICROBIOLOGY - GENERAL O RDERABLES Final Result Performing Organization Address [facility] Co de Phone Number [facility] [address] [place] [phone] * Chlamydia/N. Gonorrhoeae RNA, TMA, Urogenitial (10/14/2024 3:17 PM EDT) CT PCR NOT DETECTED Not Detect. [facility] Comment:A not detected test result does [...] psychologicalconsequences. NG PCR NOT DETECTED Not Detect. [facility] Comment:A not detected test result does [...] 3:17 PM EDT 10/14/2024 4:22 PM EDT us Claire Boucher DO LAB MICROBIOLOGY - GENERAL O RDERABLES Final Result [facility] [address] [place] [phone] * XR Knee 4+ Views Bilateral (10/14/2024 3:01 PM EDT) Anatomical Region Laterality Modality Lower Extremities, Knee Bilateral Radiogra phic Imaging 10/14/2024 3:01 PM EDT Narrative 10/14/2024 4:18 PM EDT [address] [address] XRay Report Signed Patient: Ivory Daniel I MR#: [id number] 98 : 1980 Acct:[id number] Age/Sex: 44 / F ADM Date: 10/14/24 Loc: [facility] Attending Dr: Claire Boucher DO Ordering Physician: Claire Boucher DO Date of Service: 10/14/24 Procedure(s): XR Knee Lester 4V Accession Number(s): [id number] cc: Claire Boucher DO EXAMINATION: XR KNEE [...] 10/14/24 1615 DD/ 1501 TD/TT: 10/14/24 1520 Pocket Setter: Procedure Note Donotuseinterpreter, Image - 10/14/2024 [place] [address] XRay Report Signed Patient: Ivory Daniel IMR#: [id number] 98 : 1980Acct:[id number] Age/Sex: 44 / FADM Date: 10/14/24 [facility]: Claire Boucher DO Ordering Physician: Claire Boucher DO Date of Service: 10/14/24 Procedure(s): XR Knee Lester 4V Accession Number(s): [id number] cc: Claire Boucher DO EXAMINATION: XR KNEE [...] 10/14/24 1615 DD/ 1501 TD/TT: 10/14/24 1520 Pocket Setter: us Claire Boucher DO IMG XR PROCEDURES [...] AM EDT) 10/12/2024 8:43 AM EDT Narrative [facility] - 10/14/2024 3:17 PM EDT [address] [address] Nuclear Medicine Report Signed Patient: Ivory Daniel I MR#: [id number] 98 : 1980 Acct:[id number] Age/Sex: 44 / F ADM Date: 10/12/24 Loc: HO.CARD Attending Dr: Levi Hodge NP Ordering Physician: Levi Hodge NP Date of Service: 10/12/24 Procedure(s): NM cardiolite stress test Accession Number(s): [id number] cc: FabianMulugeta MD; Levi Hodge NP Lexiscan Myocardial perfusion [...] 10/14/24 1514 DD/ 0843 TD/TT: 10/13/24 1145 Pocket Setter: Procedure Note Donotuseinterpreter, Image - 10/14/[address] [address] Nuclear Medicine Report Signed Patient: Ivory Daniel [facility]#: [id number] 98 : 1980Acct:[id number] Age/Sex: 44 / FADM Date: 10/12/24 Loc: [facility] Attending Dr: Levi Hodge NP Ordering Physician: Levi Hodge NP Date of Service: 10/12/24 Procedure(s): NM cardiolite stress test Accession Number(s): [id number] cc: Name,Mulugeta HUANG; Levi Hodge NP Lexiscan [...] Could be artifactual. No clear reversible defects. OR/OR cardiolite stress test Impression: 1. Myocardial perfusion imaging study shows no clear evidence of ischemia or infarction. Probably normal perfusion. 2. Gated LVEF is 55% during stress and 50% during rest. Correlate with echocardiogram. 3. Transient ischemic dilatation not present. EKG component of the test reported separately. Electronically signed by: Christopher Chinchilla MD 10/14/2024 03:14 PM EDT RP Dictated By: Christopher Chinchilla MD Signed By: <Electronically signed by Christopher Chinchilla MD inOV> 10/14/24 1514 DD/ 0843 TD/TT: 10/13/24 1145 Pocket Setter: [facility] External Provider CV STRE SS PROCEDURES Final Result Performing Organization Address City/State/[facility] Co de Phone Number [facility] [address] [place] [phone] * BI US Breast Limited Bilateral (10/08/2024 9:00 AM EDT) Anatomical Region Laterality Modality Breast Bilateral Ultrasound 10/08/2024 9:00 AM EDT Narrative 10/08/2024 9:22 AM EDT [facility] [address] [place] [address] Ultrasound Report Signed Patient: Ivory Daniel I MR#: [id number] 98 : 1980 Acct:[id number] Age/Sex: 44 / F ADM Date: 10/08/24 Loc: HO.MAMMO Attending Dr: Claire Boucher DO Ordering Physician: Claire Boucher DO Date of Service: 10/08/24 Procedure(s): US breast BI limited mamm only Accession Number(s): [id number] cc: Claire Boucher DO EXAMINATION: 1. MM [...] in OV> 10/08/[address] DD/ 09 TD/TT: 10/08/24 0915 Pocket Setter: Procedure Note Donotuseinterpreter, Image - 10/08/2024 [place] [facility] [address] [place] [address] Ultrasound Report Signed Patient: Ivory Daniel [facility]#: [id number] 98 : 1980Acct:[id number] Age/Sex: 44 / FADM Date: 10/08/24 Loc: HO.MAMMO Attending Dr: Claire Boucher DO Ordering Physician: Claire Boucher DO Date of Service: 10/08/24 Procedure(s): US breast BI limited mamm only Accession Number(s): [id number] cc: Claire Boucher DO EXAMINATION: 1. MM [...] Cheung MD in OV> 10/08/24 0919 DD/ 0900 TD/TT: 10/08/24 0915 Pocket Setter: us Claire Boucher DO IMG US PROCEDURES Final Resu lt * BI Mammogram Diagnostic Tomosynthesis Bilateral (10/08/2024 8:33 AM EDT) Anatomical Region Laterality Modality Breast Bilateral Mammography 10/08/2024 8:33 AM EDT Narrative 10/08/2024 9:22 AM EDT [facility] [address] [place] [address] Mammography Report Signed Patient: Ivory Daniel I MR#: [id number] 98 : 1980 Acct:[id number] Age/Sex: 44 / F ADM Date: 10/08/24 Loc: HO.MAMMO Attending Dr: Claire Boucher DO Ordering Physician: Claire Boucher DO Results: 1N egative Date of Service: 10/08/24 Follow Up: 1 Year From Orig ina Mammogram Procedure(s): MM tomosynthesis diagnostic BI Accession Number(s): [id number] cc: Claire Boucher DO EXAMINATION: 1. MM [...] signed by Mason Cheung MD in OV> 10/08/2419 DD/ 0833 TD/TT: 10/08/24 0850 Pocket Setter: Procedure Note Donotuseinterpreter, Image - 10/08/2024 [facility] [address] [place], [place] [address] Mammography Report Signed Patient: Ivory Daniel IMR#: [id number] 98 : 1980Acct:[id number] Age/Sex: 44 / FADM Date: 10/08/24 Loc: HO.MAMMO Attending Dr: Claire Boucher DO Ordering Physician: Claire Boucher DOResults: 1N egative Date of Service: 10/08/24Follow Up: 1 Year From Orig inal Mammogram Procedure(s): MM tomosynthesis diagnostic BI Accession Number(s): [id number] cc: Claire Boucher DO EXAMINATION: 1. MM [...] in OV> 10/08/[address]18 DD/ TD/TT: 10/08/24 0850 Pocket Setter: us Claire Boucher DO IMG BI PROCEDURES Final Resu lt * NM Hepatobiliary w Pharm (08/16/2024 11:00 AM EDT) Anatomical Region Laterality Modality Body Nuclear Medicine 08/16/2024 11:0 0 AM EDT Narrative 08/16/2024 1:45 PM EDT [address] [address] Nuclear Medicine Report Signed Patient: Ivory Daniel I MR#: [id number] 98 : 1980 Acct:[id number] Age/Sex: 44 / F ADM Date: 08/16/24 Loc: [facility] Attending Dr: Lexy Burch CNP Ordering Physician: Lexy Burch CNP Date of Service: 08/16/24 Procedure(s): NM hepatobiliary w pharm Accession Number(s): [id number] cc: Name,Mulugeta HUANG; Lexy Burch CNP EXAMINATION: [...] 08/16/24 1342 DD/ 1100 TD/TT: 08/16/24 1300 Pocket Setter: Procedure Note Donotuseinterpreter, Image - 06/16/[address] [address] Nuclear Medicine Report Signed Patient: Ivory Daniel [facility]#: [id number] 98 : 1980Acct:[id number] Age/Sex: 44 / FADM Date: 08/16/24 Loc: [facility] Attending Dr: Lexy Burch CNP Ordering Physician: Lexy Burch CNP Date of Service: 08/16/24 Procedure(s): OR hepatobiliary w pharm Accession Number(s): [id number] cc: Name,Mulugeta HUANG; Lexy Burch CNP EXAMINATION: OR BILIARY TRACT CLINICAL INFORMATION: Cholelithiasis without cholecystitis [...] small bowel. Gallbladder ejection fraction measured 12% OR/OR hepatobiliary w pharm IMPRESSION: There is normal filling of the gallbladder. However, there is a low ejection fraction raising question of biliary dyskinesia. Electronically signed by: Didier Garsia MD 08/16/2024 01:42 PM EDT Dictated By: Didier Garsia MD Signed By: <Electronically signed by Didier Garsia MD in OV> 08/16/24 1342 DD/ 1100 TD/TT: 08/16/24 1300 Pocket Setter: [facility] External Provider IMG NM PROCEDURES Edited Result - Final * POCT Rapid COVID Ag (08/09/2024 3:39 PM EDT) Rapid COVID Ag Negative Swab 08/09/2024 3:39 PM EDT us Jenelle Lozano MD POINT OF CARE TEST ENTER/EDIT OR DERABLES Final Result * Lipid Panel, Standard (06/15/2024 10:44 AM EDT) Triglycerides 132 <150 mg/dL [facility] Comment:Desirable Triglyceri de: less than 150 mg/dLBorderline High Triglyceride 150-199 mg/dLHigh Triglyceride: 200-499 mg/dLVery High Triglyceride: greater than or equal to 5OO mg/dL Cholesterol 161 <200 mg/dL [facility] Comment:Desirable Cholestero l: less than 200 mg/dLBorderline High Cholesterol: 200-239 mg/dLHigh Cholesterol: greater than 239 mg/dL LDL Cholesterol Calculated 90 <100 mg/dL [facility] Comment:Desirable LDL: less than 100 mg/dLNear [...] LAB BLOOD ORDERAB LES Final Result [facility] [address] [place] [phone] * (ABNORMAL) POCT HGB A1C (12/16/2023 10:42 AM EDT) Hemoglobin A1C 6.2(A) 4.0 - 6.0 % QC Media Lot # [id number] Lot# Expiration Date ,825,[id number] Blood 12/16/2023 10:4 2 AM EDT Mulugeta Peralta MD POINT OF CARE TEST ENTER/EDIT OR DERABLES Final Result * Hepatitis C Antibody with Reflex to HCV, RNA, Quantitative, Real-Time PCR (06/03/2022 10:57 AM EDT) Hepatitis C Antibody NON-REACT KELLY NON-REACT KELLY [facility] Index 0.09 <1.00 [facility] Comment: HCV antibody was non-reactive. There is no laboratory evidence of HCV infection. In most cases, no further action is required. However, if recent HCV exposure is suspected, a test for HCV RNA (test code 36272) is suggested. For additional information please refer to http://education.ePod Solar/faq/VJH02o0 (This link is being provided for informational/ educational purposes only.) Blood Venous blood specimen / Unknown 06/03/2022 10:57 AM EDT 06/03/2022 10:58 AM EDT Narrative [facility] - 06/04/2022 8:43 PM EDT FASTING:NO FASTING: NO Candice Morrell [facility] LAB BLOOD ORDERABLES Nani l Result [facility] [address], [place] [address] [facility] [address] [place] [address] * HIV-1/2 Antigen and Antibodies, Fourth Generation, with Reflexes (06/03/2022 10:57 AM EDT) HIV Antigen/Antibody, 4th Generation NON-REAC TIVE NON-REAC TIVE [facility] Comment: HIV-1 antigen and HIV-1/HIV-2 antibodies were [...] purpose. For additional information please refer to http://education.ePod Solar/faq/EPH038 (This link is being provided for informational/ educational purposes only.) The performance of this assay has not been clinically validated in patients less than 2 years old. Blood Venous blood specimen / Unknown 06/03/2022 10:57 AM EDT 06/03/2022 10:58 AM EDT Narrative [facility] - 06/04/2022 8:43 PM EDT FASTING:NO FASTING: NO us Candice Morrell [facility] LAB BLOOD ORDERABLES Nani sanders Result [address], [place] [address] [facility] [address] [place] [phone] * Image-Guided Pap with Age-Based Screening??with CT/NG,??Trichomonas (06/03/2022 10:47 AM EDT) Comment [facility] Comment: This order for age-based cervical cancer and STI screening follows ACOG guidelines(PB 168, 140, BGD276). See individual assays for performing site location. Clinical Information: Routine exam [facility] LMP: NONE GIVEN [facility] Prev. PAP: NONE GIVEN [facility] Prev. BX: NONE GIVEN [facility] SOURCE: None given [facility] Statement Of Adequacy: [facility] Comment: Satisfactory for evaluation. Endocervical/transformation zone component present. Interpretation/Re sult: Negative for intraepithelial lesion or malignancy. [facility] COMMENT: This Pap test has been evaluated with computer assisted technology. [facility] Bowling Ball Mold Assembler: Antonia [facility] Comment: WAC, CT(ASCP) CT screening location: [address] [address] (Always Message) [facility] Comment: EXPLANATORY NOTE: The Pap is a [...] HPV nRNA E6/E7 Not Detected Not Detected [facility] Comment: Methodology: Fire Official-Mediated Amplification This assay detects E6/E7 viral messenger RNA (mRNA) from 14 high-risk HPV types (16,18,31,33,35,39,45,51,52,56,58,59,66,68). Cervical sources are required for HPV testing. If a vaginal source from a patient who has had a total hysterectomy with removal of cervix was submitted, please contact the testing laboratory for alternative testing options. For additional information, please refer to http://Beegit.ePod Solar/faq/BER687e3 (This link if provided for information/ educational purposes only.) Chlamydia trachomatis RNA, TMA, Urogenital NOT DETECTED NOT DETECTED [facility] Neisseria gonorrhoeae RNA, TMA, Urogenital NOT DETECTED NOT DETECTED [facility] (Always Message) [facility] [facility] Comment: The analytical performance characteristics of this assay, when used to test SurePath(TM) specimens have been determined by [facility]. The modifications have not been cleared or approved by the FDA. This assay has been validated pursuant to the CLIA regulations and is used for clinical purposes. For additional information, please refer to https://Beegit.ePod Solar/faq/IKC327 (This link is being provided for information/ educational purposes only.) Trichomonas vaginalis, QL, TMA, PAP Vial NOT DETECTED NOT DETECTED [facility] Comment: The analytical performance characteristics of this assay have been determined by [facility]. The modifications have not been cleared or approved by the FDA. This assay has been validated pursuant to the CLIA regulations and is used for clinical purposes. For additional information, please refer to http://Beegit.[employer] Solar/ faq/Trichomonastma (This link is being provided for information/ educational purposes only.) Cytology specimen container (physical object) 06/03/2022 10:47 AM EDT 06/04/2022 5:15 AM EDT Candice Guolove CN LAB CYTOLOGY ORDERABLES F inal Result [facility] [address], [place] [address] [facility] [address] [place] [phone] from Last 3 Months or Most Recently Relevant to Health Maintenance Insurance [facility] CARE < [address] [place] [id number] [place] [address] [place] [address] [place] [address] Care Teams Freight Adjuster Relationship Specialty Start Date End Date Name, MD Mulugeta [address] [place] [address] PCP - General Family Medicine 06/06/15
--- OUTSIDE RECORDS SUMMARY | 2024-10-22 11:34 | XMS_ITS | Clinical Summary ---
Author Organization [facility] Address [address] [place] [address] Care Team Providers Care Home Stager Name Role Phone Name, Mulugeta HUANG Primary Care Provider [phone] Surgical History Surgery Date Site/Laterality Comments OTHER [...] RESULTING AGENCY - 09/14/2018 12:06 PM EDT [id number] THINPREP PAP, IMAGED: NEGATIVE FOR SQUAMOUS INTRAEPITHELIAL [...] Recently Relevant to Health Maintenance Care Teams Home Stager Relationship Specialty Start Date End Date Name, MD Mulugeta [address] [place], [place] PCP - General 06/30/16
[2024-10-22 12:48] VITALS: BP 164/83; PULSE 69; RESP 16; O2SAT 100; BMI 37.0
--- NOTE | 2024-10-22 12:48 | MHC.OFFVIS ---
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 Services: Uniform Force Captain Present Uniform [employer] Captain Name: [id number] Sera Allergies seafood Allergy (Verified 10/22/24 12:49) Eye Swelling Medication List - Last Reconciled 10/22/24 by Jeri Mcintosh LPN acetaminophen ER (Pain Relief (acetaminophen)) 650 mg PO Q8H albuterol sulfate 90 mcg/actuation 2 puffs inhalation Q4H PRN atorvastatin (Lipitor) 10 mg PO BEDTIME cholecalciferol (vitamin D3) 25 mcg PO QAM diclofenac sodium 1% 2 grams topical QID PRN famotidine 20 mg PO BID ibuprofen 800 mg PO TID lidocaine 5% 1 patch topical DAILY methocarbamol 500 mg PO TID naproxen 500 mg PO BID HPI HPI CHRONIC LEFT SIDED LOW BACK PAIN: Details: History of Present Illness The patient is a 44-year-old female presenting with sciatica. The pain radiates down the left leg and is described as a sharp shooting pain, exacerbated by extension. She has attempted management with 800 mg of ibuprofen and physical therapy, both without success. Additionally, the patient reports chronic posterior left knee pain without swelling or erythema. This condition has persisted over time and remains a chronic issue. Pain Description - Onset and Timing: Pain radiates down the left leg, described as sharp and shooting. - Exacerbating Factors: Worsens with extension. - Interference: Limits ability to sit for long periods and causes heaviness in feet when walking. Physical Exam - Appears afebrile. - Alert and oriented. - Mood and affect appropriate. - Follows and participates in conversation appropriately. - Respiratory effort is unlabored. - Able to transition from sit to stand unassisted. - Ambulates with bilaterally normal heel strike and toe off. - Able to stand and walk on toes and heels. Pain Management - Affect: Pain limits ability to sit and walk, causing heaviness in feet. - Analgesia: 800 mg of ibuprofen tried without improvement. - Activities of Daily Living: Pain interferes with sitting and walking. [facility] Medical History (Updated 10/20/24 @ 13:33 by Levi Hodge NP) Hyperlipidemia Heart palpitations SOB (shortness of breath) Ankle edema, bilateral Low-level of literacy Prediabetes Obesity Epigastric pain Allergic rhinitis Chronic left-sided low back pain with sciatica Colon cancer screening Change in stool Constipation Gallstones Surgical History History of esophagogastroduodenoscopy (EGD) Hx of colonoscopy H/O section Family History Family/Other Cancer Diabetes Social History Household Members: Spouse Unable to assess alcohol history related to: Unknown Alcohol intake: never Patient Tobacco Use Status: Never used Tobacco Current occupational status: unemployed Physical Exam Vital Signs: Last Vital Signs Pulse 69 10/22/24 12:48 Resp 16 10/22/24 12:48 BP 164/83 H 10/22/24 12:48 Pulse Ox 100 10/22/24 12:48 Oxygen Delivery Method Room Air 10/22/24 12:48 BMI result Body Mass Index 37.0 Assessment & Plan Assessment & Plan (1) Chronic left-sided low back pain with sciatica: Code(s): M54.40 - Lumbago with sciatica, unspecified side; G89.29 - Other chronic pain Category: Medical Plan Plan - Initiate physical therapy for six weeks to meet insurance requirements for MRI approval. - Consider MRI post-physical therapy to evaluate the need for potential injection therapy. - Provide contact information for physical therapy scheduling. Patient was informed and verbally consented to the use of an ambient scribe for clinic note documentation during this visit. Discussion Notes I discussed with the patient the necessity of completing six weeks of physical therapy before insurance can approve an MRI of her back. We also talked about the potential for injection therapy following the MRI, depending on the findings. I provided her with the contact information for scheduling physical therapy and emphasized the importance of following these steps to avoid delays in her treatment. Patient Instructions - Schedule and attend physical therapy sessions for six weeks. - Contact the provided number to set up physical therapy appointments. - Return for follow-up after completing physical therapy to discuss further management options. Orders: Orders PT Evaluation and Treatment 10/22/24 G89.29 - Other chronic pain, M54.40 - Lumbago with sciatica, unspecified side Coding Level of Care Code New Pt Level 3 (16396) Diagnoses Chronic left-sided low back pain with sciatica M54.40; G89.29
== END 2024-10-22 13:06 | disposition home or self-care (01) ==
LOC: HO.PMC 11:32
PROVIDERS: PCP Internal Medicine Geriatric Medicine; Referring Provider Registered Nurse; Visit Provider Internal Medicine
DX: M54.40 Lumbago with sciatica, unspecified side (principal); G89.29 Other chronic pain
CPT/HCPCS: 99203

== ENCOUNTER → 2024-10-22 11:32 | Outpatient (BNVA) | payer OTHER, SELFPAY | PROVIDERS: PCP Internal Medicine Geriatric Medicine; Referring Provider Registered Nurse; Visit Provider Internal Medicine | DX: M54.50 Low back pain, unspecified (principal); G89.29 Other chronic pain; M25.562 Pain in left knee | CPT/HCPCS: 99202 ==

== ENCOUNTER 2024-11-08 10:09 | Outpatient (REF) | payer OTHER, SELFPAY ==
--- OUTSIDE RECORDS SUMMARY | 2024-11-08 12:01 | XMS_ITS | Clinical Summary ---
Author Organization [employer] Address [address] [facility] 7t [place] [address] Care Team Providers Care Kitchen Work Supervisor Name Role Phone Name, Mulugeta HUANG Primary Care Provider [phone] Allergies Active Allergy Reactions Criticality Noted Date [...] 40 tablet 1 10/15/19 25 025 Active losartan (Cozaar) 25 MG tablet Take 25 mg by mouth Once per day. Active baclofen (Lioresal) 10 MG tablet Take [...] notification to Pharmacy)) tiZANidine (Zanaflex) 4 MG tabletIndicat ions:Chronic left-sided [...] Active Problems Problem Noted Date Diagnosed Date Essential hypertension 10/25/2024 LBBB (left bundle branch block) 07/01/2024 Overview (10/25/2024): Negative work up with [facility] cardi including Holter, ECHO and nuclear stress test Ankle edema, bilateral 06/03/2024 Assessment & Plan [...] not know how to read or write Romanian Epigastric pain 04/09/2022 H. pylori infection 04/09/2022 [...] Encounters Date Type Department Care Team Description 11/04/2024 Telephone [facility] [address] [place] [phone] NameMulugeta MD [facility] (I called the patient, regarding an order for [facility]. I reached a voicemail, and left a message informing her that the labs were ordered, and she may have them done at her convenience. There is a TB Risk Assessment & Screening Form from [facility], that needs to be completed. I asked her to return my call at ext [phone], if she has any questions.) 11/04/2024 Telephone [facility] [address] [place] [address] Monalisa Currie RN 10/25/2024 11:30 AM EDT Office Visit [facility] [address] [place] [address] Mulugeta Peralta MD Essential hypertension (Primary Dx); LBBB (left bundle branch block) 10/25/[address] [address] Mulugeta Peralta MD telephone call 10/25/[address] [address] Mulugeta Peralta MD CHART PREP 10/25/2024 Travel 10/15/2024 Telephone [facility] [address] [place] [address] Mulugeta Peralta MD PA Approval 10/15/2024 Telephone [facility] [address] [place] [address] Mulugeta Peralta MD Prior Authorization 10/14/2024 2:40 PM EDT Office Visit [facility] [address] [place] [address] Claire Boucher DO Chronic bilateral low back pain without sciatica (Primary Dx); Dysuria; Nipple discharge; Vaginal discomfort 10/14/2024 Refill [facility] [address] [place] [address] Claire Boucher DO 10/14/2024 Travel 10/12/2024 Orders Only [facility] External Provider, [facility] 09/27/2024 1:45 PM EDT Office Visit [address] [address] Alberta Jordan FNP Chronic left-sided low back pain with left-sided sciatica (Primary Dx); Chronic pain of left knee 09/27/[address] [address] Alberta Jordan FNP Chronic left-sided low back pain with left-sided sciatica 09/27/2024 Travel 09/02/2024 Refill [facility] [address] [place] [address] Mulugeta Peralta MD Back muscle spasm 08/16/2024 Orders Only [facility] External Provider, [facility] 08/09/2024 3:40 PM EDT Office Visit [facility] [address] [place] [address] Jenelle Lozano MD Acute bronchitis, unspecified organism [...] Sign Reading Time Taken Comments Blood Pressure 136/82 10/25/2024 11:33 AM EDT Pulse 70 10/25/2024 11:33 AM EDT Temperature 36.6 C (97.8 F) 10/25/2024 11:33 AM EDT Respiratory Rate 14 10/25/2024 11:33 AM EDT Oxygen Saturation 97% 10/25/2024 11:33 AM EDT Inhaled Oxygen Concentration - - Weight 90.4 kg (199 lb 6.4 oz) 10/25/2024 11:33 AM EDT Height 154.9 cm (5' 1 ) 10/25/2024 11:33 AM EDT Body Mass Index 37.68 10/25/2024 11:33 AM EDT Plan of Treatment Upcoming Encounters Date Type Department Care Team (Late st Contact Info) Description 01/12/2025 9:00 AM EST Office Visit [facility] [address] [place] [address] Israel, Blanka, OD [address] [place] [address] Health Maintenance Due Date Last Done Comments CT Colonography 1979 Colonoscopy 1979 Colorectal Cancer Screening 1979 FIT DNA/Cologuard 1979 FIT 1979 FOBT 1979 Sigmoidoscopy 1979 Family Planning (PISQ) 06/21/1994 HPV Vaccines (1 - 3-dose series) 06/21/1994 Hepatitis B Vaccines (1 of 3 - 19+ 3-dose series) 06/21/1998 DTaP/Tdap/Td Vaccines (2 - Td or Tdap) 08/12/2024 08/12/2014 COVID-19 Vaccine ( season) 2024 04/25/2021, 08/16/2020, 07/19/2020 Influenza Vaccine (#1) 2024 , 01/30/2023, 11/28/2021, Additional history exists Diabetes: Hemoglobin A1C 12/15/2024 12/16/2023, 02/0 08/2022 Pap Smear 06/03/2025 06/03/2022 Alcohol/Substance Use Screening 07/01/2025 07/01/2024 Depression Screening 07/01/2025 07/01/2024, 07/02/19 Disability Screening 07/01/2025 07/01/2024 SDOH Screening 07/01/2025 07/01/2024 Mammogram 10/08/2025 10/08/2024, 08/0 10/2024, 07/10/2023, Additional history exists Tobacco Screening 10/25/2025 10/25/2024 Cervical Cancer Screening 06/04/2027 HPV/Cotest 06/04/2027 06/03/2022 [...] PM EDT 10/14/2024 4:22 PM EDT Comment:UACC Narrative [facility] - 10/16/2024 11:44 AM EDT Urine Culture Report Result Urine Culture 10,000 to 50,000 cfu/ml Urine Culture Mixed bacterial blair characteristic of Urine Culture urogenital contamination. Specimen Source: Urine clean catch Claire Boucher DO LAB MICROBIOLOGY - GENERAL O RDERABLES Final Result [facility] [address] [place] [address] [phone] * Bacterial Vaginosis (10/14/2024 3:17 PM EDT) TRICHOMONAS VAGINALIS DETECTION BY PCR NOT DETECTED Not Detect [facility] BACTERIAL VAGINOSIS DETECTION BY PCR NEGATIVE Negative [facility] Comment:The BV organism targ ets [...] DETECTION BY PCR NOT DETECTED Not Detect [facility] Dasha glab krusei PCR NOT DETECTED Not Detect [facility] Swab Vaginal structure / Unknown 10/14/2024 3:17 PM EDT 10/14/2024 4:22 PM EDT Claire Boucher DO LAB MICROBIOLOGY - GENERAL O RDERABLES Final Result [facility] [address] [place] [address] [phone] * Chlamydia/N. Gonorrhoeae RNA, TMA, Urogenitial (10/14/2024 3:17 PM EDT) CT PCR NOT DETECTED Not Detect. [facility] Comment:A not detected test result [...] psychologicalconsequences. NG PCR NOT DETECTED Not Detect. [facility] Comment:A not detected test result [...] MICROBIOLOGY - GENERAL O RDERABLES Final Result [facility] [address] [place] [address] [phone] * XR Knee 4+ Views Bilateral (10/14/2024 3:01 PM EDT) Anatomical Region Laterality Modality Lower Extremities, Knee Bilateral Radiogra phic Imaging 10/14/2024 3:01 PM EDT Narrative 10/14/2024 4:18 PM EDT [address] [address] XRay Report Signed Patient: Ivory Daniel I MR#: [id number] 98 : 1980 Acct:[id number] Age/Sex: 44 / F ADM Date: 10/14/24 Loc: HO.HHCX Attending Dr: Claire Boucher DO Ordering Physician: Claire Boucher DO Date of Service: 10/14/24 Procedure(s): XR Knee Lester 4V Accession Number(s): [id number] cc: Claire Boucher DO EXAMINATION: XR KNEE 4 VIEWS BILATERAL CLINICAL INFORMATION: b/l knee pain, b/l LBP COMPARISON: None available. TECHNIQUE: Four views of the right and left knee. FINDINGS: Normal alignment. No fracture. Joint spaces are preserved. No suprapatellar joint effusion. XR/XR Knee Lester 4V IMPRESSION: Unremarkable examination. Electronically signed by: Mason Cheung MD 10/14/2024 04:15 PM EDT Dictated By: Mason Cheung MD Signed By: <Electronically signed by Mason Cheung MD in OV> 10/14/24 1615 DD/ 1501 TD/TT: 10/14/24 1520 Network Planner: Procedure Note Donotuseinterpreter, Image - 10/14/2024 [facility] [address] [place] [address] XRay Report Signed Patient: Ivory Daniel [facility]#: [id number] 98 : 1980Acct:[id number] Age/Sex: 44 / FADM Date: 10/14/24 Loc: HO.HHCX Attending Dr: Claire Boucher DO Ordering Physician: Claire Boucher DO Date of Service: 10/14/24 Procedure(s): XR Knee Lester 4V Accession Number(s): [id number] cc: Claire Boucher DO EXAMINATION: XR KNEE 4 VIEWS BILATERAL CLINICAL INFORMATION: b/l knee pain, b/l LBP COMPARISON: None available. TECHNIQUE: Four views of the right and left knee. FINDINGS: Normal alignment. No fracture. Joint spaces are preserved. No suprapatellar joint effusion. XR/XR Knee Lester 4V IMPRESSION: Unremarkable examination. Electronically signed by: Mason Cheung MD 10/14/2024 04:15 PM EDT Dictated By: Mason Cheung MD Signed By: <Electronically signed by Mason Cheung MD in OV> 10/14/24 1615 DD/ 1501 TD/TT: 10/14/24 1520 Network Planner: Claire Boucher DO IMG XR PROCEDURES Final [...] AM EDT) 10/12/2024 8:43 AM EDT Narrative [facility] - 10/14/2024 3:17 PM EDT [address] [address] Nuclear Medicine Report Signed Patient: Ivory Daniel I MR#: [id number] 98 : 1980 Acct:[id number] Age/Sex: 44 / F ADM Date: 10/12/24 [facility] Dr: Levi Hodge NP Ordering Physician: Levi Hodge NP Date of Service: 10/12/24 Procedure(s): NM cardiolite stress test Accession Number(s): [id number] cc: Fabian,Mulugeta HUANG; Levi Hodge NP Lexiscan [...] 10/14/24 1514 DD/ 0843 TD/TT: 10/13/24 1145 Network Planner: Procedure Note Donotuseinterpreter, Image - 10/14/2024 [place] [address] Nuclear Medicine Report Signed Patient: Ivory Daniel IMR#: [id number] 98 : 1980Acct:[id number] Age/Sex: 44 / FADM Date: 10/12/24 Loc: [facility] Attending Dr: Levi Hodge NP Ordering Physician: Levi Hodge NP Date of Service: 10/12/24 Procedure(s): PR cardiolite stress test Accession Number(s): [id number] cc: Mulugeta Peralta MD; Levi Hodge NP Lexiscismael Myocardial perfusion study Indication: Left bundle branch [...] 10/14/24 1514 DD/ 0843 TD/TT: 10/13/24 1145 Network Planner: [facility] External Provider CV STRE SS PROCEDURES Final Result [facility] [address] [place] [address] * BI US Breast Limited Bilateral (10/08/2024 9:00 AM EDT) Anatomical Region Laterality Modality Breast Bilateral Ultrasound 10/08/2024 9:00 AM EDT Narrative 10/08/2024 9:22 AM EDT [facility] [address] [place] [address] Ultrasound Report Signed Patient: Ivory Daniel I MR#: [id number] 98 : 1980 Acct:[id number] Age/Sex: 44 / F ADM Date: 10/08/24 Loc: HO.MAMMO Attending Dr: Claire Boucher DO Ordering Physician: Claire Boucher DO Date of Service: 10/08/24 Procedure(s): US breast BI limited mamm only Accession Number(s): [id number] cc: Claire Boucher DO EXAMINATION: 1. MM [...] in OV> 10/08/24918 DD/ 9 TD/TT: 10/08/24914 Network Planner: Procedure Note Donotuseinterpreter, Image - 10/08/2024 [facility] [address] [place] [address] Ultrasound Report Signed Patient: Ivory Daniel [facility]#: [id number] 98 : 1980Acct:[id number] Age/Sex: 44 / FADM Date: 10/08/24 Loc: HO.MAMMO Attending Dr: Claire Boucher DO Ordering Physician: Claire Boucher DO Date of Service: 10/08/24 Procedure(s): US breast BI limited mamm only Accession Number(s): [id number] cc: Claire Boucher DO EXAMINATION: 1. MM [...] Cheung MD 10/08/2024 09:19 AM EDT Workstation: [employer] Dictated By: Mason Cheung MD Signed By: <Electronically signed by Mason Cheung MD in OV> 10/08/24918 DD/ 09 TD/TT: 10/08/24 0915 Network Planner: us Claire Boucher DO IMG US PROCEDURES Final Resu lt * BI Mammogram Diagnostic Tomosynthesis Bilateral (10/08/2024 8:33 AM EDT) Anatomical Region Laterality Modality Breast Bilateral Mammography 10/08/2024 8:33 AM EDT Narrative 10/08/2024 9:22 AM EDT [facility] [address] [place] [address] Mammography Report Signed Patient: Ivory Daniel I MR#: [id number] 98 : 1980 Acct:[id number] Age/Sex: 44 / F ADM Date: 10/08/24 Loc: MAMMO Attending Dr: Claire Boucher DO Ordering Physician: Claire Boucher DO Results: 1N egative Date of Service: 10/08/24 Follow Up: 1 Year From Orig inal Mammogram Procedure(s): MM tomosynthesis diagnostic BI Accession Number(s): [id number] cc: Claire Boucher DO EXAMINATION: 1. MM [...] OV> 10/08/24918 DD/ 2 TD/TT: 10/08/24 0850 Network Planner: Procedure Note Donotuseinterpreter, Image - 10/08/2024 [facility] [address] [place], [place] [address] Mammography Report Signed Patient: Ivory Daniel IMR#: [id number] 98 : 1980Acct:[id number] Age/Sex: 44 / FADM Date: 10/08/24 Loc: HO.MAMMO Attending Dr: Claire Boucher DO Ordering Physician: Claire Boucher DOResults: 1N egative Date of Service: 10/08/24Follow Up: 1 Year From Orig ina Mammogram Procedure(s): MM tomosynthesis diagnostic BI Accession Number(s): [id number] cc: Claire Boucher DO EXAMINATION: 1. MM [...] OV> 10/08/24918 DD/ 2 TD/TT: 10/08/24 0850 Network Planner: us Claire Boucher DO IMG BI PROCEDURES Final Resu lt * NM Hepatobiliary w Pharm (08/16/2024 11:00 AM EDT) Anatomical Region Laterality Modality Body Nuclear Medicine 08/16/2024 11:0 0 AM EDT Narrative 08/16/2024 1:45 PM EDT [place] [address] Nuclear Medicine Report Signed Patient: Ivory Daniel I MR#: [id number] 98 : 1980 Acct:[id number] Age/Sex: 44 / F ADM Date: 08/16/24 Loc: [facility] Attending Dr: Lexy Burch CNP Ordering Physician: Lexy Burch CNP Date of Service: 08/16/24 Procedure(s): NM hepatobiliary w pharm Accession Number(s): [id number] cc: Name,Mulugeta HUANG; Lexy Burch CNP EXAMINATION: [...] 08/16/24 1342 DD/ 1100 TD/TT: 08/16/24 1300 Network Planner: Procedure Note Donotuseinterpreter, Image - 08/16/2024 [place] [address] Nuclear Medicine Report Signed Patient: Ivory Daniel [facility]#: [id number] 98 : 1980Acct:[id number] Age/Sex: 44 / FADM Date: 08/16/24 Loc: [facility] Attending Dr: Lexy Burch CNP Ordering Physician: Lexy Burch CNP Date of Service: 08/16/24 Procedure(s): NM hepatobiliary w pharm Accession Number(s): [id number] cc: Name,Mulugeta HUANG; Lexy Burch CNP EXAMINATION: [...] 08/16/24 1342 DD/ 1100 TD/TT: 08/16/24 1300 Network Planner: [facility] External Provider IMG NM PROCEDURES Edited Result - Final * POCT Rapid COVID Ag (08/09/2024 3:39 PM EDT) Pathologist [facility] Rapid COVID Ag Negative Swab 08/09/2024 3:39 PM EDT Jenelle Lozano MD POINT OF CARE TEST ENTER/EDIT OR DERABLES Final Result * Lipid Panel, Standard (06/15/2024 10:44 AM EDT) Pathologist [facility] Triglycerides 132 <150 mg/dL [facility] Comment:Desirable Triglyceri de: less than 150 mg/dLBorderline High Triglyceride 150-199 mg/dLHigh Triglyceride: 200-499 mg/dLVery High Triglyceride: greater than or equal to 5OO mg/dL Cholesterol 161 <200 mg/dL [facility] Comment:Desirable Cholestero l: less than 200 mg/dLBorderline High Cholesterol: 200-239 mg/dLHigh Cholesterol: greater than 239 mg/dL LDL Cholesterol Calculated 90 <100 mg/dL [facility] Comment:Desirable LDL: less than 100 mg/dLNear Optimal/Above Optimal LDL: 110- 129 mg/dLBorderline High LDL: 130-159 mg/dLHigh LDL: 160-189 mg/dLVery High LDL: greater than or equal to 190 mg/dL HDL Cholesterol 45 >40 mg/dL [facility] Comment:Desirable HDL: great er than 40 mg/dL Note: This HDL assay may give artificially low results in patients with liver disease. 06/15/2024 10:4 4 AM EDT 06/15/2024 10:44 AM EDT us Generic External Data Provider LAB BLOOD ORDERAB LES Final Result [facility] [address] [place] [phone] * (ABNORMAL) POCT HGB A1C (12/16/2023 10:42 AM EDT) Hemoglobin A1C 6.2(A) 4.0 - 6.0 % QC Media Lot # [id number] Lot# Expiration Date Blood 12/16/2023 10:4 2 AM EDT Mulugeta Name POINT OF CARE TEST ENTER/EDIT OR DERABLES Final Result * Hepatitis C Antibody with Reflex to HCV, RNA, Quantitative, Real-Time PCR (06/03/2022 10:57 AM EDT) Pathologist [facility] Hepatitis C Antibody NON-REACT KELLY NON-REACT KELLY [employer] [place] [employer] Index 0.09 <1.00 [employer] [place] [employer] Comment: HCV antibody was non-reactive. There is no laboratory evidence of HCV infection. In most cases, no further action is required. However, if recent HCV exposure is suspected, a test for HCV RNA (test code 48063) is suggested. For additional information please refer to http://education.[employer]/faq/VEJ84x4 (This link is being provided for informational/ educational purposes only.) Blood Venous blood specimen / Unknown 06/03/2022 10:57 AM EDT 06/03/2022 10:58 AM EDT Narrative [facility] - 06/04/2022 8:43 PM EDT FASTING:NO FASTING: NO Candice Guolove [facility] LAB BLOOD ORDERABLES Nani l Result [facility] [address], [facility] [place] [phone] [employer] [facility] [address] [place] [address] * HIV-1/2 Antigen and Antibodies, Fourth Generation, with Reflexes (06/03/2022 10:57 AM EDT) HIV Antigen/Antibody, 4th Generation NON-REAC TIVE NON-REAC TIVE [employer] [place] [facility] Comment: HIV-1 antigen and HIV-1/HIV-2 antibodies [...] purpose. For additional information please refer to http://education.[employer]/faq/NYZ028 (This link is being provided for informational/ educational purposes only.) The performance of this assay has not been clinically validated in patients less than 2 years old. Blood Venous blood specimen / Unknown 06/03/2022 10:57 AM EDT 06/03/2022 10:58 AM EDT Narrative [facility] - 06/04/2022 8:43 PM EDT FASTING:NO FASTING: NO Candice Morrell [facility] LAB BLOOD ORDERABLES Nani l Result [facility] [address], [facility] [place] [address] [employer] [facility] [address] [place] [phone] * Image-Guided Pap with Age-Based Screening??with CT/NG,??Trichomonas (06/03/2022 10:47 AM EDT) Comment [facility] Comment: This order for age-based cervical cancer and STI screening follows ACOG guidelines(PB 168, 140, TPJ862). See individual assays for performing site location. Clinical Information: Routine exam [facility] LMP: NONE GIVEN [employer] Prev. PAP: NONE GIVEN [employer] Prev. BX: NONE GIVEN [employer] [facility] SOURCE: None given [facility] Statement Of Adequacy: [facility] Comment: Satisfactory for evaluation. Endocervical/transformation zone component present. Interpretation/Re sult: Negative for intraepithelial lesion or malignancy. SCL Elements acquired by [employer] COMMENT: This Pap test has been evaluated with computer assisted technology. [employer] [place] [employer] Devops Consultant: Antonia Perceivant Comment: WAC, CT(ASCP) CT screening location: [place] [address] (Always Message) [facility] [employer] Comment: EXPLANATORY NOTE: The Pap is a [...] HPV nRNA E6/E7 Not Detected Not Detected [facility] Comment: Methodology: Aeronautical Engineering Professor-Mediated Amplification This assay detects E6/E7 viral messenger RNA (mRNA) from 14 high-risk HPV types (16,18,31,33,35,39,45,51,52,56,58,59,66,68). Cervical sources are required for HPV testing. If a vaginal source from a patient who has had a total hysterectomy with removal of cervix was submitted, please contact the testing laboratory for alternative testing options. For additional information, please refer to http://education.[employer]/faq/BDZ037g0 (This link if provided for information/ educational purposes only.) Chlamydia trachomatis RNA, TMA, Urogenital NOT DETECTED NOT DETECTED [facility] Neisseria gonorrhoeae RNA, TMA, Urogenital NOT DETECTED NOT DETECTED SCL Elements acquired by [employer] (Always Message) [facility] [place] [facility] Comment: The analytical performance characteristics of this assay, when used to test SurePath(TM) specimens have been determined by [employer]. The modifications have not been cleared or approved by the FDA. This assay has been validated pursuant to the CLIA regulations and is used for clinical purposes. For additional information, please refer to https://[employer]/faq/BPA132 (This link is being provided for information/ educational purposes only.) Trichomonas vaginalis, QL, TMA, PAP Vial NOT DETECTED NOT DETECTED [employer]CL [employer] acquired by [employer] Comment: The analytical performance characteristics of this assay have been determined by [employer]. The modifications have not been cleared or approved by the FDA. This assay has been validated pursuant to the CLIA regulations and is used for clinical purposes. For additional information, please refer to http://[employer]/ faq/Trichomonastma (This link is being provided for information/ educational purposes only.) Cytology specimen container (physical object) 06/03/2022 10:47 AM EDT 06/04/2022 5:15 AM EDT Candice [facility] LAB CYTOLOGY ORDERABLES F inal Result [facility] [address], [place] [address] [employer] [place] [employer] [address] [place] [address] from Last 3 Months or Most Recently Relevant to Health Maintenance Insurance [facility] ONE CARE < 65 [address] [place] [address] [place] [id number] [address] [place] [address] Care Teams Kitchen Work Supervisor Relationship Specialty Start Date End Date Name, MD Mulugeta [address] [place] [address] [place] [address] PCP - General Family Medicine 06/06/15
--- OUTSIDE RECORDS SUMMARY | 2024-11-08 12:01 | XMS_ITS | Clinical Summary ---
Author Organization [facility] Address [address] [place] [address] Care Team Providers Care Rum Processing Operator Name Role Phone Name, Mulugeta HUANG Primary Care Provider [phone] Surgical History Surgery Date Site/Laterality Comments OTHER [...] P ap Smear 08/31/2021 08/31/2018 Depression Screening 03/03/2024 COVID-19 Vaccine (2023-2 5 season) 2024 Influenza Vaccine (#1) 2024 HIB Vaccines Aged [...] RESULTING AGENCY - 09/14/2018 12:06 PM EDT [id number] THINPREP PAP, IMAGED: NEGATIVE FOR SQUAMOUS INTRAEPITHELIAL [...] Recently Relevant to Health Maintenance Care Teams Rum Processing Operator Relationship Specialty Start Date End Date Name, MD Mulugeta [address], [place] PCP - General 06/30/16
--- OUTSIDE RECORDS SUMMARY | 2024-11-08 12:01 | XMS_ITS | Encounter Summary ---
Author Organization [employer] Address [address] [place] [address] 7 [place] [address] Care Team Providers Care Flavorings Compounder Name Role Phone Name, Mulugeta HUANG Primary Care Provider [phone] Reason for Visit * Reason Onset Date Comments Med Refill 10/23/2023 Encounter Details Date Type Department Care Team ([facility] st Contact Info) Description 10/23/2023 Refill [facility] [address] [place], [place] [phone] Name, MD Mulugeta [address] [place] [address] Obesity (BMI 30-39.9) Social History Tobacco Use [...] Description 01/12/2025 9:00 AM EST Office Visit [facility] [address] [place] [address] Blanka Wood, OD [address] [place] [address] documented as of this encounter Visit Diagnoses Diagnosis Obesity (BMI 30-39.9) documented in this encounter Additional Health Concerns Assessment Noted Time PHQ-9 Depression Total Score: 0 05/29/19 24 10:30 AM EDT documented as of this encounter Care Teams Flavorings Compounder Relationship Specialty Start Date End Date Name, MD Mulugeta [address] [place] [address] PCP - General Family Medicine 06/06/15 documented as of this encounter
--- OUTSIDE RECORDS SUMMARY | 2024-11-08 12:02 | XMS_ITS | Encounter Summary ---
Author Organization [employer] Address [address] [place] [address] 7t [place] [address] Care Team Providers Care Metalworking Specialist Name Role Phone Name, Mulugeta HUANG Primary Care Provider [phone] Reason for Visit * Reason Onset Date Comments lab request 05/08/2022 Encounter Details Date Type Department Care Team ([facility] st Contact Info) Description 05/08/2022 Telephone [facility] MEDICINE [address] [place] [address] Name, MD Mulugeta [address] [place] [address] lab request Social History Tobacco Use Types [...] before going for her heart study at [facility] on 04/24/22. Please call pt to clarify . documented in this encounter Plan of Treatment Upcoming Encounters Date Type Department Care Team (Late st Contact Info) Description 01/12/2025 9:00 AM EST Office Visit [facility] OPTOMETRY [address] [place] [address] Blanka Wood, YOSEF 230 [place] [address] documented as of this encounter Visit Diagnoses Not on filedocumented in this encounter Care Teams Metalworking Specialist Relationship Specialty Start Date End Date Name, MD Mulugeta [address] [place] [address] PCP - General Family Medicine 06/06/15 documented as of this encounter
--- OUTSIDE RECORDS SUMMARY | 2024-11-08 12:02 | XMS_ITS | Encounter Summary ---
Author Organization [employer] Address 75 [facility] 7t [place] [address] Care Team Providers Care Software Developer Intern Name Role Phone Name, Mulugeta HUANG Primary Care Provider [phone] Reason for Visit * Reason Comments Med Refill Encounter Details Date Type Department Care Team ([facility] Contact Info) Description 06/26/2023 Refill [facility]ALK[facility] 230 [place], [place] [phone] Name, MD Mulugeta 230 [place], [place] [phone] Social History Tobacco Use Types Packs/Day Years [...] Description 01/12/2025 9:00 AM EST Office Visit [facility] OPTOMETRY [address] [place] [address] Israel, Blanka, OD 230 [place] [address] documented as of this encounter Visit Diagnoses Not on filedocumented in this encounter Additional Health Concerns Assessment Noted Time PHQ-9 Depression Total Score: 0 05/29/19 24 10:30 AM EDT documented as of this encounter Care Teams Software Developer Intern Relationship Specialty Start Date End Date Name, MD Mulugeta 230 [place] [address] PCP - General Family Medicine 06/06/15 documented as of this encounter
--- OUTSIDE RECORDS SUMMARY | 2024-11-08 12:02 | XMS_ITS | Encounter Summary ---
Author Organization [employer] Address 75 [facility] 7t [place] [address] Care Team Providers Care Analytics Manager Name Role Phone Name, Mulugeta HUANG Primary Care Provider [phone] Reason for Visit * Reason Onset Date Comments [facility] 11/04/2024 I called the pat ient, regarding an order for [facility]. I reached a voicemail, and left a message informing her that the labs were ordered, and she may have them done at her convenience. There is a TB Risk Assessment & Screening Form from [employer], that needs to be completed. I asked her to return my call at ext [phone], if she has any questions. Encounter Details Date Type Department Care Team ([facility] Contact Info) Description 11/04/2024 Telephone [facility] MEDICINE 230 [place] [address] Name, MD Mulugeta 230 [place] [address] [facility] (I called the patient, regarding an order for [facility]. I reached a voicemail, and left a message informing her that the labs were ordered, and she may have them done at her convenience. There is a TB Risk Assessment & Screening Form from [employer], that needs to be completed. I asked her to return my call at ext [phone], if she has any questions.) Social History Tobacco Use Types Packs/Day Years [...] encounter Miscellaneous Notes * Telephone Encounter - Jing Adams [place] - 11/04/2024 10:10 AM EDT I called the patient, regarding an order for [facility]. I reached a voicemail, and left a message informing her that the labs were ordered, and she may have them done at her convenience. There is a TB Risk Assessment & Screening Form from [employer], that needs to be completed. I asked her to return my call at ext [phone], if she has any questions. documented in this encounter Plan of Treatment Upcoming Encounters Date Type Department Care Team (Late st Contact Info) Description 01/12/2025 9:00 AM EST Office Visit [facility] OPTOMETRY [address] [place] [address] Blanka Wood, OD 230 [place] [address] documented as of this encounter Visit Diagnoses Not on filedocumented in this encounter Additional Health Concerns Assessment Noted Time PHQ-9 Depression Total Score: 4 07/02/19 25 11:43 AM EDT documented as of this encounter Care Teams Analytics Manager Relationship Specialty Start Date End Date Name, MD Mulugeta 230 [place] [address] PCP - General Family Medicine 06/06/15 documented as of this encounter
--- OUTSIDE RECORDS SUMMARY | 2024-11-08 12:02 | XMS_ITS | Encounter Summary ---
Author Organization [employer] Address 75 [facility] 7t [place] [address] Care Team Providers Care Biometrics Instructor Name Role Phone Name, Mulugeta HUANG Primary Care Provider [phone] Reason for Visit * Reason Comments Med Change Request Encounter Details Date Type Department Care Team ([facility] Contact Info) Description 10/14/2024 Refill [facility] 230 [place], [place] [phone] Claire Boucher DO 230 [place], [place] [phone] Social History Tobacco Use Types Packs/Day Years [...] Description 01/12/2025 9:00 AM EST Office Visit [facility] OPTOMETRY [address] [place] [address] Israel, Blanka, OD 230 [place] [address] documented as of this encounter Visit Diagnoses Not on filedocumented in this encounter Additional Health Concerns Assessment Noted Time PHQ-9 Depression Total Score: 4 07/02/19 25 11:43 AM EDT documented as of this encounter Care Teams Biometrics Instructor Relationship Specialty Start Date End Date Name, MD Mulugeta 230 [place] [address] PCP - General Family Medicine 06/06/15 documented as of this encounter
--- OUTSIDE RECORDS SUMMARY | 2024-11-08 12:02 | XMS_ITS | Encounter Summary ---
Author Organization [employer] Address 75 [facility] 7t [place] [address] Care Team Providers Care Stripper Color Name Role Phone Name, Mulugeta HUANG Primary Care Provider [phone] Encounter Details Date Type Department Care Team ([facility] st Contact Info) Description 11/04/2024 Telephone [facility] 230 [place], [place] [phone] Monalisa Currie RN Social History Tobacco Use Types Packs/Day Years [...] encounter Miscellaneous Notes * Telephone Encounter - Monalisa Currie RN - 11/04/2024 9:07 AM EDT Incoming call from LOUISA Fernandez from the forms department reports pt need a [facility] for an [facility]. Order placed and LOUISA Fernandez made aware. No further questions or concerns at this time. documented in this encounter Plan of Treatment Upcoming Encounters Date Type Department Care Team (Late st Contact Info) Description 01/12/2025 9:00 AM EST Office Visit [facility] OPTOMETRY [address] [place] [address] Israel, Blanka, OD 230 [place] [address] Scheduled Orders Name Type Priority Associated Diagnoses Orde r Schedule [facility] .TB Lab Routine Screening-pulmonary TB Expected: 11/04/2024 (Approximate), Expires: 11/04/2025 documented as of this encounter Visit Diagnoses Diagnosis Screening-pulmonary TB Screening examination for pulmonary tuberculosis documented in this encounter Additional Health Concerns Assessment Noted Time PHQ-9 Depression Total Score: 4 07/02/19 25 11:43 AM EDT documented as of this encounter Care Teams Stripper Color Relationship Specialty Start Date End Date Name, MD Mulugeta 230 [place] [address] PCP - General Family Medicine 06/06/15 documented as of this encounter
--- OUTSIDE RECORDS SUMMARY | 2024-11-08 12:02 | XMS_ITS | Encounter Summary ---
Author Organization [employer] Address [address] [place] [address] [address] [place] [address] Care Team Providers Care Tape Duplicator Name Role Phone Name, Mulugeta HUANG Primary Care Provider [phone] Reason for Visit * Reason Onset Date Comments Appointment Request 05/09/2022 Encounter Details Date Type Department Care Team ([facility] Contact Info) Description 05/09/2022 Telephone [facility] MEDICINE 230 [place] [address] Name, MD Mulugeta [address] [place] [address] Appointment Request Social History Tobacco Use Types [...] [place] [facility] [place] Please contact pt at [phone] documented in this encounter Plan of Treatment Upcoming Encounters Date Type Department Care Team (Late st Contact Info) Description 01/12/2025 9:00 AM EST Office Visit [facility] OPTOMETRY [address] [place] [address] Blanka Wood, OD 230 [place] [address] documented as of this encounter Visit Diagnoses Not on filedocumented in this encounter Care Teams Tape Duplicator Relationship Specialty Start Date End Date Name, MD Mulugeta [address] [place] [address] PCP - General Family Medicine 06/06/15 documented as of this encounter
[2024-11-08 12:08] LABS: Alanine Aminotransferase 19 U/L (0-31); Albumin Level 4.5 g/dL (3.5-5.0); Alkaline Phosphatase 42 U/L (39-117); Anion Gap 11 (12-20); Aspartate Amino Transferase 23 U/L (5-31); Blood Urea Nitrogen 17 mg/dL (9-16); Calcium 9.3 mg/dL (8.4-10.2); Carbon Dioxide 27 mmol/L (22-29); Chloride 107 mmol/L (96-108); Cholesterol 158 mg/dL (<200); Estimated Glomerular Filt Rate > 60; HDL Cholesterol 37 mg/dL (>40); Potassium 4.2 mmol/L (3.3-5.1); Sodium 141 mmol/L (135-145); Total Protein 7.5 g/dL (6.5-8.0); Triglycerides 200 mg/dL (<150)
[2024-11-11 09:04] LABS: TS Negative Control Passed; TS Panel A 3; TS Panel B 0; TS Positive Control Passed; TSpotTB Negative (Negative)
== END 2024-11-08 10:10 | disposition home or self-care (01) ==
LOC: HO.HHCL 10:09
PROVIDERS: PCP Internal Medicine Geriatric Medicine; Visit Provider Internal Medicine Geriatric Medicine
DX: Z11.1 Encounter for screening for respiratory tuberculosis (principal); E78.5 Hyperlipidemia, unspecified
CPT/HCPCS: 36415; 80048; 80061; 80076; 86481

== ENCOUNTER 2025-01-25 13:26 | Outpatient (AMB) | payer OTHER, SELFPAY ==
--- NOTE | 2025-01-25 13:45 | A.OFFVIS_ITS ---
Vital Signs 01/25/25 13:47 Height 5 ft 1 in Weight 205 lb BMI 38.7 BP 122/76 Blood Pressure Location Rt brachial Position Sitting Pulse 72 Pulse Source Pulse Oximeter Pulse Oximetry (%) 97 Oxygen Delivery Method Room Air Intake Visit Reasons: s/p double Intake Note: Est pt for mgmt of GERD. CC; C/O GERD + Bloating persistence. Pt reports that they were unfortunately unable to get their procedure per miscommunication between pt and the office. Customer Quality Engineer Required: Yes Customer Quality Engineer Services: Customer Quality Engineer Present Customer Quality Engineer Name: Emerson [id number] Information Interpreted: clinical only Accompanied by: Family/Other Allergies seafood Allergy (Verified 01/25/25 13:47) Eye Swelling HPI HPI s/p double: Details: Patient is a 44-year-old female with PMH of former smoker,hyperlipidemia and GERD. F/u for GERD, constipation, and abd pain. Patient is accompanied by her husbands. Screening colonoscopy and EGD remain unscheduled?pt did not receive prep, no callback from scheduling team. Since last visit, pt notes increased severity of reflux symptoms: burning sensation, food regurgitation, unrelieved by current med regimen. Declined PPI due to perceived risk, continues famotidine. Diet mostly bland (rice, beans, chicken), denies alcohol/tobacco. Constipation persists; admits poor adherence to fiber tabs and has not taken Miralax. Abd pain continues, occasionally triggers loose stools; intermittent constipation with painful BMs. No recent hospitalization/UC visits. Upper endoscopy and colonoscopy remain outstanding?scheduling issues unresolved. -denies ETOH use -denies recreational drugs. 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 Colon cancer screening Change in stool Constipation Gallstones Surgical History History of esophagogastroduodenoscopy (EGD) Hx of colonoscopy H/O section Family History Family/Other Cancer Diabetes Social History Household Members: Spouse Alcohol intake: never Patient Tobacco Use Status: Never used Tobacco Current occupational status: unemployed Review of Systems Const Reports as per [facility] ENT Reports as per HPI Card Reports as per HPI Resp Reports as per HPI GI Reports as per HPI Reports as per HPI Physical Exam Const General: healthy appearing, no acute distress and well developed Nutritional Appearance: average body habitus Orientation/consciousness: patient oriented x3 HEENT Head: Yes normal to inspection, Yes normocephalic and Yes atraumatic Face and sinus: Yes normal facial exam Eyes General: appearance normal, both eyes and all related structures Neck Neck: Yes normal visual inspection Resp Effort & Inspection: normal respiratory effort, able to speak in complete sentences, no tracheal deviation and symmetric chest movement Cardio Jugular venous distension: no JVD Neuro General: patient oriented x3 Gait exam (Neuro): Normal gait present Psych Appearance: grossly normal Mental Status: mental status grossly normal Speech and movement: Normal speech and movement present Affect: normal affect Attitude: cooperative Thought process: Normal thought process present Thought content: Normal thought content present Insight: Good insight present (Psych) Judgement: Good judgement present (Psych) Results Reviewed Results Reviewed: Date of Service: 08/16/24 Procedure(s): AR hepatobiliary w pharm Accession Number(s): [id number] cc: Fabian,Mulugeta HUANG; Lexy Burch CNP~ EXAMINATION: NM BILIARY TRACT CLINICAL INFORMATION: Cholelithiasis without cholecystitis or obstruction , nausea and vomiting COMPARISON: None available. TECHNIQUE: After: Recheck injection, there was frontal view imaging of the abdomen for 60 minutes. After CCK administration there was continued imaging of this region generating an ejection fraction curvature. Radionuclide: 5.0 mCi technetium 99m Choletec CCK: 1.7 mcg over 30 minutes FINDINGS: There is prompt accumulation of radiotracer in the liver with excretion visible in the intrahepatic biliary ducts and gallbladder within 14 minutes. There was clearance of radiotracer from the liver upon gallbladder filling. After CCK infusion, there was partial clearance of radiotracer into the extra hepatic bile duct and small bowel. Gallbladder ejection fraction measured 12% NM/AR hepatobiliary w pharm IMPRESSION: There is normal filling of the gallbladder. However, there is a low ejection fraction raising question of biliary dyskinesia. Assessment & Plan Assessment & Plan (1) Acid reflux: Code(s): K21.9 - Gastro-esophageal reflux disease without esophagitis Category: Medical Qualifiers: Esophagitis presence: without esophagitis Qualified Code(s): K21.9 - Gastro-esophageal reflux disease without esophagitis Plan: Sx escalation, limited efficacy of current regimen, declined PPI due to cancer concerns; EGD pending. Additional testing: - Reschedule EGD. Medications: - Continue famotidine. - Declined PPI (omeprazole) after informed risk discussion; pt to revisit option after procedure if still symptomatic. Lifestyle Recommendations: - Reinforce dietary avoidance?spicy, fatty, fried, acidic foods, and carbonation. - Provided written instructions and video education on dietary triggers. Referrals / Coordination of Care: - GI scheduling team to reach out for EGD/colon prep. Follow-Up Plan: - F/u after EGD/colonoscopy. If no improvement, readdress med options (PPI). (2) Constipation: Code(s): K59.00 - Constipation, unspecified Category: Medical Qualifiers: Constipation type: unspecified constipation type Qualified Code(s): K59.00 - Constipation, unspecified Plan: Sx persistence, pt not using Miralax, inconsistent fiber supplement use, possible dietary inadequacy. Additional testing: - Await results of colonoscopy (pending). Medications: - Miralax?dispensed; pt advised to use daily PRN; not started. - Fiber tabs?advise regular use; pt forgets; education reinforced. Lifestyle Recommendations: - Emphasize high fiber diet. - Hydration and regular exercise advised. Referrals / Coordination of Care: - None at present. Follow-Up Plan: - F/u after colonoscopy to reassess regimen depending on findings/adherence. (3) Colon cancer screening: Code(s): Z12.11 - Encounter for screening for malignant neoplasm of colon Category: Medical Plan: CRC screening overdue; procedural delay due to system error. Additional testing: - Colonoscopy?reschedule as soon as possible. Medications: - Colonoscopy prep?new prescriptions sent to pharmacy. Lifestyle Recommendations: - Review PEG bowel prep instructions; written and video education provided. Referrals / Coordination of Care: - GI scheduling team to contact pt for colonoscopy scheduling and prep instructions. Follow-Up Plan: - F/u after colonoscopy to review results and update screening interval. (4) Gallstones: Code(s): K80.20 - Calculus of gallbladder without cholecystitis without obstruction Category: Medical Plan: Persistent pain, new HIDA findings warrant surgical reconsideration. Additional testing: - None pending. Medications: - Researching prokinetic/anticholestatic agent?pt declined new med until further info. Lifestyle Recommendations: - No new changes. Referrals / Coordination of Care: - Pt encouraged to reconnect with general surgery (established [place] [facility] [place] Follow-Up Plan: - F/u after surgery consult and/or definitive tx planning. Plan Follow-up after endoscopy or sooner as needed Time: I spent a total of 35 minutes on the date of encounter which includes: Preparing to see the patient (reviewed previous documentation, test results and medical history) Performing a medically appropriate exam and/or evaluation Ordering medications, tests, and procedures Documenting clinical information in the health record Orders: Referrals GI Procedure Notification K21.9 - Gastro-esophageal reflux disease without esophagitis, Z12.11 - Encounter for screening for malignant neoplasm of colon Medications: New bisacodyl take four tablets once day of colonoscopy prep 20 mg (4 x 5 mg) PO ONCE 4 tabs 0RF peg 3350-electrolytes 236-22.74-6.74 -5.86 gram until fecal effluent is clear 240 mL PO ONCE 4,000 mL 0RF simethicone (Gas Relief (simethicone)) per colonoscopy prep instructions 500 mg (4 x 125 mg) PO ONCE 4 caps 0RF abdominal distention Coding Level of Care Code Established Pt Est Pt Level 4 (79547) Patient Type Established Diagnoses Gastroesophageal reflux disease without esophagitis K21.9 Esophagitis presence: without esophagitis Constipation, unspecified constipation type K59.00 Constipation type: unspecified constipation type Colon cancer screening Z12.11 Gallstones K80.20
[2025-01-25 13:47] VITALS: BP 122/76; PULSE 72; O2SAT 97; BMI 38.7
--- OUTSIDE RECORDS SUMMARY | 2025-01-25 17:22 | XMS_ITS | Encounter Summary ---
Author Organization [employer] Address [address] [facility] 7t [place] [address] Care Team Providers Care 4Th Grade Math Teacher Name Role Phone Name, Mulugeta HUANG Primary Care Provider [phone] Reason for Visit * Reason Comments Med Refill Encounter Details Date Type Department Care Team ([facility] Contact Info) Description 06/26/2023 Refill [facility]ALK[facility] [address] [place], [place] [phone] Name, MD Mulugeta 230 [place], [place] [phone] Social History Tobacco Use Types Packs/Day Years [...] Care Team (Late st Contact Info) Description 03/08/2025 11:15 AM EST Office Visit [facility] MEDICINE [address] [place] [address] Name, MD Mulugeta [address] [place] [address] documented as of this encounter Visit Diagnoses Not on filedocumented in this encounter Additional Health Concerns Assessment Noted Time PHQ-9 Depression Total Score: 0 05/29/19 24 10:30 AM EDT documented as of this encounter Care Teams 4Th Grade Math Teacher Relationship Specialty Start Date End Date NameMulugeta MD [address] [place] [address] PCP - General Family Medicine 06/06/15 documented as of this encounter
--- OUTSIDE RECORDS SUMMARY | 2025-01-25 17:22 | XMS_ITS | Encounter Summary ---
Author Organization [employer] Address [address] [place] [address] 7 [place] [address] Care Team Providers Care Kitchen Hand Name Role Phone Name, Mulugeta HUANG Primary Care Provider [phone] Reason for Visit * Reason Onset Date Comments lab request 05/08/2022 Encounter Details Date Type Department Care Team ([facility] st Contact Info) Description 05/08/2022 Telephone [facility] MEDICINE [address] [place] [address] Name, MD Mulugeta [address] [place] [address] lab request Social History Tobacco Use Types [...] before going for her heart [place] [facility] [place]. Please call pt to clarify . documented in this encounter Plan of Treatment Upcoming Encounters Date Type Department Care Team (Late st Contact Info) Description 03/08/2025 11:15 AM EST Office Visit [facility] MEDICINE [address] [place] [address] Name, MD Mulugeta [address] [place] [address] documented as of this encounter Visit Diagnoses Not on filedocumented in this encounter Care Teams Kitchen Hand Relationship Specialty Start Date End Date NameMulugeta MD [address] [place] [address] PCP - General Family Medicine 06/06/15 documented as of this encounter
--- OUTSIDE RECORDS SUMMARY | 2025-01-25 17:22 | XMS_ITS | Encounter Summary ---
Author Organization [employer] Address 75 [facility] 7t [place] [address] Care Team Providers Care Senior Linux Unix Engineer Name Role Phone Name, Mulugeta HUANG Primary Care Provider [phone] Reason for Visit * Reason Comments Med Change Request Encounter Details Date Type Department Care Team ([facility] Contact Info) Description 10/14/2024 Refill [facility] [address] [place], [place] [phone] Claire Boucher DO 230 [place], [place] [phone] Social History Tobacco Use Types Packs/Day Years [...] Description 03/08/2025 11:15 AM EST Office Visit [facility] MEDICINE [address] [place] [address] Name, MD Mulugeta [address] [place] [address] documented as of this encounter Visit Diagnoses Not on filedocumented in this encounter Additional Health Concerns Assessment Noted Time PHQ-9 Depression Total Score: 4 07/02/19 25 11:43 AM EDT documented as of this encounter Care Teams Senior Linux Unix Engineer Relationship Specialty Start Date End Date Name, MD Mulugeta [address] [place] [address] PCP - General Family Medicine 06/06/15 documented as of this encounter
--- OUTSIDE RECORDS SUMMARY | 2025-01-25 17:22 | XMS_ITS | Encounter Summary ---
Author Organization [employer] Address [address] [place] [address] 7 [place] [address] Care Team Providers Care Administrative Analyst Name Role Phone Name, Mulugeta HUANG Primary Care Provider [phone] Reason for Visit * Reason Onset Date Comments Med Refill 10/23/2023 Encounter Details Date Type Department Care Team ([facility] st Contact Info) Description 10/23/2023 Refill [facility] MEDICINE 230 [place], [place] [phone] Name, MD Mulugeta [address] [place] [address] Obesity (BMI 30-39.9) Social History Tobacco Use [...] Description 03/08/2025 11:15 AM EST Office Visit [facility] MEDICINE [address] [place] [address] Name, MD Mulugeta [address] [place] [address] documented as of this encounter Visit Diagnoses Diagnosis Obesity (BMI 30-39.9) documented in this encounter Additional Health Concerns Assessment Noted Time PHQ-9 Depression Total Score: 0 05/29/19 24 10:30 AM EDT documented as of this encounter Care Teams Administrative Analyst Relationship Specialty Start Date End Date NameMulugeta MD [address] [place] [address] PCP - General Family Medicine 06/06/15 documented as of this encounter
--- OUTSIDE RECORDS SUMMARY | 2025-01-25 17:22 | XMS_ITS | Clinical Summary ---
[facility] Organization [facility] it[facility] Address [address] [place] [address] Care Team Providers Care Janitor Caretaker Name Role Phone Name, Mulugeta HUANG Primary Care Provider [phone] Surgical History Surgery Date Site/Laterality Comments OTHER [...] of 3 - 19+ 3-dose series) 06/21/1998 HPV Vaccines (1 - 3-dose SCD M series) 06/21/2006 Cervical Cancer Screening: P ap Smear 08/31/2021 08/31/2018 Depression Screening 03/03/2024 COVID-19 Vaccine (1 - 2024-2 6 season) 2024 Influenza Vaccine (#1) 2024 RSV Immunization Adult Patie nts (1 - 1-dose 75+ series) 06/21/2054 HIB Vaccines Aged Out No longer eligi [...] RESULTING AGENCY - 09/14/2018 12:06 PM EDT [id number] THINPREP PAP, IMAGED: NEGATIVE FOR SQUAMOUS INTRAEPITHELIAL [...] Recently Relevant to Health Maintenance Care Teams Janitor Caretaker Relationship Specialty Start Date End Date Name, MD [facility] [place] PCP - General 06/30/16
--- OUTSIDE RECORDS SUMMARY | 2025-01-25 17:22 | XMS_ITS | Encounter Summary ---
Author Organization [employer] Address [address] [place] [address] 7 [place] [address] Care Team Providers Care Bail Bond Agent Name Role Phone Name, Mulugeta HUANG Primary Care Provider [phone] Reason for Visit * Reason Onset Date Comments Appointment Request 05/09/2022 Encounter Details Date Type Department Care Team ([facility] Contact Info) Description 05/09/2022 Telephone [facility] [address] [place] [address] Name, MD Mulugeta [address] [place] [address] Appointment Request Social History Tobacco Use Types [...] 1 WEEK prior [place] [facility] 05[place]22 ) Please contact pt at [phone] documented in this encounter Plan of Treatment Upcoming Encounters Date Type Department Care Team (Late st Contact Info) Description 03/08/2025 11:15 AM EST Office Visit [facility] [address] [place] [address] Name, MD Mulugeta [address] [place] [address] documented as of this encounter Visit Diagnoses Not on filedocumented in this encounter Care Teams Bail Bond Agent Relationship Specialty Start Date End Date Name, MD Mulugeta [address] [place] [address] PCP - General Family Medicine 06/06/15 documented as of this encounter
--- OUTSIDE RECORDS SUMMARY | 2025-01-25 17:22 | XMS_ITS | Clinical Summary ---
Author Organization [employer] Address [address] [facility] 7t [place] [address] Care Team Providers Care Lot Attendant Name Role Phone Name, Mulugeta HUANG Primary Care Provider [phone] Allergies Active Allergy Reactions Criticality Noted Date [...] 05/29/19 24 Active lidocaine (Lidoderm) 5 % patchIndicatio ns:Acute mid back pain,Acute bilateral low back pain without sciatica Apply 1-2 patches topically if needed each day for mild pain. Remove & discard patch within 12 hours or as directed by MD. 60 patch 1 03/25/19 25 Active atorvastatin (Lipitor) 10 MG tablet Take 1 tablet by mouth Once per day. 06/16/19 25 Active albuterol (Ventolin HFA) 108 (90 Base) MCG/ACT inhaler Inhale 2 puffs every 4 (four) hours if needed for wheezing. 18 g 1 08/10/19 25 Active pseudoephedrin e (Sudafed) 30 MG tablet Take 1 tablet (30 mg) by mouth every 4 (four) hours if needed for congestion for up to 10 days. 30 tablet 08/10/19 25 Active naproxen (Naprosyn) 500 MG tabletIndicati [...] 60 tablet 1 10/15/19 25 026 Active losartan (Cozaar) 25 MG tablet Take 25 mg by mouth Once per day. Active cholecalcifero l (Vitamin D-3) 25 MCG tablet TAKE 1 TABLET BY MOUTH EVERY MORNING 90 tablet 1 5 10:15 AM EST 01/07/20 25 Active ibuprofen 800 MG tabletIndicati ons:Back muscle spasm TAKE 1 TABLET BY MOUTH THREE TIMES DAILY 90 tablet 2 5 10:14 AM EST 01/07/20 25 Active cholecalcifero l (Vitamin D-3) 25 MCG tablet TAKE 1 TABLET BY MOUTH EVERY MORNING 90 tablet 1 07/17/19 25 025 Discontinued ibuprofen 800 MG tabletIndicati ons:Back muscle spasm TAKE 1 TABLET BY MOUTH THREE TIMES DAILY 90 tablet 2 09/03/19 25 025 Discontinued Active Problems Problem Noted Date Diagnosed Date Essential hypertension 10/25/2024 LBBB (left bundle branch block) 07/01/2024 Overview (10/25/2024): Negative work up with [facility] [place] including Holter, ECHO and nuclear stress [...] 05/23/2022 Overview (05/23/2022): 7 grade education in [place] Does not know how to read or write Maltese Epigastric pain 04/09/2022 H. pylori infection 04/09/2022 [...] Encounters Date Type Department Care Team Description 01/12/2025 9:00 AM EST Office Visit [facility] OPTOM[facility] [address] [place] [address] Blanka Wood, OD Presbyopia of both eyes (Primary Dx) 01/12/2025 Travel 01/06/2025 Refill [facility] [address] [place] [address] Mulugeta Peralta MD Back muscle spasm 12/17/2024 Telephone [facility] [address] [place] [address] Niall Hogan MA nov recalls 11/12/[address] [address] Mulugeta Peralta MD Lab Orders 11/11/[address] [address] Mulugeta Peralta MD Results 11/08/2024 Orders Only GENERIC EXTERNAL DATA DEPARTMENT Provider, Generic External Data 11/04/2024 Telephone [facility] [address] [place] [address] Mulugeta Peralta MD [facility] (I called the patient, regarding an order for [facility]. I reached a voicemail, and left a message informing her that the labs were ordered, and she may have them done at her convenience. There is a TB Risk Assessment & Screening Form from [facility], that needs to be completed. I asked her to return my call at [phone], if she has any questions.) 11/04/2024 Telephone [facility] [address] [place] [address] Monalisa Currie, RN 10/25/2024 11:30 AM EDT Office Visit [address] [address] Mulugeta Peralta MD Essential hypertension (Primary Dx); LBBB (left bundle branch block) 10/25/[address] [address] Mulugeta Peralta MD telephone call 10/25/20[address] [place] [address] Name, MD Mulugeta CHART PREP 10/25/2024 Travel from Last 3 Months Immunizations Immunization [...] Description 03/08/2025 11:15 AM EST Office Visit [facility] MEDICINE [address] [place] [address] Name, MD Mulugeta [address] [place] [address] Health Maintenance Due Date Last Done Comments [...] 10/2024, 07/10/2023, Additional history exists Tobacco Screening 01/12/2026 01/12/2025 Cervical Cancer Screening 06/04/2027 HPV/Cotest 06/04/2027 06/03/2022 Zoster Vaccines (1 of 2) 06/21/2029 Lipid Panel 11/08/2029 11/08/2024, 06/01, 04/09/2022 RSV Patients and Patients Aged 60 years [...] Procedure Name Priority Date/Time Associated Diagnosis Comments T-SPOT(R).TB Routine 11/08/2024 10:19 AM EDT LIPID PANEL, STANDARD Routine 11/08/2024 10:19 AM EDT BASIC METABOLIC PANEL Routine 11/08/2024 10:19 AM EDT HEPATIC FUNCTION PANEL Routine 11/08/2024 10:19 AM EDT BI US BREAST LIMITED BILATERAL STAT 10/08/2024 9:00 AM EDT POCT GLYCATED HEMOGLOBIN, TOTAL Routine [...] Recently Relevant to Health Maintenance Results * T-SPOT??.TB (11/08/2024 10:19 AM EDT) [facility] T Spot TB Negative Negative [facility] Comment:A negative test resu lt does not exclude the possibilityof exposure to or infection with Mycobacteriumtuberculosis (M. tuberculosis). Patients with recentexposure to TB infected individuals exhibiting anegative T-SPOT.TB result should be considered forretesting within 6 weeks or if other relevant clinicalsymptoms indicate. Results from T-SPOT.TB testing mustbe used in conjunction with each individual'sepidemiological history, current medical status,and results of other diagnostic evaluations.The T-SPOT.TB test is qualitative and results arereported as positive, borderline, or negative, giventhat the test controls perform as expected. In linewith the Centers for Disease Control and Prevention's2010 recommendation to report quantitative measurementsalongside the qualitative result, the laboratoryprovides spot counts for informational purposes only.The T-SPOT.TB test should not be interpreted as aquantitative test. TS PANEL A 3 [facility] TS PANEL B 0 [facility] Negative Control Passed [facility] Positive Control Passed [facility] Comment:For additional infor kelvin, please refer tohttp://education.Sayduck/faq/NRL517(This link is being provided for informational/educational purposes only.)THIS TEST WAS PERFORMED AT:[employer] [id number] [place] [address]QPDJYQDMARGARET JEAN MD,PHD 11/08/2024 10:1 9 AM EDT 11/08/2024 11:16 AM EDT us Mulugeta Peralta MD LAB BLOOD ORDERABLES Final Resul t [facility] [address] [place] [phone] * Hepatic Function Panel (11/08/2024 10:19 AM EDT) Bilirubin, Total 1.0 0.0 - 1.0 mg/dL [facility] Bilirubin, Direct 0.2 0.0 - 0.5 mg/dL [facility] Aspartate Amino Transferase 23 5 - 31 U/L [facility] Alanine Aminotransferase 19 0 - 31 U/L [facility] Total Protein 7.5 6.5 - 8.0 g/dL [facility] Albumin Level 4.5 3.5 - 5.0 g/dL [facility] Alkaline Phosphatase 42 39 - 117 U/L [facility] 11/08/2024 10:1 9 AM EDT 11/08/2024 11:21 AM EDT Generic External Data Provider LAB BLOOD ORDERAB LES Final Result Performing Organization Address [facility] Co de Phone Number [facility] [address] [place] [phone] [phone] * (ABNORMAL) Lipid Panel, Standard (11/08/2024 10:19 AM EDT) Triglycerides 200(H) <150 mg/dL [facility] Comment:Desirable Triglyceri de: less than 150 mg/dLBorderline High Triglyceride 150-199 mg/dLHigh Triglyceride: 200-499 mg/dLVery High Triglyceride: greater than or equal to 5OO mg/dL Cholesterol 158 <200 mg/dL [facility] Comment:Desirable Cholestero l: less than 200 mg/dLBorderline High Cholesterol: 200-239 mg/dLHigh Cholesterol: greater than 239 mg/dL LDL Cholesterol Calculated 81 <100 mg/dL [facility] Comment:Desirable LDL: less than 100 mg/dLNear Optimal/Above Optimal LDL: 110- 129 mg/dLBorderline High LDL: 130-159 mg/dLHigh LDL: 160-189 mg/dLVery High LDL: greater than or equal to 190 mg/dL HDL Cholesterol 37(L) >40 mg/dL [facility] Comment:Desirable HDL: great er than 40 mg/dL Note: This HDL assay may give artificially low results in patients with liver disease. 11/08/2024 10:1 9 AM EDT 11/08/2024 11:21 AM EDT us Generic External Data Provider LAB BLOOD ORDERAB LES Final Result Performing Organization Address [facility] Co de Phone Number [facility] [address] [place] [phone] [phone] * (ABNORMAL) Basic Metabolic Panel (11/08/2024 10:19 AM EDT) Sodium 141 135 - 145 mmol/L [facility] Potassium 4.2 3.3 - 5.1 mmol/L [facility] Chloride 107 96 - 108 mmol/L [facility] Carbon Dioxide 27 22 - 29 mmol/L [facility] Anion Gap 11(L) 12 - 20 [facility] Urea Nitrogen (BUN) 17(H) 9 - 16 mg/dL [facility] Creatinine, Serum 0.75 0.5 - 1.4 mg/dL [facility] Estimated Glomerular Filt Rate >60 [facility] Comment:Chronic Kidney Disea se: Estimated GFR < 60 mL/min/1.08c8Lombvx Kidney Disease: Estimated GFR < 15 mL/min/1.73m2 Glucose 165(H) 60 - 115 mg/dL [facility] Calcium 9.3 8.4 - 10.2 mg/dL [facility] 11/08/2024 10:1 9 AM EDT 11/08/2024 11:21 AM EDT us Generic External Data Provider LAB BLOOD ORDERAB LES Final Result Performing Organization Address City/State/[facility] Co de Phone Number [facility] [address] [place] [phone] * BI US Breast Limited Bilateral (10/08/2024 9:00 AM EDT) Anatomical Region Laterality Modality Breast Bilateral Ultrasound 10/08/2024 9:00 AM EDT Narrative 10/08/2024 9:22 AM EDT [facility] [address] [place] [address] Ultrasound Report Signed Patient: Ivory Daniel I MR#: [id number] 98 : 1980 Acct:[id number] Age/Sex: 44 / F ADM Date: 10/08/24 Loc: HO.MAMMO Attending Dr: Claire Boucher DO Ordering Physician: Claire Boucher DO Date of Service: 10/08/24 Procedure(s): US breast BI limited mamm only Accession Number(s): [id number] cc: Claire Boucher DO EXAMINATION: 1. MM [...] in OV> 10/08/[address] DD/ 9 TD/TT: 10/08/24914 Healthcare Specialist: Procedure Note Donotuseinterpreter, Image - 10/08/2024 Dipika [facility] [address] [place], [place] [address] Ultrasound Report Signed Patient: Ivory Daniel IMR#: [id number] 98 : 1980Acct:[id number] Age/Sex: 44 / FADM Date: 10/08/24 Loc: HO.MAMMO Attending Dr: Claire Boucher DO Ordering Physician: Clarie Boucher DO Date of Service: 10/08/24 Procedure(s): US breast BI limited mamm only Accession Number(s): [id number] cc: Claire Boucher DO EXAMINATION: 1. MM [...] in OV> 10/08/24918 DD/ 9 TD/TT: 10/08/24914 Healthcare Specialist: Claire Boucher DO IMG US PROCEDURES Final Resu lt * (ABNORMAL) POCT HGB A1C (12/16/2023 10:42 [...] Hepatitis C Antibody NON-REACT KELLY NON-REACT KELLY Exercise.comt Index 0.09 <1.00 [facility] Comment: HCV antibody was non-reactive. There is no laboratory evidence of HCV infection. In most cases, no further action is required. However, if recent HCV exposure is suspected, a test for HCV RNA (test code 91153) is suggested. For additional information please refer to http://education.Sayduck/faq/JBA04o4 (This link is being provided for informational/ educational purposes only.) Blood Venous blood specimen / Unknown 06/03/2022 10:57 AM EDT 06/03/2022 10:58 AM EDT Narrative [facility] - 06/04/2022 8:43 PM EDT FASTING:NO FASTING: NO Candice Morrell [facility] LAB BLOOD ORDERABLES Nani l Result [facility] [address], [place] [address] [facility] [address] [place] [address] * HIV-1/2 Antigen and Antibodies, Fourth Generation, with Reflexes (06/03/2022 10:57 AM EDT) [facility] HIV Antigen/Antibody, 4th Generation NON-REAC TIVE NON-REAC TIVE [facility] Comment: HIV-1 antigen and HIV-1/HIV-2 antibodies were [...] purpose. For additional information please refer to http://education.StorkUp.com.WeAre.Us/faq/EPT250 (This link is being provided for informational/ educational purposes only.) The performance of this assay has not been clinically validated in patients less than 2 years old. Blood Venous blood specimen / Unknown 06/03/2022 10:57 AM EDT 06/03/2022 10:58 AM EDT Narrative [facility] - 06/04/2022 8:43 PM EDT FASTING:NO FASTING: NO Candice Morrell [facility] LAB BLOOD ORDERABLES Nani l Result [facility] [address], [place] [address] [facility] [address] [place] [address] * Image-Guided Pap with Age-Based Screening??with CT/NG,??Trichomonas (06/03/2022 10:47 AM EDT) Comment [facility] Comment: This order for age-based cervical cancer and STI screening follows ACOG guidelines(PB 168, 140, VKL316). See individual assays for performing site location. Clinical Information: Routine exam Exercise.comt LMP: NONE GIVEN Exercise.comt Prev. PAP: NONE GIVEN Exercise.comt Prev. BX: NONE GIVEN Exercise.comt SOURCE: None given Exercise.comt Statement Of Adequacy: [facility] Comment: Satisfactory for evaluation. Endocervical/transformation zone component present. Interpretation/Re sult: Negative for intraepithelial lesion or malignancy. [facility] COMMENT: This Pap test has been evaluated with computer assisted technology. [facility] Duplicating Machine Mechanic: Antonia Biletu Comment: WAC, CT(ASCP) CT screening location: [place] [address] (Always Message) [facility] Comment: EXPLANATORY NOTE: The Pap is a [...] HPV nRNA E6/E7 Not Detected Not Detected [facility] Comment: Methodology: House Steward/Stewardess-Mediated Amplification This assay detects E6/E7 viral messenger RNA (mRNA) from 14 high-risk HPV types (16,18,31,33,35,39,45,51,52,56,58,59,66,68). Cervical sources are required for HPV testing. If a vaginal source from a patient who has had a total hysterectomy with removal of cervix was submitted, please contact the testing laboratory for alternative testing options. For additional information, please refer to http://education.Sayduck/faq/IBC509l2 (This link if provided for information/ educational purposes only.) Chlamydia trachomatis RNA, TMA, Urogenital NOT DETECTED NOT DETECTED [facility] Neisseria gonorrhoeae RNA, TMA, Urogenital NOT DETECTED NOT DETECTED [facility] Comment [facility] Comment: The analytical performance characteristics of this assay, when used to test SurePath(TM) specimens have been determined by [facility]. The modifications have not been cleared or approved by the FDA. This assay has been validated pursuant to the CLIA regulations and is used for clinical purposes. For additional information, please refer to https://Shsunedu.com.Sayduck/faq/PFF452 (This link is being provided for information/ educational purposes only.) Trichomonas vaginalis, QL, TMA, PAP Vial NOT DETECTED NOT DETECTED [facility] Comment: The analytical performance characteristics of this assay have been determined by [facility]. The modifications have not been cleared or approved by the FDA. This assay has been validated pursuant to the CLIA regulations and is used for clinical purposes. For additional information, please refer to http://Shsunedu.com.Sayduck/ faq/Trichomonastma (This link is being provided for information/ educational purposes only.) Cytology specimen container (physical object) 06/03/2022 10:47 AM EDT 06/04/2022 5:15 AM EDT Candice Morrell [facility] LAB CYTOLOGY ORDERABLES F inal Result [facility] [address], [place] [address] [facility] [address] [place] [address] from Last 3 Months or Most Recently Relevant to Health Maintenance Insurance * Guarantor: Ivory Danile I Account Type Relation to Patient Date of Phone Billing Address Personal/Family Self 1980 [address] [facility] [address] [place] [address] [facility] < 65 [place] [id number] Care Teams Lot Attendant Relationship Specialty Start Date End Date Name, MD Mulugeta [address] [facility] [place] [address] PCP - General Family Medicine 06/06/15
== END 2025-01-25 14:34 | disposition home or self-care (01) ==
LOC: HO.HGI 13:26
PROVIDERS: PCP Internal Medicine Geriatric Medicine; Visit Provider Nurse Practitioner Family
DX: Z01.818 Encounter for other preprocedural examination (principal); Z12.11 Encounter for screening for malignant neoplasm of colon; K59.00 Constipation, unspecified; K80.20 Calculus of gallbladder without cholecystitis without obstruction; K21.9 Gastro-esophageal reflux disease without esophagitis
CPT/HCPCS: 99024

== ENCOUNTER → 2025-01-25 13:26 | Outpatient (BNVA) | payer OTHER, SELFPAY | PROVIDERS: PCP Internal Medicine Geriatric Medicine; Visit Provider Nurse Practitioner Family | DX: K21.9 Gastro-esophageal reflux disease without esophagitis (principal) | CPT/HCPCS: 99212 ==

== ENCOUNTER 2025-02-02 15:00 | Outpatient (RCR) | payer OTHER, SELFPAY | END 2025-02-07 14:28 | disposition home or self-care (01) | LOC: HO.PT 15:00 | PROVIDERS: PCP Internal Medicine Geriatric Medicine; Visit Provider Registered Nurse | DX: M54.42 Lumbago with sciatica, left side (principal); G89.29 Other chronic pain; M25.562 Pain in left knee | CPT/HCPCS: 97110; 97112; 97116; 97162 ==

== ENCOUNTER 2025-02-10 09:34 | Day surgery (SDC) | payer OTHER, SELFPAY ==
--- OUTSIDE RECORDS SUMMARY | 2025-02-01 16:26 | XMS_ITS | Encounter Summary ---
Author Organization [employer] Address [address] [facility] 7t [place] [address] Care Team Providers Care Pouch Maker Name Role Phone Name, Mulugeta HUANG Primary Care Provider [phone] Reason for Visit * Reason Comments Med Refill Encounter Details Date Type Department Care Team ([facility] Contact Info) Description 06/26/2023 Refill [facility] [address] [place], [place] [phone] Name, MD Mulugeta [address] [place], [place] [phone] Social History Tobacco Use Types Packs/Day Years [...] Description 03/08/2025 11:15 AM EST Office Visit [facility] [address] [place] [address] Name, MD Mulugeta [address] [place] [address] documented as of this encounter Visit Diagnoses Not on filedocumented in this encounter Additional Health Concerns Assessment Noted Time PHQ-9 Depression Total Score: 0 05/29/19 24 10:30 AM EDT documented as of this encounter Care Teams Pouch Maker Relationship Specialty Start Date End Date NameMulugeta MD [address] [place] [address] PCP - General Family Medicine 06/06/15 documented as of this encounter
--- OUTSIDE RECORDS SUMMARY | 2025-02-01 16:26 | XMS_ITS | Encounter Summary ---
Author Organization [employer] Address [address] [place] [address] 7 [place] [address] Care Team Providers Care Lead Presser Name Role Phone Name, Mulugeta HUANG Primary Care Provider [phone] Reason for Visit * Reason Onset Date Comments Med Refill 10/23/2023 Encounter Details Date Type Department Care Team ([facility] st Contact Info) Description 10/23/2023 Refill [facility] [address] [place], [place] [phone] Name, MD Mulugeta [address] [place] [address] Obesity (BMI 30-39.9) Social History Tobacco Use [...] [facility] MED[facility] [address] [place] [address] Name, MD Mulugeta [address] [place] [address] documented as of this encounter Visit Diagnoses Diagnosis Obesity (BMI 30-39.9) documented in this encounter Additional Health Concerns Assessment Noted Time PHQ-9 Depression Total Score: 0 05/29/19 24 10:30 AM EDT documented as of this encounter Care Teams Lead Presser Relationship Specialty Start Date End Date NameMulugeta MD [address] [place] [address] PCP - General Family Medicine 06/06/15 documented as of this encounter
--- OUTSIDE RECORDS SUMMARY | 2025-02-01 16:26 | XMS_ITS | Clinical Summary ---
Author Organization [facility] Address [address] [place] [address] Care Team Providers Care Family Day Carer Name Role Phone Name, Mulugeta HUANG Primary Care Provider [phone] Surgical History Surgery Date Site/Laterality Comments OTHER [...] RESULTING AGENCY - 09/14/2018 12:06 PM EDT [id number] THINPREP PAP, IMAGED: NEGATIVE FOR SQUAMOUS INTRAEPITHELIAL LESION AND MALIGNANCY . REACTIVE CELLULAR CHANGES. JUSTEN BAL(ASCP) (CASE SCREENED 09 02 2018) CADNECE MEI M.D. , PATHOLOGIST (CASE ELECTRONICALLY SIGNED [...] Recently Relevant to Health Maintenance Care Teams Family Day Carer Relationship Specialty Start Date End Date Name, MD [facility] [place] PCP - General 06/30/16
--- OUTSIDE RECORDS SUMMARY | 2025-02-01 16:26 | XMS_ITS | Encounter Summary ---
Author Organization [employer] Address [address] [facility] 7t [place] [address] Care Team Providers Care Insurance Sales Supervisor Name Role Phone Name, Mulugeta HUANG Primary Care Provider [phone] Reason for Visit * Reason Comments Med Change Request Encounter Details Date Type Department Care Team ([facility] Contact Info) Description 10/14/2024 Refill [facility] [address] [place], [place] [phone] Claire Boucher DO [address] [place], [place] [phone] Social History Tobacco Use Types Packs/Day Years [...] Description 03/08/2025 11:15 AM EST Office Visit [facility] [address] [place] [address] Name, MD Mulugeta [address] [place] [address] documented as of this encounter Visit Diagnoses Not on filedocumented in this encounter Additional Health Concerns Assessment Noted Time PHQ-9 Depression Total Score: 4 07/02/19 25 11:43 AM EDT documented as of this encounter Care Teams Insurance Sales Supervisor Relationship Specialty Start Date End Date Name, MD Mulugeta [address] [place] [address] PCP - General Family Medicine 06/06/15 documented as of this encounter
--- OUTSIDE RECORDS SUMMARY | 2025-02-01 16:26 | XMS_ITS | Encounter Summary ---
Author Organization [employer] Address [address] [place] [address] 7 [place] [address] Care Team Providers Care Production Reproduction Manager Name Role Phone Name, Mulugeta HUANG Primary Care Provider [phone] Reason for Visit * Reason Onset Date Comments lab request 05/08/2022 Encounter Details Date Type Department Care Team ([facility] st Contact Info) Description 05/08/[address] [facility] [address] [place] [address] Name, MD Mulugeta [address] [place] [address] lab request Social History Tobacco Use Types [...] before going for her heart study at [facility] on 04/24/22. Please call pt to clarify . documented in this encounter Plan of Treatment Upcoming Encounters Date Type Department Care Team (Late st Contact Info) Description 03/08/2025 11:15 AM EST Office Visit [facility] [address] [place] [address] Name, MD Mulugeta [address] [place] [phone] documented as of this encounter Visit Diagnoses Not on filedocumented in this encounter Care Teams Production Reproduction Manager Relationship Specialty Start Date End Date NameMulugeta MD [address] [place] [phone] PCP - General Family Medicine 06/06/15 documented as of this encounter
--- OUTSIDE RECORDS SUMMARY | 2025-02-01 16:26 | XMS_ITS | Clinical Summary ---
Author Organization [employer] Address [address] [facility] 7t [place] [address] Care Team Providers Care Molder Wax Ball Name Role Phone Name, Mulugeta HUANG Primary Care Provider [phone] Allergies Active Allergy Reactions Criticality Noted Date [...] 07/01/2024 Overview (10/25/2024): Negative work up with [facility] cardi including Holter, ECHO and nuclear stress [...] Overview (05/23/2022): 7 grade education in [place] Does not know how to read or write [place] Epigastric pain 04/09/2022 H. pylori infection 04/09/2022 [...] Description 01/12/2025 9:00 AM EST Office Visit [facility] [address] [place] [address] Blanka Wood, OD Presbyopia of both eyes (Primary Dx) 01/12/2025 Travel 01/06/2025 Refill [facility] [address] [place], [place] [phone] Mulugeta Peralta MD Back muscle spasm 12/17/2024 Telephone [facility] [address] [place] [address] Niall Hogan MA nov recalls 11/12/2024 Telephone [facility] [address] [place] [address] Mulugeta Peralta MD Lab Orders 11/11/2024 Telephone [facility] [address] [place] [address] Mulugeta Peralta MD Results 11/08/2024 Orders Only GENERIC EXTERNAL DATA DEPARTMENT Provider, Generic External Data 11/04/2024 Telephone [facility] [address] [place] [address] Mulugeta Peralta MD [facility] (I called [...] her to return my call at ext [phone], if she has any questions.) 11/04/2024 Telephone [facility] [address] [place] [address] Monalisa Currie, LOUISA from Last 3 Months Immunizations Immunization Administration [...] Description 03/08/2025 11:15 AM EST Office Visit [facility] [address] [place] [address] Name, MD Mulugeta [address] [place] [address] Health Maintenance Due Date Last Done Comments [...] Results * T-SPOT??.TB (11/08/2024 10:19 AM EDT) T Spot [facility] Negative Negative [facility] Negative Control Passed [facility] Positive Control Passed [facility] Comment:For additional infor kelvin, please refer tohttp://education.[employer]/faq/ONN628(This link is being provided for informational/educational purposes only.)THIS TEST WAS PERFORMED AT:[employer] [id number] [place] [address]TWPVANW Vita JEAN MD,PHD 11/08/2024 10:1 9 AM EDT 11/08/2024 11:16 AM EDT us Mulugeta Peralta MD LAB BLOOD ORDERABLES Final Resul t Performing Organization Address [facility] Co de Phone Number [facility] [address] [place] [phone] * Hepatic Function Panel (11/08/2024 10:19 [...] ORDERAB LES Final Result Performing Organization Address [facility] Co de Phone Number [facility] [address] [place] [phone] * (ABNORMAL) Lipid Panel, Standard (11/08/2024 10:19 AM EDT) Triglycerides 200(H) <150 mg/dL [facility] Comment:Desirable Triglyceri de: less [...] 190 mg/dL HDL Cholesterol 37(L) >40 mg/dL [facility] Comment:Desirable HDL: great er than 40 mg/dL Note: This HDL assay may give artificially low results in patients with liver disease. 11/08/2024 10:1 9 AM EDT 11/08/2024 11:21 AM EDT us Generic External Data Provider LAB BLOOD ORDERAB LES Final Result [facility] [address] [place] [phone] * (ABNORMAL) Basic Metabolic Panel (11/08/2024 [...] Kidney Disea se: Estimated GFR < 60 mL/min/1.00v3Lawxbb Kidney Disease: Estimated GFR < 15 mL/min/1.73m2 Glucose 165(H) 60 - 115 mg/dL [facility] Calcium 9.3 8.4 - 10.2 mg/dL [facility] 11/08/2024 10:1 9 AM EDT 11/08/2024 11:21 AM EDT us Generic External Data Provider LAB BLOOD ORDERAB LES Final Result [facility] [address] [place] [phone] * BI US Breast Limited Bilateral (10/08/2024 9:00 AM EDT) Anatomical Region Laterality Modality Breast Bilateral Ultrasound 10/08/2024 9:00 AM EDT Narrative 10/08/2024 9:22 AM EDT [facility] [address] [place] [address] Ultrasound Report Signed Patient: Ivory Daniel I MR#: [id number] 98 : 1980 Acct:[id number] Age/Sex: 44 / F ADM Date: 10/08/24 Loc: HO.MAMMO Attending Dr: Claire Boucher DO Ordering Physician: Claire Boucher DO Date of Service: 10/08/24 Procedure(s): US breast BI limited mamm only Accession Number(s): [id number] cc: Claire Boucher DO EXAMINATION: 1. MM [...] OV> 10/08/24918 DD/ 09 TD/TT: 10/08/24 0915 Men'S Garment Fitter: Procedure Note Donotuseinterpreter, Image - 10/08/2024 [facility] [address] [place] [address] Ultrasound Report Signed Patient: Ivory Daniel [facility]#: [id number] 98 : 1980Acct:[id number] Age/Sex: 44 / FADM Date: 10/08/24 Loc: HO.MAMMO Attending Dr: Claire Boucher DO Ordering Physician: Claire Boucher DO Date of Service: 10/08/24 Procedure(s): US breast BI limited mamm only Accession Number(s): [id number] cc: Claire Boucher EXAMINATION: 1. MM DIAGNOSTIC DIGITAL BREAST TOMOSYNTHESIS, [...] OV> 10/08/24918 DD/ 09 TD/TT: 10/08/24 0915 Men'S Garment Fitter: Claire Boucher DO IMG US PROCEDURES Final [...] Hepatitis C Antibody NON-REACT KELLY NON-REACT KELLY [facility] Index 0.09 <1.00 [facility] Comment: HCV antibody was non-reactive. There is no laboratory evidence of HCV infection. In most cases, no further action is required. However, if recent HCV exposure is suspected, a test for HCV RNA (test code 33196) is suggested. For additional information please refer to http://education.[employer]/faq/NXQ65y2 (This link is being provided for informational/ educational purposes only.) Blood Venous blood specimen / Unknown 06/03/2022 10:57 AM EDT 06/03/2022 10:58 AM EDT Narrative [facility] - 06/04/2022 8:43 PM EDT FASTING:NO FASTING: NO Candice Morrell CNM LAB BLOOD ORDERABLES Nani sanders Result [facility] [address], [place] [address] [employer] [place] [email or web address] [address] [place] [phone] * HIV-1/2 Antigen and Antibodies, Fourth Generation, with Reflexes (06/03/2022 10:57 AM EDT) HIV Antigen/Antibody, 4th Generation NON-REAC TIVE NON-REAC TIVE [facility] Comment: HIV-1 antigen and HIV-1/HIV-2 antibodies [...] purpose. For additional information please refer to http://education.[employer]/faq/LOV333 (This link is being provided for informational/ educational purposes only.) The performance of this assay has not been clinically validated in patients less than 2 years old. Blood Venous blood specimen / Unknown 06/03/2022 10:57 AM EDT 06/03/2022 10:58 AM EDT Narrative [facility] - 06/04/2022 8:43 PM EDT FASTING:NO FASTING: NO Candice Morrell [facility] LAB BLOOD ORDERABLES Nani l Result [facility] [address] [place] [address] [employer] [facility] [address] [place] [address] * Image-Guided Pap with Age-Based Screening??with CT/NG,??Trichomonas (06/03/2022 10:47 AM EDT) Comment [employer] [employer] [facility] Comment: This order for age-based cervical cancer and STI screening follows ACOG guidelines(PB 168, 140, HJT579). See individual assays for performing site location. Clinical Information: Routine exam [employer] [facility] LMP: NONE GIVEN [facility] [facility] Prev. PAP: NONE GIVEN [facility] Prev. BX: NONE GIVEN [employer] [place] [employer] [facility] SOURCE: None given [employer] [place] [employer] Statement Of Adequacy: [employer] [place] [email or web address] Comment: Satisfactory for evaluation. Endocervical/transformation zone component present. Interpretation/Re sult: Negative for intraepithelial lesion or malignancy. [employer] [place] [employer] Comment: This Pap test has been evaluated with computer assisted technology. [employer] [place] [email or web address] Top Closer: [facility] [employer] [place] [email or web address] Comment: WAC, CT(ASCP) CT screening location: [address] [address] (Always Message) [employer] Comment: EXPLANATORY NOTE: The Pap is a [...] HPV nRNA E6/E7 Not Detected Not Detected [facility] Comment: Methodology: Gym Manager-Mediated Amplification This assay detects E6/E7 viral messenger RNA (mRNA) from 14 high-risk HPV types (16,18,31,33,35,39,45,51,52,56,58,59,66,68). Cervical sources are required for HPV testing. If a vaginal source from a patient who has had a total hysterectomy with removal of cervix was submitted, please contact the testing laboratory for alternative testing options. For additional information, please refer to http://education.[employer]/faq/JKX237q0 (This link if provided for information/ educational purposes only.) Chlamydia trachomatis RNA, TMA, Urogenital NOT DETECTED NOT DETECTED [employer] [facility] Neisseria gonorrhoeae RNA, TMA, Urogenital NOT DETECTED NOT DETECTED [employer] Comment [facility] Comment: The analytical performance characteristics of this assay, when used to test SurePath(TM) specimens have been determined by [employer]. The modifications have not been cleared or approved by the FDA. This assay has been validated pursuant to the CLIA regulations and is used for clinical purposes. For additional information, please refer to https://SafariDesk.[employer]/faq/JLQ123 (This link is being provided for information/ educational purposes only.) Trichomonas vaginalis, QL, TMA, PAP Vial NOT DETECTED NOT DETECTED [facility] Comment: The analytical performance characteristics of this assay have been determined by [employer]. The modifications have not been cleared or approved by the FDA. This assay has been validated pursuant to the CLIA regulations and is used for clinical purposes. For additional information, please refer to http://S[employer]k.[employer]/ faq/Trichomonastma (This link is being provided for information/ educational purposes only.) Cytology specimen container (physical object) 06/03/2022 10:47 AM EDT 06/04/2022 5:15 AM EDT Candice Morrell [facility] LAB CYTOLOGY ORDERABLES F inal Result [facility] [address] [place] [address] [employer] [place] [employer] [address] [place] [address] from Last 3 Months or Most Recently Relevant to Health Maintenance Insurance [facility] ONE CARE < 65 [place] [id number] * Guarantor: Ivory Daniel I Account Type Relation to Patient Date of Phone Billing Address Personal/Family Self 1980 [address] [facility] [address] [place] [address] Care Teams Molder Wax Ball Relationship Specialty Start Date End Date Name, MD Mulugeta [address] [place] [address] PCP - General Family Medicine 06/06/15
--- OUTSIDE RECORDS SUMMARY | 2025-02-01 16:26 | XMS_ITS | Encounter Summary ---
Author Organization [employer] Address [address] [place] [address] [address] [place] [address] Care Team Providers Care Ceramic Products Sales Engineer Name Role Phone Name, Mulugeta HUANG Primary Care Provider [phone] Reason for Visit * Reason Onset Date Comments Appointment Request 05/09/2022 Encounter Details Date Type Department Care Team ([facility] Contact Info) Description 05/09/2022 Telephone [facility] [address] [place], [place] [phone] Name, MD Mulugeta [address] [place] [address] Appointment Request Social History Tobacco Use Types [...] 1 WEEK prior to heart study at [facility]. date 05/22 ) Please contact pt at [phone] documented in this encounter Plan of Treatment Upcoming Encounters Date Type Department Care Team (Late st Contact Info) Description 03/08/2025 11:15 AM EST Office Visit [facility] [address] [place] [address] Name, MD Mulugeta [address] [place] [address] documented as of this encounter Visit Diagnoses Not on filedocumented in this encounter Care Teams Ceramic Products Sales Engineer Relationship Specialty Start Date End Date Name, MD Mulugeta [address] [place] [address] PCP - General Family Medicine 06/06/15 documented as of this encounter
--- NOTE | 2025-02-08 10:03 | HO.ANESPROP2 ---
Documented by User: Nazanin Hernández NP 02/08/25 10:09 HPI - Anesthesia Eval Consult details Narrative: 44 yr old female for upper endoscopy, colonoscopy BMI 39 Palpitations & LBBB: Follows [facility], last visit was preop for above, 10/22/24 - Had abnormal EKG back in 2022 and underwent stress test, echo, Holter which were inconclusive and underwent a coronary CTA that was negative. - June 2024 at [facility] ED for EKG changes with a left bundle branch block and chest pain. For the new finding of left bundle branch block and reported symptoms of palpitations, patient underwent myocardial perfusion study, Holter, and echo study. - 10/2024 visit patient reports feeling well overall except ongoing intermittent palpitations but patient also notes that she drinks a lot of caffeine throughout the day. Recent cardiac testin06/15/2024-Holter study showed a normal sinus rhythm at baseline with rare supraventricular ectopies. 06/15/2024-echo study showed a normal LV systolic function with an ejection fraction between 55-60%, with paradoxical septal motion consistent with left bundle branch block. 10/12/2024-patient underwent myocardial perfusion study with the pharmacologic agent that showed likely normal perfusion. Given above findings, no further testing indicated at this time. Advised to reduce her caffeine intake to a cup daily. Advised on stress medication strategies. High Triglycerides: 200 PMFSH Active Problems Active Problems: All Active Problems (Updated 10/20/24 @ 13:33 by Levi Hodge NP) Hypertension (Acute) SOB (shortness of breath) (Acute) Ankle edema, bilateral (Acute) Low-level of literacy (Acute) Prediabetes (Acute) Obesity (Acute) Epigastric pain (Acute) Allergic rhinitis (Acute) Chronic left-sided low back pain with sciatica (Acute) Colon cancer screening (Acute) Change in stool (Acute) Constipation (Acute) Hospital discharge follow-up (Acute) Palpitations (Acute) LBBB (left bundle branch block) (Acute) Excessive daytime sleepiness (Acute) Snoring (Acute) Gallstones (Acute) Abdominal pain (Acute) Abnormal EKG (Acute) Acid reflux (Acute) Past Medical History Medical History Hyperlipidemia Heart palpitations SOB (shortness of breath) Ankle edema, bilateral Low-level of literacy Prediabetes Obesity Epigastric pain Allergic rhinitis Chronic left-sided low back pain with sciatica Colon cancer screening Change in stool Constipation Gallstones Family History Family History Family/Other Cancer Diabetes Surgical History Surgical History History of esophagogastroduodenoscopy (EGD) Hx of colonoscopy H/O section Social History Social History Household Members: Spouse Alcohol intake: never Patient Tobacco Use Status: Never used Tobacco Use of substances other than those prescribed or required for medical reasons: No Are you DNR?: No Advance Directives: No Advance Directives Information Provided: Yes : No Current occupational status: unemployed Meds Allergies Allergy/AdvReac Type Severity Reaction Status Date / Time seafood Allergy Eye Verified 01/25/25 13:47 Swelling Home Medications ?Medication ?Instructions ?Recorded ?Confirmed ?Last Taken ?Type cholecalciferol (vitamin D3) 25 25 mcg PO QAM 07/16/24 01/07/25 Unknown History mcg (1,000 unit) tablet naproxen 500 mg tablet 500 mg PO BID 09/29/24 01/07/25 Unknown History albuterol sulfate 90 mcg/actuation 2 puff inhalation Q4H PRN wheezing 10/20/24 01/07/25 Unknown History aerosol inhaler acetaminophen 650 mg 650 mg PO Q8H 10/22/24 01/07/25 Unknown History tablet,extended release (Pain Relief (acetaminophen)) atorvastatin 10 mg tablet (Lipitor) 10 mg PO BEDTIME 10/22/24 01/07/25 Unknown History diclofenac sodium 1 % topical gel 2 g topical QID PRN pain 10/22/24 01/07/25 Unknown History ibuprofen 800 mg tablet 800 mg PO TID 10/22/24 01/07/25 Unknown History lidocaine 5 % topical patch 1 patch topical DAILY 10/22/24 01/07/25 Unknown History methocarbamol 500 mg tablet 500 mg PO TID 10/22/24 01/07/25 Unknown History Exam Pertinent Lab Results Pertinent Lab Results: Laboratory Tests 07/19/24 11/08/24 09:56 10:19 WBC 7.5 RBC 4.04 L Hgb 11.7 L Hct 35.6 L Plt Count 292 Sodium 141 Potassium 4.2 BUN 17 H Creatinine 0.75 Narrative Narrative: Cardiolite Stress Test 10/12/24 Impression: 1. Myocardial perfusion imaging study shows no clear evidence of ischemia or infarction. Probably normal perfusion. 2. Gated LVEF is 55% during stress and 50% during rest. Correlate with echocardiogram. 3. Transient ischemic dilatation not present. ECHO 06/2024 Conclusions: - Normal study Findings Left Ventricle Normal left ventricular size, thickness, and systolic function. The visually estimated ejection fraction is between 55-60%. There is paradoxical septal motion consistent with a left bundle branch block. Diastolic function is normal for age. 3 day holter 06/2024 Total monitoring time 3 days. Underlying rhythm is sinus with an average rate of 74/Min. Rare supraventricular ectopy. No significant pauses or high-grade AV blocks. No patient markers or diary events. EKG 10/2024 (as reported in 10/2024 cardiology note EKG today showed normal sinus rhythm, rate 64 beats per minute, left bundle branch block, nonspecific T-wave, normal ND, corrected QT Documented by User: Warren Jessica MD 02/10/25 11:30 [facility] Past Medical History Medical History Hyperlipidemia Heart palpitations SOB (shortness of breath) Ankle edema, bilateral Low-level of literacy Prediabetes Obesity Epigastric pain Allergic rhinitis Chronic left-sided low back pain with sciatica Colon cancer screening Change in stool Constipation Gallstones Functional capacity: independent ambulation Family History Family History Family/Other Cancer Diabetes Family history of problems with anesthesia: No Surgical History Surgical History History of esophagogastroduodenoscopy (EGD) Hx of colonoscopy H/O section History of Problems with Anesthesia: No Social History Social History Household Members: Spouse Alcohol intake: never Patient Tobacco Use Status: Never used Tobacco Use of substances other than those prescribed or required for medical reasons: No Are you DNR?: No Advance Directives: No Advance Directives Information Provided: Yes : No Current occupational status: unemployed Meds Allergies Allergy/AdvReac Type Severity Reaction Status Date / Time seafood Allergy Eye Verified 01/25/25 13:47 Swelling Home Medications ?Medication ?Instructions ?Recorded ?Confirmed ?Last Taken ?Type cholecalciferol (vitamin D3) 25 25 mcg PO QAM 07/16/24 01/07/25 Unknown History mcg (1,000 unit) tablet naproxen 500 mg tablet 500 mg PO BID 09/29/24 01/07/25 Unknown History albuterol sulfate 90 mcg/actuation 2 puff inhalation Q4H PRN wheezing 10/20/24 01/07/25 Unknown History aerosol inhaler acetaminophen 650 mg 650 mg PO Q8H 10/22/24 01/07/25 Unknown History tablet,extended release (Pain Relief (acetaminophen)) atorvastatin 10 mg tablet (Lipitor) 10 mg PO BEDTIME 10/22/24 01/07/25 Unknown History diclofenac sodium 1 % topical gel 2 g topical QID PRN pain 10/22/24 01/07/25 Unknown History ibuprofen 800 mg tablet 800 mg PO TID 10/22/24 01/07/25 Unknown History lidocaine 5 % topical patch 1 patch topical DAILY 10/22/24 01/07/25 Unknown History methocarbamol 500 mg tablet 500 mg PO TID 10/22/24 01/07/25 Unknown History Exam Exam Date and Time: 02/10/25 Airway TM Dist: >3cm Loose/Missing/Broken Teeth: Yes Heart: normal Lungs: normal Other: normal Assessment and Plan Assessment Anesthesia Assessment: Anesthesia Plan Discussed and Smoking Cess. Discussed Final Anesthetic Review Family History of Problems with Anesthesia: No History of Problems with Anesthesia: No NPO: Yes ASA Class: II Final Preanesthetic Review: No Changes in Pt Med Stat, Meds/Allgs Chart Reviewed, Consent Obtained/Reviewed and Anes Risks/Benef Reviewed Patient Risk: Low Procedure Risk: Low Anesthetic Plan Anesthetic Plan: MAC: Disposition: Standard PACU
[2025-02-10 10:44] VITALS: BP 123/78; PULSE 71; RESP 16; TEMP 36.2; O2SAT 97; BMI 37.8
[2025-02-10 10:57] LABS: UPreg QC Valid YES
[2025-02-10] MEDS: Lactated Ringers 1,000 ML 100 ML IVCONT (11:18)
--- NOTE | 2025-02-10 11:34 | MHC.SHP ---
Pre-Procedural Eval Section A - 24 Hr Update-Section A only Date of Service: 02/10/25 Section B - Complete if H&P > 30 days Chief Complaint: screening,gerd, Relevant Family History (Specify if Yes): No Relevant Social History: Tobacco Use Present Medications: see Short Stay Collaborative assessment Medical History: Significant History (Hyperlipidemia Heart palpitations SOB (shortness of breath) Ankle edema, bilateral Low-level of literacy Prediabetes Obesity Epigastric pain Allergic rhinitis Chronic left-sided low back pain with sciatica Colon cancer screening Change in stool Constipation Gallstones) History of Previous Operations: Relevant previous surgery/procedure and date(s) ( History of esophagogastroduodenoscopy (EGD) Hx of colonoscopy H/O section) Allergies: Allergies Allergy/AdvReac Type Severity Reaction Status Date / Time seafood Allergy Eye Verified 01/25/25 13:47 Swelling Review of Systems Sugical H&P ROS: Negative: Constitution, Cardiovascular, Respiratory, Neurological, Psychiatric, Hem-Onc, Allergic/Immunologic, Gastrointestinal, Genitourinary, Musculoskeletal, Integumentary, Endocrine and Eyes/Ears/Nose/Throat Exam Surgical H&P Exam: Normal: HEENT, Normal: Heart, Normal: Lungs, Normal: Extremities, Normal: Abdomen, Normal: Skin and Normal: Neurological Plan Diagnosis/Plan: Unchanged I have reviewed the history and physical and performed a pertinent physical examination on my patient. No changes have occurred unless specified. Time Spent With Patient Time: Total time managing care of this patient today ____ minutes.
--- NOTE | 2025-02-10 12:12 | P.OPN-COLO_ITS ---
Colonoscopy Operative Note Operative Note Date of Service: 02/10/25 Narrative: Operative Information Procedure Description: EGD, Colonoscopy Indication: GERD and screening Anesthesia: MAC FLEXIBLE TRANSORAL UPPER GASTROINTESTINAL ENDOSCOPY AND COLONOSCOPY PROCEDURE NOTE UPPER ENDOSCOPY Consent: Indications for the procedure and potential complications of bleeding, perforation, reaction to medications and missed diagnosis were discussed with the patient and informed consent was obtained. Instrument: Olympus GIF H 190 J mid size upper endoscope Monitoring: Vital signs and clinical assessment, continuous EKG monitoring, Pulse oximetry, Carbon Dioxide monitoring and blood pressure monitoring were done throughout the procedure. Procedure: The patient was placed in the left lateral decubitis position and pre-procedure medications were administered and a bite block was placed. The endoscope was inserted into the mouth and advanced under direct vision to the third part of duodenum. A careful inspection was made as the upper endoscope was withdrawn including a retroflexed examination of the proximal stomach; Findings and interventions are described below. Findings: Larynx:normal Esophagus: GE junction at 40 cm, diaphragm hiatus at 40 cm, mild esophagitis at GEJ, bx taken as well as from distal esophagus Stomach: Patchy erythema. Biopsies were obtained. Grade 2 flap valve on retroflexed examination of the cardia. Duodenum: Normal bulb and descending duodenum, Intervention: Biopsies as noted above, COLONOSCOPY Instrument: Olympus variable stiffness pediatric scope 190L Colonoscopy Monitoring: Vital signs and clinical assessment, continuous EKG monitoring, Pulse oximetry, Carbon Dioxide monitoring and blood pressure monitoring were done throughout the procedure. Colon withdrawal time was 8 minutes. Procedure: The patient was placed in the left lateral decubitis position and pre-procedure medications were administered. After a digital rectal examination of the ano-rectum, the video colonoscope was inserted into the rectum and advanced through the colon to the cecum/TI. The colonoscope was slowly withdrawn in a retrograde panoramic fashion and the colon mucosa was carefully examined including a retroflexed view of the rectum. Findings and interventions are described below. Procedure Difficulty:moderate Findings: Terminal Ileum-normal Cecum:normal Ascending Colon: 5-6 mm sessile polyp removed with cold snare, 3-4 mm sessile polyp removed with cold forceps Transverse Colon -normal Descending Colon:normal Sigmoid Colon: normal Rectum: Retroflexion with small internal hemorrhoids, grade I Anorectum - normal Colon preparation: [place] Bowel Preparation Scale Right colon; 2 Transverse colon: 2 Left colon; 2 (0 = Unprepared colon segment with mucosa not seen due to solid stool that cannot be cleared. 1 = Portion of mucosa of the colon segment seen, but other areas of the colon segment not well seen due to staining, residual stool and/or opaque liquid. 2 = Minor amount of residual staining, small fragments of stool and/or opaque liquid, but mucosa of colon segment seen well. 3 = Entire mucosa of colon segment seen well with no residual staining, small fragments of stool or opaque liquid) Impression and Post Procedure Diagnosis: Endoscopy Findings: esophagitis gastritis Colonoscopy Findings: colon polyps internal hemorrhoids Plan: Await Pathology results Repeat Colonoscopy in 5 years due to polyps or earlier if clinically indicated High fiber diet leaflet avoid straining at stool, epsom salts and sitz bath, anusol supps or cream if h pylori pos then treat Above findings were reviewed with the patient and relevant handouts were provided if indicated.
[2025-02-10 12:18] VITALS: BP 141/71; PULSE 75; RESP 16; TEMP 36.4; O2SAT 97
[2025-02-10 12:33] VITALS: BP 130/68; PULSE 61; RESP 10; O2SAT 98
[2025-02-10 12:48] VITALS: BP 130/70; PULSE 71; RESP 14; TEMP 36.4; O2SAT 99
== END 2025-02-10 13:37 | disposition home or self-care (01) ==
PROVIDERS: Nurse Practitioner; PCP Family Medicine; Visit Provider Internal Medicine Gastroenterology
PROC: (CPT 45380; principal; 2025-02-10 13:10)
DX: Z12.11 Encounter for screening for malignant neoplasm of colon (principal); R10.9 Unspecified abdominal pain; K64.0 First degree hemorrhoids; K22.81 Esophageal polyp; K21.00 Gastro-esophageal reflux disease with esophagitis, without bleeding; D12.2 Benign neoplasm of ascending colon; K29.70 Gastritis, unspecified, without bleeding
CPT/HCPCS: 45380; 45385; 43239; 81025; 88305; 88313; 88342; J2003; J2704

== ENCOUNTER → 2025-02-10 09:34 | Outpatient (BNV) | payer OTHER, SELFPAY | PROVIDERS: PCP Family Medicine; Visit Provider Internal Medicine Gastroenterology | DX: Z12.11 Encounter for screening for malignant neoplasm of colon (principal); K63.5 Polyp of colon; K64.0 First degree hemorrhoids; K21.00 Gastro-esophageal reflux disease with esophagitis, without bleeding | CPT/HCPCS: 43239; 45385 ==